=== PATIENT | female | born 1940 | race Caucasian/White ===

== ENCOUNTER → 2018-06-23 12:02 | Outpatient (REF) | payer MEDICARE, SELFPAY | LOC: NCHCN 12:02 | PROVIDERS: PCP Family Medicine; Visit Provider Family Medicine | DX: E83.42 Hypomagnesemia (principal) | CPT/HCPCS: 83735 ==

== ENCOUNTER 2019-06-02 09:06 | Outpatient (REF) | payer MEDICARE, SELFPAY ==
[2019-06-02 13:39] LABS: Anion Gap 10.2 mmol/L (3-11); BUN 9 mg/dL (7-18); CO2 27.8 mmol/L (21.0-32.0); CREATININE 0.65 mg/dL (0.55-1.02); Calcium 9.3 mg/dL (8.5-10.1); Chloride 99 mmol/L (98-107); Glucose 197 mg/dL (70-100); Potassium 4.3 mmol/L (3.5-5.1); Sodium 137 mmol/L (136-145)
== END 2019-06-02 09:26 ==
LOC: NCHCN 09:06
PROVIDERS: PCP Family Medicine; Visit Provider Family Medicine
DX: E11.9 Type 2 diabetes mellitus without complications (principal); Z79.4 Long term (current) use of insulin; I10 Essential (primary) hypertension; J30.9 Allergic rhinitis, unspecified
CPT/HCPCS: 80048

== ENCOUNTER 2019-10-20 08:32 | Outpatient (CLI) | payer MEDICARE, SELFPAY ==
--- NOTE | 2019-10-20 09:04 | DI.RAD_ITS ---
EXAM: XR CHEST 2V PA LATERAL INDICATION: CHRONIC COUGH, R05. COMPARISON: No exams were available for comparison TECHNIQUE: 2D digital imaging was performed. FINDINGS: The heart is enlarged. There is prominence of the pulmonary vasculature. There are increased inters titial markings throughout the lungs. No focal consolidating infiltrate is present. There is a smal l amount of fluid seen in the fissures. The lungs appear hyperinflated suggesting underlying COPD. Degenerative changes are seen in the spine. IMPRESSION: Findings suspicious for congestive heart failure.
== END 2019-10-20 08:52 ==
PROVIDERS: PCP Family Medicine; Visit Provider Family Medicine
DX: R05 Cough (principal); I51.7 Cardiomegaly; J44.9 Chronic obstructive pulmonary disease, unspecified
CPT/HCPCS: 71046

== ENCOUNTER 2019-11-10 02:55 | Outpatient (CLI) | payer MEDICARE, SELFPAY ==
--- NOTE | 2019-11-10 14:02 | DI.US_ITS ---
APPROVED REPORT EXAM: Comprehensive 2D, Doppler, and color-flow Echocardiogram Patient Location: Out-Patient Internal Review And Audit Compliance: Zenobia Gallo RDCS (AE) Rhythm: Tachycardia Indications: pulmonary edema j81.1, 79 yo w/ dm, HTN, no known H/O CAD, chronic cough, xray showing pulmonary edema Conclusion Mildly dilated LV Severely depressed LV systolic function, EF 15 to 20% Global hypo to akinesis Right ventricle is dilated and hypocontractile Both atria are borderline to mildly dilated Aortic valve is mildly sclerotic with trace regurgitation Thickened mitral leaflets Mild to moderate mitral and tricuspid regurgitaiton, Moderate pulmonary hypertension; estimated RVSP 54 mmg Mild pulmonic regurgitation Small circumferential pericardial effusion No tamponade . Left pleural effusion Wall motion Left Ventricle Left ventricle is mildly dilated. Left ventricular ejection fraction is severely decreased. Mild conc entric left ventricular hypertrophy. Severe global hypo to akinesis elevated filling pressures. LVEF is estimated to be 15-20%. Right Ventricle Right ventricle is mildly dilated. Right ventricle is moderately hypokinetic. Base appears to thicken . Atria Left atrium is mildly dilated. The right atrium size is top normal. Right atrium size is normal. Aortic Valve Aortic valve is trileaflet.It is mildly sclerotic There is no aortic valvular stenosis. Trace aortic regurgitation Mitral Valve Mitral valve leaflets are thickened. Mild to moderate mitral regurgitation. Tricuspid Valve The tricuspid valve is thickened mild to moderate tricuspid regurgitation. Pulmonic Valve mild pulmonic regurgitation. Great Vessels The aortic root is normal in size. The ascending aorta is normal in size. The IVC is dilated. The IVC collapses bluntly at best. Pericardium There is a circumfrencial pericardial effusion. anterior 1.3cm posterior 1.04cm A small left pleural effusion was identified. 2D Dimensions IVSd 1.25 cm F: 0.6-1.0 LV EDV A2C 122.50 mL PWd 1.20 cm F: 0.6 - 1.0 LV EDV A4C 80.90 mL LVDd 6.10 cm F: 3.8 - 5.2 LA Volume Index A2C 43.11 mL/m2 LVDs 5.65 cm F: 2.2 - 3.5 LA Volume Index A4C 39.54 mL/m2 Aortic Root 3.15 cm F: 2.7 - 3.3 LA Volume Index Biplane 41.71 mL/m2 RA Area A4C 19.20 cm2 LA Area A4C 20.41 cm2 LVOT 2.05 cm (M/F) 1.5-2.5 LA Area A2C 21.53 cm2 Ascending Aorta 2.94 cm F: 2.3 - 3.1 EF AP4 20.40 % LVEF (Teich) 16.31 % EF AP2 18.69 % LVEF (Bergman's) 17.03 % F: 54 - 74 EF BP 17.03 % LV Volume 79.11 mL F: 46 - 106 LV Volume Index 46.26 mL/m2 F: 29 - 61 FS 7.45 % LV Diastology E/A Ratio 1.3 MED E' 0.03 (>0.07 m/s) LV E/e MED 25.55 (<14) LAT E' 0.06 (>0.1 m/s) LV E/e LAT 15.90 (<14) Aortic Valve LVOT Area 3.36 cm2 LVOT Vmax 0.61 m/s LVOT Mean Antonio. 0.43 m/s LVOT Peak Gr. 1.5 mmHg LVOT Mean Gr. 0.8 mmHg AoV Area/ BSA (Vmax) 1.30 cm2/m2 LVOT VTI 0.067 m AoV Vmax 0.92 (0.5-1.3 m/s) TEJA Mean Antonio. Index 1.18 cm2/m2 AoV Mean Antonio. 0.71 m/s AoV Peak Grad 3.4 mmHg AI PHT 167.54 msec AoV Mean Grad 2.2 (<5 mmHg) AoV VTI 0.157 (0.18-0.25 m) AV Regurg Decel. 577.74 msec AoV Area VTI 1.96 (2.5-4.5 cm2) AoV Area/ BSA (VTI) 1.14 cm/m2 Mitral Valve MV E Max Antonio. 0.88 (0.4-1.3 m/s) MV A Velocity 0.70 (0.4-1.3 m/s) E/A Ratio 1.18 MV Decel. Time 135.50 (160-240 msec) MV PHT 39.30 msec MVA PHT 5.55 cm2 Pulmonary Valve PV Peak Velocity 0.79 (0.5-1.5 m/s) [place] End VMAX 185.78 cm/s Tricuspid Valve TR P. Velocity 3.30 m/s TV Regurg Vmax 3.30 m/s RAP Estimate 10.00 mmHg RVSP 54.00 mmHg TR P. Gradient 43.55 mmHg
== END 2019-11-10 03:15 ==
PROVIDERS: PCP Family Medicine; Visit Provider Family Medicine
DX: I31.3 Pericardial effusion (noninflammatory) (principal); I50.1 Left ventricular failure, unspecified; I27.20 Pulmonary hypertension, unspecified; I10 Essential (primary) hypertension
CPT/HCPCS: 93306

== ENCOUNTER 2019-11-10 15:24 | Emergency (ER) | payer MEDICARE, SELFPAY ==
[2019-11-10] VITALS (18 sets, daily range): BP systolic 119–130; BP diastolic 61–101; PULSE 76–121; RESP 16–32; TEMP 36.7–36.9; O2SAT 93–98
--- NOTE | 2019-11-10 15:31 | W.ED.GENAD ---
Discharge Plan Disposition Patient Disposition: HOME Condition: Improving Discharge Details Chief Complaint: SOB Clinical Impression: Acute exacerbation of CHF (congestive heart failure), Chronic cough Primary Care Provider: Christ Saldivar ED Provider: Kirti Faulkner Home Meds and New Rx's Prescriptions: Continued amlodipine 5 mg Tablet 5 mg PO DAILY RF: 0 aspirin [Aspir-81] 81 mg Tablet,Delayed Release (Dr/Ec) 81 mg PO DAILY RF: 0 metformin 1,000 mg Tablet 1,000 mg PO BID RF: 0 Levemir FlexTouch U-100 Insuln 100 unit/mL (3 mL) Insulin Pen 34 unit SUBCUT QHS RF: 0 hydrochlorothiazide 12.5 mg Tablet 12.5 mg PO QAM RF: 0 furosemide [Lasix] 20 mg Tablet 40 mg PO DAILY AM RF: 0 Discontinued furosemide 20 mg Tablet 20 mg PO DAILY RF: 0 Discharge Instructions Instructions: Heart Failure (ED), Chronic Cough (ED) Additional Instructions: Increase your Lasix from 20 mg (1 tab) to 40mg (2 tabs) starting tomorrow. Use the inhaler to help with cough and shortness of breath as needed and directed. Limit your sodium intake. Be sure to stand up slowly before starting to walk as this increase in lasix can lower your blood pressure and standing too quickly can cause dizziness and increase risk of falls. Call your primary care doctor's office as soon as possible to schedule a follow-up appointment for later this week for reevaluation. We will also have care management help to obtain this appointment for you and you should receive a call from them this week. Return immediately to the emergency department if you develop any worsening or new concerning symptoms. Discharge Data Discharge Date/Time-TO BE ENTERED AT DEPARTURE: 11/10/19 18:22 Discharge Physician: Kirti Faulkner Medical Decision Making 1540 -- 79yo F w/ a h/o diabetes, htn, chf on lasix who presents with dry cough and dyspnea on exertion for the past 2 months. Patient states she is seen her primary care doctor for this recently but was unsure of the diagnosis but was prescribed Lasix and sent for outpatient chest x-ray and echo. She states she had the echo at the hospital here today. She states she has had ongoing shortness of breath that mainly occurs with exertion but also because time at rest the past 2 months. She denies fever, sore throat, chest pain, vomiting or dizziness. EKG on arrival notes a rate of 104, sinus with no acute ST ischemic changes. Heart rate mildly elevated at 104. Blood pressure within normal limits. Patient appears nontoxic. She has diminished breath sounds throughout but worse in the bases bilaterally. She is 1+ pitting lower extremity edema. Main concern would be acute CHF exacerbation at this time. Differential diagnosis could also include bronchitis, ACS, pneumonia, arrhythmia. Will place an IV, bolus IV fluids, labs, chest x-ray. We will give a dose of Lasix and DuoNeb and reassess. 1640 --labs and imaging reviewed. Normal white blood cell count. Hemoglobin 11, down 2 points from almost 3 years ago. Magnesium 1.4. Troponin negative. BNP 5529. Chest x-ray notes cardiomegaly and mild interstitial pulmonary edema. Able to obtain report of echo today - small to moderate circumferential (around R ventricle) pericardial effusion but no evidence of pericardial tamponade. Left ventricle moderately dilated. Global left ventricular systolic function severely reduced with an EF of 17%. Right ventricular global systolic function severely reduced. Evidence of moderate pulmonary hypertension. Patient states she feels better. Breath sounds significantly improved. Oxygen saturation 95% on room air. Patient still complain of cough. She denied any relief with Tessalon Perltom from Dr. Saldivar. She has an allergy to codeine which causes dizziness. Will give another neb treatment and reassess. Discussed with patient her results and that we could consider admission for diuresis but patient states she would like to go home. Will attempt to walk pt to assess respiratory status with ambulation. 1720 -- Pt able to ambulate with some increase in heart rate from low 100s to 110s but with stable oxygen at 96%. Patient denied any shortness of breath. Patient again offered admission for observation overnight and diuresis but she declined stating she would rather go home to be with her animals. She has family that live right near her and states she feels comfortable reaching out to them if needed. Will increase lasix from 20mg daily to 40 mg daily with plan for follow-up with her PCP within the next week for reevaluation. We will also send home with an albuterol inhaler to help with her cough. Discussed at length with patient that there does not appear to be evidence of pneumonia as she has no fever and normal white blood cell count so do not see an indication for antibiotics. Also discussed that she has no wheezing, no history of smoking, do not see indication for steroids especially in the setting of her diabetes which may increase her blood sugar. Patient placed on care management list to arrange for a follow-up appointment with her primary care doctor later this week for reevaluation. Patient advised to return here immediately with any worsening or new concerning symptoms. Medical Records Medical records reviewed: Yes I reviewed the patient's medical records. Imaging Data Radiologic Study: Radiologist's impression: XR Chest, 2 Views Exam date and time: 11/10/2019 4:23 PM Age: 79 years old Clinical indication: Other: Cough, SOB, R/O chf/pneumonia TECHNIQUE: Imaging protocol: XR of the chest Views: 2 views. COMPARISON: CR XR CHEST 2V PA LATERAL 10/20/2019 9:04 AM FINDINGS: Lungs: There are slightly increased interstitial lung markings bilaterally, concerning for mild interstitial pulmonary edema. No focal consolidation. Pleural space: Unremarkable. No pleural effusion. No pneumothorax. Heart/Mediastinum: Cardiomegaly again noted. Bones/joints: Unremarkable. IMPRESSION: Cardiomegaly with findings concerning for mild interstitial pulmonary edema. Lab Data Lab results reviewed: Yes I reviewed the patient's lab results. Labs: Laboratory Tests Range/Units 11/10/19 11/10/19 11/10/19 15:50 15:50 15:50 WBC (4.4-10.8) k/cumm 9.73 RBC (4.00-5.20) m/cumm 4.71 Hgb (12.0-15.5) g/dL 11.1 L Hct (36.0-46.0) % 34.9 L MCV (80-95) fL 74.1 L MCH (27.0-33.0) pg 23.6 L MCHC (32.0-36.0) g/dL 31.8 L RDW (11.7-14.6) % 17.6 H Plt Count (130-400) x1000/uL 536 H MPV (8.0-11.0) fL 9.3 Immature Gran % 0.3 Neutrophils % 74.7 Lymphocytes % 16.3 Monocytes % 7.2 Eosinophils % 0.9 Basophils % 0.6 Absolute Neutrophils (1.2-6.7) k/cumm 7.26 H Absolute Lymphocytes (1.2-3.4) k/cumm 1.59 Absolute Monocytes (0.11-0.7) k/cumm 0.70 Absolute Eosinophils (0.0-0.7) k/cumm 0.09 Absolute Basophils (0.0-0.2) k/cumm 0.06 Differential Comment Rbc morph reviewed RBC Morphology See below Microcytosis 2+ Sodium (136-145) mmol/L 137 Potassium (3.5-5.1) mmol/L 4.0 Chloride (98-107) mmol/L 95 L Carbon Dioxide (21.0-32.0) mmol/L 29.4 Anion Gap (3-11) mmol/L 12.6 H BUN (7-18) mg/dL 7 Creatinine (0.55-1.02) mg/dL 0.65 Estimated GFR/1.73 m2 (mL/min/1.73m2) >= 60.00 Glucose (74-106) mg/dL 153 H Calcium (8.5-10.1) mg/dL 9.2 Magnesium (1.8-2.4) mg/dL 1.4 L Total Bilirubin (0.2-1.0) mg/dL 1.0 AST (15-37) U/L 39 H ALT (14-59) U/L 41 Alkaline Phosphatase (46-116) U/L 94 Troponin I (<0.06) ng/Ml < 0.05 NT-Pro-B Natriuret Pep (<300) pg/mL 5529 Total Protein (6.4-8.2) g/dL 7.6 Albumin (3.4-5.0) g/dL 3.5 ECG Data Attestation: I personally reviewed and interpreted this ECG (s) as follows: Interpretation: rate of 104, sinus, TWI in aVL and V6. No acute ST elevation or depression. IL 150. QTc 476. QRS 106. HPI General Mode of arrival: ambulatory. Date/Time Provider Initiated Documentation: 11/10/19 15:27. Limitations to Documentation: no limitations. Information obtained by: patient. History of Present Illness 79 year old F presents to the emergency department with the chief complaint of cough and shortness of breath, Patient started experiencing this month(s) (2) and it has been constant. Rest improves symptom(s), Movement worsens symptoms and Other factors that worsen symptoms (laying flat, walking ) . Patient notes cough and shortness of breath; denies diaphoresis, fever/chills, headaches, loss of appetite, malaise, nausea/vomiting, rash, seizure, syncope and weakness. Patient did receive the following treatments prior to arrival, none Related Data Home Medications Medication Instructions Recorded Confirmed Levemir FlexTouch U-100 Insuln 34 unit SUBCUT QHS 11/10/19 11/10/19 amlodipine 5 mg PO DAILY 11/10/19 11/10/19 aspirin [Aspir-81] 81 mg PO DAILY 11/10/19 11/10/19 furosemide [Lasix] 40 mg PO DAILY AM 11/10/19 11/10/19 hydrochlorothiazide 12.5 mg PO QAM 11/10/19 11/10/19 metformin 1,000 mg PO BID 11/10/19 11/10/19 Allergies Allergy/AdvReac Type Severity Reaction Status Date / Time codeine Allergy Unverified 11/10/19 15:34 Review of Systems All systems reviewed & are unremarkable except as noted in HPI and below Constitutional Constitutional: Reports as per HPI, Denies chills and Denies fever(s) Eyes Eyes: Denies blurry vision ENT Ears, Nose, Mouth, and Throat: Denies dizziness, Denies sore throat and Denies throat swelling Cardiovascular Cardiovascular: Denies chest pain and Reports dyspnea Respiratory Respiratory: Reports cough and Reports dyspnea Gastrointestinal Gastrointestinal: Denies abdominal pain, Denies diarrhea and Denies vomiting Genitourinary Genitourinary: Denies hematuria and Denies dysuria Musculoskeletal Musculoskeletal: Denies back pain and Denies numbness Integumentary/Breasts Skin/Breast: Denies lesions and Denies rash Neurologic Neurologic: Denies dizziness, Denies focal weakness and Denies numbness Allergic/Immunologic Allergic/Immunologic: Denies throat swelling [facility] Medical History CHF (congestive heart failure) (Chronic) Diabetes (Chronic) HTN (hypertension) (Chronic) Surgical History History of hysterectomy (Chronic) Social History Smoking/Tobacco Use Status: Never Alcohol Intake: never Substance use type: does not use Exam Const General: cooperative and no acute distress HENMT Head: normal to inspection Face and sinus: normal facial exam Eyes General: appearance normal, both eyes and all related structures EOM: EOM intact bilaterally Neck Neck: normal visual inspection and No submandibular swelling Lymphatic: no lymphadenopathy noted Chest Chest: normal inspection of the chest and no tenderness Resp Effort & Inspection: normal respiratory effort and able to speak in complete sentences Auscultation: diminished lung sounds bilaterally throughout (worse in bases b/l ) Cardio Rate: tachycardic Rhythm: regular rhythm GI Inspection: normal to inspection Palpation: soft, not firm, not rigid and nontender Auscultation: normal bowel sounds Skin General skin exam: no rashes or lesions noted Neuro General: alert, awake and oriented x3 Cognition: normal cognition Speech: speech normal Motor: muscle tone normal throughout Sensory Exam: no sensory deficits noted Extrem General: normal to inspection, full ROM, normal capillary refill, no calf tenderness bilaterally and edema Laterality: bilateral (2+ pitting) Psych Appearance: grossly normal Mental Status: mental status grossly normal Speech and Movement: speech and movement normal Affect: normal affect
[2019-11-10] MEDS: Albuterol/Ipratropium 3 ML UPD VIAL UPD ×2 (15:55→17:02)
[2019-11-10] MEDS: Furosemide 40 MG/4 ML VIAL IVP (15:55)
[2019-11-10 16:00] LABS: Abs Immature Grans 0.03 k/cumm (0.0-0.09); Absolute Basophil Count 0.06 k/cumm (0.0-0.2); Absolute Eosinophil Count 0.09 k/cumm (0.0-0.7); Absolute Lymphocyte Count 1.59 k/cumm (1.2-3.4); Absolute Neutrophil Count 7.26 k/cumm (1.2-6.7); Basophils % 0.6; Eosinophils % 0.9; HCT 34.9 % (36.0-46.0); HGB 11.1 g/dL (12.0-15.5); Immature Grans % 0.3; Lymphocytes % 16.3; Mean Corp. HGB Concentration 31.8 g/dL (32.0-36.0); Mean Corpuscular Hemoglobin 23.6 pg (27.0-33.0); Mean Corpuscular Volume 74.1 fL (80-95); Mean Platelet Volume 9.3 fL (8.0-11.0); Monocytes % 7.2; Neutrophils % 74.7; Platelet Count 536 x1000/uL (130-400); RBC 4.71 m/cumm (4.00-5.20); RBC Distribution Width 17.6 % (11.7-14.6); White Blood Cell Count 9.73 k/cumm (4.4-10.8)
--- NOTE | 2019-11-10 16:19 | DI.RAD_ITS ---
EXAM: XR CHEST 2V PA LATERAL INDICATION: cough, sob, r/o chf/pneumonia. COMPARISON: XR CHEST 2V PA LATERAL from 10/20/2019 TECHNIQUE: 2D digital imaging was performed. FINDINGS: There is again seen cardiomegaly. There is atherosclerosis of the thoracic aorta. No focal consolid ating infiltrates are seen. No pleural effusions or pneumothoraces are present. Increased interstit ial lung markings are again noted. Age-appropriate degenerative changes are seen in the spine. Lung s appear hyperinflated suggesting underlying COPD. IMPRESSION: Cardiomegaly. Increased interstitial lung markings concerning for mild pulmonary edema.
[2019-11-10 16:22] LABS: ALT 41 U/L (14-59); AST 39 U/L (15-37); Albumin 3.5 g/dL (3.4-5.0); Anion Gap 12.6 mmol/L (3-11); BUN 7 mg/dL (7-18); CO2 29.4 mmol/L (21.0-32.0); CREATININE 0.65 mg/dL (0.55-1.02); Calcium 9.2 mg/dL (8.5-10.1); Chloride 95 mmol/L (98-107); Glucose 153 mg/dL (74-106); Magnesium 1.4 mg/dL (1.8-2.4); Sodium 137 mmol/L (136-145); Total Protein 7.6 g/dL (6.4-8.2); Troponin I < 0.05 ng/Ml (<0.06)
[2019-11-10 16:28] LABS: Diff Comment RBC Morph Reviewed; Microcytosis 2+
[2019-11-10 16:29] LABS: NT-proBNP 5529 pg/mL (<300)
[2019-11-10 16:36] LABS: Alkaline Phosphatase 94 U/L (46-116)
[2019-11-10] MEDS: MAGNESIUM SULFATE 1 GM/100 ML BAG IVPB (16:49)
--- NOTE | 2019-11-10 17:01 | DI.VRAD_ITS ---
PROCEDURE INFORMATION: Exam: XR Chest, 2 Views Exam date and time: 11/10/2019 4:23 PM Age: 79 years old Clinical indication: Other: Cough, SOB, R/O chf/pneumonia TECHNIQUE: Imaging protocol: XR of the chest Views: 2 views. COMPARISON: CR XR CHEST 2V PA LATERAL 10/20/2019 9:04 AM FINDINGS: Lungs: There are slightly increased interstitial lung markings bilaterally, concerning for mild interstitial pulmonary edema. No focal consolidation. Pleural space: Unremarkable. No pleural effusion. No pneumothorax. Heart/Mediastinum: Cardiomegaly again noted. Bones/joints: Unremarkable. IMPRESSION: Cardiomegaly with findings concerning for mild interstitial pulmonary edema. Dictated and Authenticated by: Xuan Lara MD. Ordering:KAYCE Cotto MD
--- NOTE | 2019-11-10 17:43 | NUR.NOTE ---
Nursing Note: Faxed referral to PCP for follow up this week, or Sat. Jaylin Wilson.
== END 2019-11-10 18:22 | disposition home or self-care (01) ==
PROVIDERS: Emergency Provider Physician Assistant; PCP Family Medicine
DX: I50.9 Heart failure, unspecified (principal); I11.0 Hypertensive heart disease with heart failure; E11.9 Type 2 diabetes mellitus without complications; R05 Cough; R06.02 Shortness of breath; E83.42 Hypomagnesemia
CPT/HCPCS: 36415; 80053; 93005; 94640; 96365; 96375; 99285; 71046; 83735; 83880; 84484; 85025; 93010; 93306; J1940; J3475; J7620

== ENCOUNTER 2019-11-15 17:11 | Emergency (ER) | payer MEDICARE, SELFPAY ==
[2019-11-15 17:21] VITALS: BP 133/70; PULSE 107; RESP 18; TEMP 36.3; O2SAT 97
[2019-11-15 17:46] LABS: Abs Immature Grans 0.05 k/cumm (0.0-0.09); Absolute Basophil Count 0.07 k/cumm (0.0-0.2); Absolute Eosinophil Count 0.13 k/cumm (0.0-0.7); Absolute Monocyte Count 0.72 k/cumm (0.11-0.7); Absolute Neutrophil Count 7.49 k/cumm (1.2-6.7); Basophils % 0.7; Eosinophils % 1.3; HCT 34.3 % (36.0-46.0); HGB 11.1 g/dL (12.0-15.5); Immature Grans % 0.5; Lymphocytes % 16.7; Mean Corp. HGB Concentration 32.4 g/dL (32.0-36.0); Mean Corpuscular Hemoglobin 23.7 pg (27.0-33.0); Mean Corpuscular Volume 73.1 fL (80-95); Mean Platelet Volume 9.2 fL (8.0-11.0); Monocytes % 7.1; Neutrophils % 73.7; Platelet Count 585 x1000/uL (130-400); RBC 4.69 m/cumm (4.00-5.20); RBC Distribution Width 17.2 % (11.7-14.6); White Blood Cell Count 10.16 k/cumm (4.4-10.8)
[2019-11-15 18:30] LABS: ALT 124 U/L (14-59); AST 147 U/L (15-37); Albumin 3.4 g/dL (3.4-5.0); Alkaline Phosphatase 101 U/L (46-116); Anion Gap 12.2 mmol/L (3-11); BUN 12 mg/dL (7-18); Bilirubin, Total 1.1 mg/dL (0.2-1.0); CO2 26.8 mmol/L (21.0-32.0); CREATININE 0.76 mg/dL (0.55-1.02); Calcium 8.9 mg/dL (8.5-10.1); Chloride 89 mmol/L (98-107); Glucose 262 mg/dL (74-106); Magnesium 1.3 mg/dL (1.8-2.4); Potassium 4.1 mmol/L (3.5-5.1); Sodium 128 mmol/L (136-145); Total Protein 7.4 g/dL (6.4-8.2); Troponin I < 0.05 ng/Ml (<0.06)
--- NOTE | 2019-11-15 18:31 | DI.RAD_ITS ---
EXAM: XR CHEST 2V PA LATERAL INDICATION: sob, leg swelling, r/o chf. COMPARISON: XR CHEST 2V PA LATERAL from 11/10/2019 TECHNIQUE: 2D digital imaging was performed. FINDINGS: There is stable cardiomegaly. Persistent prominence of the interstitium and pulmonary vasculature is again noted. No focal consolidating infiltrates or pneumothoraces are identified. Degenerative omar nges are seen in the spine. IMPRESSION: No change in appearance of the chest x-ray since 11/10/2019.
[2019-11-15 18:33] LABS: NT-proBNP 6185 pg/mL (<300)
[2019-11-15 18:38] VITALS: PULSE 104; RESP 18; RESP 7; O2SAT 96
[2019-11-15] MEDS: Albuterol/Ipratropium 3 ML UPD VIAL UPD (18:38)
[2019-11-15] MEDS: predniSONE 20 MG TAB 60 MG PO (18:38)
--- NOTE | 2019-11-15 18:53 | DI.VRAD_ITS ---
PROCEDURE INFORMATION: Exam: XR Chest, 2 Views Exam date and time: 11/15/2019 6:35 PM Age: 79 years old Clinical indication: Cough; Patient HX: SOB, leg swelling, R/O chf TECHNIQUE: Imaging protocol: XR of the chest Views: 2 views. COMPARISON: SD XR CHEST 2V PA LATERAL 11/10/2019 4:19 PM FINDINGS: Lungs: Prominent, indistinct pulmonary vasculature. Hazy right basilar opacity. Pleural space: Small bilateral pleural effusions. Heart/Mediastinum: Unchanged enlarged cardiomediastinal silhouette. Bones/joints: Unremarkable. IMPRESSION: 1. Pulmonary edema. 2. Hazy right basilar opacity consistent with edema, atelectasis, aspiration or infection. 3. Small bilateral pleural effusions. Dictated and Authenticated by: Pola Roche MD. Ordering:KAYCE Cotto MD
[2019-11-15] MEDS: guaiFENesin/CODEINE PHOSPHATE 10 ML CUP PO (18:54)
--- NOTE | 2019-11-15 18:56 | ED.GENADUL_ITS ---
Discharge Plan Disposition Patient Disposition: HOME Condition: Improving Discharge Details Chief Complaint: SOB Clinical Impression: Acute on chronic clinical systolic heart failure, Chronic cough Primary Care Provider: Christ Saldivar ED Provider: Kirti Faulkner Home Meds and New Rx's Prescriptions: New codeine-guaifenesin 10-100 mg/5 mL liquid 10 ml PO Q4H PRN (Reason: cough) Qty: 120 RF: 0 Continued benzonatate 100 mg Capsule 100 mg PO Q8H PRN (Reason: Cough) RF: 0 amlodipine 5 mg Tablet 5 mg PO DAILY RF: 0 aspirin [Aspir-81] 81 mg Tablet,Delayed Release (Dr/Ec) 81 mg PO DAILY RF: 0 metformin 1,000 mg Tablet 1,000 mg PO BID RF: 0 Levemir FlexTouch U-100 Insuln 100 unit/mL (3 mL) Insulin Pen 34 unit SUBCUT QHS RF: 0 hydrochlorothiazide 12.5 mg Tablet 12.5 mg PO QAM RF: 0 furosemide [Lasix] 20 mg Tablet 40 mg PO DAILY AM RF: 0 Discharge Instructions Instructions: Heart Failure (ED), Acute Cough (ED) Additional Instructions: Increase your Lasix from 40 mg to 60 mg tomorrow. Take the Robitussin with codeine as needed and directed. Continue to use your albuterol inhaler. Follow-up with your scheduled appointment with Dr. Saldivar on Saturday. Return to the emergency department if you develop any worsening or new concerning symptoms. Discharge Data Discharge Physician: Kirti Faulkner Medical Decision Making 173 -- 79-year-old female with a history of CHF, diabetes, hypertension presents with chronic cough, dyspnea on exertion for the past 2 months. Also admits to bilateral feet swelling for the past few days. Patient was seen here 5 days ago for same complaint and diagnosed with mild CHF and increased her Lasix from 20 to 40 mg daily. She had been offered admission at that time but declined. She was advised to follow-up with her primary care doctor but has not yet. She mainly complains of cough that is worse when she lays flat. She is afebrile. She appears nontoxic. Clear breath sounds throughout. Bilateral pedal edema. Her allergy list notes reaction to codeine which causes dizziness. Patient states this is in the pill form and she is willing to try Robitussin with codeine to see if this helps her cough. We will also give a neb treatment and steroids. She had an echo last week which noted small to moderate circumferential (around R ventricle) pericardial effusion but no evidence of pericardial tamponade. Left ventricle moderately dilated. Global left ventricular systolic function severely reduced with an EF of 17%. Right ventricular global systolic function severely reduced. Evidence of moderate pulmonary hypertension. 1914 -- Labs and imaging reviewed. White blood cell count 10. Sodium 128. Magnesium 1.3. Elevation of AST and ALT which may be due to the increase in Lasix. Patient has no complaint of abdominal pain. BNP increased from 5500 to 6000. Chest x-ray notes pulmonary edema and small bilateral pleural effusions but does not appear much different from chest x-ray 5 days ago. Patient feels better on reassessment. Patient was offered admission for observation and further diuresis but she is declining would rather go home. Patient took 40 mg of Lasix today. An additional dose of 20 mg given here. Patient advised to continue her inhaler as needed. Will hold on continued steroids. Doubt pneumonia at this time as she has no fever, normal white blood cell count, and no significant productive sputum. We will send with Robitussin with codeine for home as she was able to tolerate this here without reaction. She was advised to take 60 mg of Lasix tomorrow and Robitussin with codeine as needed. She is advised to follow-up with her scheduled appointment with Dr. Saldivar on Saturday and to return here at any time if worse. Medical Records Medical records reviewed: Yes I reviewed the patient's medical records. Imaging Data Radiologic Study: Radiologist's impression: XR Chest, 2 Views Exam date and time: 11/15/2019 6:35 PM Age: 79 years old Clinical indication: Cough; Patient HX: SOB, leg swelling, R/O chf TECHNIQUE: Imaging protocol: XR of the chest Views: 2 views. COMPARISON: SD XR CHEST 2V PA LATERAL 11/10/2019 4:19 PM FINDINGS: Lungs: Prominent, indistinct pulmonary vasculature. Hazy right basilar opacity. Pleural space: Small bilateral pleural effusions. Heart/Mediastinum: Unchanged enlarged cardiomediastinal silhouette. Bones/joints: Unremarkable. IMPRESSION: 1. Pulmonary edema. 2. Hazy right basilar opacity consistent with edema, atelectasis, aspiration or infection. 3. Small bilateral pleural effusions. Lab Data Lab results reviewed: Yes I reviewed the patient's lab results. Labs: Laboratory Tests Range/Units 11/15/19 11/15/19 11/15/19 17:35 17:35 17:35 WBC (4.4-10.8) k/cumm 10.16 RBC (4.00-5.20) m/cumm 4.69 Hgb (12.0-15.5) g/dL 11.1 L Hct (36.0-46.0) % 34.3 L MCV (80-95) fL 73.1 L MCH (27.0-33.0) pg 23.7 L MCHC (32.0-36.0) g/dL 32.4 RDW (11.7-14.6) % 17.2 H Plt Count (130-400) x1000/uL 585 H MPV (8.0-11.0) fL 9.2 Immature Gran % 0.5 Neutrophils % 73.7 Lymphocytes % 16.7 Monocytes % 7.1 Eosinophils % 1.3 Basophils % 0.7 Absolute Neutrophils (1.2-6.7) k/cumm 7.49 H Absolute Lymphocytes (1.2-3.4) k/cumm 1.70 Absolute Monocytes (0.11-0.7) k/cumm 0.72 H Absolute Eosinophils (0.0-0.7) k/cumm 0.13 Absolute Basophils (0.0-0.2) k/cumm 0.07 Differential Comment Rbc morph reviewed RBC Morphology See below Microcytosis 2+ Sodium (136-145) mmol/L 128 L Potassium (3.5-5.1) mmol/L 4.1 Chloride (98-107) mmol/L 89 L Carbon Dioxide (21.0-32.0) mmol/L 26.8 Anion Gap (3-11) mmol/L 12.2 H BUN (7-18) mg/dL 12 Creatinine (0.55-1.02) mg/dL 0.76 Estimated GFR/1.73 m2 (mL/min/1.73m2) >= 60.00 Glucose (74-106) mg/dL 262 H Calcium (8.5-10.1) mg/dL 8.9 Magnesium (1.8-2.4) mg/dL 1.3 L Total Bilirubin (0.2-1.0) mg/dL 1.1 H AST (15-37) U/L 147 H ALT (14-59) U/L 124 H Alkaline Phosphatase (46-116) U/L 101 Troponin I (<0.06) ng/Ml < 0.05 NT-Pro-B Natriuret Pep (<300) pg/mL 6185 H Total Protein (6.4-8.2) g/dL 7.4 Albumin (3.4-5.0) g/dL 3.4 ECG Data Attestation: I personally reviewed and interpreted this ECG (s) as follows: Interpretation: Rate of 104, sinus, no acute ST elevation or depression. T wave inversion in V5 V6 which has been seen in previous EKG. LA 148. QTc 458. QRS 106. HPI General Mode of arrival: ambulatory . Date/Time Provider Initiated Documentation: 11/15/19 18:03 . Limitations to Documentation: no limitations . Information obtained by: patient . History of Present Illness 79 year old F presents to the emergency department with the chief complaint of chronic cough, shortness of breath, b/l feet swelling, Patient started experiencing this month(s) (2) and it has been constant. No relieving factors improve symptom(s), Other factors that worsen symptoms (Shortness of breath and cough worse when laying flat) . Patient notes cough (Occasional white or clear phlegm) and shortness of breath; denies chest pain, diaphoresis, fever/chills, headaches, malaise, nausea/vomiting, rash, seizure, syncope and weakness. Patient did receive the following treatments prior to arrival, none Related Data Home Medications Medication Instructions Recorded Confirmed Levemir FlexTouch U-100 Insuln 34 unit SUBCUT QHS 11/10/19 11/15/19 amlodipine 5 mg PO DAILY 11/10/19 11/15/19 aspirin [Aspir-81] 81 mg PO DAILY 11/10/19 11/15/19 furosemide [Lasix] 40 mg PO DAILY AM 11/10/19 11/15/19 hydrochlorothiazide 12.5 mg PO QAM 11/10/19 11/15/19 metformin 1,000 mg PO BID 11/10/19 11/15/19 benzonatate 100 mg PO Q8H PRN 11/15/19 11/15/19 codeine-guaifenesin 10 ml PO Q4H PRN #120 ml 11/15/19 Previous Rx's Medication Instructions Recorded codeine-guaifenesin 10 ml PO Q4H PRN #120 ml 11/15/19 Allergies Allergy/AdvReac Type Severity Reaction Status Date / Time codeine Allergy Unverified 11/15/19 17:25 General Stated Complaint: SOB ARNOLDO: 3 Review of Systems All systems reviewed & are unremarkable except as noted in HPI and below Constitutional Constitutional: Reports as per HPI, Denies chills and Denies fever(s) Eyes Eyes: Denies blurry vision ENT Ears, Nose, Mouth, and Throat: Denies dizziness, Denies sore throat and Denies throat swelling Cardiovascular Cardiovascular: Denies chest pain and Reports dyspnea Respiratory Respiratory: Reports cough and Reports dyspnea Gastrointestinal Gastrointestinal: Denies abdominal pain, Denies diarrhea and Denies vomiting Genitourinary Genitourinary: Denies hematuria and Denies dysuria Musculoskeletal Musculoskeletal: Denies back pain and Denies numbness Integumentary/Breasts Skin/Breast: Denies lesions and Denies rash Neurologic Neurologic: Denies dizziness, Denies focal weakness and Denies numbness Allergic/Immunologic Allergic/Immunologic: Denies throat swelling [facility] Medical History CHF (congestive heart failure) (Chronic) Diabetes (Chronic) HTN (hypertension) (Chronic) Surgical History History of hysterectomy (Chronic) Social History Smoking/Tobacco Use Status: Never Alcohol Intake: never Substance use type: does not use Do you feel safe at home: Yes Do you feel safe in your relationship?: No Exam Const General: cooperative, healthy appearing and no acute distress HENMT Head: normal to inspection Face and sinus: normal facial exam Eyes General: appearance normal, both eyes and all related structures Pupils: PERRL EOM: EOM intact bilaterally Neck Neck: normal visual inspection and No submandibular swelling Lymphatic: no lymphadenopathy noted Chest Chest: normal inspection of the chest and no tenderness Resp Effort & Inspection: normal respiratory effort, able to speak in complete se ntences and cough Quality of cough: dry Auscultation: clear to auscultation bilaterally Cardio Rate: regular rate Rhythm: regular rhythm GI Inspection: normal to inspection Palpation: soft, not firm, not rigid and nontender Auscultation: normal bowel sounds Skin General skin exam: no rashes or lesions noted Neuro General: alert, awake and oriented x3 Cognition: normal cognition Speech: speech normal Motor: muscle tone normal throughout Sensory Exam: no sensory deficits noted Extrem General: normal to inspection, full ROM, normal capillary refill, no calf tenderness bilaterally and no edema Psych Appearance: grossly normal Mental Status: mental status grossly normal Speech and Movement: speech and movement normal Affect: normal affect Course Vital Signs Vital signs: Vital Signs Temperature 97.3 F L 11/15/19 17:21 Pulse 107 H 11/15/19 17:21 Respiratory Rate 18 11/15/19 17:21 Blood Pressure 133/70 11/15/19 17:21 Pulse Oximetry 97 11/15/19 17:21 Temperature 97.3 F L 11/15/19 17:21 Pulse 104 H 11/15/19 18:38 Respiratory Rate 18 11/15/19 18:38 Respiratory Effort 11/15/19 17:37 Blood Pressure 133/70 11/15/19 17:21 Pulse Oximetry 96 11/15/19 18:38 Oxygen Delivery Method Room Air 11/15/19 18:38 Oxygen Flow Rate 0 11/15/19 18:38 Pain Level 10 11/15/19 17:21 Lab/Test Results Lab/Test Results: Laboratory Tests Range/Units 11/15/19 11/15/19 11/15/19 17:35 17:35 17:35 WBC (4.4-10.8) k/cumm 10.16 RBC (4.00-5.20) m/cumm 4.69 Hgb (12.0-15.5) g/dL 11.1 L Hct (36.0-46.0) % 34.3 L MCV (80-95) fL 73.1 L MCH (27.0-33.0) pg 23.7 L MCHC (32.0-36.0) g/dL 32.4 RDW (11.7-14.6) % 17.2 H Plt Count (130-400) x1000/uL 585 H MPV (8.0-11.0) fL 9.2 Sodium (136-145) mmol/L 128 L Potassium (3.5-5.1) mmol/L 4.1 Chloride (98-107) mmol/L 89 L Carbon Dioxide (21.0-32.0) mmol/L 26.8 Anion Gap (3-11) mmol/L 12.2 H BUN (7-18) mg/dL 12 Creatinine (0.55-1.02) mg/dL 0.76 Estimated GFR/1.73 m2 (mL/min/1.73m2) >= 60.00 Glucose (74-106) mg/dL 262 H Calcium (8.5-10.1) mg/dL 8.9 Magnesium (1.8-2.4) mg/dL 1.3 L Total Bilirubin (0.2-1.0) mg/dL 1.1 H AST (15-37) U/L 147 H ALT (14-59) U/L 124 H Alkaline Phosphatase (46-116) U/L 101 Troponin I (<0.06) ng/Ml < 0.05 NT-Pro-B Natriuret Pep (<300) pg/mL 6185 H Total Protein (6.4-8.2) g/dL 7.4 Albumin (3.4-5.0) g/dL 3.4
[2019-11-15 19:01] LABS: Diff Comment RBC Morph Reviewed; Microcytosis 2+
[2019-11-15 19:26] VITALS: RESP 18
[2019-11-15] MEDS: Furosemide 20 MG TAB PO (20:23)
[2019-11-15 20:24] VITALS: BP 140/78; PULSE 106; RESP 18; O2SAT 96
[2019-11-15] MEDS: guaiFENesin/CODEINE PHOSPHATE 10 ML CUP 20 ML PO (20:24)
== END 2019-11-15 20:40 | disposition home or self-care (01) ==
PROVIDERS: Emergency Provider Physician Assistant; PCP Family Medicine
DX: I50.23 Acute on chronic systolic (congestive) heart failure (principal); R05 Cough; I11.0 Hypertensive heart disease with heart failure; E11.9 Type 2 diabetes mellitus without complications; Z79.4 Long term (current) use of insulin; R60.0 Localized edema
CPT/HCPCS: 36415; 80053; 93005; 94640; 99285; 71046; 83735; 83880; 84484; 85025; 93010; J7512; J7620

== ENCOUNTER 2019-11-17 12:08 | Outpatient (REF) | payer MEDICARE, SELFPAY ==
[2019-11-17 19:19] LABS: ALT 197 U/L (14-59); AST 175 U/L (15-37); Albumin 3.6 g/dL (3.4-5.0); Alkaline Phosphatase 99 U/L (46-116); Anion Gap 10.9 mmol/L (3-11); BUN 19 mg/dL (7-18); Bilirubin, Total 1.2 mg/dL (0.2-1.0); CO2 29.1 mmol/L (21.0-32.0); CREATININE 0.81 mg/dL (0.55-1.02); Calcium 9.4 mg/dL (8.5-10.1); Chloride 89 mmol/L (98-107); Glucose 138 mg/dL (74-106); Magnesium 1.5 mg/dL (1.8-2.4); Potassium 4.6 mmol/L (3.5-5.1); Sodium 129 mmol/L (136-145); Total Protein 7.3 g/dL (6.4-8.2)
== END 2019-11-17 12:28 ==
LOC: NCHCN 12:08
PROVIDERS: PCP Family Medicine; Visit Provider Family Medicine
DX: I50.9 Heart failure, unspecified (principal); R74.8 Abnormal levels of other serum enzymes; E83.42 Hypomagnesemia
CPT/HCPCS: 80053; 83735

== ENCOUNTER 2019-11-27 11:28 | Emergency (ER) | payer MEDICARE, SELFPAY ==
[2019-11-27 11:29] VITALS: BP 127/74; PULSE 108; RESP 19; TEMP 36.6; O2SAT 98
--- NOTE | 2019-11-27 11:45 | W.ED.GENAD ---
Discharge Plan Disposition Patient Disposition: HOME Condition: Stable Discharge Details Chief Complaint: Diabetes Clinical Impression: Cough, Hypoglycemia Primary Care Provider: Christ Saldivar ED Provider: Sachin Muller Home Meds and New Rx's Prescriptions: Continued benzonatate 100 mg Capsule 100 mg PO Q8H PRN (Reason: Cough) RF: 0 codeine-guaifenesin 10-100 mg/5 mL liquid 10 ml PO Q4H PRN (Reason: cough) Qty: 120 RF: 0 amlodipine 5 mg Tablet 5 mg PO DAILY RF: 0 aspirin [Aspir-81] 81 mg Tablet,Delayed Release (Dr/Ec) 81 mg PO DAILY RF: 0 metformin 1,000 mg Tablet 1,000 mg PO BID RF: 0 Levemir FlexTouch U-100 Insuln 100 unit/mL (3 mL) Insulin Pen 34 unit SUBCUT QHS RF: 0 hydrochlorothiazide 12.5 mg Tablet 12.5 mg PO QAM RF: 0 furosemide [Lasix] 20 mg Tablet 40 mg PO DAILY AM RF: 0 Discharge Instructions Instructions: Diabetic Hypoglycemia (ED) Additional Instructions: follow up with your primary care within 1 week ] decrease your levemir to 20units daily if you feel more ill, have worsening shortness of breath or fevers return to the emergency department Medical Decision Making 79 yo female with hx of chf, insulin dependent diabetes comes in after she had cnofusion this morning. EMS arrived and noted a bgfs and was given d50 and her confusion resolved and she arrives with sugar over 100 and she has no complaints other than cough for 3 weeks. She is in no distress speaking in full sentences caox4 with clear speech and clear lungs. Suspect her cnofusion is from her hypoglyemia, will monitor this and for her cough obtain cxr to evaluate for pna. Has no chest pain or pressure so doubt entities such as acs or pe imaging negative and labs show no acute findings other than nonspecific wbc of 16 which could be stress response from the hypoglycemia, no evidence of pna and continues to appear well. CM met with patient to help get her set up with outpatatient services. Willd/c home and have her f/u with pcp and return precautions Differential Diagnosis Differential Diagnosis: pna, bronchitis, hypoglyemia Medical Records Medical records reviewed: Yes I reviewed the patient's medical records. Imaging Data Radiologic Study: Attestation: I personally reviewed and interpreted this imaging study as follows: Imaging: X-Ray Radiologist's impression: no acute findings Lab Data Lab results reviewed: Yes I reviewed the patient's lab results. HPI General Mode of arrival: EMS. Date/Time Provider Initiated Documentation: 11/27/19 11:38. Limitations to Documentation: no limitations. Information obtained by: patient and EMS. History of Present Illness 79 year old F presents to the emergency department with the chief complaint of cough, described as mild, Patient started experiencing this week(s) (3) and it has been intermittent. No relieving factors improve symptom(s), No exacerbating factors reported . Patient did receive the following treatments prior to arrival, none Related Data Home Medications Medication Instructions Recorded Confirmed Levemir FlexTouch U-100 Insuln 34 unit SUBCUT QHS 11/10/19 11/27/19 amlodipine 5 mg PO DAILY 11/10/19 11/27/19 aspirin [Aspir-81] 81 mg PO DAILY 11/10/19 11/27/19 furosemide [Lasix] 40 mg PO DAILY AM 11/10/19 11/27/19 hydrochlorothiazide 12.5 mg PO QAM 11/10/19 11/27/19 metformin 1,000 mg PO BID 11/10/19 11/27/19 benzonatate 100 mg PO Q8H PRN 11/15/19 11/27/19 codeine-guaifenesin 10 ml PO Q4H PRN #120 ml 11/15/19 11/27/19 Previous Rx's Medication Instructions Recorded codeine-guaifenesin 10 ml PO Q4H PRN #120 ml 11/15/19 Allergies Allergy/AdvReac Type Severity Reaction Status Date / Time codeine Allergy Unverified 11/27/19 11:40 General Stated Complaint: Diabetes ARNOLDO: 3 Review of Systems All systems reviewed & are unremarkable except as noted in HPI and below Constitutional Constitutional: Denies chills, Denies fever(s) and Denies weakness Cardiovascular Cardiovascular: Denies chest pain and Denies dyspnea Respiratory Respiratory: Denies dyspnea Gastrointestinal Gastrointestinal: Denies abdominal pain, Denies nausea and Denies vomiting Genitourinary Genitourinary: Denies dysuria Musculoskeletal Musculoskeletal: Denies joint swelling Integumentary/Breasts Skin/Breast: Denies rash Neurologic Neurologic: Denies weakness Endocrine Endocrine: Denies heat intolerance [facility] Social History Smoking/Tobacco Use Status: Never Alcohol Intake: never Substance use type: does not use Do you feel safe at home: Yes Do you feel safe in your relationship?: No Exam Const General: no acute distress Orientation: alert HENMT Head: normal to inspection Ears: external ears normal General nose exam: external nose normal Mouth: moist mucous membranes Eyes General: appearance normal, both eyes and all related structures Neck Neck: normal visual inspection Resp Effort & Inspection: normal respiratory effort and able to speak in complete sentences Cardio Rate: regular rate Skin General skin exam: no rashes or lesions noted Neuro General: alert and oriented x3 Extrem General: normal to inspection Psych Mental Status: mental status grossly normal Course Vital Signs Vital signs: Vital Signs Temperature 36.6 C 11/27/19 11:29 Pulse 108 H 11/27/19 11:29 Respiratory Rate 19 11/27/19 11:29 Blood Pressure 127/74 11/27/19 11:29 Pulse Oximetry 98 11/27/19 11:29 Temperature 36.6 C 11/27/19 11:29 Temperature Source Skin 11/27/19 11:29 Pulse 108 H 11/27/19 11:29 Respiratory Rate 19 11/27/19 11:29 Respiratory Effort Non-Labored 11/27/19 11:43 Blood Pressure 127/74 11/27/19 11:29 Blood Pressure Position Supine 11/27/19 11:29 Pulse Oximetry 98 11/27/19 11:29 Oxygen Delivery Method Room Air 11/27/19 11:29 Oxygen Flow Rate 0 11/27/19 11:29 Pain Level 0 11/27/19 11:29
[2019-11-27 12:35] VITALS: PULSE 108; RESP 24; O2SAT 96
[2019-11-27 12:40] VITALS: PULSE 105; RESP 16; O2SAT 97
[2019-11-27 12:48] LABS: BE (Venous) 5.7 mmol/L (-3-3); HCO3 (Venous) 31 mmol/L (22-28); O2 Sat (Venous) 81 % (70-80); TCO2 (Venous) 28 mmol/L (22-29); pCO2 (Venous) 51 mm/Hg (34-47); pH (Venous) 7.39 (7.35-7.45); pO2 (Venous) 49 mm/Hg (28-44)
[2019-11-27 12:49] LABS: Abs Immature Grans 0.05 k/cumm (0.0-0.09); Absolute Basophil Count 0.03 k/cumm (0.0-0.2); Absolute Eosinophil Count 0.03 k/cumm (0.0-0.7); Absolute Monocyte Count 0.82 k/cumm (0.11-0.7); Absolute Neutrophil Count 14.15 k/cumm (1.2-6.7); Basophils % 0.2; Eosinophils % 0.2; HCT 38.3 % (36.0-46.0); Immature Grans % 0.3 %; Lymphocytes % 8.5; Mean Corp. HGB Concentration 31.3 g/dL (32.0-36.0); Mean Corpuscular Hemoglobin 22.8 pg (27.0-33.0); Mean Corpuscular Volume 72.8 fL (80-95); Mean Platelet Volume 8.7 fL (8.0-11.0); Neutrophils % 85.8; Platelet Count 558 x1000/uL (130-400); RBC 5.26 m/cumm (4.00-5.20); RBC Distribution Width 17.6 % (11.7-14.6); White Blood Cell Count 16.49 k/cumm (4.4-10.8)
--- NOTE | 2019-11-27 12:49 | DI.RAD_ITS ---
EXAM: XR CHEST 2V PA LATERAL CLINICAL HISTORY: cough TECHNIQUE: COMPARISON: XR CHEST 2V PA LATERAL from 11/15/2019 FINDINGS: The heart is enlarged. Prominence of upper lobe pulmonary vasculature and pulmonary interstitial mar kings again noted, this may represent mild chronic CHF unchanged from 11/15/2019. No pleural effusio n seen. No focal consolidation seen. IMPRESSION: Stable appearance of presumed mild chronic CHF. No focal consolidation lungs.
[2019-11-27 13:08] LABS: ALT 63 U/L (14-59); AST 45 U/L (15-37); Albumin 3.4 g/dL (3.4-5.0); Alkaline Phosphatase 82 U/L (46-116); Anion Gap 9.6 mmol/L (3-11); BUN 11 mg/dL (7-18); Bilirubin, Total 1.1 mg/dL (0.2-1.0); CO2 29.4 mmol/L (21.0-32.0); CREATININE 0.65 mg/dL (0.55-1.02); Calcium 8.9 mg/dL (8.5-10.1); Chloride 95 mmol/L (98-107); Glucose 81 mg/dL (74-106); Magnesium 1.5 mg/dL (1.8-2.4); Potassium 3.5 mmol/L (3.5-5.1); Sodium 134 mmol/L (136-145); Total Protein 7.6 g/dL (6.4-8.2)
[2019-11-27 13:18] LABS: NT-proBNP 7124 pg/mL (<300)
[2019-11-27 14:31] VITALS: BP 123/76; PULSE 109; RESP 16; TEMP 36.5; O2SAT 96
--- NOTE | 2019-11-27 16:51 | PDOC.ERCMPRO ---
- If Service Date Differs Date of service: 11/27/19 Time of Service: 16:51 Care Management Progress Note S/O: CM met with patient in the ED r/t hypoglycemia. Latanya states that she has had multiple episodes of hypoglycemia at home over the past week due to poor intake. She states she was ill and using prescribed codeine which made her nauseous and have a poor appetite. She states that since September 2019 she has not been doing well, or getting around well. She has been using her sisters walker and has been unable to do activities that she enjoys. She is willing to meet with nutrition to discuss hypoglycemia and her insulin dose. She will also need to follow up with her primary care provider to continue adjustment of her insulin. She was also encouraged to check her blood sugars and keep fast acting carbohydrate at her bedside including juice or glucose tabs. Latanya states her diuretic's were recently increased and she has been having excessive fluids in her legs. CM recommended referral to palliative care as well as home health nursing. Referrals were faxed and CM contacted home health. Latanya will return home with her grandson today and there is a plan in place. P: Palliative referral, and [facility] nursing.
--- NOTE | 2019-11-27 18:29 | NUR.NOTE ---
Nursing Note: Referral faxed to PCP for follow up. Jaylin Wilson.
--- NOTE | 2019-11-30 10:54 | W.NUTCONSULT ---
Date of service: 11/27/19 Time of Service: 16:00 Nutritional Consult ASSESSMENT: met with Latanya and natalia in ED to discuss meal planning and diabetes regime as admit to ER was for hypoglycemia. Natalia reports finding her slumped in her chair unable to speak clearly and feared she had had a stroke and took her ED. Enroute to ER, received D5 and had blood sugar wnl once ER labs drawn. Latanya reports her levemir recently increased to 34 units, and on 1000 mg metformin BID. Latanya reports no change in appetite recently, weight has been stable but did report she has had a couple blood sugar readings below 80 mg since increase in levemir. 24 hour diet recall appears to meet carb/nutrient needs for stable blood sugar. recommended that Latanay follow up with CDE (cisco jefferson RDN) and Dr. Rose for adjustment in insulin dose. Time Spent in Nutritional Counseling and Treatment: 15 minutes
== END 2019-11-27 14:30 | disposition home or self-care (01) ==
PROVIDERS: Emergency Provider Emergency Medicine; PCP Family Medicine
DX: E11.649 Type 2 diabetes mellitus with hypoglycemia without coma (principal); Z79.4 Long term (current) use of insulin; R05 Cough
CPT/HCPCS: 36415; 36416; 80053; 82805; 82962; 99284; 71046; 83735; 83880; 85025; 85610; 99285

== ENCOUNTER 2019-12-07 08:43 | Outpatient (CLI) | payer MEDICARE, SELFPAY | END 2019-12-07 09:03 | PROVIDERS: PCP Family Medicine; Visit Provider Internal Medicine Cardiovascular Disease | DX: I50.9 Heart failure, unspecified (principal); I11.0 Hypertensive heart disease with heart failure; E11.9 Type 2 diabetes mellitus without complications; Z79.4 Long term (current) use of insulin | CPT/HCPCS: 99205; 99215; 93005; 93010 ==

== ENCOUNTER 2020-01-28 01:24 | Outpatient (CLI) | payer MEDICARE, SELFPAY ==
--- NOTE | 2020-01-28 07:15 | DI.NM_ITS ---
APPROVED REPORT Exam: Pharmacologic Patient Location: Out-Patient Room/Bed: Stress Nurse: Letitia Flynn RN BMI: 27.77 Baseline Rhythm: Sinus Rhythm Indications: Heart failure with reduced ejection fraction. Medical History Medical History: CHF, HTN, Diabetes Cardiac Medications: Metoprolol. Spironolactone. Furosemide. Losartan. Allergies: codeine Cardiac Risk Factors: HTN, DM, FHX of CAD Pretest Chest Pain Characteristics: No chest pain Exercise History: Physically active Lung Sounds: Clear to auscultation Heart Sounds: Regular Stress Test Details Test: Pharmacologic stress testing performed using 0.4 mg of regadenoson per 5 mL given IV over 10 s econds. Nuclear Acquisition: Rest Tc-99m/Stress Tc-99m 1 day Rest Isotope: Tc-99m Sestamibi. Dose: 10.8 Date: 01/28/2020 Injection Time: 1145 Stress Isotope: Tc-99m Sestamibi. Dose: 34.1 Date: 01/28/2020 Injection Time: 1350 HR Resting HR Supine: 87 bpm Max Heart Rate (APMHR): 143 bpm Target HR (85% APMHR): 121 bpm Max HR Achieved: 92 bpm % of APMHR: 64 Recovery HR: 91 bpm BP Resting BP Supine: 130/82 mmHg Max BP: 132/72 mmHg ECG Resting ECG: Sinus Rhythm Stress ECG: Sinus Rhythm Recovery ECG: Sinus Rhythm Clinical Stress Symptoms: No significant side effects experienced from Lexiscan injection Stress ECG Conclusion 1. This is a pharmacological stress test. Patient had no symptoms of ischemia during stress. 2. The EKG portion of this exam was nonconclusive. Protocol Used: Regadenoson Stress Test Summary STAGE HR BP Symptoms NOTES Supine 87 130/82 1 min post Lexiscan injection 92 130/68 3 min post Lexiscan injection 79 130/72 6 min post Lexiscan injection 91 122/82 MPI Conclusion Patient's ejection fraction was 22% with stress. There is global hypokinesis. Small to moderate sized reversible perfusion defect of the anterior wall. This represents an abnormal perfusion stress test.
== END 2020-01-28 01:44 ==
PROVIDERS: PCP Family Medicine; Visit Provider Internal Medicine Cardiovascular Disease
DX: I50.9 Heart failure, unspecified (principal); I10 Essential (primary) hypertension; E11.9 Type 2 diabetes mellitus without complications; Z82.49 Family history of ischemic heart disease and other diseases of the circulatory system
CPT/HCPCS: 78452; 93016; 93018; 93017

== ENCOUNTER → 2020-02-08 10:12 | Outpatient (BNVA) | payer MEDICARE, SELFPAY | PROVIDERS: PCP Family Medicine; Referring Provider Family Medicine; Visit Provider Internal Medicine Cardiovascular Disease | DX: I11.0 Hypertensive heart disease with heart failure (principal); I50.20 Unspecified systolic (congestive) heart failure | CPT/HCPCS: 99213 ==

== ENCOUNTER 2020-03-11 08:49 | Outpatient (REF) | payer MEDICARE, SELFPAY ==
[2020-03-11 18:08] LABS: ALT 27 U/L (14-59); AST 18 U/L (15-37); Alkaline Phosphatase 108 U/L (46-116); BUN 19 mg/dL (7-18); Bilirubin, Total 0.6 mg/dL (0.2-1.0); CREATININE 0.76 mg/dL (0.55-1.02); Calcium 9.8 mg/dL (8.5-10.1); Chloride 101 mmol/L (98-107); Glucose 105 mg/dL (74-106); Magnesium 1.8 mg/dL (1.8-2.4); Potassium 4.4 mmol/L (3.5-5.1); Sodium 137 mmol/L (136-145)
[2020-03-11 18:32] LABS: Hemoglobin A1C 7.8 % (3.8-5.6)
== END 2020-03-11 09:09 ==
LOC: NCHCN 08:49
PROVIDERS: PCP Family Medicine; Visit Provider Family Medicine
DX: E11.9 Type 2 diabetes mellitus without complications (principal); Z79.4 Long term (current) use of insulin; R74.8 Abnormal levels of other serum enzymes; I50.9 Heart failure, unspecified
CPT/HCPCS: 80053; 83036; 83735

== ENCOUNTER 2020-04-20 02:07 | Outpatient (CLI) | payer MEDICARE, SELFPAY ==
--- NOTE | 2020-04-20 10:16 | DI.US_ITS ---
APPROVED REPORT EXAM: Comprehensive 2D, Doppler, and color-flow Echocardiogram Patient Location: Out-Patient Bus Operator: Clementina Mckeon RDCS (AE) Indications: HTN,CAD Other Information Study Quality: Adequate Conclusion Normal with ventricular wall thickness and chamber size. Estimated ejection fraction is 15 to 20%. There is severe global hypo-to akinesis. Stage I diastolic dysfunction There is no chamber enlargement The aortic valve is mildly sclerotic with trace regurgitation Mitral leaflets are structurally normal. There is mild mitral regurgitation The tricuspid valve is structurally normal with trace regurgitation Structurally normal pulmonic valve with mild regurgitation Small circumferential pericardial effusion without evidence of tamponade Wall motion Left Ventricle The left ventricle is normal size. Left ventricular ejection fraction is severely decreased. There is normal left ventricular wall thickness. Regional wall motion abnormalities are noted. There is no ve ntricular septal defect visualized. LVEF is 15%. Right Ventricle The right ventricle is normal size. The right ventricular systolic function is normal. Atria The left atrium size is normal. The right atrium size is normal. The interatrial septum is intact wit h no evidence for an atrial septal defect. Aortic Valve The Aortic valve is mildly sclerotic. Aortic valve is trileaflet. There is no aortic valvular stenosi s. Trace aortic regurgitation. Mitral Valve There is mitral annular calcification. No evidence of mitral valve stenosis. Mild mitral regurgitatio n. Tricuspid Valve The tricuspid valve is normal in structure. There is no tricuspid valve stenosis. Trace tricuspid reg urgitation. Pulmonic Valve The pulmonary valve is normal in structure. There is no pulmonic valvular stenosis. Mild pulmonic reg urgitation. Great Vessels The aortic root is normal in size. Aortic arch is normal in caliber. The ascending aorta is mildly di lated. IVC is normal in size and collapses >50% with inspiration. Pericardium Mild circumferential pericardial effusion. 2D Dimensions IVSD d PLAX 0.79 cm F: 0.6-1.0 LV Vol A2C d MOD 127.9 mL LVPW d PLAX 0.79 cm F: 0.6 - 1.0 LV Vol A4C d MOD 144.4 mL LVID d PLAX 5.83 cm F: 3.8 - 5.2 LA vol/ BSA A2C s A-L 19.4 mL/m2 LVDs 5.35 cm F: 2.2 - 3.5 LA vol/ BSA A4C s A-L 24.4 mL/m2 Ao Root d 2.48 cm F: 2.7 - 3.3 LA Vol/ BSA Biplane s A-L 25.0 mL/m2 RA Area A4C 14.57 cm2 LA Area A4C s MOD 15.83 cm2 RA Vol/ BSA A4C s A-L 22.9 mL/m2 LA Area A2C s MOD 12.25 cm2 Ao Asc Diam d 3.27 cm F: 2.3 - 3.1 LV EF A4C MOD 17.1 % LV EF Teichholz 17.0 % LV EF A2C MOD 16.5 % LVEF (Bergman's) 13.02 % F: 54 - 74 LV EF Biplane MOD 13.0 % LV Volume 111.05 mL F: 46 - 106 SV 18.01 mL LV Volume Index 67.30 mL/m2 F: 29 - 61 SV Index 10.90 mL/m2 LV Vol Biplane MOD 138.3 mL FS 7.75 % M-Mode TAPSE 1.68 cm (M/F) >1.7 LV Diastology MV E' lateral 0.039 (>0.1 m/s) E/A Ratio 0.8 LV E/e LAT 20.00 (<14) MV E Vmax 0.78 (0.4-1.3 m/s) MV E/E' lateral 20.04 MV A Vmax 1.00 (0.4-1.3 m/s) MV E/A Ratio 0.75 Aortic Valve LVOT Area 3.64 cm2 AoV Area Vmax 2.51 cm2 LVOT Vmax 0.85 m/s AoV Area/ BSA (Vmax) 1.52 cm2/m2 LVOT Mean Antonio. 0.51 m/s TEJA Mean Antonio. 2.12 cm2 LVOT Peak Grad 2.9 mmHg TEJA Mean Antonio. Index 1.28 cm2/m2 LVOT Mean Grad 1.3 mmHg AR DT 1251 msec LVOT VTI 0.156 m AR PHT 363 msec LVOT Diam s 2.15 cm AoV Vmax 1.23 m/s Velocity Ratio 0.69 AoV Mean Antonio. 0.88 m/s AoV Peak Grad 6.0 mmHg LVOT SV 56.85 mL AoV Mean Grad 3.3 mmHg AoV VTI 0.229 m AoV Area VTI 2.49 cm2 AoV Area/ BSA (VTI) 1.51 cm/m2 Mitral Valve MV DT 170 (160-240 msec) MR Vmax 3.86 m/s MV PHT 49 msec MR VTI 1.018 m MV Area PHT 4.47 cm2 MR Peak Grad 59.7 mmHg MR Mean Grad 44.6 mmHg MR PISA Radius 0.47 cm MR EROA 0.13 cm2 MR Aliasing Velocity 0.35 m/s MR PISA 1.39 cm2 Pulmonary Valve PV Vmax 0.87 (0.5-1.5 m/s) RVOT Peak Gr. 1.35 mmHg PV Peak Grad 3.0 mmHg RVOT Mean Gr. 0.70 mmHg PV Mean Grad 1.5 mmHg RVOT VTI 0.104 m PV VTI 0.139 m RVOT Vmax 0.58 m/s Tricuspid Valve TR Peak Grad 8.2 mmHg TR Vmax 1.44 m/s RA Pressure 3.00 mmHg RVSP (TR) 11.3 mmHg
== END 2020-04-20 02:27 ==
PROVIDERS: PCP Family Medicine; Visit Provider Internal Medicine Cardiovascular Disease
DX: I25.10 Atherosclerotic heart disease of native coronary artery without angina pectoris (principal); I10 Essential (primary) hypertension; I35.8 Other nonrheumatic aortic valve disorders; I31.3 Pericardial effusion (noninflammatory); I50.30 Unspecified diastolic (congestive) heart failure
CPT/HCPCS: 93306

== ENCOUNTER → 2020-05-09 08:53 | Outpatient (BNVA) | payer MEDICARE, SELFPAY | PROVIDERS: PCP Family Medicine; Referring Provider Family Medicine; Visit Provider Internal Medicine Cardiovascular Disease | DX: I50.20 Unspecified systolic (congestive) heart failure (principal); I11.0 Hypertensive heart disease with heart failure; E11.9 Type 2 diabetes mellitus without complications; Z79.4 Long term (current) use of insulin | CPT/HCPCS: 99214 ==

== ENCOUNTER → 2020-06-10 12:49 | Outpatient (BNVA) | payer MEDICARE, SELFPAY | PROVIDERS: PCP Family Medicine; Referring Provider Family Medicine; Visit Provider Internal Medicine Cardiovascular Disease | DX: I50.9 Heart failure, unspecified (principal); I11.0 Hypertensive heart disease with heart failure; E11.9 Type 2 diabetes mellitus without complications; Z79.4 Long term (current) use of insulin | CPT/HCPCS: 99213 ==

== ENCOUNTER 2020-06-16 02:57 | Outpatient (CLI) | payer MEDICARE, SELFPAY ==
[2020-06-16 10:49] LABS: Anion Gap 13.8 mmol/L (3-11); BUN 17 mg/dL (7-18); CO2 24.2 mmol/L (21.0-32.0); CREATININE 0.84 mg/dL (0.55-1.02); Calcium 9.8 mg/dL (8.5-10.1); Chloride 102 mmol/L (98-107); Glucose 121 mg/dL (74-106); Potassium 4.4 mmol/L (3.5-5.1); Sodium 140 mmol/L (136-145)
== END 2020-06-16 03:17 ==
PROVIDERS: PCP Family Medicine; Visit Provider Internal Medicine Cardiovascular Disease
DX: I50.9 Heart failure, unspecified (principal)
CPT/HCPCS: 36415; 80048

== ENCOUNTER → 2020-07-11 09:51 | Outpatient (BNVA) | payer MEDICARE, SELFPAY | PROVIDERS: PCP Family Medicine; Referring Provider Family Medicine; Visit Provider Internal Medicine Cardiovascular Disease | DX: I50.9 Heart failure, unspecified (principal); I11.0 Hypertensive heart disease with heart failure; E11.9 Type 2 diabetes mellitus without complications | CPT/HCPCS: 99214 ==

== ENCOUNTER 2020-12-22 15:58 | Outpatient (REF) | payer MEDICARE, SELFPAY ==
[2020-12-22 14:06] LABS: Anion Gap 14.1 mmol/L (3-11); BUN 15 mg/dL (7-18); CO2 23.9 mmol/L (21.0-32.0); CREATININE 0.9 mg/dL (0.55-1.02); Calcium 9.3 mg/dL (8.5-10.1); Chloride 99 mmol/L (98-107); Glucose 175 mg/dL (74-106); Magnesium 1.5 mg/dL (1.8-2.4); Potassium 4.2 mmol/L (3.5-5.1); Sodium 137 mmol/L (136-145)
[2020-12-22 14:14] LABS: Hemoglobin A1C 8.9 % (<5.7)
== END 2020-12-22 15:59 | disposition home or self-care (01) ==
LOC: NCHCN 15:58
PROVIDERS: PCP Family Medicine; Visit Provider Family Medicine
DX: E11.9 Type 2 diabetes mellitus without complications (principal); Z79.4 Long term (current) use of insulin; I50.9 Heart failure, unspecified
CPT/HCPCS: 80048; 83036; 83735

== ENCOUNTER → 2021-01-02 12:45 | Outpatient (BNVA) | payer MEDICARE, SELFPAY | PROVIDERS: PCP Family Medicine; Referring Provider Family Medicine; Visit Provider Internal Medicine Cardiovascular Disease | DX: I10 Essential (primary) hypertension (principal); E11.9 Type 2 diabetes mellitus without complications; I50.20 Unspecified systolic (congestive) heart failure | CPT/HCPCS: 99214; 99213 ==

== ENCOUNTER → 2021-07-04 11:00 | Outpatient (BNVA) | payer MEDICARE, SELFPAY | PROVIDERS: PCP Family Medicine; Referring Provider Family Medicine; Visit Provider Internal Medicine Cardiovascular Disease | DX: I50.9 Heart failure, unspecified (principal); I13.0 Hypertensive heart and chronic kidney disease with heart failure and stage 1 through stage 4 chronic kidney disease, or unspecified chronic kidney disease; E11.9 Type 2 diabetes mellitus without complications | CPT/HCPCS: 99214 ==

== ENCOUNTER 2021-10-04 00:52 | Outpatient (CLI) | payer MEDICARE, SELFPAY ==
--- NOTE | 2021-10-04 10:19 | DI.US_ITS ---
APPROVED REPORT EXAM: Comprehensive 2D, Doppler, and color-flow Echocardiogram Patient Location: Out-Patient [employer] Specialist: Clementina Mckeon RDCS (AE) Indications: HTN, Heart Failure Other Information Study Quality: Adequate Conclusion Normal left ventricular wall thickness and chamber size. Left ventricular systolic function is mildl y reduced with an estimated ejection fraction of 50 to 55%. There is very mild global hypokinesis Normal right ventricular size and systolic function Both atria are normal in size Aortic valve is trileaflet and sclerotic with trace regurgitation Mild mitral annular calcification. Mild mitral regurgitation Normal tricuspid valve with trace regurgitation. Estimated right ventricular systolic pressure is no rmal at 20 mmHg Normal pulmonic valve with mild regurgitation Wall motion Left Ventricle The left ventricle is normal size. Left ventricular systolic function is mildly decreased. There is n ormal left ventricular wall thickness. There is very mild global hypokinesis of the left ventricle. T here is no ventricular septal defect visualized. LVEF is 50-55%. Right Ventricle The right ventricle is normal size. The right ventricular systolic function is normal. The RVSP is 19 .7 mmHg. Atria The left atrium size is normal. The right atrium size is normal. The interatrial septum is intact wit h no evidence for an atrial septal defect. Aortic Valve The Aortic valve is sclerotic. Aortic valve is trileaflet. There is no aortic valvular stenosis. Trac e aortic regurgitation. Mitral Valve Mild mitral annular calcification. No evidence of mitral valve stenosis. Mild mitral regurgitation. Tricuspid Valve The tricuspid valve is normal in structure. There is no tricuspid valve stenosis. Trace tricuspid reg urgitation. Pulmonic Valve The pulmonary valve is normal in structure. There is no pulmonic valvular stenosis. Mild pulmonic reg urgitation. Great Vessels The aortic root is normal in size. Ascending aorta is normal in caliber. Aortic arch is normal in polina iber. IVC is normal in size and collapses >50% with inspiration. Pericardium Trace pericardial effusion. 2D Dimensions IVSD d PLAX 0.82 cm F: 0.6-1.0 LV Vol A2C d MOD 111.9 mL LVPW d PLAX 0.84 cm F: 0.6 - 1.0 LV Vol A4C d MOD 99.3 mL LVID d PLAX 5.01 cm F: 3.8 - 5.2 LA vol/ BSA A2C s A-L 20.9 mL/m2 LVDs 3.80 cm F: 2.2 - 3.5 LA vol/ BSA A4C s A-L 21.8 mL/m2 Ao Root d 2.44 cm F: 2.7 - 3.3 LA Vol/ BSA Biplane s A-L 21.9 mL/m2 RA Area A4C 10.49 cm2 LA Area A4C s MOD 14.77 cm2 RA Vol/ BSA A4C s A-L 13.3 mL/m2 LA Area A2C s MOD 14.07 cm2 Ao Asc Diam d 3.31 cm F: 2.3 - 3.1 LV EF A4C MOD 49.2 % LV EF Teichholz 47.7 % LV EF A2C MOD 48.8 % LVEF (Bergman's) 50.19 % F: 54 - 74 LV EF Biplane MOD 50.2 % LV Volume 85.63 mL F: 46 - 106 SV 54.51 mL LV Volume Index 49.49 mL/m2 F: 29 - 61 SV Index 31.45 mL/m2 LV Vol Biplane MOD 108.6 mL FS 24.00 % M-Mode TAPSE 1.96 cm (M/F) >1.7 LV Diastology MV E' medial 0.050 (>0.07 m/s) E/A Ratio 0.5 LV E/e MED 10.80 (<14) MV E Vmax 0.54 (0.4-1.3 m/s) MV E' lateral 0.052 (>0.1 m/s) MV A Vmax 1.10 (0.4-1.3 m/s) LV E/e LAT 10.30 (<14) MV E/A Ratio 0.48 MV E/E' medial 10.82 MV E/E' lateral 10.31 Aortic Valve LVOT Area 3.15 cm2 AoV Area Vmax 2.41 cm2 LVOT Vmax 0.98 m/s AoV Area/ BSA (Vmax) 1.39 cm2/m2 LVOT Mean Antonio. 0.66 m/s TEJA Mean Antonio. 2.39 cm2 LVOT Peak Grad 3.9 mmHg TEJA Mean Antonio. Index 1.38 cm2/m2 LVOT Mean Grad 2.0 mmHg AR DT 1576 msec LVOT VTI 0.201 m AR PHT 457 msec LVOT Diam s 2.00 cm AoV Vmax 1.29 m/s Velocity Ratio 0.75 AoV Mean Antonio. 0.87 m/s AoV Peak Grad 6.6 mmHg LVOT SV 63.28 mL AoV Mean Grad 3.4 mmHg AoV VTI 0.247 m AoV Area VTI 2.56 cm2 AoV Area/ BSA (VTI) 1.48 cm/m2 Mitral Valve MV DT 251 (160-240 msec) MV PHT 73 msec MV Area PHT 3.02 cm2 MV VTI 0.324 m MV Area VTI 1.96 (4.0-6.0 cm2) Pulmonary Valve PV Vmax 0.92 (0.5-1.5 m/s) RVOT Peak Gr. 2.33 mmHg PV Peak Grad 3.4 mmHg RVOT Mean Gr. 1.05 mmHg PV Mean Grad 1.9 mmHg RVOT VTI 0.147 m PV VTI 0.177 m RVOT Vmax 0.76 m/s Tricuspid Valve TR Peak Grad 16.7 mmHg TR Vmax 2.04 m/s RA Pressure 3.00 mmHg RVSP (TR) 19.7 mmHg
== END 2021-10-04 01:12 ==
PROVIDERS: PCP Family Medicine; Visit Provider Internal Medicine Cardiovascular Disease
DX: I11.0 Hypertensive heart disease with heart failure (principal); I50.20 Unspecified systolic (congestive) heart failure; I08.8 Other rheumatic multiple valve diseases
CPT/HCPCS: 93306

== ENCOUNTER 2021-12-27 14:18 | Outpatient (REF) | payer MEDICARE, SELFPAY ==
[2021-12-27 19:38] LABS: Hemoglobin A1C 10.3 % (<5.7)
[2021-12-27 19:49] LABS: ALT 25 U/L (14-59); AST 8 U/L (15-37); Alkaline Phosphatase 109 U/L (46-116); BUN 20 mg/dL (7-18); Bilirubin, Total 0.3 mg/dL (0.2-1.0); Calcium 9.8 mg/dL (8.5-10.1); Chloride 96 mmol/L (98-107); Estimated GFR 53.48 (mL/min/1.73m2); Glucose 227 mg/dL (74-106); Magnesium 1.8 mg/dL (1.8-2.4); NT-proBNP 206 pg/mL (<300); Potassium 4.3 mmol/L (3.5-5.1); Sodium 135 mmol/L (136-145); Total Protein 8.3 g/dL (6.4-8.2)
[2021-12-27 20:15] LABS: Cholesterol 244 mg/dL (<200); HDL Cholesterol 37 mg/dL (40-60); Triglyceride 495 mg/dL (<150)
[2021-12-27 20:33] LABS: LDL CHOLESTEROL 132 mg/dL (<100)
== END 2021-12-27 14:19 | disposition home or self-care (01) ==
LOC: NCHCN 14:18
PROVIDERS: PCP Family Medicine; Visit Provider Family Medicine
DX: E78.5 Hyperlipidemia, unspecified (principal); E11.9 Type 2 diabetes mellitus without complications; Z79.4 Long term (current) use of insulin; I50.9 Heart failure, unspecified
CPT/HCPCS: 80053; 80061; 83721; 83036; 83735; 83880

== ENCOUNTER 2022-11-23 18:22 | Outpatient (REF) | payer MEDICARE, SELFPAY ==
[2022-11-23 18:45] LABS: Anion Gap 8.9 mmol/L (3-11); BUN 11 mg/dL (7-18); CO2 27.1 mmol/L (21.0-32.0); CREATININE 0.8 mg/dL (0.55-1.02); Calcium 9.4 mg/dL (8.5-10.1); Chloride 98 mmol/L (98-107); Estimated GFR 74.44 (mL/min/1.73m2); Glucose 281 mg/dL (74-106); Magnesium 1.7 mg/dL (1.8-2.4); Potassium 4.2 mmol/L (3.5-5.1); Sodium 134 mmol/L (136-145)
== END 2022-11-23 18:23 | disposition home or self-care (01) ==
LOC: NCHCN 18:22
PROVIDERS: PCP Family Medicine; Visit Provider Family Medicine
DX: E11.9 Type 2 diabetes mellitus without complications (principal); E83.42 Hypomagnesemia
CPT/HCPCS: 80048; 83735

== ENCOUNTER 2023-09-17 13:34 | Outpatient (REF) | payer MEDICARE, SELFPAY ==
[2023-09-17 17:48] LABS: BUN 18 mg/dL (7-18); CREATININE 0.8 mg/dL (0.55-1.02); Calcium 9.8 mg/dL (8.5-10.1); Chloride 97 mmol/L (98-107); Estimated GFR 73.98 (mL/min/1.73m2); Magnesium 1.8 mg/dL (1.8-2.4); NT-proBNP 556 pg/mL (<300); Potassium 4.2 mmol/L (3.5-5.1); Sodium 134 mmol/L (136-145)
[2023-09-17 17:49] LABS: Glucose 337 mg/dL (74-106)
== END 2023-09-17 13:35 | disposition home or self-care (01) ==
LOC: NCHCN 13:34
PROVIDERS: PCP Family Medicine; Visit Provider Family Medicine
DX: I50.9 Heart failure, unspecified (principal)
CPT/HCPCS: 80048; 83735; 83880

== ENCOUNTER 2024-05-16 17:45 | Inpatient (IN) | payer MEDICARE, SELFPAY ==
[2024-05-16 17:49] VITALS: BP 136/104; PULSE 123; RESP 16; TEMP 36.6; O2SAT 99
--- NOTE | 2024-05-16 18:00 | RT.EKG_ITS ---
APPROVED REPORT Exam: Resting ECG Reason for Exam: cough, fever Patient Location: E HR:118 bpm ECG Measurements Heart Rate 118 AXIS MN 144 P 52 QRSd 115 QRS -33 QT 347 T 130 QTc 487 Conclusion Sinus tachycardia 118 no stemi
--- NOTE | 2024-05-16 18:00 | DI.RAD_ITS ---
Exam(s) XR CHEST 2V PA LATERAL EXAM: XR CHEST 2V PA LATERAL CLINICAL HISTORY: cough, fever TECHNIQUE: 2D digital imaging was performed of the chest. Two images were obtained. PA and lateral views were obtained. COMPARISON: CR XR CHEST 2V PA LATERAL from 11/27/2019 FINDINGS: MEDIASTINUM: Normal. HEART: There is again seen marked cardiomegaly. PULMONARY VASCULATURE: Pulmonary vasculature appears unchanged. LUNGS: No focal consolidating infiltrates. The lungs are hyperinflated suggesting underlying COPD. PLEURAL SPACE: No pleural effusion or pneumothorax. BONE:Within normal limits for the patient's age. OTHER FINDINGS:Normal. IMPRESSION: 1. Stable cardiomegaly. 2. No focal consolidating infiltrates. DATA REPOSITORY: RADIATION DOSE DELIVERED:
[2024-05-16] MEDS: Levalbuterol 1.25 MG/3 ML UPD VIAL UPD (18:55)
[2024-05-16 19:02] LABS: Abs Immature Grans 0.07 10^3/uL (0.0-0.06); Absolute Basophil Count 0.07 10^3/uL (0.0-0.2); Absolute Eosinophil Count 0.03 10^3/uL (0.0-0.7); Absolute Lymphocyte Count 1.27 10^3/uL (1.2-3.4); BE (Venous) -4 mmol/L (-2-3); Basophils % 0.6 %; Eosinophils % 0.3 %; HCO3 (Venous) 21 mmol/L (23-28); HCT 39.6 % (36.0-46.0); HGB 12.3 g/dL (11.2-15.7); Immature Grans % 0.6 %; Lymphocytes % 11.4 %; MCH 23.3 pg (27.0-33.0); MCHC 31.1 % (32.0-36.0); MCV 75 fL (80-95); MPV 9.5 fL (8.0-11.0); Monocytes % 6.6 %; Neutrophils % 80.5 %; Nucleated RBC 0.2 % (0.0-0.3); O2 Sat (Venous) 89 %; Platelet Count 510 10^3/uL (130-400); RBC 5.29 10^6/uL (3.93-5.22); RDW 16.8 % (11.7-14.6); RDW-SD 44.8 fL; TCO2 (Venous) 19 mmol/L (24-29); WBC 11.13 10^3/uL (4.4-10.8); pCO2 (Venous) 33 mmHg (41-51); pH (Venous) 7.41 (7.31-7.41); pO2 (Venous) 58 mmHg
[2024-05-16 19:04] LABS: Lactate 5.2 mmol/L (0.6-1.4)
[2024-05-16 19:07] LABS: Absolute Monocyte Count 0.73 10^3/uL (0.1-0.8); Absolute Neutrophil Count 8.96 10^3/uL (1.2-6.7)
[2024-05-16 19:07] LABS: COVID-19 PCR Negative (Negative); Influenza A PCR Negative (Negative); Influenza B PCR Negative (Negative); RSV PCR Negative (Negative)
[2024-05-16 19:08] LABS: Source NASOPHARYNX
[2024-05-16 19:17] LABS: Diff Comment RBC Morph Reviewed
[2024-05-16 19:18] LABS: Microcytosis 1+
--- NOTE | 2024-05-16 19:18 | DI.VRAD_ITS ---
PROCEDURE INFORMATION: Exam: XR Chest Exam date and time: 05/16/2024 6:26 PM Age: 83 years old Clinical indication: Cough and fever; Patient HX: Cough, fever TECHNIQUE: Imaging protocol: Radiologic exam of the chest. Views: 2 views. COMPARISON: CR XR CHEST 2V PA LATERAL 11/27/2019 12:49 PM FINDINGS: Lungs: Emphysema without focal airspace disease, similar to prior. Pleural spaces: No pleural effusion. No pneumothorax. Heart/Mediastinum: Severe cardiomegaly with mild vascular congestion, similar to prior. Bones/joints: Chronic bony changes with no acute fracture. IMPRESSION: 1. Severe cardiomegaly with mild vascular congestion, similar to prior. 2. Emphysema without focal airspace disease, similar to prior. Dictated and Authenticated by: Melisa Siegel MD. Ordering:JANAE Segura MD
[2024-05-16 19:28] LABS: ALT 627 U/L (14-59); AST 421 U/L (15-37); Albumin 3.4 g/dL (3.4-5.0); Alkaline Phosphatase 216 U/L (46-116); Anion Gap 15.1 mmol/L (3-11); BUN 11 mg/dL (7-18); Bilirubin, Total 2.84 mg/dL (0.2-1.0); CO2 20.9 mmol/L (21.0-32.0); Calcium 8.7 mg/dL (8.5-10.1); Chloride 91 mmol/L (98-107); Glucose 386 mg/dL (74-106); Sodium 127 mmol/L (136-145); Total Protein 7.2 g/dL (6.4-8.2)
[2024-05-16 19:35] LABS: Procalcitonin < 0.1 ng/mL
[2024-05-16 19:38] LABS: NT-proBNP 4537 pg/mL (<300)
[2024-05-16] MEDS: Omnipaque 350 MG/ML 100 ML BTL IJ (19:43)
[2024-05-16] MEDS: Normal Saline - Diluent 50 ML VIAL IJ (19:43)
[2024-05-16] MEDS: Furosemide 20 MG/2 ML VIAL IVP (19:46)
--- NOTE | 2024-05-16 19:55 | DI.CT_ITS ---
Exam(s) CT ABDOMEN PELVIS W EXAM: CT ABDOMEN PELVIS W CLINICAL HISTORY: elevated bilirubin and lft's TECHNIQUE: Imaging Protocol: Axial computed tomography images with coronal and sagittal reformatted images were created and reviewed. CONTRAST MATERIAL: Intravenous: Omnipaque 350 Contrast volume:100 mL Oral: No COMPARISON: No exams were available for comparison FINDINGS: The examination is limited due to patient motion artifact. ABDOMEN: Lung Bases: There is a small pericardial effusion measuring 1.3 cm in maximal thickness. There is a tiny left pleural effusion. Cardiomegaly. Liver: There is decreased attenuation of the liver suggesting fatty infiltration. No measurable mass . Portal, Superior Mesenteric, and Splenic Veins: Evaluation is severely limited due to patient motion artifact. Gallbladder and Biliary Tract: Cholelithiasis. No significant biliary ductal dilatation. Pancreas: Normal density, no abnormal calcifications or inflammatory process. Spleen: Normal. Adrenals: No masses seen. Kidneys: Normal size, contour and axis. No radiodense stones or obstructive uropathy. No masses seen. Abdominal Aorta: Abdominal portion non-dilated. Atherosclerotic calcification is present. Bowel: There is mild thickening of the wall of the rectum. There is diverticulosis seen in the colon but no definite evidence of acute diverticulitis is seen at this time. There is no evidence of justyn l wall thickening. No evidence of appendicitis. No evidence of pneumatosis. Peritoneal Cavity: No ascites, collection or mesenteric inflammatory response. No free air. Lymph Nodes: Within normal limits. Bones: Within normal limits for the patient's age. There is a left convex lumbar spine curvature. Soft Tissues: There is diffuse edema in the soft tissues. No focal fluid collection is seen. PELVIS: Bladder: There is diffuse thickening of the wall of the urinary bladder. Reproductive Organs: Status post hysterectomy. Lymph Nodes: Within normal limits. Bones: Within normal limits for the patient's age. IMPRESSION: 1. Diffuse decreased attenuation of the liver consistent with fatty infiltration. 2. Cholelithiasis. No biliary ductal dilatation. 3. Mild thickening of the wall of the rectum which may represent a proctitis. 4. Colonic diverticulosis without evidence of acute diverticulitis. 5. Small pericardial effusion. 6. Mild diffuse thickening of the wall of the urinary bladder. This may be due to underdistention, c ystitis, chronic bladder outlet obstruction. 7. Cardiomegaly. RADIATION DOSE DELIVERED: 923.01mGy.cm Total DLP DATA REPOSITORY: All CT scans at this facility are submitted to the National Radiology Data Registry (NRDR) Dose Index Registry (DIR) with the [employer] (A[employer]). RADIATION OPTIMIZATION: All CT scans at this facility use at least one of these dose optimization te chniques: automated exposure control; mA and/or kV adjustment per patient size (includes targeted exa ms where dose is matched to clinical indication); or iterative reconstruction.
--- NOTE | 2024-05-16 20:07 | DI.VRAD_ITS ---
PROCEDURE INFORMATION: Exam: CT Abdomen And Pelvis With Contrast Exam date and time: 05/16/2024 7:49 PM Age: 83 years old Clinical indication: Other: Elevated bilirubin and lft's TECHNIQUE: Imaging protocol: Computed tomography of the abdomen and pelvis with contrast. Contrast material: OMNIPAQUE 350; Contrast volume: 100 ml; Contrast route: INTRAVENOUS (IV); COMPARISON: CR XR CHEST 2V PA LATERAL 05/16/2024 6:26 PM FINDINGS: Lungs: Subcentimeter right lower lobe pulmonary nodule. Follow-up as per institutional protocol. Heart: Cardiomegaly is partially seen. Pericardial fluid could be small to moderate partially imaged. Liver: Fatty liver with no mass lesions. Liver capsule not optimally assessed due to motion. Gallbladder and biliary ducts: Cholelithiasis. No gross biliary dilation on CT, motion artifact. Pancreas: No ductal dilation. No mass . Spleen: No splenomegaly or suspicious lesions. Adrenal glands: No suspicious mass. Kidneys and ureters: No hydronephrosis. No masses. Stomach and bowel: Colonic diverticulosis without diverticulitis. No focal pathology in the small bowel. Appendix: No evidence of appendicitis. Intraperitoneal space: No free air. No significant fluid collection. Vasculature: No abdominal aortic aneurysm. Lymph nodes: No significantly enlarged lymph nodes. Urinary bladder: Moderate urinary bladder wall thickening. Reproductive: Hysterectomy. Bones/joints: Chronic bony changes with no acute fracture. Soft tissues: Moderate body wall edema. Probable edema ventral abdominal pannus which appear symmetric. Cellulitis less likely. No focal soft tissue lesion or collection. Other findings: Motion artifact. IMPRESSION: 1. Probable CHF and volume overload. 2. Moderate urinary bladder wall thickening could reflect cystitis, neurogenic bladder chronic outlet obstructive changes. 3. Additional findings as described. Dictated and Authenticated by: Melisa Siegel MD. Ordering:JANAE Segura MD
[2024-05-16] MEDS: cefTRIAXone 2 GM/50 ML BAG IVPB (20:12)
[2024-05-16 20:25] LABS: Lipase 70 U/L (16-77)
[2024-05-16] MEDS: Normal Saline 500 ML IV (20:49)
[2024-05-16] MEDS: Insulin REGULAR-Human 100 UNITS/ML UNIT 8 UNITS SC (21:06)
[2024-05-16 21:37] VITALS: BP 111/61; PULSE 104; RESP 22; TEMP 36.6; O2SAT 98
[2024-05-16 21:53] LABS: Lactate 3.6 mmol/L (0.6-1.4)
--- NOTE | 2024-05-16 22:07 | W.ED.GENAD ---
Discharge Plan Disposition Patient Disposition: Admit to [facility] Discharge Details Clinical Impression: Elevated transaminase level, CHF (congestive heart failure), Hyperglycemia, Acute hyponatremia Primary Care Provider: Christ Saldivar ED Provider: Imelda Giron Home Meds and New Rx's Prescriptions: Continued metoprolol succinate 25 mg tablet extended release 24 hr 25 mg PO DAILY Qty: 90 3RF Jardiance 25 mg tablet 25 tab PO DAILY Patient Comments: Take 1 tablet by mouth once a day Discontinued furosemide 80 mg tablet 80 mg PO DAILY Qty: 90 6RF spironolactone 25 mg tablet 25 mg PO DAILY Qty: 90 6RF losartan 50 mg tablet 50 mg PO DAILY Qty: 90 3RF codeine-guaifenesin 10-100 mg/5 mL liquid 10 ml PO Q4H PRN (Reason: cough) Qty: 120 0RF aspirin [Aspir-81] 81 mg Tablet,Delayed Release (Dr/Ec) 81 mg PO DAILY metformin 1,000 mg Tablet 1,000 mg PO BID Levemir FlexTouch U100 Insulin 100 unit/mL (3 mL) insulin pen 15 unit SUBCUT QHS metronidazole 1 % Gel 1 applic TOPICAL BID HPI General Date/Time Provider Initiated Documentation: 05/16/24 17:46. HPI Narrative: This 83-year-old female with history of diabetes and hypertension presents with reports of cough and weakness for the past 2 weeks. Patient denies any chest pain. Patient states she has had some mild shortness of breath. Does not take any medications aside from Januvia and metoprolol per patient. Denies any fever or chills. Denies known sick contacts. Does not smoke tobacco. Denies any falls or injuries. States she has generalized myalgias. Related Data Home Medications Medication Instructions Recorded Confirmed metoprolol succinate 25 mg 25 mg PO DAILY #90 tabs 02/15/20 07/04/21 tablet,extended release 24 hr empagliflozin 25 mg tablet 25 tab PO DAILY 07/25/22 07/25/22 (Jardiance) Previous Rx's Medication Instructions Recorded metoprolol succinate 25 mg 25 mg PO DAILY #90 tabs 02/15/20 tablet,extended release 24 hr Allergies Allergy/AdvReac Type Severity Reaction Status Date / Time codeine AdvReac Intermediate Other (See Verified 05/16/24 17:53 Comment) General Stated Complaint: RespSymp ARNOLDO: 2 Exam Narrative Exam Narrative: Alert, oriented, pupils equal round reactive to light and accommodation, lungs clear to auscultation aside from mild crackles at bases, no respiratory distress, sinus tachycardia without notable murmur, no abdominal tenderness, alert and oriented x 4, 2+ edema to bilateral lower extremities 1+ edema to bilateral upper extremities Course Vital Signs Vital signs: Vital Signs Temperature 36.6 C 05/16/24 17:49 Pulse 123 H 05/16/24 17:49 Respiratory Rate 16 05/16/24 17:49 Blood Pressure 136/104 H 05/16/24 17:49 Pulse Oximetry 99 05/16/24 17:49 Temperature 36.6 C 05/16/24 21:37 Temperature Source Tympanic 05/16/24 21:37 Pulse 104 H 05/16/24 21:37 Respiratory Rate 22 05/16/24 21:37 Respiratory Effort Normal 05/16/24 21:21 Respiratory Depth Normal 05/16/24 21:20 Blood Pressure 111/61 05/16/24 21:37 Blood Pressure Position Sitting 05/16/24 21:37 Pulse Oximetry 98 05/16/24 21:37 Oxygen Delivery Method Room Air 05/16/24 21:37 Oxygen Flow Rate 0 05/16/24 17:49 Pain Level 0 05/16/24 21:37 Lab/Test Results Lab/Test Results: 05/16/24 21:40 Blood Blood Culture - Pending 05/16/24 18:45 Blood Blood Culture - Pending Laboratory Tests Range/Units 05/16/24 05/16/24 05/16/24 18:20 18:45 20:02 WBC (4.4-10.8) 10^3/uL 11.13 H RBC (3.93-5.22) 10^6/uL 5.29 H Hgb (11.2-15.7) g/dL 12.3 Hct (36.0-46.0) % 39.6 MCV (80-95) fL 75 L MCH (27.0-33.0) pg 23.3 L MCHC (32.0-36.0) % 31.1 L RDW (11.7-14.6) % 16.8 H Plt Count (130-400) 10^3/uL 510 H MPV (8.0-11.0) fL 9.5 Immature Gran % % 0.6 Neutrophils % % 80.5 Lymphocytes % % 11.4 Monocytes % % 6.6 Eosinophils % % 0.3 Basophils % % 0.6 Nucleated RBC % (0.0-0.3) % 0.2 Absolute Neutrophils (1.2-6.7) 10^3/uL 8.96 H Absolute Lymphocytes (1.2-3.4) 10^3/uL 1.27 Absolute Monocytes (0.1-0.8) 10^3/uL 0.73 Absolute Eosinophils (0.0-0.7) 10^3/uL 0.03 Absolute Basophils (0.0-0.2) 10^3/uL 0.07 RBC Morphology See Below Microcytosis 1+ VBG pH (7.31-7.41) 7.41 VBG pCO2 (41-51) mmHg 33 L VBG pO2 mmHg 58 VBG HCO3 (23-28) mmol/L 21 L VBG Total CO2 (24-29) mmol/L 19 L VBG O2 Saturation % 89 VBG Base Excess (-2-3) mmol/L -4 L VBG Lactate (0.6-1.4) mmol/L 5.2 H* Sodium (136-145) mmol/L 127 L Potassium (3.5-5.1) mmol/L 5.0 Chloride (98-107) mmol/L 91 L Carbon Dioxide (21.0-32.0) mmol/L 20.9 L Anion Gap (3-11) mmol/L 15.1 H BUN (7-18) mg/dL 11 Creatinine (0.55-1.02) mg/dL 1.0 Est GFR (CKD-EPI 2020) (mL/min/1.73m2) 56.60 Glucose (74-106) mg/dL 386 H Calcium (8.5-10.1) mg/dL 8.7 Total Bilirubin (0.2-1.0) mg/dL 2.84 H AST (15-37) U/L 421 H ALT (14-59) U/L 627 H Alkaline Phosphatase (46-116) U/L 216 H NT-Pro-B Natriuret Pep (<300) pg/mL 4537 H Total Protein (6.4-8.2) g/dL 7.2 Albumin (3.4-5.0) g/dL 3.4 Lipase (16-77) U/L 70 Procalcitonin ng/mL < 0.1 COVID-19 Source NASOPHARYNX SARS-CoV-2 (PCR) (Negative) Negative Influenza Type A (PCR) (Negative) Negative Influenza Type B (PCR) (Negative) Negative RSV (PCR) (Negative) Negative Range/Units 05/16/24 21:40 WBC (4.4-10.8) 10^3/uL RBC (3.93-5.22) 10^6/uL Hgb (11.2-15.7) g/dL Hct (36.0-46.0) % MCV (80-95) fL MCH (27.0-33.0) pg MCHC (32.0-36.0) % RDW (11.7-14.6) % Plt Count (130-400) 10^3/uL MPV (8.0-11.0) fL Immature Gran % % Neutrophils % % Lymphocytes % % Monocytes % % Eosinophils % % Basophils % % Nucleated RBC % (0.0-0.3) % Absolute Neutrophils (1.2-6.7) 10^3/uL Absolute Lymphocytes (1.2-3.4) 10^3/uL Absolute Monocytes (0.1-0.8) 10^3/uL Absolute Eosinophils (0.0-0.7) 10^3/uL Absolute Basophils (0.0-0.2) 10^3/uL RBC Morphology Microcytosis VBG pH (7.31-7.41) VBG pCO2 (41-51) mmHg VBG pO2 mmHg VBG HCO3 (23-28) mmol/L VBG Total CO2 (24-29) mmol/L VBG O2 Saturation % VBG Base Excess (-2-3) mmol/L VBG Lactate (0.6-1.4) mmol/L 3.6 H* Sodium (136-145) mmol/L Potassium (3.5-5.1) mmol/L Chloride (98-107) mmol/L Carbon Dioxide (21.0-32.0) mmol/L Anion Gap (3-11) mmol/L BUN (7-18) mg/dL Creatinine (0.55-1.02) mg/dL Est GFR (CKD-EPI 2021) (mL/min/1.73m2) Glucose (74-106) mg/dL Calcium (8.5-10.1) mg/dL Total Bilirubin (0.2-1.0) mg/dL AST (15-37) U/L ALT (14-59) U/L Alkaline Phosphatase (46-116) U/L NT-Pro-B Natriuret Pep (<300) pg/mL Total Protein (6.4-8.2) g/dL Albumin (3.4-5.0) g/dL Lipase (16-77) U/L Procalcitonin ng/mL COVID-19 Source SARS-CoV-2 (PCR) (Negative) Influenza Type A (PCR) (Negative) Influenza Type B (PCR) (Negative) RSV (PCR) (Negative) Medical Decision Making 83-year-old female presenting with cough and weakness. Patient is speaking complete sentences with stable vitals aside from sinus tachycardia.. Given age and comorbidities I will order chest x-ray, diagnostic labs, blood culture. Lactic is elevated at 5.2, I have low suspicion that this is infectious, I suspect she has acute CHF. I did order a CT abdomen and pelvis secondary to elevated LFTs and alk phos. Tick panel pending. Glucose is elevated at 386, given 8 units of subcutaneous insulin with fluids. No clinical evidence of DKA. Lasix 20 as patient has not received Lasix since 2020. Echocardiogram was reviewed from admission in 2020 with global hypokinesis and ejection fraction of 50 to 55%. Hyponatremia, 127. I did initially give patient a Xopenex as she had persistent coughing which actually seem to improve her cough. She is not in any respiratory distress. She has been on telemetry monitoring with improvement in rate. She will need admission at this time for acute CHF, hyponatremia, elevated transaminases, intravascular depletion, and continued monitoring. Pending blood cultures at this time. Return precautions reviewed and patient expressed understanding Quality:SDOH Health Related Social Needs: No Data to Display PFSH All Active Problems (Updated 05/16/24 @ 22:17 by CHADWICK Cabral) Acute hyponatremia (Acute) Hyperglycemia (Acute) Elevated transaminase level (Acute) CHF (congestive heart failure) (Chronic) HTN (hypertension) (Chronic) Medical History (Updated 05/16/24 @ 22:17 by CHADWICK Cabral) Allergic rhinitis Chronic cough Acne rosacea Osteoporosis Hyperlipidemia Insulin dependent diabetes mellitus Hypomagnesemia Diabetes Surgical History History of hysterectomy Social History Smoking/Tobacco Use Status: Never Smoking risk assessment performed?: Yes Alcohol Intake: never Drug use: Never Substance use type: does not use Housing: house Do you feel safe at home: Yes Do you feel safe in your relationship?: No
[2024-05-16 22:09] LABS: Bilirubin Negative (Negative); Blood Trace-lysed (Negative); Clarity Clear (Clear); Glucose 250 mg/dL (Negative); Ketones Negative (Negative); Leukocyte Esterase Moderate (Negative); Nitrite Negative (Negative); Urobilinogen 0.2 mg/dL (Up to 0.2)
[2024-05-16 22:16] LABS: Bacteria Negative HPF (Negative); C & S Indicated? Yes; Crystals Negative HPF (Negative); Epithelial Cells Few HPF (Negative); Mucus Negative (Negative); Other Cells Rare Transitional (Negative); RBC 0-2 HPF (0-2)
--- NOTE | 2024-05-16 22:33 | W.PM.HP.N ---
Date of service: 05/16/24 Time of Service: 22:34 Assessment and Plan Assessment and plan (1) CHF (congestive heart failure): Start date: 05/16/24 Status: Acute Assessment and plan: This is an 83-year-old lady presenting with weakness and cough for 2 weeks. She is to be probable exacerbation of CHF with previous echocardiogram showing global hypokinesis and mildly reduced left ejection fraction in the 50% range. Echocardiogram will be updated. She was given Lasix in the ED with some good response and will continue on IV Lasix twice daily 40 mg. Appears to be slightly intravascularly depleted with an elevated lactate and increased anion gap as well as lactic acidosis responsive to IV fluids. We will cautiously continue gentle IV fluid rehydration with IV Lasix for CHF and update echocardiogram when available. She may have a UTI and question elevated liver function test with cholelithiasis though she has had no fever but does have an elevated WBC. Cultures have been obtained and she is being covered with Rocephin being switched to Zosyn. Tickborne panel was ordered as well and at this is a pleasant tickborne infection, doxycycline might be added to her regimen if patient has fever or progressive symptoms. Patient appeared more comfortable after IV Lasix and gentle IV hydration. She is a full code. Qualifiers: Heart failure chronicity: acute on chronic Heart failure type: combined systolic and diastolic Qualified Code(s): I50.43 - Acute on chronic combined systolic (congestive) and diastolic (congestive) heart failure (2) Acute hyponatremia: Start date: 05/16/24 Status: Acute Assessment and plan: Patient has had hyponatremia in the past but this is slightly worse. May be secondary to the acute process and we can consider oral fluid restriction if this persists. Trend labs as we gently hydrate with IV fluids. We also are treating with Lasix for CHF which may also be helpful in treating this problem. (3) UTI (urinary tract infection): Start date: 05/16/24 Status: Acute Assessment and plan: Positive UA with patient having culture performed and on appropriate IV antibiotics. Qualifiers: Hematuria presence: without hematuria Urinary tract infection type: acute cystitis Qualified Code(s): N30.00 - Acute cystitis without hematuria (4) Obstructive jaundice: Start date: 05/16/24 Status: Acute Assessment and plan: Patient does have cholelithiasis but no signs of biliary tree obstruction at this time. Better imaging will be ultrasound of the abdomen will be performed when available. Continue Zosyn and watch for progressive symptoms with trending labs. (5) Elevated transaminase level: Start date: 05/16/24 Status: Acute Assessment and plan: Associated with elevated bilirubin and is noted with cholelithiasis or vascular congestion with CHF. Trend labs and treat any known problems. Follow-up imaging with ultrasound of the abdomen. (6) Type 2 diabetes mellitus: Status: Chronic Assessment and plan: On metformin patient will be held and patient will have glucometer measurement before meals and at bedtime with corrective insulin coverage. Check hemoglobin A1c. Last hemoglobin A1c recorded 2021 was elevated at 10. Qualifiers: Diabetes mellitus complication status: without complication Diabetes mellitus tank terminal gauger insulin use: without tank terminal gauger use Qualified Code(s): E11.9 - Type 2 diabetes mellitus without complications (7) HTN (hypertension): Status: Chronic Assessment and plan: Switch to metoprolol to tartrate 12.5 mg every 8 hours to be diuresed. Monitor blood pressure closely adjusting as needed. This also may help with her tachycardia. Qualifiers: Hypertension type: primary hypertension Qualified Code(s): I10 - Essential (primary) hypertension (8) Hyperlipidemia: Status: Chronic Assessment and plan: On no treatment with mixed hyperlipidemia with elevated triglycerides in the past. With question of advancing cardiovascular disease, she may want to treat this problem with fasting labs in the morning to update. Qualifiers: Hyperlipidemia type: mixed hyperlipidemia Qualified Code(s): E78.2 - Mixed hyperlipidemia History of Present Illness History of Present Illness Chief Complaint: Cough and weakness for 2 weeks Narrative: This is an 83-year-old female patient who presented to the ED attended by her daughter with complaint of having a cough with increasing weakness for 2 weeks. She has not had any chest pain and denies any weight gain but does have chronic leg edema. She has been on Lasix in the past for CHF but currently on minimal medications taking metformin for diabetes and metoprolol low-dose for hypertension. Has had no fever chills or production of sputum. She states that she does lay on her side to sleep but does not elevate her bed after repeated questions as to how many pillow she would use at night. She appeared more comfortable sitting at the edge of her bed during the night of admission. She appears to have some element of PND. She is a very poor historian. She denies abdominal pain or change in bowel habits her LFTs and bilirubin are elevated. She does still have a gallbladder she is obese. She appears sedentary. She is a non-smoker and has no treatment for respiratory symptoms. She did have improvement after dry cough with Xopenex treatment in the ED. She will continue on albuterol nebulizers as needed and will stay. CT imaging did not reveal any pneumonia but suggested congestion and fluid overload with cholelithiasis but no evidence of dilatation of the biliary tree as well as thickening of the bladder wall. As elevated-abdominal symptoms or urinary symptoms. The UA was positive and she is being covered for possible infection with blood cultures will also be performed. He was given Rocephin in the ED and will be on Zosyn for coverage of possible GI infection with her elevated liver function test as well as her urinary tract infection. They did do a tickborne panel because of her elevated liver functions and respiratory symptoms and this is pending. We should consider starting doxycycline to cover atypical tickborne disease. She has not had a fever. Patient did receive Lasix in the ED and a small fluid bolus with continued low rate of fluid question intravascular depletion low she does show vascular congestion or fluid overload on CT of the chest. She is not hypoxic or tachypneic. She was tachycardic and at this has improved with fluid repletion. She is also hyponatremic which is mild and will be monitored. She does appear to have some short-term memory loss vague historian. There is no overt history of dementia. She is a full code Review of Systems Narrative: 13 point review of systems positive for generalized myalgias otherwise as per HPI or unrevealing/stable. PFSH All Active Problems (Updated 05/16/24 @ 22:54 by Enrique Coronel) Hyperlipidemia (Chronic) Obstructive jaundice (Acute) Type 2 diabetes mellitus (Chronic) UTI (urinary tract infection) (Acute) Acute hyponatremia (Acute) Hyperglycemia (Acute) Elevated transaminase level (Acute) CHF (congestive heart failure) (Acute) HTN (hypertension) (Chronic) Medical History (Updated 05/16/24 @ 22:54 by Enrique Coronel) Allergic rhinitis Chronic cough Acne rosacea Osteoporosis Insulin dependent diabetes mellitus Hypomagnesemia Surgical History History of hysterectomy Social History Smoking/Tobacco Use Status: Never Smoking risk assessment performed?: Yes Alcohol Intake: never Drug use: Never Substance use type: does not use Housing: house Do you feel safe at home: Yes Do you feel safe in your relationship?: No Meds Allergies and Home Medications Allergies Allergy/AdvReac Type Severity Reaction Status Date / Time codeine AdvReac Intermediate Other (See Verified 05/16/24 17:53 Comment) Home Medications Medication Instructions Recorded Confirmed Type metoprolol succinate 25 mg 25 mg PO DAILY #90 tabs 02/15/20 05/16/24 Rx tablet,extended release 24 hr empagliflozin 25 mg tablet 25 tab PO DAILY 07/25/22 05/16/24 History (Jardiance) metformin 1,000 mg tablet 1,000 mg PO TID 05/16/24 05/16/24 History Exam Narrative Exam Narrative: General: Patient appears older than stated age, moderately obese because this will voice and at times. Short-term memory loss. She is a poor historian. She appears no acute distress. She is sitting at the edge of her bed with an occasional dry cough. She is alert and oriented at least to person and place. HEENT: Normocephalic, pupils equal and reactive to light symmetrically, extraocular movement intact and sclera anicteric. Oral mucosa moist. Injection. Neck: Supple without JVD. Back: Without CVA tenderness. Lungs: Very poor aeration with decreased aeration at left more than right base, no localized rales or rhonchi. Expiratory wheeze. Breast: Exam deferred. Heart: Regular rate and rhythm and no appreciable murmur or gallop. Abdomen: Obese contour. Palpation with no guarding or rebound. No palpable hepatosplenomegaly. Negative Gannon sign. Bowel sounds positive in all quadrants. Genitalia/rectal: Exam deferred. Extremities: Osteoarthritic changes of the joints with fair range of motion, nonpitting edema ankles and feet with skin changes without skin breakdown. No pitting edema, cyanosis or clubbing. Skin: Normal color, warm and dry. Chronic venous stasis changes over lower extremities as mentioned. Neuro: Cranial nerves II through XII grossly intact with patient appearing to have some decreased hearing acuity. No focal motor deficits. No tremor. Psych: Flattened affect with depressed mood. No abnormal processes. Remote memory intact with recent memory appear to be less intact. Results Imaging Imaging Studies: Exam: CT Abdomen And Pelvis With Contrast Exam date and time: 05/16/2024 7:49 PM Age: 83 years old Clinical indication: Other: Elevated bilirubin and lft's TECHNIQUE: Imaging protocol: Computed tomography of the abdomen and pelvis with contrast. Contrast material: OMNIPAQUE 350; Contrast volume: 100 ml; Contrast route: INTRAVENOUS (IV); COMPARISON: CR XR CHEST 2V PA LATERAL 05/16/2024 6:26 PM FINDINGS: Lungs: Subcentimeter right lower lobe pulmonary nodule. Follow-up as per institutional protocol. Heart: Cardiomegaly is partially seen. Pericardial fluid could be small to moderate partially imaged. Liver: Fatty liver with no mass lesions. Liver capsule not optimally assessed due to motion. Gallbladder and biliary ducts: Cholelithiasis. No gross biliary dilation on CT, motion artifact. Pancreas: No ductal dilation. No mass . Spleen: No splenomegaly or suspicious lesions. Adrenal glands: No suspicious mass. Kidneys and ureters: No hydronephrosis. No masses. Stomach and bowel: Colonic diverticulosis without diverticulitis. No focal pathology in the small bowel. Appendix: No evidence of appendicitis. Intraperitoneal space: No free air. No significant fluid collection. Vasculature: No abdominal aortic aneurysm. Lymph nodes: No significantly enlarged lymph nodes. Urinary bladder: Moderate urinary bladder wall thickening. Reproductive: Hysterectomy. Bones/joints: Chronic bony changes with no acute fracture. Soft tissues: Moderate body wall edema. Probable edema ventral abdominal pannus which appear symmetric. Cellulitis less likely. No focal soft tissue lesion or collection. Other findings: Motion artifact. IMPRESSION: 1. Probable CHF and volume overload. 2. Moderate urinary bladder wall thickening could reflect cystitis, neurogenic bladder chronic outlet obstructive changes. 3. Additional findings as described. Labs 05/16/24 18:45 05/16/24 18:45 Labs: Laboratory Results - last 24 hr 05/16/24 05/16/24 05/16/24 18:20 18:45 20:02 WBC 11.13 H RBC 5.29 H Hgb 12.3 Hct 39.6 MCV 75 L MCH 23.3 L MCHC 31.1 L RDW 16.8 H Plt Count 510 H MPV 9.5 Immature Gran % 0.6 Neutrophils % 80.5 Lymphocytes % 11.4 Monocytes % 6.6 Eosinophils % 0.3 Basophils % 0.6 Nucleated RBC % 0.2 Absolute Neutrophils 8.96 H Absolute Lymphocytes 1.27 Absolute Monocytes 0.73 Absolute Eosinophils 0.03 Absolute Basophils 0.07 RBC Morphology See Below Microcytosis 1+ VBG pH 7.41 VBG pCO2 33 L VBG pO2 58 VBG HCO3 21 L VBG Total CO2 19 L VBG O2 Saturation 89 VBG Base Excess -4 L VBG Lactate 5.2 H* Sodium 127 L Potassium 5.0 Chloride 91 L Carbon Dioxide 20.9 L Anion Gap 15.1 H BUN 11 Creatinine 1.0 Est GFR (CKD-EPI 2020) 56.60 Glucose 386 H Calcium 8.7 Total Bilirubin 2.84 H AST 421 H ALT 627 H Alkaline Phosphatase 216 H NT-Pro-B Natriuret Pep 4537 H Total Protein 7.2 Albumin 3.4 Lipase 70 Procalcitonin < 0.1 Urine Color Urine Clarity Urine pH Ur Specific Wind[place] Urine Protein Urine Ketones Urine Blood Urine Nitrite Urine Bilirubin Urine Urobilinogen Ur Leukocyte Esterase Urine RBC Urine WBC Ur Epithelial Cells Urine Crystals Urine Bacteria Urine Mucus Urine Other Ur Culture Indicated? Urine Glucose COVID-19 Source NASOPHARYNX SARS-CoV-2 (PCR) Negative Influenza Type A (PCR) Negative Influenza Type B (PCR) Negative RSV (PCR) Negative 05/16/24 05/16/24 21:40 21:48 WBC RBC Hgb Hct MCV MCH MCHC RDW Plt Count MPV Immature Gran % Neutrophils % Lymphocytes % Monocytes % Eosinophils % Basophils % Nucleated RBC % Absolute Neutrophils Absolute Lymphocytes Absolute Monocytes Absolute Eosinophils Absolute Basophils RBC Morphology Microcytosis VBG pH VBG pCO2 VBG pO2 VBG HCO3 VBG Total CO2 VBG O2 Saturation VBG Base Excess VBG Lactate 3.6 H* Sodium Potassium Chloride Carbon Dioxide Anion Gap BUN Creatinine Est GFR (CKD-EPI 2020) Glucose Calcium Total Bilirubin AST ALT Alkaline Phosphatase NT-Pro-B Natriuret Pep Total Protein Albumin Lipase Procalcitonin Urine Color Yellow Urine Clarity Clear Urine pH 6.0 Ur Specific Windber 1.010 Urine Protein Negative Urine Ketones Negative Urine Blood Trace-lysed H Urine Nitrite Negative Urine Bilirubin Negative Urine Urobilinogen 0.2 Ur Leukocyte Esterase Moderate H Urine RBC 0-2 Urine WBC 10-20 H Ur Epithelial Cells Few Urine Crystals Negative Urine Bacteria Negative Urine Mucus Negative Urine Other Rare Transitional Ur Culture Indicated? Yes Urine Glucose 250 H COVID-19 Source SARS-CoV-2 (PCR) Influenza Type A (PCR) Influenza Type B (PCR) RSV (PCR) Last Vital Signs Temp 36.6 C 05/16/24 21:37 Pulse 104 H 05/16/24 21:37 Resp 22 05/16/24 21:37 BP 111/61 05/16/24 21:37 Pulse Ox 98 05/16/24 21:37 Time Spent Time spent with Patient: >75 minutes Time was spent: preparing to see the patient(eg.review tests), obtaining and/or reviewing separately otained hiistory, ordering medications,tests, procedures, indepentently interpreting results and care coordination
[2024-05-16 23:55] VITALS: BP 117/72; PULSE 115; RESP 18; TEMP 35.9; O2SAT 96
[2024-05-16 23:59] VITALS: BP 117/72; PULSE 115; RESP 18; TEMP 35.9; O2SAT 96
[2024-05-17] MEDS: Metoprolol 12.5 MG TAB PO ×2 (01:02→08:32)
[2024-05-17] MEDS: Normal Saline 1,000 ML 100 ML IV (01:02)
[2024-05-17] MEDS: Furosemide 20 MG/2 ML VIAL IVP (01:39)
[2024-05-17] MEDS: PIPERACILLIN/TAZO 3.375 GM in Normal Saline 50 ML IVPB ×4 (01:40→21:20)
[2024-05-17 03:39] VITALS: BP 108/66; PULSE 97; RESP 18; TEMP 36; O2SAT 98
[2024-05-17 06:57] LABS: HGB 11.6 g/dL (11.2-15.7); MCH 22.8 pg (27.0-33.0); MCHC 30.5 % (32.0-36.0); MPV 9.7 fL (8.0-11.0); Platelet Count 442 10^3/uL (130-400); RBC 5.08 10^6/uL (3.93-5.22); RDW 16.7 % (11.7-14.6); RDW-SD 44.6 fL; WBC 11.62 10^3/uL (4.4-10.8)
[2024-05-17 07:06] LABS: INR 1.8 (0.9-1.1); Prothrombin Time 17.4 sec (9.1-11.1)
[2024-05-17 07:14] LABS: Hemoglobin A1C > 13.0 % (<5.7)
[2024-05-17 07:18] LABS: MCV 75 fL (80-95)
[2024-05-17 07:19] LABS: Anion Gap 17.1 mmol/L (3-11); BUN 14 mg/dL (7-18); CO2 18.9 mmol/L (21.0-32.0); CREATININE 1.1 mg/dL (0.55-1.02); Calcium 7.9 mg/dL (8.5-10.1); Chloride 94 mmol/L (98-107); Estimated GFR 50.48 (mL/min/1.73m2); Glucose 193 mg/dL (74-106); Magnesium 1.5 mg/dL (1.8-2.4); Sodium 130 mmol/L (136-145)
[2024-05-17 07:22] LABS: ALT 697 U/L (14-59); AST 595 U/L (15-37); Alkaline Phosphatase 199 U/L (46-116); Bilirubin, Direct 1.7 mg/dL (0.0-0.2); Total Protein 6.7 g/dL (6.4-8.2)
[2024-05-17 07:31] VITALS: BP 106/70; PULSE 102; RESP 18; TEMP 36.2; O2SAT 99
[2024-05-17 07:33] LABS: Calculated LDL 57 mg/dL (<100); Cholesterol 93 mg/dL (<200); HDL Cholesterol 22 mg/dL (40-60); Triglyceride 71 mg/dL (<150)
[2024-05-17 08:29] LABS: TSH (W/Ref FT4) 5.92 uIU/mL (0.36-3.74)
[2024-05-17] MEDS: Enoxaparin 40 MG/0.4 ML SYR SC (08:31)
[2024-05-17] MEDS: Furosemide 40 MG/4 ML VIAL IVP ×3 (08:32→19:29)
[2024-05-17] MEDS: Insulin Aspart 300 UNITS/3 ML PEN SC ×3 (08:32→16:47)
[2024-05-17] MEDS: Normal Saline Flush 10 ML SYR IVP ×4 (08:33→19:29)
--- NOTE | 2024-05-17 08:41 | PDOC.CMIN ---
Date of service: 05/17/24 Time of Service: 08:41 Care Management Initial Assmt Initial Assessment Reason for Hospitalization: CHF Functional Status/Living Situation Town of Residence: [place] Resides with: Child (Latanya lives in a single family home in [place]. 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) Instrumental Activities of Daily Living (ADLs): Independent Activities/Hobbies/SocialSupport: Enjoys knitting, sewing, watching soap operas on TV and listening to country music Medications Medication Management: No Issues/Barriers identified Physical Functioning/Mobility Assistive Device: none Advance Directives Advance Directives: Do you have an Advance Directive: Y 12/08/19 10:36 AD On File at [employer]: Y 12/08/19 10:36 Date Asked 05/16/24 05/16/24 18:05 AD Date Reviewed 05/16/24 05/16/24 18:05 COLST On File at [employer] COLST Date Scanned Code Status Resuscitation Status Full Code Portal Pt does not currently have a portal and education provided: No Insurance Coverage/Financial Issues Insurance: Medicare A&B ACO Member: Yes Care Team Visit Care Team Role Provider Type Christ Saldivar Primary Care Provider [employer] STAFF PHYSICIAN Radha Desir RDN, MACIEJES Other Providers ASSEMBLER CRIMPER Bernice Meza Other Providers ASSEMBLER CRIMPER Antwon Torres RDN Other Providers ASSEMBLER CRIMPER [facility] Provider PHYSICIANS ASSISTANT Enrique Coronel Admit Provider NON-[employer] STAFF PHYSICIAN Attending Provider Discharge Potential Discharge Needs: PCP F/U Appt Anticipated Barriers to Discharge: None Identified Patient/Family Education Needs: Review discharge instructions, discuss Ask Me Three Transportation: Private vehicle Plan: Anticipate Latanya will be discharged home when medically cleared. She will follow up with her PCP and plan of care and transport with family. CM will continue to assess for discharge needs. PFSH All Active Problems (Updated 05/17/24 @ 12:46 by Arnold Davenport MD) Ischemic cardiomyopathy (Acute) Acute on chronic HFrEF (heart failure with reduced ejection fraction) (Acute) Hyperlipidemia (Chronic) Obstructive jaundice (Acute) Type 2 diabetes mellitus (Chronic) UTI (urinary tract infection) (Acute) Acute hyponatremia (Acute) Hyperglycemia (Acute) Elevated transaminase level (Acute) CHF (congestive heart failure) (Acute) HTN (hypertension) (Chronic) Medical History (Updated 05/17/24 @ 12:46 by Arnold Davenport MD) Allergic rhinitis Chronic cough Acne rosacea Osteoporosis Insulin dependent diabetes mellitus Hypomagnesemia Surgical History History of hysterectomy Social History Smoking/Tobacco Use Status: Never Smoking risk assessment performed?: Yes Alcohol Intake: never Drug use: Never Substance use type: does not use Housing: house Do you feel safe at home: Yes Do you feel safe in your relationship?: No SDOH(Care Management) Screening Will the Patient Participate in the Screening?: Yes Do you worry about having a steady place to live?: no Problems where you live: no known problems In the past 12 months, have you had to go without electric, gas, oil or water in your home?: no Have you or anyone in your house had to go without enough food to eat?: no Has lack of transportation kept you from medical appointments or from doing things needed for daily living?: no Has anyone in your support network made you feel unsafe for any reason?: no Anticipated HH Services Anticipated HH Services at Discharge [facility] (for monitoring CHF - daily weights, sodium intake, medication compliance) RN. Anticipated Date of Discharge: 05/19/24. Following Provider: Christ Saldivar.
[2024-05-17 08:48] LABS: FREE T4 1.91 ng/dL (0.76-1.46)
[2024-05-17] MEDS: MAGNESIUM SULFATE 2 GM/50 ML BAG IVINF (09:50)
--- NOTE | 2024-05-17 10:26 | W.PM.PROGNOT ---
Date of Service Date of service: 05/17/24 Time of Service: 10:26 Assessment and Plan Assessment and plan (1) Acute on chronic HFrEF (heart failure with reduced ejection fraction): Status: Acute Assessment and plan: ACS has not been ruled out given that no troponins were done last night. We will check troponin levels today along with repeat EKG. Bedside POCUS shows severe LV and RV dysfunction along with mild to moderate mitral regurgitation and moderate tricuspid regurgitation. She has a plethoric IVC that did not show any significant collapsibility with inspiration furthermore her hepatic vein pattern also is congested. IV fluids were stopped this morning per my order and I will increase her Lasix to 40 mg IV every 8 hours and add Diuril 1000 mg IV every 12 hours and start her on spironolactone. I have withheld her metoprolol as her tachycardia is probably compensatory for her severe LV dysfunction. Patient remains a full code and I will work with her and her family to help her determine her goals of care and we will enlist the help of palliative care as well. She is still adamant that she does not want transfer to cardiac catheterization. I have ordered aspirin, will check troponin levels, diurese as noted above. formal echo will be done tomorrow, once she is euvolemic then work towards goal directe therapy w/ Jardiance (if she can afford this, will need Rx sent to pharmacy before she is dc home), and Entresto (again will need to check cost otherwise I would titrate her losartan), once she is out of acute congestive failure then try to add low dose BB back Professional time spent interviewing and examining patient, discussion of goals of care with hospital team (care management, nursing and consulting professionals) was 60 minutes. (2) Ischemic cardiomyopathy: Status: Acute Assessment and plan: once she is out of acute CHF, consider addition of anti-ischemic meds such as isosorbide but only if she is still symptomatic after she is on goal directed CHF therapy (BB, ARB, loop diuretic and spironolactone and SGLT-2 inhibitor). (3) Acute hyponatremia: Start date: 05/16/24 Status: Acute Assessment and plan: secondary to CHF, monitor daily BMP while diuresing (4) Elevated transaminase level: Start date: 05/16/24 Status: Acute Assessment and plan: patient found to have gallstones but not acute cholecystitis, no biliary ductal dilatation on CT (however a lot of motion artifact); patient was put on Ceftriaxone in the E.D. for alleged UTI (she had no bacteria in her urine but had WBC, +leukocyte esterase) and this was switched by admitting provider to Zosyn. Unclear whether this was done for her reported UTI or for coverage of her GB. She has hyperbilirubinemia w/ elevated direct bilirubin along w/ elevated transaminases but this still may be hepatic congestion from CHF. she has RV dysfunction on her echo w/ elevated hepatic venous congestion. Formal US of her GB will be done tomorrow. I will leave the Zosyn on board for now pending her urine and blood culture results. If no growth and US of GB does not show acute biliary obstruction then her Zosyn should be stopped. (5) Type 2 diabetes mellitus: Status: Chronic Assessment and plan: poorly controlled. HbA1C is >13%, for now continue w/ basal/boluse insulin coverage. if she can afford Jardiance then this should be added for her CHF more so than for her DM. It appears from prior Rx sent by her PCP he tried to get her on Levemir and Victoza Qualifiers: Diabetes mellitus group home insulin use: without group home use Diabetes mellitus complication status: without complication Qualified Code(s): E11.9 - Type 2 diabetes mellitus without complications (6) HTN (hypertension): Status: Chronic Assessment and plan: resume her losartan, once out of acute CHF then resume BB Qualifiers: Hypertension type: primary hypertension Qualified Code(s): I10 - Essential (primary) hypertension (7) Hyperlipidemia: Status: Chronic Assessment and plan: holding statin for now until her LFT improve Qualifiers: Hyperlipidemia type: mixed hyperlipidemia Qualified Code(s): E78.2 - Mixed hyperlipidemia Subjective Subjective Interval history since last seen: 83-year-old female with a history of hypertension, diabetes mellitus type 2, ischemic cardiomyopathy with HFrEF diagnosed with severe LV and RV dysfunction dating back to October 2019 subsequently had a stress MPI in 2019 that showed anterior wall ischemia. Patient had opted not to undergo cardiac catheterization was put on goal-directed therapy by Dr. Enrique Mckinney showed some improvement in her LV function. Most recent echocardiogram from 10/04/2021 showed her LVEF 50 to 55% but again with global hypokinesis and now with normal right ventricular size and function. Unfortunately patient came off GDT for CHF. She previously had been on Entresto but could not afford this. However she was uptitrted on losartan, lasix and spironolactone and low dose Toprol XL. She now comes in on only metformin and Toprol XL 25 mg daily. She states that she has been not feeling well for about a week. She is poor historian but is able to tell me that she has been dyspneic for about one week. She did not seem to recognize that she has bilateral pedal and lower leg edema. She denies any CP. She is experiencing orthopnea even since admission. Patient was admitted last night through the emergency department with acute exacerbation chronic heart failure. She was also noted to have elevated LFTs and bilirubin and hyponatremia. Serum sodium is down 127 with normal BUN of 11 creatinine 1.0 glucose was elevated at 386. Total bilirubin is elevated 2.84 with an elevated AST 421, ALT 627 and alkaline phosphatase 216 her proBNP was 4500 whereas her previous value last fall was 556. She was noted to be orthopneic and tachypneic and tachycardic and also noted to have elevated blood lactate. 5.2 with a normal pH of 7.41. Urinalysis did not show any ketones and her specific gravity was 1.010 with moderate leukocyte Estrace and negative for bacteria. For unexplained reasons patient was given IV fluids last night as well as IV Lasix and continued on normal saline at 100 mL an hour overnight while she was receiving Lasix 40 mg twice a day. No troponins were ordered last night. ECG was done last night shows sinus tachycardia rate of 118 beats a minute with no acute ST elevation but evidence of a prior anterior infarct with loss of R waves across the anterior precordial leads with no transition R wave all the way up to V6. Chest x-ray showed cardiomegaly no pulmonary infiltrates but she has increased pulmonary interstitial markings. Exam Narrative Exam Narrative: Elderly white female who is tachypneic but not in acute respiratory failure she is able to talk in short sentences she is orthopneic I attempted to lie her flat while I did a bedside POCUS exam which she could not tolerate lying flat or on her left side so I did the exam with her in the semiupright position at about 45 degrees. Neck with overt JVD Lungs with diffuse bilateral rales no rhonchi she has a nonproductive cough Heart is regular but tachycardic with systolic murmur over the apex Abdomen obese soft and nontender Lower extremities 2+ pitting edema to just below her knees. She has diminished pedal pulses intact capillary refill Objective Last Vital Signs Temp 36.2 C L 05/17/24 07:31 Pulse 102 H 05/17/24 07:31 Resp 18 05/17/24 07:31 BP 106/70 05/17/24 07:31 Pulse Ox 99 05/17/24 07:31 Laboratory Results - last 24 hr 05/16/24 05/16/24 05/16/24 18:20 18:45 20:02 WBC 11.13 H RBC 5.29 H Hgb 12.3 Hct 39.6 MCV 75 L MCH 23.3 L MCHC 31.1 L RDW 16.8 H Plt Count 510 H MPV 9.5 Immature Gran % 0.6 Neutrophils % 80.5 Lymphocytes % 11.4 Monocytes % 6.6 Eosinophils % 0.3 Basophils % 0.6 Nucleated RBC % 0.2 Absolute Neutrophils 8.96 H Absolute Lymphocytes 1.27 Absolute Monocytes 0.73 Absolute Eosinophils 0.03 Absolute Basophils 0.07 RBC Morphology See Below Microcytosis 1+ PT INR VBG pH 7.41 VBG pCO2 33 L VBG pO2 58 VBG HCO3 21 L VBG Total CO2 19 L VBG O2 Saturation 89 VBG Base Excess -4 L VBG Lactate 5.2 H* Sodium 127 L Potassium 5.0 Chloride 91 L Carbon Dioxide 20.9 L Anion Gap 15.1 H BUN 11 Creatinine 1.0 Est GFR (CKD-EPI 2020) 56.60 Glucose 386 H Hemoglobin A1c Calcium 8.7 Magnesium Total Bilirubin 2.84 H Conjugated Bilirubin AST 421 H ALT 627 H Alkaline Phosphatase 216 H NT-Pro-B Natriuret Pep 4537 H Total Protein 7.2 Albumin 3.4 Triglycerides Total Cholesterol LDL Cholesterol, Calc HDL Cholesterol Lipase 70 Procalcitonin < 0.1 TSH Free T4 Urine Color Urine Clarity Urine pH Ur Specific [place] Urine Protein Urine Ketones Urine Blood Urine Nitrite Urine Bilirubin Urine Urobilinogen Ur Leukocyte Esterase Urine RBC Urine WBC Ur Epithelial Cells Urine Crystals Urine Bacteria Urine Mucus Urine Other Ur Culture Indicated? Urine Glucose COVID-19 Source NASOPHARYNX SARS-CoV-2 (PCR) Negative Influenza Type A (PCR) Negative Influenza Type B (PCR) Negative RSV (PCR) Negative 05/16/24 05/16/24 05/17/24 21:40 21:48 05:55 WBC 11.62 H RBC 5.08 Hgb 11.6 Hct 38.0 MCV 75 L MCH 22.8 L MCHC 30.5 L RDW 16.7 H Plt Count 442 H MPV 9.7 Immature Gran % Neutrophils % Lymphocytes % Monocytes % Eosinophils % Basophils % Nucleated RBC % Absolute Neutrophils Absolute Lymphocytes Absolute Monocytes Absolute Eosinophils Absolute Basophils RBC Morphology Microcytosis PT 17.4 H INR 1.8 H VBG pH VBG pCO2 VBG pO2 VBG HCO3 VBG Total CO2 VBG O2 Saturation VBG Base Excess VBG Lactate 3.6 H* Sodium 130 L Potassium 4.0 D Chloride 94 L Carbon Dioxide 18.9 L Anion Gap 17.1 H BUN 14 Creatinine 1.1 H Est GFR (CKD-EPI 2020) 50.48 Glucose 193 H Hemoglobin A1c > 13.0 H Calcium 7.9 L Magnesium 1.5 L Total Bilirubin 2.40 H Conjugated Bilirubin 1.7 H AST 595 H ALT 697 H Alkaline Phosphatase 199 H NT-Pro-B Natriuret Pep Total Protein 6.7 Albumin 3.0 L Triglycerides 71 Total Cholesterol 93 LDL Cholesterol, Calc 57 HDL Cholesterol 22 L Lipase Procalcitonin TSH 5.92 H Free T4 1.91 H Urine Color Yellow Urine Clarity Clear Urine pH 6.0 Ur Specific [place] 1.010 Urine Protein Negative Urine Ketones Negative Urine Blood Trace-lysed H Urine Nitrite Negative Urine Bilirubin Negative Urine Urobilinogen 0.2 Ur Leukocyte Esterase Moderate H Urine RBC 0-2 Urine WBC 10-20 H Ur Epithelial Cells Few Urine Crystals Negative Urine Bacteria Negative Urine Mucus Negative Urine Other Rare Transitional Ur Culture Indicated? Yes Urine Glucose 250 H COVID-19 Source SARS-CoV-2 (PCR) Influenza Type A (PCR) Influenza Type B (PCR) RSV (PCR) Time Spent with Patient Time Spent with Patient: >50 minutes Time was spent: preparing to see the patient(eg.review tests), obtaining and/or reviewing separately otained hiistory, ordering medications,tests, procedures, referring, communicating with other health neurocritical care physician, indepentently interpreting results and care coordination
--- NOTE | 2024-05-17 12:00 | RT.EKG_ITS ---
APPROVED REPORT Exam: Resting ECG Reason for Exam: worsening CHF; r/o PA Patient Location: I HR:98 bpm ECG Measurements Heart Rate 98 AXIS NH 186 P 71 QRSd 116 QRS -38 QT 369 T 138 QTc 470 Conclusion Sinus rhythm...normal P axis, V-rate 60- 99 Probable left atrial enlargement...P >50mS, <-0.10mV V1 Incomplete left bundle branch block...QRSd>110mS, terminal axis(-90,-1) Consider anterior infarct...Q >30mS in V2-V5
[2024-05-17 12:01] VITALS: BP 110/71; PULSE 94; RESP 20; TEMP 36.5; O2SAT 99
[2024-05-17] MEDS: Spironolactone 25 MG TAB PO (12:17)
[2024-05-17] MEDS: Prochlorperazine 10 MG/2 ML VIAL 5 MG IVP (12:44)
[2024-05-17 12:46] LABS: Troponin I < 50 ng/L (< or =60)
[2024-05-17 13:01] LABS: Lab Add On Test DONE
[2024-05-17 13:06] LABS: Lactate 5.6 mmol/L (0.6-1.4)
--- NOTE | 2024-05-17 13:09 | W.POCUS ---
Pocus Exam Limited Cardiac Exam DATE OF EXAM: 05/17/24 TIME OF EXAM: 10:51 PROVIDER THAT PERFORMED THE STUDY: Arnold Davenport IS THIS A REPEAT EXAM DURING THIS ENCOUNTER: no REASON FOR EXAM: Congestive heart failure and Dyspnea VISUALIZED STRUCTURES: four chambers, LVOT, aortic valve, mitral valve, Interventricular septum and IVC VIEW OBTAINED: Apical 4-Chamber, Parasternal long-axis, Parasternal short-axis and Subxiphoid PERTINENT FINDINGS/IMPRESSION: LV dysfunction :severe (estimated LVEF <15%), Plethoric IVC and RV dysfunction; no IVC inspiratory collapsability, No pericardial effusion and No RV dilation DIFFERENTIAL DIAGNOSES: moderate tricuspid regurgitation, moderate mitral regurgitation, hepatic venous congestion w/ S<D Exam complete
[2024-05-17] MEDS: Aspirin E.C. 81 MG TABEC PO (13:55)
[2024-05-17 14:21] LABS: Procalcitonin 0.2 ng/mL
[2024-05-17 14:59] VITALS: BP 112/77; PULSE 102; RESP 17; TEMP 36.2; O2SAT 99
[2024-05-17 16:52] LABS: Anion Gap 14.5 mmol/L (3-11); BUN 16 mg/dL (7-18); CO2 21.5 mmol/L (21.0-32.0); CREATININE 1.1 mg/dL (0.55-1.02); Calcium 8.4 mg/dL (8.5-10.1); Chloride 90 mmol/L (98-107); Estimated GFR 50.48 (mL/min/1.73m2); Glucose 285 mg/dL (74-106); Potassium 3.7 mmol/L (3.5-5.1); Sodium 126 mmol/L (136-145)
[2024-05-17 17:01] LABS: Troponin I < 50 ng/L (< or =60)
[2024-05-17] MEDS: Potassium Chloride 10 MEQ CAPCR 20 MEQ PO ×2 (18:11→19:29)
[2024-05-17 19:24] VITALS: BP 116/78; PULSE 109; RESP 17; TEMP 36.1; O2SAT 97
[2024-05-17] MEDS: Magnesium Gluconate 500 MG TAB PO (19:29)
[2024-05-17 20:07] LABS: Lactate 4.7 mmol/L (0.6-1.4)
[2024-05-17 23:30] VITALS: BP 115/59; PULSE 110; RESP 16; TEMP 36.7; O2SAT 94
[2024-05-18] VITALS (7 sets, daily range): BP systolic 90–122; BP diastolic 57–80; PULSE 80–112; RESP 17–20; TEMP 36.4–36.6; O2SAT 94–98
[2024-05-18] MEDS: PIPERACILLIN/TAZO 3.375 GM in Normal Saline 50 ML IVPB ×2 (01:54→08:47)
[2024-05-18] MEDS: Normal Saline Flush 10 ML SYR IVP ×4 (01:54→20:34)
[2024-05-18 04:52] LABS: Lactate 2.5 mmol/L (0.9-1.7)
[2024-05-18 04:59] LABS: Anion Gap 12.2 mmol/L (3-11); BUN 17 mg/dL (7-18); CO2 26.8 mmol/L (21.0-32.0); CREATININE 1.1 mg/dL (0.55-1.02); Calcium 8.5 mg/dL (8.5-10.1); Chloride 91 mmol/L (98-107); Estimated GFR 50.48 (mL/min/1.73m2); Glucose 154 mg/dL (74-106); Magnesium 1.8 mg/dL (1.8-2.4); Potassium 3.4 mmol/L (3.5-5.1); Sodium 130 mmol/L (136-145)
[2024-05-18] MEDS: Furosemide 40 MG/4 ML VIAL IVP ×3 (05:17→20:33)
[2024-05-18 05:59] LABS: ALT 942 U/L (14-59); Albumin 3.1 g/dL (3.4-5.0); Alkaline Phosphatase 242 U/L (46-116); Bilirubin, Direct 1.9 mg/dL (0.0-0.2); Bilirubin, Total 2.75 mg/dL (0.2-1.0); Total Protein 6.7 g/dL (6.4-8.2)
[2024-05-18 06:01] LABS: AST 1760 U/L (15-37)
--- NOTE | 2024-05-18 07:55 | W.PALLCONSUL ---
Date of service: 05/18/24 Time of Service: 07:56 History of Present Illness History of Present Illness Chief Complaint: Cough and shortness of breath Narrative: 83-year-old woman who is independent. She drives, controls her finances, and lives alone. She does have a daughter who lives nearby. She states that she has been having cough and some shortness of breath over the last 2 weeks. Presented to the emergency room and was thought to have be in some congestive heart failure as well as possible UTI. She was admitted to an [facility] for gentle hydration, watching her CHF and antibiotic therapy Consults Consult date: 05/18/24 Requesting physician: Arnold Davenport Assessment and Plan Assessment and plan (1) Counseling regarding end of life decision making: Status: Acute Assessment and plan: we did talk about CODE STATUS and she was very vocal that she did not want resuscitation. She did not want a feeding tube. She was willing to have IV hydration and antibiotics. She lives alone. I would recommend that she have some sort of medical alert bracelet or necklace so that she can contact people should she need to after fall, if she has severe illness etc. (2) CHF (congestive heart failure): Status: Acute Assessment and plan: a repeat echocardiogram was ordered for today. Reading has not been done yet Qualifiers: Heart failure chronicity: acute on chronic Heart failure type: combined systolic and diastolic Qualified Code(s): I50.43 - Acute on chronic combined systolic (congestive) and diastolic (congestive) heart failure (3) Type 2 diabetes mellitus: Status: Chronic Assessment and plan: A1c was over 13. It was 10 last measurement. This could be because of an overwhelming infection or poor control of diabetes. Hospitalist is working on this Qualifiers: Diabetes mellitus complication status: without complication Diabetes mellitus penitentiary insulin use: without intermediate school teacher use Qualified Code(s): E11.9 - Type 2 diabetes mellitus without complications (4) Cellulitis: Status: Acute Assessment and plan: I am concerned that some of her elevation of white count may be because of lower extremity cellulitis. Please note she does have elevated liver function tests and an abdominal ultrasound pending. These were ordered after I had seen Latanya. Although her abdominal exam was benign when I examined her at 7:00, she does have elevated liver function tests bilirubin and cholelithiasis. Hospitalist will be following to determine if she has gallbladder disease. Review of Systems Narrative: she said that it was too early in the morning to really know what was going on with her. She did not have any specific complaints PFSH All Active Problems (Updated 05/18/24 @ 08:09 by Sumi Tay MD, [place]) Cellulitis (Acute) Counseling regarding end of life decision making (Acute) Ischemic cardiomyopathy (Acute) Acute on chronic HFrEF (heart failure with reduced ejection fraction) (Acute) Obstructive jaundice (Acute) Type 2 diabetes mellitus (Chronic) UTI (urinary tract infection) (Acute) Acute hyponatremia (Acute) Hyperglycemia (Acute) Elevated transaminase level (Acute) Hyperlipidemia (Chronic) CHF (congestive heart failure) (Acute) HTN (hypertension) (Chronic) Medical History (Updated 05/18/24 @ 08:09 by Sumi Tay MD, [place]) Allergic rhinitis Chronic cough Acne rosacea Osteoporosis Insulin dependent diabetes mellitus Hypomagnesemia Surgical History History of hysterectomy Social History Smoking/Tobacco Use Status: Never Smoking risk assessment performed?: Yes Alcohol Intake: never Drug use: Never Substance use type: does not use Housing: house Do you feel safe at home: Yes Do you feel safe in your relationship?: No Exam Narrative Exam Narrative: spry 83-year-old woman who is able to sit up in bed dangle her legs without any help. She was alert and oriented. HEENT PERRL. Chest she did have decreased breath sounds in the right lower base but otherwise normal. Heart systolic murmur and was regular (staff told me that she had a 3 beat run V. tach) she does have some open sores on her left shoulder which she scratched and may bleed during our visit today. She has redness along both ankles. It does srikanth. Mood was good Results Last Vital Signs Temp 97.5 F L 05/18/24 03:30 Pulse 92 H 05/18/24 03:30 Resp 18 05/18/24 03:30 BP 90/61 L 05/18/24 03:30 Pulse Ox 97 05/18/24 03:30 CT ABD/Pelvis MPRESSION: 1. Diffuse decreased attenuation of the liver consistent with fatty infiltration. 2. Cholelithiasis. No biliary ductal dilatation. 3. Mild thickening of the wall of the rectum which may represent a proctitis. 4. Colonic diverticulosis without evidence of acute diverticulitis. 5. Small pericardial effusion. 6. Mild diffuse thickening of the wall of the urinary bladder. This may be due to underdistention, cystitis, chronic bladder outlet obstruction. 7. Cardiomegaly. Labs 05/17/24 05:55 05/18/24 04:31 Labs: Laboratory Results - last 24 hr 05/17/24 05/17/24 05/17/24 05:55 12:14 12:55 VBG Lactate 5.6 H* Sodium Potassium Chloride Carbon Dioxide Anion Gap BUN Creatinine Est GFR (CKD-EPI 2020) Glucose Calcium Magnesium Total Bilirubin Conjugated Bilirubin AST ALT Alkaline Phosphatase Troponin I < 50 Total Protein Albumin Procalcitonin 0.2 TSH 5.92 H Free T4 1.91 H Add-On Test Request DONE 05/17/24 05/17/24 05/18/24 16:18 20:00 04:31 VBG Lactate 4.7 H* 2.5 H* Sodium 126 L 130 L Potassium 3.7 3.4 L Chloride 90 L 91 L Carbon Dioxide 21.5 26.8 Anion Gap 14.5 H 12.2 H BUN 16 17 Creatinine 1.1 H 1.1 H Est GFR (CKD-EPI 2020) 50.48 50.48 Glucose 285 H 154 H Calcium 8.4 L 8.5 Magnesium 2.0 1.8 Total Bilirubin 2.75 H Conjugated Bilirubin 1.9 H AST 1760 H ALT 942 H Alkaline Phosphatase 242 H Troponin I < 50 Total Protein 6.7 Albumin 3.1 L Procalcitonin TSH Free T4 Add-On Test Request
--- NOTE | 2024-05-18 08:00 | DI.US_ITS ---
APPROVED REPORT EXAM: Comprehensive 2D, Doppler, and color-flow Echocardiogram Patient Location: In-Patient Certified Medication Aide: Clementina Mckeon RDCS (AE) Indications: CHF Other Information Study Quality: Adequate. Technically limited study due to body habitus, inability to position patient , exam done bedside supine. Conclusion Mildly dilated left ventricle. Ejection fraction is 20 to 25% with global hypokinesis Normal right ventricular size and function Both atria are normal in size Trileaflet aortic valve with trace regurgitation Mild mitral annular calcification, mild mitral regurgitation Trace to mild tricuspid regurgitation. Estimated right ventricular systolic pressure is 31 mmHg Trivial pericardial effusion Wall motion Left Ventricle Left ventricle is mildly dilated. There is normal left ventricular wall thickness. Global hypokinesis There is no ventricular septal defect visualized. EF 20 to 25% Right Ventricle Right ventricle is grossly normal in size. Right ventricular systolic function is grossly normal. Atria The left atrium size is normal. The right atrium size is normal. The interatrial septum is intact wit h no evidence for an atrial septal defect. Aortic Valve The aortic valve is normal in structure. Aortic valve is trileaflet. There is no aortic valvular sten osis. Trace aortic regurgitation. Mitral Valve Mild mitral annular calcification. No evidence of mitral valve stenosis. Mild mitral regurgitation. Tricuspid Valve The tricuspid valve is normal in structure. There is no tricuspid valve stenosis. Trace to mild tricu spid regurgitation. The RVSP is _31.0 mmHg. Pulmonic Valve The pulmonary valve is normal in structure. There is no pulmonic valvular stenosis. Trace to mild pul rosette regurgitation. Great Vessels The aortic root is normal in size. The ascending aorta is normal Aortic arch is not well visualized. IVC is normal in size and collapses >50% with inspiration. Pericardium Trace pericardial effusion. 2D Dimensions IVSD d PLAX 0.71 cm F: 0.6-1.0 Ao Root d 2.88 cm F: 2.7 - 3.3 LVPW d PLAX 0.74 cm F: 0.6 - 1.0 Ao Asc Diam d 3.26 cm F: 2.3 - 3.1 LVID d PLAX 5.97 cm F: 3.8 - 5.2 LVDs 5.42 cm F: 2.2 - 3.5 LV EF Teichholz 20.0 % FS 9.28 % LV EDV (Teich) 178.2 mL LV ESV (Teich) 142.5 mL M-Mode TAPSE 1.72 cm (M/F) >1.7 Auto EF LV EDV A4C 160.4 mL LV EDV A2C 197.0 mL LV EDV BP LV ESV A4C 124.1 mL LV ESV A2C 158.6 mL LV ESV BP LVEF(%) A4C 22.6 % LVEF(%) A2C 19.5 % LVEF(%) BP LV SV A4C 36.3 ml LV SV A2C 38.5 ml LV SV BP LV CO A4C 3.3 L/min LV CO A2C 3.5 L/min LV CO BP HR A4C 91.83 BPM HR A2C 91.83 BPM LV EDV Index (BP) LA Volume LA Length A4C 6.0 cm LA Length A2C 5.0 cm LA Area A4C s 20.07 cm2 LA Area A2C s 15.51 cm2 LA Vol A4C A-L 56.72 mL LA Vol A2C A-L 41.25 mL LA Vol Biplane A-L 53.4 mL LA Vol/BSA A4C A-L LA Vol/BSA A2C A-L LA Vol/BSA BP A-L 30.8 mL/m2 LA Vol A4C MOD 54.7 mL LA Vol A2C MOD 39.3 mL LA Vol BP MOD 51.1 mL RA Volume RA Area A4C 15.6 cm2 RA ESV A4C (A-L) 42.7mL RA Vol/BSA A4C A-L RA Length A4C 4.8 cm RA ESV A4C (MOD) 39.1mL LV Diastology MV E' lateral 0.067 (>0.1 m/s) MV E Vmax 1.05 (0.4-1.3 m/s) MV E/E' LAT 15.85 (<14) MV A Vmax 1.05 (0.4-1.3 m/s) E/A Ratio 1.0 Aortic Valve AoV Vmax 1.35 m/s LVOT Vmax 0.94 m/s AoV Peak Grad 20.3 mmHg LVOT Peak Grad 3.5 mmHg AoV Area (Vmax) 1.98 cm2 LVOT VTI 0.165 m AoV VTI 0.264 m LVOT Mean Antonio. 0.66 m/s AoV Mean Antonio. 0.93 m/s LVOT Mean Grad 2.0 mmHg AoV Mean Grad 4.0 mmHg LVOT SV 47.11 mL AoV Area (VTI) 1.78 cm2 LVOT Diam s 1.90 cm Velocity Ratio 0.70 AV Regurg Peak Gr. 33.30 mmHg AR Decel Cloud 2.2m/sec2 AR DT 1307 msec AR PHT 379 msec AR Vmax 2.89 m/s Mitral Valve MV DT 145 (160-240 msec) MV Vmax TIPS 0.88 m/s MV Mean Grad 1.5 (<2mmHg) MV VTI 0.233 m Pulmonary Valve PV Vmax 1.02 (0.5-1.5 m/s) RVOT Vmax 0.68 m/s PV Peak Grad 4.3 mmHg RVOT Peak Gr. 1.9 mmHg PV Mean Antonio 0.72 m/s RVOT VTI 0.101 m PV Mean Grad 2.4 mmHg RVOT Mean Gr. 1.0 mmHg Tricuspid Valve RA Pressure 3.00 mmHg TR Vmax 2.64 m/s TV S' 0.12 m/s TR Peak Grad 28.0 mmHg RVSP (TR) 31.0 mmHg
--- NOTE | 2024-05-18 08:00 | DI.US_ITS ---
Exam(s) US ABDOMEN LIMITED EXAM: US ABDOMEN LIMITED CLINICAL HISTORY: obstructive jaundice TECHNIQUE: Ultrasound abdomen performed using standard protocol. COMPARISON: CT CT ABDOMEN PELVIS W from 05/16/2024 FINDINGS: PANCREAS: Normal where visualized. LIVER: Normal. Hepatopetal flow in the Portal Vein. The liver measures in 17.3 cm length. No evidence of a hepatic mass. GALLBLADDER:Gallstones are present. No evidence of wall thickening. No pericholecystic fluid identif ied. BILIARY SYSTEM: Common bile duct measures < 7 mm. No intrahepatic biliary ductal dilation. VALVERDE'S SIGN: Negative. RIGHT KIDNEY: Kidney is normal in size. No evidence of renal calculi. No evidence of hydronephrosis. No renal mass or cyst identified. ASCITES: None seen. IMPRESSION: Cholelithiasis. No evidence of acute cholecystitis or biliary ductal dilatation. DATA REPOSITORY:
[2024-05-18] MEDS: Insulin Aspart 300 UNITS/3 ML PEN SC ×3 (08:48→17:54)
[2024-05-18] MEDS: Enoxaparin 40 MG/0.4 ML SYR SC (08:51)
--- NOTE | 2024-05-18 09:04 | PDOC.CMPRO ---
Date of service: 05/18/24 Time of Service: 09:04 Care Management Progress Note Progress Note Text Progress Note Text: Latanya was sitting in a chair eating lunch when CM met with her. Echo was done today and shows elevated hepatic venous congestion. Palliative met with Latanya. goals of care reviewed, patient is a DNR/DNI. [facility] is recommended. No change to overall discharge plan. Discharge Potential Discharge Needs: PCP F/U Appt Anticipated Barriers to Discharge: None Identified Patient/Family Education Needs: Review discharge instructions, discuss Ask Me Three Transportation: Private vehicle (Daughter) Plan: Anticipate, Latanya will be discharged home when medically cleared. New H RN/TRANSPORTER DRIVER would be beneficial. She will follow up with her PCP and plan of care and transport with family. CM will continue to assess for discharge needs. SDOH(Care Management) Screening Will the Patient Participate in the Screening?: Yes Do you worry about having a steady place to live?: no Problems where you live: no known problems In the past 12 months, have you had to go without electric, gas, oil or water in your home?: no Have you or anyone in your house had to go without enough food to eat?: no Has lack of transportation kept you from medical appointments or from doing things needed for daily living?: no Has anyone in your support network made you feel unsafe for any reason?: no Anticipated HH Services Anticipated HH Services at Discharge [facility] TRANSPORTER DRIVER (Lives alone, may benefit from outpatient social work, Palliative Care recommends [facility]) and RN (for monitoring CHF - daily weights, sodium intake, medication compliance) RN. ). Anticipated Date of Discharge: 05/19/24. Following Provider: Dr. Whipple.
[2024-05-18] MEDS: Aspirin E.C. 81 MG TABEC PO (10:19)
[2024-05-18] MEDS: Potassium Chloride 10 MEQ CAPCR 20 MEQ PO ×3 (10:19→20:51)
[2024-05-18] MEDS: Spironolactone 25 MG TAB PO (10:19)
[2024-05-18] MEDS: Magnesium Gluconate 500 MG TAB PO ×2 (10:19→20:51)
[2024-05-18 13:32] LABS: Lyme Ab w Rflx to Lyme Confirm Negative (Negative)
[2024-05-18] MEDS: PIPERACILLIN/TAZO 2.25 GM in Normal Saline 50 ML IVPB ×2 (14:56→20:48)
--- NOTE | 2024-05-18 15:06 | PGE_ITS ---
Date of Service Date of service: 05/18/24 Time of Service: 15:06 Assessment and Plan Assessment and plan (1) Acute on chronic HFrEF (heart failure with reduced ejection fraction): Status: Acute Assessment and plan: -ACS was not initialy ruled out given that no troponins were done evening 05/16 -trop on 05/18 was negative -Bedside POCUS as per previous hospitalist; shows severe LV and RV dysfunction along with mild to moderate mitral regurgitation and moderate tricuspid regurgitation. She has a plethoric IVC that did not show any significant collapsibility with inspiration furthermore her hepatic vein pattern also is congested. -IV fluids were stopped AM 05/17 Lasix increased to 40 mg IV every 8 hours and add Diuril 1000 mg IV every 12 hours and start her on spironolactone. -has since been changed to lasix PO 20mg BID, diuril has been discontinued, and continuing spironolactone 25mg daily -continue ASA -TTE has been done, f/u formal read (2) Ischemic cardiomyopathy: Status: Acute Assessment and plan: once she is out of acute CHF, consider addition of anti-ischemic meds such as isosorbide but only if she is still symptomatic after she is on goal directed CHF therapy (BB, ARB, loop diuretic and spironolactone and SGLT-2 inhibitor). (3) Acute hyponatremia: Start date: 05/16/24 Status: Acute Assessment and plan: secondary to CHF, monitor daily BMP while diuresing (4) Elevated transaminase level: Start date: 05/16/24 Status: Acute Assessment and plan: -patient found to have gallstones but not acute cholecystitis, no biliary ductal dilatation on CT (however a lot of motion artifact) -was put on Ceftriaxone in the E.D. for alleged UTI (she had no bacteria in her urine but had WBC, +leukocyte esterase) and this was switched by admitting pr declan to Zosyn. Unclear whether this was done for her reported UTI or for coverage of her GB. -She has hyperbilirubinemia w/ elevated direct bilirubin along w/ elevated transaminases but this still may be hepatic congestion from CHF. she has RV dysfunction on her echo w/ elevated hepatic venous congestion. -Formal US of her GB has been done but not yet read -continue Zosyn for now pending her urine and blood culture results. -If no growth and US of GB does not show acute biliary obstruction then her Zosyn should be stopped. (5) Type 2 diabetes mellitus: Status: Chronic Assessment and plan: poorly controlled. HbA1C is >13%, for now continue w/ basal/boluse insulin coverage. if she can afford Jardiance then this should be added for her CHF more so than for her DM. It appears from prior Rx sent by her PCP he tried to get her on Levemir and Victoza Qualifiers: Diabetes mellitus parts counterman insulin use: without [place] use Diabetes mellitus complication status: without complication Qualified Code(s): E11.9 - Type 2 diabetes mellitus without complications (6) HTN (hypertension): Status: Chronic Assessment and plan: resume her losartan, once out of acute CHF then resume BB Qualifiers: Hypertension type: primary hypertension Qualified Code(s): I10 - Essential (primary) hypertension (7) Hyperlipidemia: Status: Chronic Assessment and plan: holding statin for now until her LFT improve Qualifiers: Hyperlipidemia type: mixed hyperlipidemia Qualified Code(s): E78.2 - Mixed hyperlipidemia Subjective Subjective Interval history since last seen: Patient states that she is doing well today and has no complaints or concerns at this time. Exam Narrative Exam Narrative: elderly female sitting up in the chair in no acute distress, AOx4, heart RRR, lungs CTAB, abdomen soft, non-tender, non-distended Objective Last Vital Signs Temp 97.7 F 05/18/24 11:38 Pulse 94 H 05/18/24 11:38 Resp 20 05/18/24 11:38 BP 113/63 05/18/24 11:38 Pulse Ox 97 05/18/24 11:38 Laboratory Results - last 24 hr 05/16/24 05/17/24 05/17/24 20:02 16:18 20:00 VBG Lactate 4.7 H* Sodium 126 L Potassium 3.7 Chloride 90 L Carbon Dioxide 21.5 Anion Gap 14.5 H BUN 16 Creatinine 1.1 H Est GFR (CKD-EPI 2020) 50.48 Glucose 285 H Calcium 8.4 L Magnesium 2.0 Total Bilirubin Conjugated Bilirubin AST ALT Alkaline Phosphatase Troponin I < 50 Total Protein Albumin Lyme Disease Antibody Negative 05/18/24 04:31 VBG Lactate 2.5 H* Sodium 130 L Potassium 3.4 L Chloride 91 L Carbon Dioxide 26.8 Anion Gap 12.2 H BUN 17 Creatinine 1.1 H Est GFR (CKD-EPI 2020) 50.48 Glucose 154 H Calcium 8.5 Magnesium 1.8 Total Bilirubin 2.75 H Conjugated Bilirubin 1.9 H AST 1760 H ALT 942 H Alkaline Phosphatase 242 H Troponin I Total Protein 6.7 Albumin 3.1 L Lyme Disease Antibody Time Spent with Patient Time Spent with Patient: >50 minutes Time was spent: preparing to see the patient(eg.review tests), obtaining and/or reviewing separately otained hiistory, ordering medications,tests, procedures, referring, communicating with other health animal caretaker, indepentently interpreting results, counseling the patient and care coordination
--- NOTE | 2024-05-18 16:27 | PHA.REVIEW2 ---
Pharmacy Admission Review Admission Clinical Review Admission Pharmacy Review: Cellulitis (Acute) Counseling regarding end of life decision making (Acute) Ischemic cardiomyopathy (Acute) Acute on chronic HFrEF (heart failure with reduced ejection fraction) (Acute) Obstructive jaundice (Acute) UTI (urinary tract infection) (Acute) Acute hyponatremia (Acute) Elevated transaminase level (Acute) CHF (congestive heart failure) (Acute) codeine Adverse Reaction (Intermediate, Verified 05/16/24 17:53) Other (See Comment) Resuscitation Status DNR/DNI Height 5 ft 1 in Weight 68.1 kg Pharmacy Admission Review Renal Dosing Renal Dosing: BUN 17 mg/dL (7-18) 05/18/24 04:31 Creatinine 1.1 mg/dL (0.55-1.02) H 05/18/24 04:31 Medications needing adjustments: Intervened (CrCl 35.36 mL/min) List of meds needing interventions: Decreased dose of Zosyn 3.375g to 2.25g Anticoagulation Anticoagulation: Hgb 11.6 g/dL (11.2-15.7) 05/17/24 05:55 Hct 38.0 % (36.0-46.0) 05/17/24 05:55 Plt Count 442 10^3/uL (130-400) H 05/17/24 05:55 INR 1.8 (0.9-1.1) H 05/17/24 05:55 Creatinine 1.1 mg/dL (0.55-1.02) H 05/18/24 04:31 DVT Prophylaxis: Reviewed Medications: Enoxaparin (40mg daily) Relevant Labs Relevant Labs: Sodium 130 mmol/L (136-145) L 05/18/24 04:31 Potassium 3.4 mmol/L (3.5-5.1) L 05/18/24 04:31 Chloride 91 mmol/L (98-107) L 05/18/24 04:31 Magnesium 1.8 mg/dL (1.8-2.4) 05/18/24 04:31 Electrolytes, C-Reactive P, ESR: Reviewed (Na increased from 126, K decreased from 3.7, AST/ALT increased from 595/697 to 1760/942) DM Control DM Control: Glucose 154 mg/dL (74-106) H 05/18/24 04:31 Hemoglobin A1c > 13.0 % (<5.7) H 05/17/24 05:55 Finger Stick Blood Glucose 196 1142 Finger Stick Blood Glucose 196 1142 DM Control: Reviewed Insulin Dosing, Diabetic Medication: Has order for SS insulin Cardiac Review Cardiac Review: Troponin I < 50 ng/L (< or =60) 05/17/24 16:18 NT-Pro-B Natriuret Pep 4537 pg/mL (<300) H 05/16/24 18:45 Blood Pressure 110/80 1536 Blood Pressure 113/63 1138 Blood Pressure 122/73 1020 Blood Pressure 108/57 0802 BP, HR, EF%: Reviewed (BP WNL, HR 99) QTc Review QTc: Reviewed (470 from 05/17/24) IV to PO Switch IV Medications: Reviewed (furosemide, prochlorperazine and Zosyn) Home Meds Home Med List reviewed: Reviewed Relevent Home Meds Not ordered & why?: Jardiance (not filling due to cost per progress note), metformin (hold - has order for SS insulin) and metoprolol (on hold per H+P) Current Meds Current Medication Order Review: Reviewed Comments: Chlorothiazide drip discontinued today Pharmacy Antibiotic Review Relevant Labs: WBC 11.62 10^3/uL (4.4-10.8) H 05/17/24 05:55 Procalcitonin 0.2 ng/mL 05/17/24 12:55 Temperature 36.5 C Temperature 36.5 C Temperature 36.5 C Microbiology 05/16/24 21:48 Urine Culture - Preliminary Urine - Reflex from Ua Gram Positive Evangelina,Mixed 05/16/24 21:40 Blood Culture - Preliminary Blood NO GROWTH 24 HOURS 05/16/24 18:45 Blood Culture - Preliminary Blood NO GROWTH 24 HOURS Pharmacy Antibiotic Activity: C/S review and Reviewed, no change Comments: Patient is on Zosyn 2.25g q6h (decreased today due to worsening kidney function), day 2 for UTI.
[2024-05-18 17:37] LABS: Glucose 437 mg/dL (74-106)
[2024-05-18] MEDS: Acetaminophen 325 MG TAB PO (23:28)
[2024-05-18] MEDS: Docusate Sodium 100 MG CAP PO (23:28)
[2024-05-18] MEDS: Polyethylene Glycol 3350 17 GM PACKET PO (23:28)
[2024-05-19] MEDS: PIPERACILLIN/TAZO 2.25 GM in Normal Saline 50 ML IVPB ×2 (01:11→08:31)
[2024-05-19] MEDS: Melatonin 3 MG TAB 6 MG PO (01:15)
[2024-05-19 03:02] VITALS: BP 111/67; PULSE 92; RESP 18; TEMP 36.3; O2SAT 95
[2024-05-19] MEDS: Furosemide 40 MG/4 ML VIAL IVP ×2 (04:21→12:25)
[2024-05-19 07:42] VITALS: BP 102/61; PULSE 96; RESP 18; TEMP 36.2; O2SAT 96
[2024-05-19] MEDS: Enoxaparin 40 MG/0.4 ML SYR SC (08:31)
[2024-05-19] MEDS: Normal Saline Flush 10 ML SYR IVP (08:32)
[2024-05-19] MEDS: Aspirin E.C. 81 MG TABEC PO (08:32)
[2024-05-19] MEDS: Insulin Aspart 300 UNITS/3 ML PEN SC ×2 (08:32→12:26)
[2024-05-19] MEDS: Magnesium Gluconate 500 MG TAB PO (08:32)
[2024-05-19] MEDS: Spironolactone 25 MG TAB PO (08:32)
--- NOTE | 2024-05-19 08:47 | W.INDIABCONS ---
Date of service: 05/19/24 Time of Service: 08:47 Diabetes Inpatient Consult Reason for Visit: Diabetes education/mgt consult DESCRIPTION/ASSESSMENT: Pt is 83yo female with initial complaints of feeling ill with non-productive cough x 2weeks. Admitted for acute on chronic HF, Ischemic cardiomyopathy, hyponatremia and elevated transaminase. PMH includes HTN, HLD DMII without insulin (A1C >13 6). Her current BMI is desirable for her age. She reports taking Metformin at home and it looks like she was prescribed empagliflozin as well which has been cancelled this admission and continues on moderate ss insulin aspart TID at meals. Ordered for glucose fingersticks AC and HS, daily weights, and is on 1500mL fluid rstriction on a consistent CHO and heart healthy diet with normal consistencies of solids and liquids. Her FPG was 154 yesterday morning and was up to 437 shortly before dinner. Pt denies N/V/C/D and denies unintentional weight changes. Her weight can fluctuate to to fluid accumulation and losses through diuretics. Uurine output of 5300mL 05/18 explains the ~7kg weight difference this morning. Latanya lives at home and does her own shopping and meal prep. Per interview pt may skip meals or just graze due to not wanting to put a big effort into cooking meals. Confirms she takes 1,000mg metformin BID - states she hasn't taken her jardiance in quite some time - ? ability to be consistent with diabetes meds. 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 pt tolerating consistent cho/hear healthy diet with fair appetite reported. I don't see a clinical need for heart healthy as opposed to just low sodium and could restrict her eating so will liberalize to cho consistent low na diet. 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 pt tolerating consistent cho/hear healthy diet with fair appetite reported. I don't see a clinical need for heart healthy as opposed to just low sodium and could restrict her eating so will liberalize to cho consistent low na diet. pt offered diabetes education and she politely declined PLAN: will monitor labs/glucose, weight, intake Time Spent in Nutritional Counseling and Treatment: 10 min
--- NOTE | 2024-05-19 10:06 | PDOC.HHF2F_ITS ---
Home Health Referral Home Health Orders Clinical synopsis of why skilled professionals are needed: HFrEF, HTN, CAD Registered Nurse: Check all that apply Instruct on new or changed medication(s)/assess compliance: Ordered Assess for exacerbation of medical condition, instruct patient/caregivers on signs and symptoms to report for early detection: Ordered Physical Therapist: Check all that apply Increase strength & endurance for safe mobility at home: Ordered To design/establish home maintenance program: Ordered Fall reduction therapy program for patient with history of frequent falls: Ordered Home safety evaluation and teaching/gait training including stair management (if applicable): Ordered Occupational Therapist: Evaluate and treat for patient unable to perform ADL/IADL/self-care: Ordered Encounter Date and Reason: I certify that a FTF encounter for this patient was performed on May 19, 2024 and that such encounter was related to the primary reason the patient requires home health services. The encounter was conducted in the following manner: * By me as the certifying physician, [employer], PA or * By an inpatient physician, [employer] TE[employer] or PA during an inpatient stay who communicated findings to me, Certification And Authentication I certify that I composed the above information based on my clinical judgment relating to this patient's medical condition and, if applicable, clinical findings communicated to me by the NPP or inpatient physician who performed the FTF encounter. Name of Provider that will be monitoring home health services: Christ Saldivar
--- NOTE | 2024-05-19 10:06 | W.PM.DS.N ---
Date of service: 05/19/24 Time of Service: 10:07 DS: Diagnosis Discharge Diagnosis (1) Acute on chronic HFrEF (heart failure with reduced ejection fraction): Status: Acute Asessment and Plan: Patient initially presented with weakness for about 2 weeks and was ultimately determined to be secondary to acute exacerbation of congestive heart failure. She had an updated echocardiogram showed significantly reduced EF of 20 to 25%. While hospitalized she diuresed well with Lasix and Diuril, ultimately being transitioned to p.o. Lasix. Upon discharge she will have order for high-dose statin, low-dose Lopressor, losartan (which she had previously been taking, is being ordered and lieu of Entresto as patient has had historically difficult time affording this medication). Given the patient's significant improvement of her symptoms and has been able to ambulate without significant difficulty and appears to be euvolemic at this time, is determined she was stable for discharge home and will have referrals and close follow-up with her PCP and cardiology. (2) Ischemic cardiomyopathy: Status: Acute Asessment and Plan: -as noted above (3) Acute hyponatremia: Status: Acute Asessment and Plan: -resolved (4) Elevated transaminase level: Status: Acute Asessment and Plan: -RUQ US without biliary obstruction or stones -likely secondary to HFrEF -> hepatic congestion (5) Type 2 diabetes mellitus: Status: Chronic Asessment and Plan: -restart home metformin at discharge (6) HTN (hypertension): Status: Chronic (7) Hyperlipidemia: Status: Chronic Discharge Plan Disposition Patient Disposition: Home W/Home Health Services Condition: Good Discharge Details Reason For Visit: Acute CHF exacerbation, Obstructive jaundice, NIDD Admit Date/Time: 05/16/24 22:41 Admit Provider: Enrique Coronel Attending Provider: Enrique Coronel Primary Care Provider: Christ Saldivar [facility] Hospital Course: Patient initially presented with weakness for about 2 weeks and was ultimately determined to be secondary to acute exacerbation of congestive heart failure. She had an updated echocardiogram showed significantly reduced EF of 20 to 25%. While hospitalized she diuresed well with Lasix and Diuril, ultimately being transitioned to p.o. Lasix. Upon discharge she will have order for high-dose statin, low-dose Lopressor, losartan (which she had previously been taking, is being ordered and lieu of Entresto as patient has had historically difficult time affording this medication). Given the patient's significant improvement of her symptoms and has been able to ambulate without significant difficulty and appears to be euvolemic at this time, is determined she was stable for discharge home and will have referrals and close follow-up with her PCP and cardiology. Home Meds and New Rx's Prescriptions: New aspirin 81 mg Tablet,Delayed Release (Dr/Ec) 81 mg PO DAILY Qty: 90 0RF spironolactone 25 mg Tablet 25 mg PO DAILY Qty: 90 0RF furosemide [Lasix] 20 mg tablet 20 mg PO DAILY Qty: 90 0RF atorvastatin [Lipitor] 80 mg tablet 80 mg PO QHS Qty: 90 0RF losartan 25 mg tablet 25 mg PO DAILY Qty: 90 0RF Continued metoprolol succinate 25 mg tablet extended release 24 hr 25 mg PO DAILY Qty: 90 3RF metformin 1,000 mg tablet 1,000 mg PO TID Patient Comments: Take 1 tablet by mouth twice daily Jardiance 25 mg tablet 25 tab PO DAILY Patient Comments: Take 1 tablet by mouth once a day Discontinued furosemide 80 mg tablet 80 mg PO DAILY Qty: 90 6RF spironolactone 25 mg tablet 25 mg PO DAILY Qty: 90 6RF losartan 50 mg tablet 50 mg PO DAILY Qty: 90 3RF codeine-guaifenesin 10-100 mg/5 mL liquid 10 ml PO Q4H PRN (Reason: cough) Qty: 120 0RF aspirin [Aspir-81] 81 mg Tablet,Delayed Release (Dr/Ec) 81 mg PO DAILY metformin 1,000 mg Tablet 1,000 mg PO BID Levemir FlexTouch U100 Insulin 100 unit/mL (3 mL) insulin pen 15 unit SUBCUT QHS metronidazole 1 % Gel 1 applic TOPICAL BID Discharge Instructions Instructions: Heart Failure, Adult (DC) Referrals: CARDIOLOGY,[facility] [OTHER] - Activity:: Activity as Tolerated Equipment/Supplies:: No Equipment Needed Diet:: As Tolerated Discharge Orders Discharge Orders: Discharge Order (Routine); Ordered 05/19/24 Ordered By: Rohan Whipple DS: Summary Time Spent with Patient providing and/or coordinating discharge services: Greater than 30 minutes Status at Discharge Functional status at discharge: independent ambulation Overall status at discharge: patient is back to baseline Mental Status: mental status grossly normal Speech and Movement: speech and movement normal Mood: congruent mood Affect: normal affect Quality:SDOH Health Related Social Needs: No Data to Display Exam Narrative Exam Narrative: elderly female sitting up in the chair in no acute distress, AOx4, heart RRR, lungs CTAB, abdomen soft, non-tender, non-distended Psych Mental Status: mental status grossly normal Speech and Movement: speech and movement normal Mood: congruent mood Affect: normal affect DS: Data Vitals/I&O Vitals and I&O: Vital Signs Temperature 97.2 F L 05/19/24 07:42 Temperature Source Temporal Artery Scan 05/19/24 07:42 Pulse 96 H 05/19/24 07:42 Pulse Rhythm Regular 05/19/24 00:41 Respiratory Rate 18 05/19/24 07:42 Respiratory Effort Normal, Non-Labored 05/19/24 00:41 Respiratory Depth Normal 05/19/24 00:41 Respiratory Pattern Normal 05/19/24 00:41 Blood Pressure 102/61 05/19/24 07:42 Blood Pressure Position Sitting 05/16/24 21:37 Pulse Oximetry 96 05/19/24 07:42 Oxygen Delivery Method Room Air 05/19/24 07:42 Oxygen Flow Rate 0 05/19/24 07:42 Pain Level 0 05/19/24 03:02 Comment BP prior to chlorothiazide 05/18/24 10:20 Intake & Output 05/18/24 05/19/24 05/19/24 17:59 05:59 17:59 Intake Total 620 / 620 350 / 970 Output Total 2375 / 2375 200 / 2575 Balance -1755 / -1755 150 / -1605 Weight 133 lb 9.602 oz Intake: IV 150 / 150 100 / 250 Oral 470 / 470 250 / 720 Output: Urine 2375 / 2375 200 / 2575 Other: Urine Color Yellow Yellow Urine Appearance Clear Clear Urine Odor None None Comment missed hat, voided to toilet not measured, mixed with stool. Stool Size Moderate Moderate Stool Characteristics Soft Soft Formed Green Voiding Methods Toilet Toilet Data Completed and Pending Labs on day of discharge: Labs from last 24 hours 05/18/24 05/16/24 17:18 20:02 Glucose 437 H Lyme Disease Antibody Negative Preliminary micro results at discharge 05/16/24 21:40 Blood Culture - Preliminary Blood NO GROWTH 48 HOURS 05/16/24 18:45 Blood Culture - Preliminary Blood NO GROWTH 48 HOURS PFSH All Active Problems (Updated 05/19/24 @ 10:05 by Rohan Whipple MD) Cellulitis (Acute) Counseling regarding end of life decision making (Acute) Ischemic cardiomyopathy (Acute) Acute on chronic HFrEF (heart failure with reduced ejection fraction) (Acute) Hyperlipidemia (Chronic) Obstructive jaundice (Acute) Type 2 diabetes mellitus (Chronic) UTI (urinary tract infection) (Acute) Acute hyponatremia (Acute) Hyperglycemia (Acute) Elevated transaminase level (Acute) CHF (congestive heart failure) (Acute) HTN (hypertension) (Chronic) Medical History (Updated 05/19/24 @ 10:05 by Rohan Whipple MD) Allergic rhinitis Chronic cough Acne rosacea Osteoporosis Insulin dependent diabetes mellitus Hypomagnesemia Surgical History History of hysterectomy Social History Smoking/Tobacco Use Status: Never Smoking risk assessment performed?: Yes Alcohol Intake: never Drug use: Never Substance use type: does not use Housing: house Do you feel safe at home: Yes Do you feel safe in your relationship?: No Time Spent with Patient Time Spent with Patient: <45 minutes Time was spent: preparing to see the patient(eg.review tests), obtaining and/or reviewing separately otained hiistory, ordering medications,tests, procedures, referring, communicating with other health director of critical care, indepentently interpreting results, counseling the patient and care coordination
--- NOTE | 2024-05-19 12:58 | PDOC.CMDIS ---
Date of service: 05/19/24 Time of Service: 12:58 LACE Index Scoring Tool Questions: Length of Stay (in days): 3 Was the patient admitted via the E.D.?: Yes Comorbidities: Diabetes w/o Complication and Congestive Heart Failure E.D. Visits: 1 Answers: Total Score: 10 Risk of Readmission: High Risk Care Management Discharge Plan Reason for Hospitalization: Acute CHF Discharge Plan: Latanya is medically ready for discharge and is discharged back to her home where she lives with her Daughter Cecelia. New [facility] RN/PT/OT services are ordered on discharge. Latanya will follow up with facility/community providers and her discharge plan of care as instructed. Bhavana is providing her transportation home. Patient/Family Education Needs: Review discharge instructions, limitations, medications and plan to follow up with community providers. Discuss ask me three and goals of self care. Services Needed at Discharge: Home Health Care Services (New [facility] RN, PT, OT) SDOH Health Related Social Needs: No Data to Display
[2024-05-19 19:32] LABS: Anaplasma phagocytophilum Negative (Negative); B. miyamotoi PCR Negative (Negative); Babesia divergens/MO-1 Negative (Negative); Babesia duncani Negative (Negative); Babesia microti Negative (Negative); Ehrlichia chaffeensis Negative (Negative); Ehrlichia ewingii/canis Negative (Negative); Ehrlichia muris eauclairensis Negative (Negative)
== END 2024-05-19 15:00 | disposition home health service (06) | DRG 291 ==
LOC: ER 22:48 → MS 23:55
PROVIDERS: Family Medicine; Internal Medicine; Admitting Provider Family Medicine; Emergency Provider Physician Assistant; PCP Family Medicine; Visit Provider Family Medicine
DX: I50.23 Acute on chronic systolic (congestive) heart failure; N30.00 Acute cystitis without hematuria; E87.1 Hypo-osmolality and hyponatremia; E87.20 Acidosis, unspecified; K80.20 Calculus of gallbladder without cholecystitis without obstruction; R74.01 Elevation of levels of liver transaminase levels; I11.0 Hypertensive heart disease with heart failure; E78.2 Mixed hyperlipidemia; I25.5 Ischemic cardiomyopathy; I08.1 Rheumatic disorders of both mitral and tricuspid valves; E11.65 Type 2 diabetes mellitus with hyperglycemia; R41.3 Other amnesia; Z79.84 Long term (current) use of oral hypoglycemic drugs
CPT/HCPCS: 00123; 36415; 36416; 80048; 80053; 80061; 80076; 82805; 82947; 82962; 83690; 84145; 85027; 87040; 87637; 87798; 93005; 93306; 93308; 94640; 96361; 96365; 96367; 96375; 99285; J1650; 71046; 74177; 76705; 81003; 81015; 83036; 83605; 83735; 83880; 84439; 84443; 84484; 85025; 85610; 86618; 87086; 93010; 99223; 99233; 99238; J0131; J0696; J0780; J1205; J1815; J1940; J1941; J2543; J3475; J3490; J7614

== ENCOUNTER 2024-06-15 08:00 | Outpatient (CLI) | payer MEDICARE, SELFPAY | END 2024-06-15 08:01 | disposition home or self-care (01) | LOC: DI.CARD 08:00 | PROVIDERS: PCP Family Medicine; Visit Provider Internal Medicine Cardiovascular Disease | CPT/HCPCS: 93010 ==

== ENCOUNTER 2024-06-15 16:14 | Outpatient (REF) | payer MEDICARE, SELFPAY ==
[2024-06-15 15:05] LABS: Abs Immature Grans 0.05 10^3/uL (0.0-0.06); Absolute Basophil Count 0.05 10^3/uL (0.0-0.2); Absolute Eosinophil Count 0.03 10^3/uL (0.0-0.7); Absolute Lymphocyte Count 1.77 10^3/uL (1.2-3.4); Absolute Neutrophil Count 7.09 10^3/uL (1.2-6.7); Basophils % 0.5 %; Eosinophils % 0.3 %; HCT 38.5 % (36.0-46.0); HGB 12.1 g/dL (11.2-15.7); Immature Grans % 0.5 %; Lymphocytes % 18.5 %; MCH 21.6 pg (27.0-33.0); MCHC 31.4 % (32.0-36.0); MCV 69 fL (80-95); MPV 9.6 fL (8.0-11.0); Monocytes % 6.3 %; Neutrophils % 73.9 %; Platelet Count 403 10^3/uL (130-400); RBC 5.59 10^6/uL (3.93-5.22); RDW-SD 40.9 fL; WBC 9.59 10^3/uL (4.4-10.8)
[2024-06-15 15:16] LABS: Diff Comment RBC Morph Reviewed; Microcytosis 1+; Polychromasia Present
[2024-06-15 16:38] LABS: ALT 36 U/L (14-59); AST 25 U/L (15-37); Albumin 3.3 g/dL (3.4-5.0); Alkaline Phosphatase 116 U/L (46-116); Anion Gap 14.6 mmol/L (3-11); BUN 14 mg/dL (7-18); Bilirubin, Total 1.83 mg/dL (0.2-1.0); CO2 24.4 mmol/L (21.0-32.0); CREATININE 1.2 mg/dL (0.55-1.02); Calcium 8.9 mg/dL (8.5-10.1); Chloride 90 mmol/L (98-107); Estimated GFR 45.19 (mL/min/1.73m2); Glucose 447 mg/dL (74-106); Potassium 3.6 mmol/L (3.5-5.1); Sodium 129 mmol/L (136-145); TSH (W/Ref FT4) 3.14 uIU/mL (0.36-3.74); Total Protein 6.9 g/dL (6.4-8.2)
== END 2024-06-15 16:15 | disposition home or self-care (01) ==
LOC: NCHCN 16:14
PROVIDERS: PCP Family Medicine; Visit Provider Family Medicine
DX: I50.9 Heart failure, unspecified (principal); R94.6 Abnormal results of thyroid function studies; R74.01 Elevation of levels of liver transaminase levels
CPT/HCPCS: 80053; 84443; 85025

== ENCOUNTER 2024-07-10 10:10 | Outpatient (REF) | payer MEDICARE, SELFPAY ==
[2024-07-10 16:19] LABS: Anion Gap 11.4 mmol/L (3-11); BUN 8 mg/dL (7-18); CO2 25.6 mmol/L (21.0-32.0); CREATININE 0.9 mg/dL (0.55-1.02); Chloride 100 mmol/L (98-107); Estimated GFR 63.83 (mL/min/1.73m2); Glucose 298 mg/dL (74-106); NT-proBNP 8147 pg/mL (<300); Potassium 3.1 mmol/L (3.5-5.1); Sodium 137 mmol/L (136-145)
[2024-07-10 16:27] LABS: Calcium 9.4 mg/dL (8.5-10.1)
== END 2024-07-10 10:11 | disposition home or self-care (01) ==
LOC: NCHCN 10:10
PROVIDERS: PCP Family Medicine; Visit Provider Family Medicine
DX: I50.9 Heart failure, unspecified (principal)
CPT/HCPCS: 80048; 83880

== ENCOUNTER 2024-08-25 10:55 | Emergency (ER) | payer MEDICARE, SELFPAY ==
[2024-08-25] VITALS (32 sets, daily range): BP systolic 100–122; BP diastolic 62–73; PULSE 98–108; RESP 14–34; TEMP 36.6–36.7; O2SAT 95–99
--- NOTE | 2024-08-25 11:29 | ED.GENADUL_ITS ---
Discharge Plan Disposition Patient Disposition: Home Condition: Stable Discharge Details Clinical Impression: Chronic ulcer of leg, CHF exacerbation, Cellulitis Primary Care Provider: Sue Gomez ED Provider: Roger Brown Home Meds and New Rx's Prescriptions: New cephalexin 500 mg capsule 500 mg PO QID 7 Days Qty: 28 0RF Continued metoprolol succinate 25 mg tablet extended release 24 hr 25 mg PO DAILY Qty: 90 3RF metformin 1,000 mg tablet 1,000 mg PO TID Patient Comments: Take 1 tablet by mouth twice daily aspirin 81 mg Tablet,Delayed Release (Dr/Ec) 81 mg PO DAILY Qty: 90 0RF spironolactone 25 mg Tablet 25 mg PO DAILY Qty: 90 0RF atorvastatin [Lipitor] 80 mg tablet 80 mg PO QHS Qty: 90 0RF losartan 25 mg tablet 25 mg PO DAILY Qty: 90 0RF Held furosemide [Lasix] 20 mg tablet 20 mg PO DAILY Qty: 90 0RF Hold Instructions: Resume on 08/28/24. Take #2 tabs once daily for the next 3 days Discharge Instructions Instructions: Varicose veins and other vein disease in the legs, Cephalexin, Unna Boot, Cellulitis (Skin Infection), Adult ED, Heart Failure ED Additional Instructions: You were seen in the emergency department for your acute on chronic leg wounds. You likely need to seek a referral from your regular doctor to a wound care clinic where they can place something like a Unna boot. I have prescribed you an antibiotic for cellulitis of your lower extremities, some laboratory studies like your BNP shows that you are likely in the setting of a CHF exacerbation but there is no evidence for pulmonary edema. I would like you to take 1 extra tablets of 2 tablets/day of furosemide for the next 3 days to help reduce some of the fluid in your legs. Take the antibiotics as directed and seek referral to wound care clinic. Your cardiac workup is negative and there is no pulmonary embolism in your lungs, please return to the emergency department for any severe increase in swelling of your legs despite treatment, increasing redness of fever with red streaking up the legs, respiratory distress. Referrals: Sue Gomez MD [Primary Care Provider] - Discharge Data Discharge Date/Time-TO BE ENTERED AT DEPARTURE: 08/25/24 16:22 HPI General Date/Time Provider Initiated Documentation: 08/25/24 11:29 . HPI Narrative: 84 year-old female presents to ED today by POV/ambulating with her friend with a chief complaint of bilateral weeping leg ulcerations, leg swelling, cough, and one episode of vomiting without nausea with onset over a long time- patient used to have HomeHealth for her leg ulcers. Has known CHF and t2DM. Quality described as not overly painful, no radiation to fever, shortness of breath, chest pain, abdominal pain, abdominal severe swelling, dizziness. Severity is described as moderate. Palliating factors include nothing specific. Provoking factors include nothing specific. Patient not anticoagulated. Related Data Home Medications ?Medication ?Instructions ?Recorded ?Confirmed metoprolol succinate 25 mg 25 mg PO DAILY #90 tabs 02/15/20 08/25/24 tablet,extended release 24 hr metformin 1,000 mg tablet 1,000 mg PO TID 05/16/24 08/25/24 aspirin 81 mg tablet,delayed 81 mg PO DAILY #90 tabs 05/19/24 08/25/24 release atorvastatin 80 mg tablet (Lipitor) 80 mg PO QHS #90 tabs 05/19/24 08/25/24 furosemide 20 mg tablet (Lasix) 20 mg PO DAILY #90 tabs 05/19/24 08/25/24 losartan 25 mg tablet 25 mg PO DAILY #90 tabs 05/19/24 08/25/24 spironolactone 25 mg tablet 25 mg PO DAILY #90 tabs 05/19/24 08/25/24 cephalexin 500 mg capsule 500 mg PO QID 7 days #28 caps 08/25/24 Previous Rx's ?Medication ?Instructions ?Recorded metoprolol succinate 25 mg 25 mg PO DAILY #90 tabs 02/15/20 tablet,extended release 24 hr aspirin 81 mg tablet,delayed 81 mg PO DAILY #90 tabs 05/19/24 release atorvastatin 80 mg tablet (Lipitor) 80 mg PO QHS #90 tabs 05/19/24 furosemide 20 mg tablet (Lasix) 20 mg PO DAILY #90 tabs 05/19/24 losartan 25 mg tablet 25 mg PO DAILY #90 tabs 05/19/24 spironolactone 25 mg tablet 25 mg PO DAILY #90 tabs 05/19/24 cephalexin 500 mg capsule 500 mg PO QID 7 days #28 caps 08/25/24 Allergies Allergy/AdvReac Type Severity Reaction Status Date / Time codeine AdvReac Intermediate Other (See Verified 08/25/24 11:26 Comment) General Stated Complaint: Cellulitis ARNOLDO: 3 Review of Systems All systems reviewed & are unremarkable except as noted in HPI and below Exam Narrative Exam Narrative: GENERAL APPEARANCE: Well-nourished, non-toxic, awake and alert, atraumatic, no acute distress. SKIN: Warm, pink, dry, numerous lesions on legs of varying ages weeping serous fluid, one 1cm bullae on L cortes, no purulent drainage, no fluctuant abscesses HEAD: Normocephalic, atraumatic, normal hair distribution for gender/age. EYES: Normal conjunctiva, no exudates on lids/lashes. ENT: Nares patent, no circumoral cyanosis, no facial swelling NECK: Supple, trachea midline, painless cervical ROM. LUNGS/CHEST: Lungs CTA bilaterally- no rales at bases, non-labored respirations, normal A/P diameter, symmetrical expansion, no chest wall deformity HEART (CV/PV): Regular rate and rhythm without murmur, 2+ peripheral edema in lower extremities, no JVD. ABDOMEN: Soft, non-distended, no guarding, no tenderness. MSK: Normal ROM, no swelling/deformity to bilateral UEs or LEs, moving all extremities without weakness, no cyanosis, spine midline without tenderness, normal curvature, Chandan's negative bilaterally NEURO: Mental Status AAOx4 - alert to person, place, time, events No facial droop, no forehead involvement. Motor: No focal weakness - strength 5/5 in bilateral UEs and LEs, proximal and distal, symmetric. Sensory: sensation intact to light touch globally. Gait normal: patient ambulated without ataxia into ED room. PSYCH: euthymic, cooperative, pleasant, appropriate speech Course Vital Signs Vital signs: Vital Signs Temperature 36.7 C 08/25/24 11:24 Pulse 108 H 08/25/24 11:24 Respiratory Rate 14 08/25/24 11:24 Blood Pressure 111/66 08/25/24 11:24 Pulse Oximetry 98 08/25/24 11:24 Temperature 36.7 C 08/25/24 11:24 Temperature Source Oral 08/25/24 11:24 Pulse 108 H 08/25/24 11:24 Respiratory Rate 14 10/08/24 11:24 Blood Pressure 111/66 08/25/24 11:24 Blood Pressure Position Sitting 08/25/24 11:24 Pulse Oximetry 98 08/25/24 11:24 Oxygen Delivery Method Room Air 08/25/24 11:24 Oxygen Flow Rate 0 08/25/24 11:24 Pain Level 0 08/25/24 11:24 Medical Decision Making This dictation utilizes [id number] dictation software and may contain unedited grammatical errors. 84 year-old female presents to ED today by POV/ambulating with her friend with a chief complaint of bilateral weeping leg ulcerations, leg swelling, cough, and one episode of vomiting without nausea with onset over a long time- patient used to have HomeHealth for her leg ulcers. Has known CHF and t2DM. Quality described as not overly painful, no radiation to fever, shortness of breath, chest pain, abdominal pain, abdominal severe swelling, dizziness. Severity is described as moderate. Palliating factors include nothing specific. Provoking factors include nothing specific. Patients' medical history: Chronic cough, insulin-dependent diabetes mellitus, ischemic cardiomyopathy, CHF, hypertension. Family and social history: Lives at home, home health has stopped coming to her house to help her with her legs. Pertinent exam findings / vital signs include no Rales to lungs, bilateral lower extremity nonpitting edema with multiple chronic ulcers of varying ages weeping serous fluid with 1 bullae on the left distal lateral cortes, no evidence for anasarca, hemodynamically stable. Homans negative Differential / pathologies of concern include CHF, Diabetic leg ulcers, PE, ACS, Cellulitis. Diagnostic studies of: -CBC, CMP, D-dimer, troponin I, BNP, lipase, COVID/flu/RSV PCR, EKG, CTA chest. -CBC shows no leukocytosis, no anemia -D-dimer 907, will perform PE study -CMP shows chronic hyponatremia, normal potassium, normal calcium, no GENIE -Chronically elevated bilirubin -BNP is significantly elevated over baseline will have the patient take extra Lasix the next few days as there is no evidence of pulmonary edema -CTA study negative for PE, no pulmonary edema -Lipase within normal limits -COVID/flu/RSV negative -EKG without ischemic changes Interventions of: -7 days of Keflex as well as having the patient take double dose of furosemide for 3 days as outpatient. ED Course/Assessment/Plan: 84-year-old female presents with chronic cough and chronic leg ulcers that are weeping serous fluid. Numerous varying lesions on her legs. No circumferential erythema or large fluctuant abscesses present, no pulmonary edema or hypoxia present, CTA rules out PE, no unilateral leg swelling or skin changes of DVT, Homans negative. She has chronic metabolic derangements not severely worse than baseline, I do suspect that she is having a mild CHF exacerbation with increased BNP and I will have her take 3 extra days of a double dose of furosemide and start her on 7 days of Keflex for empiric mild cellulitis of her lower extremities, do's recommend she follow-up with her primary care provider closely and try to get in with wound care clinic as her leg ulcers are likely to continue. Stressed to the patient strict return criteria for any worsening shortness of breath, dizziness, chest pain, other emergent concerns. Findings not consistent with hypoxic respiratory failure, NV compromise of lower extremities, severe cellulitis with abscess. Disposition of Chronic Leg Ulcers, CHF Exacerbation, Cellulitis. Patient verbalized understanding of the plan and return to ED criteria and engaged in shared decision making. Medical Records Medical records reviewed: Yes I reviewed the patient's medical records. Imaging Data Radiologic Study: Attestation: I personally reviewed and interpreted this imaging study as follows: Imaging: CT Scan Radiologist's impression: EXAM: CT CHEST PE CTA CLINICAL HISTORY: elev d-dimer, cough, tachy. TECHNIQUE: Imaging Protocol: Axial CT angiography was performed with multi- slice acquisition and multi-planar reconstructions as well as axial, coronal and sagittal MIP reconstructions. CONTRAST MATERIAL: Intravenous: Omnipaque 350 Contrast volume:75 ml COMPARISON: CR,XR XR CHEST 2V PA LATERAL from 05/16/[address] ABDOMEN PELVIS W from 05/16/2024 US POCUS EXAM from 05/17/2024 US US ABDOMEN LIMITED from 05/18/2024 FINDINGS: Pulmonary Arteries: No evidence of filling defect to suggest pulmonary emboli. Mediastinum and Kaycee: No dominant adenopathy or fluid collection. Pulmonary parenchyma: Not well evaluated due to motion and expiratory changes. No consolidation or dominant measurable mass. Pleura: No effusion or pneumothorax. Heart: The heart is markedly dilated. Mild coronary artery calcifications are seen. Small pericardial effusion, stable from prior. Aorta: Thoracic aorta non-dilated. No dissection. Upper abdomen: No acute findings. Bones: Unremarkable for age. Tubes, Catheters, and Lines: None Soft tissues: Mild body wall edema. IMPRESSION: No evidence of pulmonary embolism. Markedly dilated heart. No acute pulmonary abnormality visible. Lab Data Lab results reviewed: Yes I reviewed the patient's lab results. Labs: Laboratory Tests Range/Units 08/25/24 08/25/24 11:30 12:18 WBC (4.4-10.8) 10^3/uL 10.04 RBC (3.93-5.22) 10^6/uL 5.14 Hgb (11.2-15.7) g/dL 12.3 Hct (36.0-46.0) % 37.6 MCV (80-95) fL 73 L MCH (27.0-33.0) pg 23.9 L MCHC (32.0-36.0) % 32.7 RDW (11.7-14.6) % Plt Count (130-400) 10^3/uL 368 MPV (8.0-11.0) fL 9.0 Immature Gran % % 0.6 Neutrophils % % 65.6 Lymphocytes % % 26.6 Monocytes % % 6.0 Eosinophils % % 0.4 Basophils % % 0.8 Nucleated RBC % (0.0-0.3) % 0.0 Absolute Neutrophils (1.2-6.7) 10^3/uL 6.59 Absolute Lymphocytes (1.2-3.4) 10^3/uL 2.67 Absolute Monocytes (0.1-0.8) 10^3/uL 0.60 Absolute Eosinophils (0.0-0.7) 10^3/uL 0.04 Absolute Basophils (0.0-0.2) 10^3/uL 0.08 RBC Morphology See Below Poikilocytosis 3+ Microcytosis 2+ D-Dimer (<500) ng/mlFEU 907 H Sodium (136-145) mmol/L 125 L Potassium (3.5-5.1) mmol/L 4.6 Chloride (98-107) mmol/L 91 L Carbon Dioxide (21.0-32.0) mmol/L 23.6 Anion Gap (3-11) mmol/L 10.4 BUN (7-18) mg/dL 12 Creatinine (0.55-1.02) mg/dL 1.0 Est GFR (CKD-EPI 2020) (mL/min/1.73m2) 56.25 Glucose (74-106) mg/dL 257 H Calcium (8.5-10.1) mg/dL 9.4 Total Bilirubin (0.2-1.0) mg/dL 2.51 H AST (15-37) U/L 29 ALT (14-59) U/L 46 Alkaline Phosphatase (46-116) U/L 97 Troponin I (<or=51) ng/L 27 NT-Pro-B Natriuret Pep (<300) pg/mL 55031 H Total Protein (6.4-8.2) g/dL 7.9 Albumin (3.4-5.0) g/dL 3.7 Lipase (16-77) U/L 64 COVID-19 Source Nasopharynx SARS-CoV-2 (PCR) (Negative) Negative Influenza Type A (PCR) (Negative) Negative Influenza Type B (PCR) (Negative) Negative RSV (PCR) (Negative) Negative Quality:SDOH Health Related Social Needs: No Data to Display PFSH All Active Problems (Updated 08/25/24 @ 16:07 by CHADWICK Jones) Cellulitis (Acute) CHF exacerbation (Acute) Chronic ulcer of leg (Acute) Advance care planning (Acute) Ischemic cardiomyopathy (Acute) Hyperlipidemia (Chronic) Type 2 diabetes mellitus (Chronic) Hyperglycemia (Acute) CHF (congestive heart failure) (Acute) HTN (hypertension) (Chronic) Medical History (Updated 08/25/24 @ 16:07 by CHADWICK Jones) Allergic rhinitis Chronic cough Acne rosacea Osteoporosis Insulin dependent diabetes mellitus Hypomagnesemia Surgical History History of hysterectomy Social History Smoking/Tobacco Use Status: Never Smoking risk assessment performed?: Yes Alcohol Intake: never Drug use: Never Substance use type: does not use Housing: house Do you feel safe at home: Yes Do you feel safe in your relationship?: No
--- NOTE | 2024-08-25 11:45 | RT.EKG_ITS ---
APPROVED REPORT Exam: Resting ECG Reason for Exam: screening Patient Location: E HR:108 bpm ECG Measurements Heart Rate 108 AXIS AZ 164 P 63 QRSd 121 QRS -46 QT 366 T 123 QTc 491 Conclusion Sinus tachycardia, rate 108 IVCD, LVH No STEMI, T wave inversion lateral leads unchanged from priors
[2024-08-25 12:31] LABS: Abs Immature Grans 0.06 10^3/uL (0.0-0.06); Absolute Basophil Count 0.08 10^3/uL (0.0-0.2); Absolute Eosinophil Count 0.04 10^3/uL (0.0-0.7); Absolute Lymphocyte Count 2.67 10^3/uL (1.2-3.4); Absolute Neutrophil Count 6.59 10^3/uL (1.2-6.7); Basophils % 0.8 %; Eosinophils % 0.4 %; HCT 37.6 % (36.0-46.0); HGB 12.3 g/dL (11.2-15.7); Immature Grans % 0.6 %; Lymphocytes % 26.6 %; MCH 23.9 pg (27.0-33.0); MCHC 32.7 % (32.0-36.0); MCV 73 fL (80-95); Neutrophils % 65.6 %; Platelet Count 368 10^3/uL (130-400); RBC 5.14 10^6/uL (3.93-5.22); WBC 10.04 10^3/uL (4.4-10.8)
[2024-08-25 12:47] LABS: COVID-19 PCR Negative (Negative); Influenza A PCR Negative (Negative); Influenza B PCR Negative (Negative); RSV PCR Negative (Negative)
[2024-08-25 12:50] LABS: Source Nasopharynx
[2024-08-25 12:52] LABS: ALT 46 U/L (14-59); AST 29 U/L (15-37); Albumin 3.7 g/dL (3.4-5.0); Alkaline Phosphatase 97 U/L (46-116); Anion Gap 10.4 mmol/L (3-11); BUN 12 mg/dL (7-18); Bilirubin, Total 2.51 mg/dL (0.2-1.0); CO2 23.6 mmol/L (21.0-32.0); Chloride 91 mmol/L (98-107); Estimated GFR 56.25 (mL/min/1.73m2); Glucose 257 mg/dL (74-106); Lipase 64 U/L (16-77); NT-proBNP 15585 pg/mL (<300); Potassium 4.6 mmol/L (3.5-5.1); Sodium 125 mmol/L (136-145); Total Protein 7.9 g/dL (6.4-8.2); Troponin I 27 ng/L (<or=51)
[2024-08-25 12:53] LABS: Diff Comment RBC Morph Reviewed
[2024-08-25 12:54] LABS: Microcytosis 2+; Poikilocytes 3+
[2024-08-25 13:05] LABS: Calcium 9.4 mg/dL (8.5-10.1)
[2024-08-25 13:11] LABS: D-Dimer 907 ng/mlFEU (<500)
--- NOTE | 2024-08-25 13:15 | DI.CT_ITS ---
Exam(s) CT CHEST PE CTA EXAM: CT CHEST PE CTA CLINICAL HISTORY: elev d-dimer, cough, tachy. TECHNIQUE: Imaging Protocol: Axial CT angiography was performed with multi-slice acquisition and mu lti-planar reconstructions as well as axial, coronal and sagittal MIP reconstructions. CONTRAST MATERIAL: Intravenous: Omnipaque 350 Contrast volume:75 ml COMPARISON: CR,XR XR CHEST 2V PA LATERAL from 05/16/[address] ABDOMEN PELVIS W from 05/16/2024 US POCUS EXAM from 05/17/2024 US US ABDOMEN LIMITED from 05/18/2024 FINDINGS: Pulmonary Arteries: No evidence of filling defect to suggest pulmonary emboli. Mediastinum and Kaycee: No dominant adenopathy or fluid collection. Pulmonary parenchyma: Not well evaluated due to motion and expiratory changes. No consolidation or d ominant measurable mass. Pleura: No effusion or pneumothorax. Heart: The heart is markedly dilated. Mild coronary artery calcifications are seen. Small pericardia l effusion, stable from prior. Aorta: Thoracic aorta non-dilated. No dissection. Upper abdomen: No acute findings. Bones: Unremarkable for age. Tubes, Catheters, and Lines: None Soft tissues: Mild body wall edema. IMPRESSION: No evidence of pulmonary embolism. Markedly dilated heart. No acute pulmonary abnormality visible. RADIATION DOSE DELIVERED: Total DLP DATA REPOSITORY: All CT scans at this facility are submitted to the National Radiology Data Registry (NRDR) Dose Index Registry (DIR) with the [employer] ([employer]). RADIATION OPTIMIZATION: All CT scans at this facility use at least one of these dose optimization te chniques: automated exposure control; mA and/or kV adjustment per patient size (includes targeted exa ms where dose is matched to clinical indication); or iterative reconstruction.
[2024-08-25] MEDS: Omnipaque 350 MG/ML 100 ML BTL IJ (15:27)
[2024-08-25] MEDS: Normal Saline - Diluent 50 ML VIAL IJ (15:29)
== END 2024-08-25 16:22 | disposition home or self-care (01) ==
PROVIDERS: Emergency Provider Physician Assistant; PCP Family Medicine
DX: E11.622 Type 2 diabetes mellitus with other skin ulcer (principal); L97.828 Non-pressure chronic ulcer of other part of left lower leg with other specified severity; L97.818 Non-pressure chronic ulcer of other part of right lower leg with other specified severity; R00.0 Tachycardia, unspecified; I11.0 Hypertensive heart disease with heart failure; I50.9 Heart failure, unspecified; Z79.84 Long term (current) use of oral hypoglycemic drugs; Z79.82 Long term (current) use of aspirin
CPT/HCPCS: 36415; 71275; 80053; 83690; 87637; 93005; 99285; 83880; 84484; 85025; 85379; 93010; 99284; J3490

== ENCOUNTER 2024-12-10 10:16 | Outpatient (CLI) | payer MEDICARE, SELFPAY ==
[2024-12-10 12:50] LABS: Absolute Basophil Count 0.07 10^3/uL (0.0-0.2); Absolute Eosinophil Count 0.04 10^3/uL (0.0-0.7); Absolute Lymphocyte Count 1.72 10^3/uL (1.2-3.4); Absolute Monocyte Count 0.72 10^3/uL (0.1-0.8); Absolute Neutrophil Count 7.34 10^3/uL (1.2-6.7); Basophils % 0.7 %; Eosinophils % 0.4 %; HCT 43.1 % (36.0-46.0); HGB 13.3 g/dL (11.2-15.7); Lymphocytes % 17.2 %; MCH 23.6 pg (27.0-33.0); MCHC 30.9 % (32.0-36.0); MCV 76 fL (80-95); MPV 9.6 fL (8.0-11.0); Monocytes % 7.2 %; Neutrophils % 73.5 %; Platelet Count 315 10^3/uL (130-400); RBC 5.64 10^6/uL (3.93-5.22); RDW 20.1 % (11.7-14.6); RDW-SD 51.4 fL; WBC 9.99 10^3/uL (4.4-10.8)
[2024-12-10 13:04] LABS: Anisocytosis 1+
[2024-12-10 13:30] LABS: ALT 72 U/L (14-59); AST 121 U/L (15-37); Albumin 3.2 g/dL (3.4-5.0); Alkaline Phosphatase 105 U/L (46-116); Anion Gap 14.4 mmol/L (3-11); BUN 20 mg/dL (7-18); Bilirubin, Total 6.15 mg/dL (0.2-1.0); CO2 19.6 mmol/L (21.0-32.0); CREATININE 1.3 mg/dL (0.55-1.02); Calcium 9.6 mg/dL (8.5-10.1); Chloride 95 mmol/L (98-107); Estimated GFR 41.06 (mL/min/1.73m2); Glucose 294 mg/dL (74-106); NT-proBNP 9499 pg/mL (<300); Potassium 4.4 mmol/L (3.5-5.1); Sodium 129 mmol/L (136-145); TSH (W/Ref FT4) 7.13 uIU/mL (0.36-3.74); Total Protein 7.3 g/dL (6.4-8.2)
[2024-12-10 13:48] LABS: FREE T4 1.52 ng/dL (0.76-1.46)
== END 2024-12-10 10:17 | disposition home or self-care (01) ==
LOC: LOS 10:16
PROVIDERS: PCP Nurse Practitioner Family; Referring Provider Nurse Practitioner Family; Visit Provider Nurse Practitioner Family
DX: E11.9 Type 2 diabetes mellitus without complications (principal); I73.9 Peripheral vascular disease, unspecified; I50.43 Acute on chronic combined systolic (congestive) and diastolic (congestive) heart failure; I25.5 Ischemic cardiomyopathy; I83.009 Varicose veins of unspecified lower extremity with ulcer of unspecified site; I83.899 Varicose veins of unspecified lower extremity with other complications; L97.909 Non-pressure chronic ulcer of unspecified part of unspecified lower leg with unspecified severity; R60.9 Edema, unspecified; R41.89 Other symptoms and signs involving cognitive functions and awareness; Z76.89 Persons encountering health services in other specified circumstances
CPT/HCPCS: 36415; 80053; 83036; 83880; 84439; 84443; 85025

== ENCOUNTER 2024-12-11 09:58 | Inpatient (IN) | payer MEDICARE, SELFPAY ==
[2024-12-11] VITALS (29 sets, daily range): BP systolic 91–144; BP diastolic 57–82; PULSE 64–123; RESP 16–32; TEMP 35.9–36.6; O2SAT 95–100
--- NOTE | 2024-12-11 10:15 | DI.CT_ITS ---
Exam(s) CT ABDOMEN PELVIS W EXAM: CT ABDOMEN PELVIS W CLINICAL HISTORY: Elevated Bilirubin,m decreased appetite, diarrhea. TECHNIQUE: Imaging Protocol: Axial computed tomography images with coronal and sagittal reformatted images were created and reviewed CONTRAST MATERIAL: Intravenous: Omnipaque-350 75cc Oral: None COMPARISON: CT CT ABDOMEN PELVIS W from 05/16/2024 FINDINGS: VISUALIZED LUNG BASES: There are small-moderate size bilateral pleural effusions which were not evide nt on the prior CT scan of April 2024. Also were not evident on CT scan performed August 2024. Smal l right-sided pericardial effusion again noted as well as cardiomegaly, unchanged. ABDOMEN: There is prominent symmetrical subcutaneous anasarca and there is a mild amount of ascites in the abd omen and pelvis which was not previously present. LIVER: There are no focal hepatic lesions evident. The liver is somewhat heterogeneous in density, p ossibly related to cardiac findings. GALLBLADDER/BILIARY: Multiple gallstones are again noted in the gallbladder lumen. There is some enh ancement of the gallbladder wall. Gallbladder wall does not appear grossly thickened. There is some pericholecystic fluid. Is difficult to determine if this pericholecystic fluid is related to gallbl adder pathology or due to the generalized ascites with some fluid in the gallbladder fossa. CBD is n ot dilated. PANCREAS: No evidence of pancreatic mass nor dilatation of the pancreatic duct. Pancreatic head is p artially obscured by adjacent duodenal diverticulum. SPLEEN: Spleen is not enlarged. No obvious intrasplenic lesions. Splenic and portal veins are paten t. ADRENALS: There are no significant adrenal masses. KIDNEYS:No cysts evident. No solid renal masses. No calculi nor hydronephrosis.. There is diffuse thickening of the urinary bladder wall, similar to previous. ABDOMINAL AORTA: Calcified but not enlarged. Iliac arteries are also calcified but not enlarged. LYMPH NODES:There is no retroperitoneal nor paraaortic adenopathy. ABDOMINAL WALL: No evidence of significant anterior abdominal wall nor inguinal hernia. GI: There is no evidence of bowel obstruction, free air, nor abscess. PELVIS: GI: No evidence of appendicitis.There is extensive sigmoid diverticulosis. No obvious acute divertic ulitis. LYMPH NODES: There is no intrapelvic nor inguinal adenopathy. REPRODUCTIVE: Uterus is surgically absent. There are no abnormal adnexal masses. URINARY BLADDER: There is diffuse thickening of the urinary bladder wall, similar to previous. OSSEOUS: No fractures and no significant osseous lesions. IMPRESSION: 1. There is cardiomegaly and small pericardial effusion, unchanged. 2. Compared to the prior studies listed above there is now prominent symmetrical anasarca as well as mild-moderate amount of ascites in the abdomen and pelvis. 3. Cholelithiasis. There is also some pericholecystic fluid. Although this may indicate acute gallb ladder pathology this is also possibly just related to the ascites present which has accumulated in t he gallbladder fossa. Gallbladder is not distended. The CBD is not dilated. If clinically indicate d right upper quadrant ultrasound can be performed. 4. Extensive sigmoid diverticulosis without obvious acute diverticulitis. 5. There is diffuse thickening of the urinary bladder wall indicating probable chronic cystitis. Th is is similar to CT scan of 05/16/2024. 6. The uterus is again noted be surgically absent. There are no abnormal adnexal masses. Report called by myself to ER physician 12/11/2024 at 12:30 p.m. RADIATION DOSE DELIVERED: 532.38mGy.cm Total DLP DATA REPOSITORY: All CT scans at this facility are submitted to the National Radiology Data Registry (NRDR) Dose Index Registry (DIR) with the [employer] (ACR). RADIATION OPTIMIZATION: All CT scans at this facility use at least one of these dose optimization te chniques: automated exposure control; mA and/or kV adjustment per patient size (includes targeted exa ms where dose is matched to clinical indication); or iterative reconstruction.
--- NOTE | 2024-12-11 10:17 | W.ED.GENAD ---
Discharge Plan Disposition Patient Disposition: Admit to [facility] Condition: Stable Discharge Details Clinical Impression: Venous stasis ulcer with edema of lower leg, Anasarca, Abdominal ascites, Hyponatremia, Cirrhosis of liver with ascites Primary Care Provider: Iraida Goode ED Provider: Hyacinth Prado Home Meds and New Rx's Prescriptions: No Action metoprolol succinate 25 mg tablet extended release 24 hr 25 mg PO DAILY Qty: 90 3RF metformin 1,000 mg tablet 1,000 mg PO BID Patient Comments: Take 1 tablet by mouth twice daily dapagliflozin propanediol [Farxiga] 10 mg tablet 10 mg PO DAILY Rx Instructions: one tab daily for heart failure and diabetes furosemide 40 mg tablet 40 mg PO DAILY spironolactone 50 mg tablet 50 mg PO DAILY aspirin 81 mg Tablet,Delayed Release (Dr/Ec) 81 mg PO DAILY Qty: 90 0RF atorvastatin [Lipitor] 80 mg tablet 80 mg PO QHS Qty: 90 0RF losartan 25 mg tablet 25 mg PO DAILY Qty: 90 0RF HPI General Mode of arrival: ambulatory. Date/Time Provider Initiated Documentation: 12/11/24 10:01. Limitations to Documentation: altered mental status (Patient confused). Information obtained by: patient, family, RN notes reviewed and old records reviewed. HPI Narrative: 84-year-old female presents to the ER accompanied by her daughter with a chief complaint of abnormal labs which was done by her PCP yesterday. Patient was encouraged by her PCP to present to the ER for further evaluation. Daughter reports that she has had decrease in appetite, diarrhea and appears yellow over the last few days. Patient has no complaints denies any abdominal pain with palpation. She has been having increased fatigue and complaining of always being cold. Upon initial presentation patient is tachycardic at 114 she does have multiple excoriations and sores on her arms and lower extremities, she does have what appears to be chronic venous stasis with some purulent drainage noted to her right lower extremity. She was seen here in August 2024 diagnosed with cellulitis and was given antibiotics at that time. Upon review of the lab work drawn yesterday her bilirubin is 6. Related Data Home Medications ?Medication ?Instructions ?Recorded ?Confirmed metoprolol succinate 25 mg 25 mg PO DAILY #90 tabs 02/15/20 12/11/24 tablet,extended release 24 hr aspirin 81 mg tablet,delayed 81 mg PO DAILY #90 tabs 05/19/24 12/11/24 release atorvastatin 80 mg tablet (Lipitor) 80 mg PO QHS #90 tabs 05/19/24 12/11/24 losartan 25 mg tablet 25 mg PO DAILY #90 tabs 05/19/24 12/11/24 dapagliflozin propanediol 10 mg 10 mg PO DAILY 09/17/24 12/11/24 tablet (Farxiga) metformin 1,000 mg tablet 1,000 mg PO BID 09/17/24 12/11/24 furosemide 40 mg tablet 40 mg PO DAILY 12/10/24 12/11/24 spironolactone 50 mg tablet 50 mg PO DAILY 12/10/24 12/11/24 Previous Rx's ?Medication ?Instructions ?Recorded metoprolol succinate 25 mg 25 mg PO DAILY #90 tabs 02/15/20 tablet,extended release 24 hr aspirin 81 mg tablet,delayed 81 mg PO DAILY #90 tabs 05/19/24 release atorvastatin 80 mg tablet (Lipitor) 80 mg PO QHS #90 tabs 05/19/24 losartan 25 mg tablet 25 mg PO DAILY #90 tabs 05/19/24 Allergies Allergy/AdvReac Type Severity Reaction Status Date / Time INDU Inhibitors AdvReac Intermediate cough Verified 12/11/24 10:07 codeine AdvReac Intermediate Other (See Verified 12/11/24 10:07 Comment) General Stated Complaint: Abd Prob ARNOLDO: 3 Review of Systems All systems reviewed & are unremarkable except as noted in HPI and below Constitutional Constitutional: Reports as per HPI and Reports poor appetite Cardiovascular Cardiovascular: Reports dyspnea Respiratory Respiratory: Reports dyspnea Gastrointestinal Gastrointestinal: Reports abdominal pain and Reports diarrhea Integumentary/Breasts Skin/Breast: Reports sores, Reports wounds and Reports jaundice Neurologic Neurologic: Reports confusion Psychiatric Psychiatric: Reports confusion Exam Narrative Exam Narrative: Constitutional: Patient is confused, has no complaints responds to verbal questions. Appears stated age. Normal body habitus. Head: Normocephalic, no trauma. Eyes: Pupils PERRL, Red reflex noted, EOM's intact. Eyelids symmetrical without lesions, discharge, or swelling. ENT: Bilateral TM's WNL, External ear normal to inspection, no mastoid TTP, swelling, or erythema, Nasal turbinates WNL, no nasal discharge. Normal dentition, Posterior pharynx WNL, no exudate. Chest: RRR, Normal S1, S2, distal pulses intact. Resp: Lungs diminished to auscultation bilaterally, no wheezes, rales, or rhonchi. Abdomen: Soft, non-distended, Normoactive bowel sounds all 4 quads. Musculoskeletal: Normal gait, Moves all 4 extremities without difficulty. Skin: Mild jaundice noted to face, bilateral lower extremities erythemic with multiple excoriations with purulent drainage, does appear to be chronic venous stasis. Does have multiple sores on bilateral arms upper back of neck. Neurologic: No focal gross motor deficits noted. Patient is confused. Cranial nerves II-XII intact. . Motor: No deficits noted. Sensory: Intact bilaterally all 4 extremities. Hematologic/Lymphatic: Bilateral lower extremity erythema and swelling. Course Vital Signs Vital signs: Vital Signs Temperature 36.3 C L 12/11/24 10:02 Pulse 114 H 12/11/24 10:02 Respiratory Rate 18 12/11/24 10:02 Blood Pressure 111/74 12/11/24 10:02 Pulse Oximetry 98 12/11/24 10:02 Temperature 36.3 C L 12/11/24 10:08 Temperature Source Temporal Artery Scan 12/11/24 10:08 Pulse 114 H 12/11/24 10:08 Respiratory Rate 18 12/11/24 10:08 Blood Pressure 111/74 12/11/24 10:08 Blood Pressure Position Sitting 12/11/24 10:08 Pulse Oximetry 98 12/11/24 10:08 Oxygen Delivery Method Room Air 12/11/24 10:08 Oxygen Flow Rate 0 12/11/24 10:08 Pain Level 0 12/11/24 10:08 Medical Decision Making 84-year-old female presents to the ER accompanied by her daughter with a chief complaint of abnormal labs which was done by her PCP yesterday. Patient was encouraged by her PCP to present to the ER for further evaluation. Daughter reports that she has had decrease in appetite, diarrhea and appears yellow over the last few days. Patient has no complaints denies any abdominal pain with palpation. She has been having increased fatigue and complaining of always being cold. Upon initial presentation patient is tachycardic at 114 she does have multiple excoriations and sores on her arms and lower extremities, she does have what appears to be chronic venous stasis with some purulent drainage noted to her right lower extremity. She was seen here in August 2024 diagnosed with cellulitis and was given antibiotics at that time. Upon review of the lab work drawn yesterday her bilirubin is 6. Abdomen is soft nontender with palpation. She does appear slightly jaundiced to her face and neck. Informed by radiologist that patient has some new ascites and anasarca with a small pericardial effusion which was in the previous CT. Please see official report. Patient has been off her furosemide for the last couple of weeks due to cost, she was established with her PCP 2 days ago and home health was ordered. Daughter reports decreased appetite decreased eating, she has been complaining of shortness of breath and stomach pain. Sodium 126 chloride 93 creatinine 1.2 which is at patient's baseline, glucose 309 magnesium 1.6 AST and ALT AST is 190, ALT 126, lipase 54 Ultrasound for gallbladder focused exam ordered. Hospitalist paged. [phone]: Spoke with Dr. Saldivar with hospitalist team who agrees to accept patient for admission he does recommend diuresis will give 20 mg of Lasix at this time. Normal saline 500 cc bolus canceled. Discussed plan of care with patient and family who verbalized understanding and are in agreement with plan. At this time pending transportation up to floor and bed assignment. Medical Records Medical records reviewed: Yes I reviewed the patient's medical records. Imaging Data Radiologic Study: Imaging: CT Scan Radiologist's impression: IMPRESSION: 1. There is cardiomegaly and small pericardial effusion, unchanged. 2. Compared to the prior studies listed above there is now prominent symmetrical anasarca as well as mild-moderate amount of ascites in the abdomen and pelvis. 3. Cholelithiasis. There is also some pericholecystic fluid. Although this may indicate acute gallbladder pathology this is also possibly just related to the ascites present which has accumulated in the gallbladder fossa. Gallbladder is not distended. The CBD is not dilated. If clinically indicated right upper quadrant ultrasound can be performed. 4. Extensive sigmoid diverticulosis without obvious acute diverticulitis. 5. There is diffuse thickening of the urinary bladder wall indicating probable chronic cystitis. This is similar to CT scan of 05/16/2024. 6. The uterus is again noted be surgically absent. There are no abnormal adnexal masses. Radiologic Study #2: Imaging: Ultrasound Radiologist's impression: FINDINGS: LIVER: 18 cm in length. Mildly heterogeneous echogenicity. No focal liver lesions are seen. GALLBLADDER: Multiple stones. The gallbladder is not abnormally distended. Mild wall thickening. No pericholecystic fluid identified although some pericholecystic fluid was present on CT.. GANNON'S SIGN: Negative. BILIARY SYSTEM: No intrahepatic or extrahepatic biliary ductal dilation. RIGHT KIDNEY: Normal size. No evidence of renal calculi. No evidence of hydronephrosis. No suspicious renal mass. No cyst identified. PANCREAS: Somewhat atrophic. ABDOMINAL AORTA AND IVC: Visualized portions of the aorta show normal caliber. The IVC is mildly distended. ASCITES: Small amount of ascites seen posterior to the right lobe of the liver. IMPRESSION: Cholelithiasis. Mild gallbladder wall thickening but no abnormal distension or sonographic Gannon sign. No biliary dilatation. Lab Data Lab results reviewed: Yes I reviewed the patient's lab results. Labs: Laboratory Tests Range/Units 12/11/24 12/11/24 12/11/24 10:40 11:08 11:40 WBC (4.4-10.8) 10^3/uL 9.31 RBC (3.93-5.22) 10^6/uL 5.45 H Hgb (11.2-15.7) g/dL 12.8 Hct (36.0-46.0) % 40.7 MCV (80-95) fL 75 L MCH (27.0-33.0) pg 23.5 L MCHC (32.0-36.0) % 31.4 L RDW (11.7-14.6) % 20.0 H Plt Count (130-400) 10^3/uL 276 MPV (8.0-11.0) fL 9.1 Immature Gran % % 0.8 Neutrophils % % 71.9 Lymphocytes % % 19.3 Monocytes % % 7.0 Eosinophils % % 0.4 Basophils % % 0.6 Nucleated RBC % (0.0-0.3) % 0.0 Absolute Neutrophils (1.2-6.7) 10^3/uL 6.69 Absolute Lymphocytes (1.2-3.4) 10^3/uL 1.80 Absolute Monocytes (0.1-0.8) 10^3/uL 0.65 Absolute Eosinophils (0.0-0.7) 10^3/uL 0.04 Absolute Basophils (0.0-0.2) 10^3/uL 0.06 RBC Morphology See Below Microcytosis 1+ PT (9.1-11.1) sec 18.7 H INR (0.9-1.1) 1.9 H Sodium Cancelled Cancelled 126 L Potassium Cancelled Cancelled 4.7 Chloride Cancelled Cancelled 93 L Carbon Dioxide Cancelled Cancelled 24.9 Anion Gap Cancelled Cancelled 8.1 BUN Cancelled Cancelled 18 Creatinine Cancelled Cancelled 1.2 H Est GFR (CKD-EPI 2020) Cancelled Cancelled 45.19 Glucose Cancelled Cancelled 309 H Calcium Cancelled Cancelled 8.9 Magnesium Cancelled Cancelled 1.6 L Total Bilirubin Cancelled Cancelled 5.69 H AST Cancelled Cancelled 190 H ALT Cancelled Cancelled 126 H Alkaline Phosphatase Cancelled Cancelled 106 Total Protein Cancelled Cancelled 6.9 Albumin Cancelled Cancelled 2.9 L Lipase Cancelled Cancelled 54 Quality:SDOH Health Related Social Needs: Health related social needs problems with daily activities (Z73.9), feeling lonely/isolated (Z60.8) PFSH All Active Problems (Updated 12/11/24 @ 13:41 by Hyacinth Prado NP) Cirrhosis of liver with ascites (Acute) Hyponatremia (Acute) Abdominal ascites (Acute) Anasarca (Acute) Heart failure with reduced ejection fraction (Chronic) Ischemic cardiomyopathy (Chronic) Type 2 diabetes mellitus (Chronic) Cognitive impairment (Chronic) Hypertension (Chronic) Hyperlipidemia (Chronic) Venous stasis ulcer with edema of lower leg (Chronic) Medical History (Updated 12/11/24 @ 13:41 by Hyacinth Prado NP) Prurigo nodularis Allergic rhinitis Acne rosacea Osteoporosis Surgical History (Updated 12/10/24 @ 13:15 by Ramandeep Ball) History of hysterectomy (~2004) Family History (Updated 12/10/24 @ 08:29 by Gretchen Zambrano RN) Mother Cancer Social History (Updated 12/10/24 @ 08:28 by Gretchen Zambrano RN) Smoking/Tobacco Use Status: Never Smoking risk assessment performed?: Yes Alcohol Intake: never Drug use: Never Substance use type: does not use Adopted: No Caregiver/Support person: No Household members: children, caregiver and other Details: adult daughter Housing: house Number of Children: 1 number of grandchildren: 8 Communication Needs: None Do you need help understanding health information?: Often 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 Sexually active: No Current gender identity: female What is your relationship status?: How often do you talk on the phone with friends or family?: once per week How often do you get together with friends or relatives?: once per week How often do you attend christian or congregation services?: 1-3 times per year Do you belong to any clubs or organized social groups?: no Panel score (0-1 are the most socially isolated patients): 0 NHANES result reviewed/action taken: Yes What type of physical activity do you participate in: none Makenzie/Pentecostal: Worship Special makenzie needs: No Seatbelt use: always Helmet use: No Drive intox or ride w/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
[2024-12-11 10:45] LABS: Abs Immature Grans 0.07 10^3/uL (0.0-0.06); Absolute Basophil Count 0.06 10^3/uL (0.0-0.2); Absolute Eosinophil Count 0.04 10^3/uL (0.0-0.7); Absolute Monocyte Count 0.65 10^3/uL (0.1-0.8); Absolute Neutrophil Count 6.69 10^3/uL (1.2-6.7); Basophils % 0.6 %; Eosinophils % 0.4 %; HCT 40.7 % (36.0-46.0); HGB 12.8 g/dL (11.2-15.7); Immature Grans % 0.8 %; Lymphocytes % 19.3 %; MCH 23.5 pg (27.0-33.0); MCHC 31.4 % (32.0-36.0); MCV 75 fL (80-95); MPV 9.1 fL (8.0-11.0); Neutrophils % 71.9 %; Platelet Count 276 10^3/uL (130-400); RBC 5.45 10^6/uL (3.93-5.22); RDW-SD 49.3 fL; WBC 9.31 10^3/uL (4.4-10.8)
[2024-12-11 11:00] LABS: Diff Comment RBC Morph Reviewed; INR 1.9 (0.9-1.1); Microcytosis 1+; Prothrombin Time 18.7 sec (9.1-11.1)
[2024-12-11] MEDS: Normal Saline - Diluent 50 ML VIAL IJ (11:21)
[2024-12-11] MEDS: Omnipaque 350 MG/ML 100 ML BTL 75 ML IJ (11:22)
[2024-12-11 11:59] LABS: ALT 126 U/L (14-59); AST 190 U/L (15-37); Albumin 2.9 g/dL (3.4-5.0); Alkaline Phosphatase 106 U/L (46-116); Anion Gap 8.1 mmol/L (3-11); BUN 18 mg/dL (7-18); Bilirubin, Total 5.69 mg/dL (0.2-1.0); CO2 24.9 mmol/L (21.0-32.0); CREATININE 1.2 mg/dL (0.55-1.02); Calcium 8.9 mg/dL (8.5-10.1); Chloride 93 mmol/L (98-107); Estimated GFR 45.19 (mL/min/1.73m2); Glucose 309 mg/dL (74-106); Lipase 54 U/L (<78); Magnesium 1.6 mg/dL (1.8-2.4); Potassium 4.7 mmol/L (3.5-5.1); Sodium 126 mmol/L (136-145); Total Protein 6.9 g/dL (6.4-8.2)
--- NOTE | 2024-12-11 12:30 | DI.US_ITS ---
Exam(s) US ABDOMEN LIMITED EXAM: US ABDOMEN LIMITED CLINICAL HISTORY: Eval Gallbladder/pancreas/liver TECHNIQUE: Ultrasound abdomen performed using standard protocol. COMPARISON: CT CT ABDOMEN PELVIS W from 05/16/2024 US POCUS EXAM from 05/17/2024 US US ABDOMEN LIMITED from 05/18/[address] ABDOMEN PELVIS W from 12/11/2024 FINDINGS: LIVER: 18 cm in length. Mildly heterogeneous echogenicity. No focal liver lesions are seen. GALLBLADDER: Multiple stones. The gallbladder is not abnormally distended. Mild wall thickening. No pericholecystic fluid identified although some pericholecystic fluid was present on CT.. GANNON'S SIGN: Negative. BILIARY SYSTEM: No intrahepatic or extrahepatic biliary ductal dilation. RIGHT KIDNEY: Normal size. No evidence of renal calculi. No evidence of hydronephrosis. No suspicious renal mass. No cyst identified. PANCREAS: Somewhat atrophic. ABDOMINAL AORTA AND IVC: Visualized portions of the aorta show normal caliber. The IVC is mildly dis tended. ASCITES: Small amount of ascites seen posterior to the right lobe of the liver. IMPRESSION: Cholelithiasis. Mild gallbladder wall thickening but no abnormal distension or sonographic Gannon si gn. No biliary dilatation. DATA REPOSITORY:
[2024-12-11 13:33] LABS: ALT 124 U/L (14-59); AST 196 U/L (15-37); Albumin 3.1 g/dL (3.4-5.0); Alkaline Phosphatase 105 U/L (46-116); Bilirubin, Direct 4.3 mg/dL (0.0-0.2); Bilirubin, Total 5.81 mg/dL (0.2-1.0); Total Protein 7.1 g/dL (6.4-8.2)
[2024-12-11 13:40] LABS: NT-proBNP 8030 pg/mL (<300)
[2024-12-11] MEDS: MAGNESIUM SULFATE 1 GM/100 ML BAG IV_INF (13:41)
[2024-12-11] MEDS: Furosemide 20 MG/2 ML VIAL IVP (14:24)
--- NOTE | 2024-12-11 15:32 | W.PC.ACHO ---
Registration Status: Primary Language: Preferred Language: ED Information & Data Chief Complaint Abd Prob 12/11/24 10:19 Triage Note had blood work done 12/11/24 10:02 yesterday at pcp office. they called today saying she needed to get to the ER but did not say why. recent decrease in appetite with stomach pain. skin appears yellow per daughter. diarrhea but has not noticed any blood. denies N/V. always feels cold. Medical / Surgical History (Last Updated 12/10/24 @ 21:28 by Iraida Goode NP) Prurigo nodularis Allergic rhinitis Acne rosacea Osteoporosis (Last Updated 12/10/24 @ 13:15 by Ramandeep Ball) History of hysterectomy (~2004) Most Recent Vital Signs Temperature 36.3 C L 12/11/24 10:08 Temperature Source Temporal Artery Scan 12/11/24 10:08 Pulse 115 H 12/11/24 14:46 Pulse 123 H 12/11/24 14:46 Respiratory Rate 20 12/11/24 14:46 Blood Pressure 91/61 L 12/11/24 14:46 Blood Pressure Mean 66 12/11/24 14:46 Blood Pressure Position Sitting 12/11/24 10:08 Pulse Oximetry 95 12/11/24 14:31 Oxygen Delivery Method Room Air 12/11/24 10:08 Oxygen Flow Rate 0 12/11/24 10:08 Pain Level 0 12/11/24 10:51 Allergies INDU Inhibitors Adverse Reaction (Intermediate, Verified 12/11/24 10:07) cough codeine Adverse Reaction (Intermediate, Verified 12/11/24 10:07) Other (See Comment) Dizziness Active Medications Generic Name Dose Route Start Last Admin Trade Name Priscilla PRN Reason Stop Dose Admin Iohexol 75 ml 12/11/24 11:30 12/11/24 11:22 Omnipaque 350 Mg/Ml 100 Ml Btl IJ 01/10/25 23:59 75 ml DIRECTED CONSTANTINE Administration Sodium Chloride 50 ml 12/11/24 11:30 12/11/24 11:21 Normal Saline - Diluent 50 Ml Vial IJ 50 ml .FOR DI USE CONSTANTINE Administration IV IV Catheter Type [Right Wrist] Saline Lock IV Catheter Gauge [Right Wrist 20 ] Diet Orders Category Date Time Status Diabetes Consistent CHO/Low Na [DIET] Nutrition 12/11/24 Dinner Active Diagnostics 01/12/11/24 12/11/24 Range/Units 13:20 11:40 11:30 WBC (4.4-10.8) 10^3/uL RBC (3.93-5.22) 10^6/uL Hgb (11.2-15.7) g/dL Hct (36.0-46.0) % MCV (80-95) fL MCH (27.0-33.0) pg MCHC (32.0-36.0) % RDW (11.7-14.6) % Plt Count (130-400) 10^3/uL MPV (8.0-11.0) fL Immature Gran % % Neutrophils % % Lymphocytes % % Monocytes % % Eosinophils % % Basophils % % Nucleated RBC % (0.0-0.3) % Absolute Neutrophils (1.2-6.7) 10^3/uL Absolute Lymphocytes (1.2-3.4) 10^3/uL Absolute Monocytes (0.1-0.8) 10^3/uL Absolute Eosinophils (0.0-0.7) 10^3/uL Absolute Basophils (0.0-0.2) 10^3/uL RBC Morphology Microcytosis PT (9.1-11.1) sec INR (0.9-1.1) Sodium 126 L Potassium 4.7 Chloride 93 L Carbon Dioxide 24.9 Anion Gap 8.1 BUN 18 Creatinine 1.2 H Est GFR (CKD-EPI 2020) 45.19 Glucose 309 H Calcium 8.9 Magnesium 1.6 L Total Bilirubin 5.69 H 5.81 H Conjugated Bilirubin 4.3 H (0.0-0.2) mg/dL AST 190 H 196 H ALT 126 H 124 H Alkaline Phosphatase 106 105 NT-Pro-B Natriuret Pep 8030 H (<300) pg/mL Total Protein 6.9 7.1 Albumin 2.9 L 3.1 L Lipase 54 COVID-19 Source Pending SARS-CoV-2 (PCR) Pending Influenza Type A (PCR) Pending Influenza Type B (PCR) Pending RSV (PCR) Pending 12/11/24 12/11/24 Range/Units 11:08 10:40 WBC 9.31 (4.4-10.8) 10^3/uL RBC 5.45 H (3.93-5.22) 10^6/uL Hgb 12.8 (11.2-15.7) g/dL Hct 40.7 (36.0-46.0) % MCV 75 L (80-95) fL MCH 23.5 L (27.0-33.0) pg MCHC 31.4 L (32.0-36.0) % RDW 20.0 H (11.7-14.6) % Plt Count 276 (130-400) 10^3/uL MPV 9.1 (8.0-11.0) fL Immature Gran % 0.8 % Neutrophils % 71.9 % Lymphocytes % 19.3 % Monocytes % 7.0 % Eosinophils % 0.4 % Basophils % 0.6 % Nucleated RBC % 0.0 (0.0-0.3) % Absolute Neutrophils 6.69 (1.2-6.7) 10^3/uL Absolute Lymphocytes 1.80 (1.2-3.4) 10^3/uL Absolute Monocytes 0.65 (0.1-0.8) 10^3/uL Absolute Eosinophils 0.04 (0.0-0.7) 10^3/uL Absolute Basophils 0.06 (0.0-0.2) 10^3/uL RBC Morphology See Below Microcytosis 1+ PT 18.7 H (9.1-11.1) sec INR 1.9 H (0.9-1.1) Sodium Cancelled Cancelled Potassium Cancelled Cancelled Chloride Cancelled Cancelled Carbon Dioxide Cancelled Cancelled Anion Gap Cancelled Cancelled BUN Cancelled Cancelled Creatinine Cancelled Cancelled Est GFR (CKD-EPI 2020) Cancelled Cancelled Glucose Cancelled Cancelled Calcium Cancelled Cancelled Magnesium Cancelled Cancelled Total Bilirubin Cancelled Cancelled Conjugated Bilirubin (0.0-0.2) mg/dL AST Cancelled Cancelled ALT Cancelled Cancelled Alkaline Phosphatase Cancelled Cancelled NT-Pro-B Natriuret Pep (<300) pg/mL Total Protein Cancelled Cancelled Albumin Cancelled Cancelled Lipase Cancelled Cancelled COVID-19 Source SARS-CoV-2 (PCR) Influenza Type A (PCR) Influenza Type B (PCR) RSV (PCR) Intake and Output - 24 Hour Total 12/11/24 09:58 thru 12/11/24 10:02 Weight 72 kg Falls Risk Assessment History of Falls No History 12/11/24 10:51 Contributing Factors No Factors 12/11/24 10:51 Ambulatory Aids Uses ambulatory device + 12/11/24 10:51 Tubes/Lines With any additional score 12/11/24 10:51 Gait Evaluation No gait disturbance 12/11/24 10:51 Cognition No cognitive impairment 12/11/24 10:51 Fall Total Score 50 12/11/24 10:51 Level of Risk Moderate Risk 12/11/24 10:51 Problems (Last Updated 12/10/24 @ 21:28 by Iraida Goode NP) Cirrhosis of liver with ascites (Acute) v v v v v v v v v Sending and/or Receiving Nurses: Please use comment section below to note any information pertinent to the patient hand-off not included above. Information / Comments: Report received from: rene @[id number] given to Valery HERZOG
--- NOTE | 2024-12-11 16:23 | W.PM.HP.N ---
Date of service: 12/11/24 Time of Service: 16:23 Assessment and Plan Assessment and plan (1) Heart failure with reduced ejection fraction: Status: Chronic Assessment and plan: Exacerbation of chronic heart failure that has not been appropriately medically treated due to patient non-engagement in care. She didn't respond much to 20mg IV furosemide in ED, will give additional 60mg and give 80mg BID. Follow I/0s. Resume MRA spironolactone, metoprolol, and SLGT2i therapy start back ARB if tolerating these. She hasn't been able to afford ARNI (2) Liver failure: Status: Acute Assessment and plan: She has ascities but imaging, normal platelets don't suggest cirrhosis. I think this is all CHF. Denies EtOH, getting level along with APAP levels. Follow. (3) Hyponatremia: Status: Acute Assessment and plan: secondary to CHF. Should improve with diuresis. (4) Type 2 diabetes mellitus: Status: Chronic Assessment and plan: Poor control for year with non-adherence. Resume basal/bolus insulin, SGLT2i. Would also benefit form metformin but holding for now with liver failure. GLP-1 also indicated but needs f/u. (5) Venous stasis ulcer with edema of lower leg: Status: Chronic Assessment and plan: compression, wound care. (6) CKD stage 3a, GFR 45-59 ml/min: Assessment and plan: at baseline, follow. (7) Hypomagnesemia: Status: Acute Assessment and plan: replaced, follow (8) Cognitive impairment: Status: Chronic Assessment and plan: She seems to have progressed, likely dementia. This is the joseph barrier to care. She will need more direct assistence to adhere to her medication to control her chronic issues. History of Present Illness History of Present Illness Chief Complaint: fatigue, abnormal labs Narrative: 84 yo F with history of ischemic cardiomyopathy and HFrEF 20-25% LVEF, poorly controlled type 2 diabetes, and cognitive impairment who lives alone and does not take her medications. She was seen 12/10 by her new PCP and had labs done. She has felt tired, doesn't move much, but otherwise no complaints. She states she doesn't have any medicine, though she is prescribed several. The PCP officed called her and told her to go to the emergency room. She denies shortness of breath. She has had sores on her legs and swelling for a long time. No recent falls or injuries. She hasn't noted skin changes but daughter has noted yellowing of her skin per report from ED. She denies chest or abdominal pain. She has been eating regularly. She is not dizzy. no bleeding. Review of Systems All systems reviewed & are unremarkable except as noted in HPI and below Cardiovascular Cardiovascular: Reports dyspnea on exertion Respiratory Respiratory: Reports dyspnea on exertion PFSH All Active Problems Hypomagnesemia (Acute) Liver failure (Acute) Hyponatremia (Acute) Abdominal ascites (Acute) Anasarca (Acute) Venous stasis ulcer with edema of lower leg (Chronic) Cognitive impairment (Chronic) Hypertension (Chronic) Heart failure with reduced ejection fraction (Chronic) Ischemic cardiomyopathy (Chronic) Type 2 diabetes mellitus (Chronic) Hyperlipidemia (Chronic) Medical History CKD stage 3a, GFR 45-59 ml/min Prurigo nodularis Allergic rhinitis Acne rosacea Osteoporosis Surgical History History of hysterectomy (~2004) Family History Mother Cancer Social History (Updated 12/11/24 @ 19:28 by Christ Saldivar) Smoking/Tobacco Use Status: Never Smoking risk assessment performed?: Yes Alcohol Intake: never Drug use: Never Substance use type: does not use Adopted: No Caregiver/Support person: No Household members: children, caregiver and other Details: adult daughter Housing: house Number of Children: 1 number of grandchildren: 8 Communication Needs: None Do you need help understanding health information?: Often 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 Sexually active: No Current gender identity: female What is your relationship status?: How often do you talk on the phone with friends or family?: once per week How often do you get together with friends or relatives?: once per week How often do you attend hindu or yarsanism services?: 1-3 times per year Do you belong to any clubs or organized social groups?: no Panel score (0-1 are the most socially isolated patients): 0 NHANES result reviewed/action taken: Yes What type of physical activity do you participate in: none Makenzie/Judaism: Moravian Special makenzie needs: No Seatbelt use: always Helmet use: No Drive intox or ride w/intox driver guide: No Firearms in home: No Do you feel safe at home: Yes Do you feel safe in your relationship?: No Victim of physical abuse: No Victim of emotional abuse: No Victim of sexual abuse: No Would you like helpful sources: No Additional Social history: lives alone in [place], daughter with her now a lot. 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 [employer] Allergies and Home Medications Allergies Allergy/AdvReac Type Severity Reaction Status Date / Time INDU Inhibitors AdvReac Intermediate cough Verified 12/11/24 10:07 codeine AdvReac Intermediate Other (See Verified 12/11/24 10:07 Comment) Home Medications ?Medication ?Instructions ?Recorded ?Confirmed ?Type metoprolol succinate 25 mg 25 mg PO DAILY #90 tabs 02/15/20 12/11/24 Rx tablet,extended release 24 hr aspirin 81 mg tablet,delayed 81 mg PO DAILY #90 tabs 05/19/24 12/11/24 Rx release atorvastatin 80 mg tablet (Lipitor) 80 mg PO QHS #90 tabs 05/19/24 12/11/24 Rx losartan 25 mg tablet 25 mg PO DAILY #90 tabs 05/19/24 12/11/24 Rx dapagliflozin propanediol 10 mg 10 mg PO DAILY 09/17/24 12/11/24 History tablet (Farxiga) metformin 1,000 mg tablet 1,000 mg PO BID 09/17/24 12/11/24 History furosemide 40 mg tablet 40 mg PO DAILY 12/10/24 12/11/24 History spironolactone 50 mg tablet 50 mg PO DAILY 12/10/24 12/11/24 History Exam Narrative Exam Narrative: GEN: Alert and oriented to self only. Pleasant and cooperative, gives minimal history. No acute distress at rest. HEENT: Head atraumatic. Conjunctiva clear, no icterus. PEERL, EOMI. no rhinorrhea. MMM, OP benign. Neck is supple with no masses or lymphadenopathy, trachea midline. I could not appreciate clear JVP elevation. LUNGS: CTAB with normal effort. I did not hear rales. CV: RRR with no murmurs, gallops, or rubs. ABD: active bowel sounds, soft, nontender. Mildly dstended with + fluid wave. No masses. EXT: no cyanosis though leg color dusky. No clubbing. Diffuse 1-2+ edema to abdomen. MSK: No joint redness or swelling NEURO: CN 2-12 grossly intact. Normal movement of 4 extremities. Normal speech and coordination. No tremor/asterixis SKIN: No rashes. Excoriated scabbed dry ulcerations on back/shoulders. Wounds on jerrod ankles dressed. Skin on feet cool. PSYCH: normal mood and affect Results Imaging Imaging Studies: CT A/P: . There is cardiomegaly and small pericardial effusion, unchanged. 2. Compared to the prior studies listed above there is now prominent symmetrical anasarca as well as mild-moderate amount of ascites in the abdomen and pelvis. 3. Cholelithiasis. There is also some pericholecystic fluid. Although this may indicate acute gallbladder pathology this is also possibly just related to the ascites present which has accumulated in the gallbladder fossa. Gallbladder is not distended. The CBD is not dilated. If clinically indicated right upper quadrant ultrasound can be performed. 4. Extensive sigmoid diverticulosis without obvious acute diverticulitis. 5. There is diffuse thickening of the urinary bladder wall indicating probable chronic cystitis. This is similar to CT scan of 05/16/2024. 6. The uterus is again noted be surgically absent. There are no abnormal adnexal masses. ABD U/S: Cholelithiasis. Mild gallbladder wall thickening but no abnormal distension or sonographic Gannon sign. No biliary dilatation. Labs 12/11/24 10:40 12/11/24 11:40 Labs: Laboratory Results - last 24 hr 12/11/24 12/11/24 12/11/24 10:40 11:08 11:30 WBC 9.31 RBC 5.45 H Hgb 12.8 Hct 40.7 MCV 75 L MCH 23.5 L MCHC 31.4 L RDW 20.0 H Plt Count 276 MPV 9.1 Immature Gran % 0.8 Neutrophils % 71.9 Lymphocytes % 19.3 Monocytes % 7.0 Eosinophils % 0.4 Basophils % 0.6 Nucleated RBC % 0.0 Absolute Neutrophils 6.69 Absolute Lymphocytes 1.80 Absolute Monocytes 0.65 Absolute Eosinophils 0.04 Absolute Basophils 0.06 RBC Morphology See Below Microcytosis 1+ PT 18.7 H INR 1.9 H Sodium Cancelled Cancelled Potassium Cancelled Cancelled Chloride Cancelled Cancelled Carbon Dioxide Cancelled Cancelled Anion Gap Cancelled Cancelled BUN Cancelled Cancelled Creatinine Cancelled Cancelled Est GFR (CKD-EPI 2020) Cancelled Cancelled Glucose Cancelled Cancelled Calcium Cancelled Cancelled Magnesium Cancelled Cancelled Total Bilirubin Cancelled Cancelled 5.81 H Conjugated Bilirubin 4.3 H AST Cancelled Cancelled 196 H ALT Cancelled Cancelled 124 H Alkaline Phosphatase Cancelled Cancelled 105 NT-Pro-B Natriuret Pep 8030 H Total Protein Cancelled Cancelled 7.1 Albumin Cancelled Cancelled 3.1 L Lipase Cancelled Cancelled 12/11/24 11:40 WBC RBC Hgb Hct MCV MCH MCHC RDW Plt Count MPV Immature Gran % Neutrophils % Lymphocytes % Monocytes % Eosinophils % Basophils % Nucleated RBC % Absolute Neutrophils Absolute Lymphocytes Absolute Monocytes Absolute Eosinophils Absolute Basophils RBC Morphology Microcytosis PT INR Sodium 126 L Potassium 4.7 Chloride 93 L Carbon Dioxide 24.9 Anion Gap 8.1 BUN 18 Creatinine 1.2 H Est GFR (CKD-EPI 2020) 45.19 Glucose 309 H Calcium 8.9 Magnesium 1.6 L Total Bilirubin 5.69 H Conjugated Bilirubin AST 190 H ALT 126 H Alkaline Phosphatase 106 NT-Pro-B Natriuret Pep Total Protein 6.9 Albumin 2.9 L Lipase 54 Last Vital Signs Temp 36.3 C L 12/11/24 10:08 Pulse 112 H 12/11/24 15:30 Resp 29 H 12/11/24 15:01 BP 97/75 L 12/11/24 15:17 Pulse Ox 98 12/11/24 15:30 Time Spent Time spent with Patient: 55-74 minutes Time was spent: preparing to see the patient(eg.review tests), obtaining and/or reviewing separately otained hiistory, ordering medications,tests, procedures, referring, communicating with other health medical care evaluation specialist, indepentently interpreting results, counseling the patient and care coordination
[2024-12-11 16:40] LABS: ETHANOL BLOOD < 3.0 mg/dL (<10)
[2024-12-11 16:41] LABS: Acetaminophen < 2 ug/mL (10-30)
[2024-12-11] MEDS: Normal Saline Flush 10 ML SYR IVP ×2 (16:41→20:59)
[2024-12-11] MEDS: Furosemide 40 MG/4 ML VIAL 60 MG IVP (16:41)
[2024-12-11 17:08] LABS: COVID-19 PCR Negative (Negative); Influenza A PCR Negative (Negative); Influenza B PCR Negative (Negative); RSV PCR Negative (Negative)
[2024-12-11 17:09] LABS: Source Nasopharynx
[2024-12-11] MEDS: Insulin Aspart 300 UNITS/3 ML PEN SC ×2 (18:10→18:12)
[2024-12-11] MEDS: Atorvastatin 40 MG TAB 80 MG PO (20:58)
[2024-12-11] MEDS: Insulin Glargine 300 UNITS/3 ML PEN 20 UNITS SC (21:10)
[2024-12-11 23:50] LABS: Magnesium 1.8 mg/dL (1.8-2.4); Potassium 4.5 mmol/L (3.5-5.1)
[2024-12-12] VITALS (10 sets, daily range): BP systolic 83–118; BP diastolic 38–92; PULSE 87–105; RESP 15–17; TEMP 35.8–37; O2SAT 93–98
[2024-12-12] MEDS: oxyCODONE 5 MG TAB PO (00:39)
[2024-12-12 07:25] LABS: INR 1.9 (0.9-1.1); Prothrombin Time 18.3 sec (9.1-11.1)
[2024-12-12 07:37] LABS: ALT 136 U/L (14-59); AST 170 U/L (15-37); Albumin 2.7 g/dL (3.4-5.0); Alkaline Phosphatase 103 U/L (46-116); BUN 23 mg/dL (7-18); Bilirubin, Direct 3.7 mg/dL (0.0-0.2); Bilirubin, Total 4.65 mg/dL (0.2-1.0); CREATININE 1.1 mg/dL (0.55-1.02); Calcium 8.6 mg/dL (8.5-10.1); Chloride 97 mmol/L (98-107); Estimated GFR 50.17 (mL/min/1.73m2); Glucose 54 mg/dL (74-106); Magnesium 1.7 mg/dL (1.8-2.4); Potassium 3.7 mmol/L (3.5-5.1); Sodium 130 mmol/L (136-145); Total Protein 6.5 g/dL (6.4-8.2)
[2024-12-12] MEDS: Dextrose 50%-Water 25 GM/50 ML SYR IVP ×2 (08:24→14:57)
[2024-12-12] MEDS: Furosemide 100 MG/10 ML VIAL 80 MG IVP ×2 (08:25→16:47)
[2024-12-12] MEDS: Normal Saline Flush 10 ML SYR IVP ×4 (08:26→20:45)
--- NOTE | 2024-12-12 09:15 | RT.EKG_ITS ---
APPROVED REPORT Exam: Resting ECG Reason for Exam: chf, ectopy on tele Patient Location: I HR:82 bpm ECG Measurements Heart Rate 82 AXIS ME 138 P 65 QRSd 116 QRS -50 QT 404 T 137 QTc 472 Conclusion Unknown rhythm, irregular rate...V-rate 65-108, variation>10% Incomplete left bundle branch block...QRSd>110mS, terminal axis(-90,-1) Left ventricular hypertrophy...multiple LVH criteria Artifact, unable to assess rhythm
--- NOTE | 2024-12-12 09:28 | PDOC.CMIN ---
Date of service: 12/12/24 Time of Service: 09:28 Care Management Initial Assmt Initial Assessment Reason for Hospitalization: HF with reduced EF (20-25%) Functional Status/Living Situation Patient Presentation: Latanya was sleeping in bed when CM attempted to meet with her. Her grandson Urban was present with his Caty and were able to provide information. Latanya lives in [place] and her daughter and son-in-law live with her but are not always available. She has some dementia and has not been taking her medications regularly. Urban is her healthcare agent and his sister helps manage Latanya's finances. CM did discuss half-way planning with them and encouraged them to reach out to the [facility] for information and support in future half-way planning for Latanya. Per Urban, Latanya has declined considerably in the past couple of years, both physically and cognitively. He stated that she does not seem to have as good hygiene as in the past and has more memory issues. He believes that his mother does help Latanya with some of her ADLs, although she works outside of the home. Town of Residence: [place] Resides with: Child (daughter and son in law live with her) Significant Other/Family: [facility] Employment Status: Retired Instrumental Activities of Daily Living (ADLs): Requires support with Oncology Account Specialist, Groceries, Transportation and Other (some support with bathing etc) Medications Medication Management: No Issues/Barriers identified Advance Directives Advance Directives: Do you have an Advance Directive: Y 12/08/19 10:36 AD On File at [facility]: Y 12/08/19 10:36 Date Asked 05/16/24 05/16/24 18:05 AD Date Reviewed 12/11/24 12/11/24 15:29 COLST On File at [facility] Yes 05/18/24 07:32 COLST Date Scanned 05/18/24 05/18/24 07:32 Code Status Resuscitation Status DNR/DNI Portal Pt does not currently have a portal and education provided: Yes Insurance Coverage/Financial Issues Insurance: [employer] Medicare Repalcement Care Team Visit Care Team Role Provider Type Iraida Goode NP Primary Care Provider NURSE PRACTITIONER Radha Desir RDN, [facility] Other Providers DESIGN ENGINEERING MANAGER Bernice Meza Other Providers DESIGN ENGINEERING MANAGER Antwon Torres RDN Other Providers DESIGN ENGINEERING MANAGER Hyacinth Prado NP Emergency Provider NURSE PRACTITIONER Christ Saldivar Admit Provider MD [facility] STAFF PHYSICIAN Attending Provider Discharge Potential Discharge Needs: PCP F/U Appt and Other (Cardiology) Anticipated Barriers to Discharge: None Identified Patient/Family Education Needs: Review discharge instructions, discuss Ask Me Three Transportation: Private vehicle Plan: Anticipate Latanya will be discharged home with new home health services when medically cleared. She will follow up with her community providers and plan of care as prescribed and transport with family. CM will follow and continue to support discharge planning efforts. Social Determinants of Health Screening Social Determinants of Health last assessed: 12/12/24 Will the Patient Participate in the Screening?: Yes Do you worry about having a steady place to live?: no Problems where you live: no known problems In the past 12 months, have you had to go without electric, gas, oil or water in your home?: no Have you or anyone in your house had to go without enough food to eat?: no Has lack of transportation kept you from medical appointments or from doing things needed for daily living?: no Has anyone in your life made you feel unsafe or unsupported?: no How hard is it for you to pay for the very basics like food, housing, medical care, and heating? Would you say it is:: Not hard at all Do you want help finding or keeping work or a job?: I do not need or want help If for any reason you need help with day-to-day activities such as bathing, preparing meals, shopping, managing finances, etc., do you get the help you need?: I get all the help I need How often do you feel lonely or isolated from those around you?: Never Do you speak a language other than Wol[place] at home?: No Does the patient want assistance with any of the above?: No PFSH All Active Problems Hypomagnesemia (Acute) Liver failure (Acute) Hyponatremia (Acute) Abdominal ascites (Acute) Anasarca (Acute) Heart failure with reduced ejection fraction (Chronic) Ischemic cardiomyopathy (Chronic) Type 2 diabetes mellitus (Chronic) Cognitive impairment (Chronic) Hypertension (Chronic) Hyperlipidemia (Chronic) Venous stasis ulcer with edema of lower leg (Chronic) Medical History CKD stage 3a, GFR 45-59 ml/min Prurigo nodularis Allergic rhinitis Acne rosacea Osteoporosis Surgical History History of hysterectomy (~2004) Family History Mother Cancer Social History (Updated 12/11/24 @ 19:28 by Christ Saldivar) Smoking/Tobacco Use Status: Never Smoking risk assessment performed?: Yes Alcohol Intake: never Drug use: Never Substance use type: does not use Adopted: No Caregiver/Support person: No Household members: children, caregiver and other Details: adult daughter Housing: house Number of Children: 1 number of grandchildren: 8 Communication Needs: None Do you need help understanding health information?: Often 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 Sexually active: No Current gender identity: female What is your relationship status?: How often do you talk on the phone with friends or family?: once per week How often do you get together with friends or relatives?: once per week How often do you attend hindu or jew services?: 1-3 times per year Do you belong to any clubs or organized social groups?: no Panel score (0-1 are the most socially isolated patients): 0 NHANES result reviewed/action taken: Yes What type of physical activity do you participate in: none Makenzie/Restoration: Adventism Special makenzie needs: No Seatbelt use: always Helmet use: No Drive intox or ride w/intox taxi cab driver: No Firearms in home: No Do you feel safe at home: Yes Do you feel safe in your relationship?: No Victim of physical abuse: No Victim of emotional abuse: No Victim of sexual abuse: No Would you like helpful sources: No Additional Social history: lives alone in [place], daughter with her now a lot. 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
[2024-12-12] MEDS: MAGNESIUM SULFATE 2 GM/50 ML BAG IV_INF (10:02)
[2024-12-12] MEDS: Aspirin E.C. 81 MG TABEC PO (10:15)
[2024-12-12] MEDS: Empaglifozin 10 MG TAB PO (10:15)
[2024-12-12] MEDS: Spironolactone 50 MG TAB PO (10:16)
[2024-12-12] MEDS: Metoprolol CR 25 MG TABCR PO (10:16)
[2024-12-12 11:10] LABS: Ammonia 14 umol/L (11-32)
[2024-12-12 13:32] LABS: Bilirubin Negative (Negative); Blood Negative (Negative); Clarity Clear (Clear); Glucose 100 mg/dL (Negative); Ketones Negative (Negative); Leukocyte Esterase Negative (Negative); Nitrite Negative (Negative)
[2024-12-12] MEDS: POTASSIUM CHLORIDE/D5-0.9%NACL 1,000 ML 50 MEQ IV (15:02)
--- NOTE | 2024-12-12 16:11 | PGE_ITS ---
Date of Service Date of service: 12/12/24 Time of Service: 16:11 Assessment and Plan Assessment and plan (1) Heart failure with reduced ejection fraction: Status: Chronic Assessment and plan: Exacerbation of chronic heart failure that has not been appropriately medically treated due to patient non-engagement in care. She didn't respond much to 20mg IV furosemide in ED, Responding to 80mg BID down 2 kg with improvements in lytes/cr. Follow I/0s. Give MRA spironolactone, metoprolol, and SLGT2i therapy start back ARB if tolerating these. She hasn't been able to afford ARNI, hold off for today as BP low normal. Discussed with natalia cardiac catheterization and AICD at some point. She has declined these in the past as she had minimal symptoms. Discussed rationale for GDMT. Echo pending Saturday. (2) Liver failure: Status: Acute Assessment and plan: She has ascities but imaging, normal platelets don't suggest cirrhosis. I think this is all CHF. Negative EtOH and APAP levels. Trend improving with diuresis. (3) Hyponatremia: Status: Acute Assessment and plan: secondary to CHF. Also improving with diuresis. (4) Type 2 diabetes mellitus: Status: Chronic Assessment and plan: Poor control for year with poor adherence. A1c 13% She had persistent hypoglycemia however on non-agressive basal insulin, will stop this for now. Sent c-peptide as she seems sensitive to insulin, she may have limited pancreatic function. Continue SGLT2i as CHF benefit. Would also benefit form metformin but holding for now with liver failure. GLP-1 also indicated but needs f/u. (5) Venous stasis ulcer with edema of lower leg: Status: Chronic Assessment and plan: compression, appreciate wound care consult. (6) CKD stage 3a, GFR 45-59 ml/min: Assessment and plan: at baseline, follow. (7) Hypomagnesemia: Status: Acute Assessment and plan: replaced, give additional today. (8) Cognitive impairment: Status: Chronic Assessment and plan: She seems to have progressed, likely dementia. Worse this morning with low blood sugar but better now. NH3 not c/w hepatic encephalopathy. I confirmed with son that daughter and CYNDI live with her and are attentive to medications. Also confirmed slow progression of cognitive decline over the past 2 years. They asked about dementia medications but benefit would be marginal if any, defer to PCP. TSH high but Ft4 also high, not c/w hypothyroid. Get b12. Subjective Subjective Patient reports: denies diarrhea, nausea, vomiting, shortness of breath or fever Interval history since last seen: Events: Recurrent hypoglycemia treated with dextrose, juice, mental status depressed and didn't eat this morning. Retaining 900ml this morning, anaya placed. Feel better this afternoon. No complaints. She hasn't eaten much, just pudding, but feels like she could eat dinner. Denies any pain now. Exam Narrative Exam Narrative: GEN: Alert and oriented to self only, recognized grandson. Pleasant and cooperative. No acute distress at rest. LUNGS: CTAB with normal effort. Slight basilar rales. CV: RRR with no murmurs, gallops, or rubs. ABD: active bowel sounds, soft, nontender. Mildly dstended with + fluid wave, decreased from yesterday. No masses. EXT: no cyanosis, more pink. No clubbing. Diffuse 1-2+ edema to abdomen. PSYCH: normal mood and affect, poor memory Objective Last Vital Signs Temp 36.5 C 12/12/24 15:25 Pulse 92 H 12/12/24 15:25 Resp 16 12/12/24 15:25 BP 108/70 12/12/24 16:09 Pulse Ox 94 12/12/24 15:25 Laboratory Results - last 24 hr 12/11/24 12/11/24 12/11/24 11:30 16:25 23:33 PT INR Sodium Potassium 4.5 Chloride Carbon Dioxide Anion Gap BUN Creatinine Est GFR (CKD-EPI 2020) Glucose Calcium Magnesium 1.8 Total Bilirubin Conjugated Bilirubin AST ALT Alkaline Phosphatase Ammonia Total Protein Albumin Urine Color Urine Clarity Urine pH Ur Specific [place] Urine Protein Urine Ketones Urine Blood Urine Nitrite Urine Bilirubin Urine Urobilinogen Ur Leukocyte Esterase Urine Glucose Acetaminophen < 2 Ethyl Alcohol < 3.0 COVID-19 Source Nasopharynx SARS-CoV-2 (PCR) Negative Influenza Type A (PCR) Negative Influenza Type B (PCR) Negative RSV (PCR) Negative 12/12/24 12/12/24 12/12/24 07:03 07:03 09:50 PT 18.3 H INR 1.9 H Sodium 130 L Potassium 3.7 Chloride 97 L Carbon Dioxide 28.0 Anion Gap 5.0 BUN 23 H Creatinine 1.1 H Est GFR (CKD-EPI 2020) 50.17 Glucose 54 L Calcium 8.6 Magnesium 1.7 L Cancelled Total Bilirubin 4.65 H Conjugated Bilirubin 3.7 H AST 170 H ALT 136 H Alkaline Phosphatase 103 Ammonia 14 Total Protein 6.5 Albumin 2.7 L Urine Color Urine Clarity Urine pH Ur Specific [place] Urine Protein Urine Ketones Urine Blood Urine Nitrite Urine Bilirubin Urine Urobilinogen Ur Leukocyte Esterase Urine Glucose Acetaminophen Ethyl Alcohol COVID-19 Source SARS-CoV-2 (PCR) Influenza Type A (PCR) Influenza Type B (PCR) RSV (PCR) 12/12/24 13:23 PT INR Sodium Potassium Chloride Carbon Dioxide Anion Gap BUN Creatinine Est GFR (CKD-EPI 2020) Glucose Calcium Magnesium Total Bilirubin Conjugated Bilirubin AST ALT Alkaline Phosphatase Ammonia Total Protein Albumin Urine Color Yellow Urine Clarity Clear Urine pH 5.0 Ur Specific [place] 1.010 Urine Protein Negative Urine Ketones Negative Urine Blood Negative Urine Nitrite Negative Urine Bilirubin Negative Urine Urobilinogen 1.0 H Ur Leukocyte Esterase Negative Urine Glucose 100 H Acetaminophen Ethyl Alcohol COVID-19 Source SARS-CoV-2 (PCR) Influenza Type A (PCR) Influenza Type B (PCR) RSV (PCR) Time Spent with Patient Time Spent with Patient: 35-49 minutes Time was spent: preparing to see the patient(eg.review tests), obtaining and/or reviewing separately otained hiistory, ordering medications,tests, procedures, referring, communicating with other health patient care nursing assistant, indepentently interpreting results, counseling the patient and care coordination
[2024-12-12] MEDS: Insulin Aspart 300 UNITS/3 ML PEN SC (17:45)
[2024-12-12] MEDS: Atorvastatin 40 MG TAB 80 MG PO (20:44)
[2024-12-12] MEDS: Senna TAB 1 TAB PO (20:45)
[2024-12-13] VITALS (10 sets, daily range): BP systolic 90–110; BP diastolic 58–70; PULSE 92–105; RESP 14–20; TEMP 35.8–37.2; O2SAT 92–100
[2024-12-13] MEDS: oxyCODONE 5 MG TAB 2.5 MG PO ×2 (01:27→22:51)
[2024-12-13] MEDS: Ondansetron 4 MG/2 ML VIAL IVP ×2 (05:20→19:58)
[2024-12-13] MEDS: Normal Saline Flush 10 ML SYR IVP ×3 (05:20→20:04)
[2024-12-13 06:21] LABS: Anion Gap 8.5 mmol/L (3-11); BUN 18 mg/dL (7-18); CO2 26.5 mmol/L (21.0-32.0); CREATININE 1.1 mg/dL (0.55-1.02); Calcium 8.3 mg/dL (8.5-10.1); Chloride 94 mmol/L (98-107); Estimated GFR 50.17 (mL/min/1.73m2); Glucose 234 mg/dL (74-106); Magnesium 1.9 mg/dL (1.8-2.4); Potassium 3.8 mmol/L (3.5-5.1); Sodium 129 mmol/L (136-145)
[2024-12-13 06:51] LABS: Vitamin B12 1388 pg/mL (193-986)
[2024-12-13] MEDS: Insulin Aspart 300 UNITS/3 ML PEN SC ×3 (08:39→17:46)
[2024-12-13] MEDS: Aspirin E.C. 81 MG TABEC PO (08:39)
[2024-12-13] MEDS: Spironolactone 50 MG TAB PO (08:39)
[2024-12-13] MEDS: Empaglifozin 10 MG TAB PO (08:39)
--- NOTE | 2024-12-13 11:18 | PT.INTREAT ---
PT Notes Visit Reasons: CHF, hyponatremia, liver dysfunction
[2024-12-13] MEDS: Metoprolol CR 25 MG TABCR PO (11:46)
--- NOTE | 2024-12-13 17:41 | PGE_ITS ---
Date of Service Date of service: 12/13/24 Time of Service: 14:30 Assessment and Plan Assessment and plan (1) Heart failure with reduced ejection fraction: Status: Chronic Assessment and plan: Exacerbation of chronic heart failure that has not been appropriately medically treated due to patient non-engagement in care. She didn't respond much to 20mg IV furosemide in ED, Responding to 80mg BID down 2 kg with improvements in lytes/cr. Good initial response but now not tolerating aggressive diuresis with low BP, will hold furosemide for now. Give MRA spironolactone, metoprolol, and SLGT2i therapy, but cut spironolactone dose wiht low BPs. She hasn't been able to afford ARNI, still holding losartan with low BP. 12/12 dscussed with [facility] cardiac catheterization and AICD at some point. She has declined these in the past as she had minimal symptoms. Reviewed rationale for GDMT. Echo pending Saturday. Continue to follow I/Os, reassess after we have echo. palliative care consult. (2) Liver failure: Status: Acute Assessment and plan: She has ascities but imaging, normal platelets don't suggest cirrhosis. I think this is all CHF. Negative EtOH and APAP levels. Trend improving with diuresis. Follow See if vitamin K helps INR (3) Hyponatremia: Status: Acute Assessment and plan: secondary to CHF. Also improving with diuresis. (4) Type 2 diabetes mellitus: Status: Chronic Assessment and plan: Poor control for year with poor adherence. A1c 13% She had persistent hypoglycemia however on non-agressive basal insulin, stopped this, but will resume at lower dose. Sent c-peptide as she seems sensitive to insulin, she may have limited pancreatic function. Continue SGLT2i as CHF benefit. Would also benefit form metformin but holding for now with liver failure. GLP-1 also indicated but needs f/u. (5) Venous stasis ulcer with edema of lower leg: Status: Chronic Assessment and plan: compression, appreciate wound care consult. (6) CKD stage 3a, GFR 45-59 ml/min: Assessment and plan: at baseline, follow. (7) Hypomagnesemia: Status: Acute Assessment and plan: replaced, better today (8) Cognitive impairment: Status: Chronic Assessment and plan: She seems to have progressed, likely dementia. Worse this morning with low blood sugar but better now. NH3 not c/w hepatic encephalopathy. I confirmed with son that daughter and CYNDI live with her and are attentive to medications. Also confirmed slow progression of cognitive decline over the past 2 years. They asked about dementia medications but benefit would be marginal if any, defer to PCP. TSH high but Ft4 also high, not c/w hypothyroid. B12 normal. I think this is simply progressive dementia. (9) DVT prophylaxis: Status: Acute Assessment and plan: high INR, uncertain coagulation status. Will start lovenox. (10) Arrhythmia: Status: Acute Assessment and plan: complex pattern. EKG 12/12 most c/w atrial fibrillation. Some runs of non- sustained VTAC as well, some seems sinus with PACs. Will ask cardiology for opinion, if agrees with atrial fibrillation she should be anticoagulated if c/w her goals of care.. Subjective Subjective Patient reports: tolerating a regular diet; denies nausea, vomiting, shortness of breath or fever Interval history since last seen: Events: held furosemide this morning with low normal blood pressure. Metoprolol given after initially holding. Feeling okay. Nurse positioned legs up and they feel numb, better after repositioning. Denies chest pain or SOB. She is a little queasy but no abdominal pain, still eating. Exam Narrative Exam Narrative: GEN: Alert and oriented to self only. Pleasant and cooperative. No acute distress at rest. LUNGS: CTAB with normal effort. Slight basilar rales. CV: RRR with no murmurs, gallops, or rubs. ABD: active bowel sounds, soft, nontender. Mildly dstended with + slight fluid wave. No masses. EXT: no cyanosis, more pink. No clubbing. Diffuse 1-2+ edema from feet to ab domen. shins dressed with bandages. PSYCH: normal mood and affect, poor memory Objective Last Vital Signs Temp 36.7 C 12/13/24 15:49 Pulse 101 H 12/13/24 15:49 Resp 19 12/13/24 15:49 BP 101/64 12/13/24 15:49 Pulse Ox 95 12/13/24 15:49 Laboratory Results - last 24 hr 12/13/24 05:35 Sodium 129 L Potassium 3.8 Chloride 94 L Carbon Dioxide 26.5 Anion Gap 8.5 BUN 18 Creatinine 1.1 H Est GFR (CKD-EPI 2020) 50.17 Glucose 234 H Calcium 8.3 L Magnesium 1.9 Vitamin B12 1388 H Time Spent with Patient Time Spent with Patient: 35-49 minutes Time was spent: preparing to see the patient(eg.review tests), obtaining and/or reviewing separately otained hiistory, ordering medications,tests, procedures, referring, communicating with other health patient care specialist, indepentently interpreting results, counseling the patient and care coordination
[2024-12-13] MEDS: Phytonadione 5 MG TABLET 10 MG PO (18:22)
[2024-12-13] MEDS: Enoxaparin 30 MG/0.3 ML SYR SC (19:59)
[2024-12-13] MEDS: Melatonin 3 MG TAB 6 MG PO (23:22)
[2024-12-14] VITALS (7 sets, daily range): BP systolic 93–110; BP diastolic 60–75; PULSE 67–100; RESP 18–19; TEMP 35.5–37.6; O2SAT 94–98
--- NOTE | 2024-12-14 05:39 | PCNE_ITS ---
Date of service: 12/14/24 Time of Service: 05:39 History of Present Illness History of Present Illness Chief Complaint: I don't know why I came here. I didn't feel good. Narrative: History of Present Illness History of Present Illness Chief Complaint: fatigue, abnormal labs Narrative: 84 yo F with history of ischemic cardiomyopathy and HFrEF 20-25% LVEF, poorly controlled type 2 diabetes, and cognitive impairment who lives alone and does not take her medications. She was seen 12/10 by her new PCP and had labs done. She has felt tired, doesn't move much, but otherwise no complaints. She states she doesn't have any medicine, though she is prescribed several. The PCP officed called her and told her to go to the emergency room. She denies shortness of breath. She has had sores on her legs and swelling for a long time. No recent falls or injuries. She hasn't noted skin changes but daughter has noted yellowing of her skin per report from ED. She denies chest or abdominal pain. She has been eating regularly. She is not dizzy. no bleeding. Interim Hx: I have known Latanya for about 6 months. I have done home visits on her. She does live with her daughter and son-in-law. There was no one available when I did a home visit. She was by herself. She sits in her chair at home and has 2 dogs which are excited to see company but also guarded her regularly. The house was disheveled. Latanya states that she is feeling good and wants to go home. I explained to her that her legs had sores that needed to be attended to. She did not feel that they were a problem. She did admit that they hurt quite a bit. She was unaware that she had a catheter in place. She feels that she is breathing just fine, has no chest pain. I did not have her get up but she was able to sit up in the bed so that I could listen to her lungs Consults Consult date: 12/11/24 Requesting physician: Christ Saldivar Assessment and Plan Assessment and plan (1) Hyponatremia: Status: Acute (2) Type 2 diabetes mellitus: Status: Chronic (3) Liver failure: Status: Acute (4) Abdominal ascites: Status: Acute (5) Heart failure with reduced ejection fraction: Status: Chronic (6) Advance care planning: Status: Acute (7) Venous stasis ulcer with edema of lower leg: Status: Chronic (8) Cognitive impairment: Status: Chronic Assessment and plan: Latanya has dementia. Although she presents quite well, when you get down to the details things get pretty murky fast. I am uncertain that she can make her own decisions. When she is at home she does what she wants, not what is best for her. Uncertain if she is safe to be left alone or to make the decisions whether or not she takes medication. This is a tough one. I will try to reach her daughter or grandson. I have not had good luck with this in the past I am concerned about her liver failure. She has had longstanding cardiac problems. I am uncertain if she would entertain going to [facility] for further workup. I wonder about going home with more support from home health. Hospice is probably not an option because there is not someone there most of the time. I understand that the family is busy, but I really need significantly more help and guidance. Await input from wound care. Her last echo was about 6 months ago. At this point I do not see a reason to repeat this. She would probably be eligible for an ICD, but when I spoke to her about this in the past she refused it. She again stated that for CODE STATUS, she did not want anything done. I briefly went into what DNR/DNI is. She agreed that that is what she wanted. I am concerned about her elevated bilirubin, color of her urine etc. I do think that this is 1 more example that she is failing and going downhill. I do not know if correcting her congestive heart failure will improve this dramatically. Latanya remains noncompliant, says she is going to do what makes her feel good, and wants to get back to her dogs CHRISSY Review of Systems Narrative: Her legs do hurt and per nursing she does complain about them. She is short of breath. She feels ready to go home PFSH All Active Problems (Updated 12/14/24 @ 07:38 by Sumi Tay MD, DC) Advance care planning (Acute) Arrhythmia (Acute) DVT prophylaxis (Acute) Hypomagnesemia (Acute) Liver failure (Acute) Hyponatremia (Acute) Abdominal ascites (Acute) Anasarca (Acute) Venous stasis ulcer with edema of lower leg (Chronic) Cognitive impairment (Chronic) Hypertension (Chronic) Heart failure with reduced ejection fraction (Chronic) Ischemic cardiomyopathy (Chronic) Type 2 diabetes mellitus (Chronic) Hyperlipidemia (Chronic) Medical History CKD stage 3a, GFR 45-59 ml/min Prurigo nodularis Allergic rhinitis Acne rosacea Osteoporosis Surgical History History of hysterectomy (~2004) Family History Mother Cancer Social History (Updated 12/11/24 @ 19:28 by Chirst Saldivar) Smoking/Tobacco Use Status: Never Smoking risk assessment performed?: Yes Alcohol Intake: never Drug use: Never Substance use type: does not use Adopted: No Caregiver/Support person: No Household members: children, caregiver and other Details: adult daughter Housing: house Number of Children: 1 number of grandchildren: 8 Communication Needs: None Do you need help understanding health information?: Often 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 Sexually active: No Current gender identity: female What is your relationship status?: How often do you talk on the phone with friends or family?: once per week How often do you get together with friends or relatives?: once per week How often do you attend christianity or sabianist services?: 1-3 times per year Do you belong to any clubs or organized social groups?: no Panel score (0-1 are the most socially isolated patients): 0 NHANES result reviewed/action taken: Yes What type of physical activity do you participate in: none Makenzie/Pentecostalism: Hindu Special makenzie needs: No Seatbelt use: always Helmet use: No Drive intox or ride w/intox commercial collections driver: No Firearms in home: No Do you feel safe at home: Yes Do you feel safe in your relationship?: No Victim of physical abuse: No Victim of emotional abuse: No Victim of sexual abuse: No Would you like helpful sources: No Additional Social history: lives alone in [place], daughter with her now a lot. 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 Exam Narrative Exam Narrative: 84-year-old woman with severe CHF. She is noncompliant with her medication. She does not like taking her medication because then she has to urinate. Her dementia is quite severe. When I visited her home there was no water in her pool in the backyard but when I asked about it she said that she was swimming often. She wants to get back to her dogs. She is tachycardic, speaks in very short sentences. I do not hear any rales in her lungs but there is not good air movement. Bowels per patient are regular, she did not indicate any discomfort when I palpated her belly specifically right upper quadrant did not have tenderness. She had numerous excoriations on her face and arms. I did not unwrap her legs, there is a wound consult in. She does have a catheter in place. It is brownish urine Results Last Vital Signs Temp 97.4 F L 12/14/24 04:06 Pulse 100 H 12/14/24 04:06 Resp 18 12/14/24 04:06 BP 100/75 12/14/24 04:06 Pulse Ox 94 12/14/24 04:06 06/10 echo Conclusion Mildly dilated left ventricle. Ejection fraction is 20 to 25% with global hypokinesis Normal right ventricular size and function Both atria are normal in size Trileaflet aortic valve with trace regurgitation Mild mitral annular calcification, mild mitral regurgitation Trace to mild tricuspid regurgitation. Estimated right ventricular systolic pressure is 31 mmHg Trivial pericardial effusion Labs 12/11/24 10:40 12/13/24 05:35 Labs: Laboratory Results - last 24 hr 12/13/24 05:35 Sodium 129 L Potassium 3.8 Chloride 94 L Carbon Dioxide 26.5 Anion Gap 8.5 BUN 18 Creatinine 1.1 H Est GFR (CKD-EPI 2020) 50.17 Glucose 234 H Calcium 8.3 L Magnesium 1.9 Vitamin B12 1388 H Laboratory Tests 05/18/24 12/12/24 12/13/24 04:31 07:03 05:35 INR 1.9 H VBG Lactate 2.5 H* Sodium 129 L Creatinine 1.1 H Glucose 54 L 234 H Total Bilirubin 4.65 H Conjugated Bilirubin 3.7 H AST 170 H ALT 136 H Vitamin B12 [address] scan report/results: report reviewed (IMPRESSION: 1. There is cardiomegaly and small pericardial effusion, unchanged. 2. Compared to the prior studies listed above there is now prominent symmetrical anasarca as well as mild-moderate amount of ascites in the abdomen and pelvis. 3. Cholelithiasis. There is also some pericholecystic f) Time Spent Time Spent with Patient Time Spent(min): 42
[2024-12-14 07:08] LABS: HCT 39.3 % (36.0-46.0); HGB 12.7 g/dL (11.2-15.7); MCH 23.7 pg (27.0-33.0); MCHC 32.3 % (32.0-36.0); MPV 9.4 fL (8.0-11.0); Platelet Count 310 10^3/uL (130-400); RBC 5.35 10^6/uL (3.93-5.22); RDW-SD 50.2 fL; WBC 9.38 10^3/uL (4.4-10.8)
[2024-12-14 07:35] LABS: ALT 125 U/L (14-59); AST 132 U/L (15-37); Albumin 2.7 g/dL (3.4-5.0); Alkaline Phosphatase 120 U/L (46-116); BUN 19 mg/dL (7-18); Bilirubin, Total 5.58 mg/dL (0.2-1.0); CREATININE 1.2 mg/dL (0.55-1.02); Calcium 8.4 mg/dL (8.5-10.1); Chloride 92 mmol/L (98-107); Estimated GFR 45.19 (mL/min/1.73m2); Glucose 149 mg/dL (74-106); Potassium 4.5 mmol/L (3.5-5.1); Sodium 127 mmol/L (136-145); Total Protein 6.9 g/dL (6.4-8.2)
[2024-12-14 07:37] LABS: MCV 74 fL (80-95)
--- NOTE | 2024-12-14 08:58 | PDOC.CMPRO ---
Date of service: 12/14/24 Time of Service: 08:58 Care Management Progress Note Progress Note Text Progress Note Text: Ariana was sitting up in a chair visiting with her daughter when CM met with her. She stated that she really wants to go home. She does not understand why she needs to stay in the hospital. Ariana had a PT evaluation today. She did well and they have recommended HH PT vs SNF for short term rehab. Ariana's daughter informed CM that Ariana has not been eating much for a few weeks now. Her lunch tray was on her table and she had not touched anything. her daughter did try to get her to eat some fruit. She stated that when Ariana is not hungry, she will often eat a bit of salad or fruit. [facility] were [facility] to [facility]. Unfortunately [facility] not accept patients with a Medicare replacement plan which Airana has. ( [employer] Medicare Repalcement). [facility] did reach out for clarification but no determinations have been made yet. It is also not clear if ariana will be willing to go if a bed offer is received. Discharge Potential Discharge Needs: Other (possible SNF for short term rehab) Anticipated Barriers to Discharge: Bed availability Patient/Family Education Needs: Review discharge instructions, discuss Ask Me Three Transportation: RCT Plan: Anticipate Ariana will be transferred to a SNF for short term rehab prior to returning home. She will follow up with facility providers and plan of care and transport via RCT. If Ariana does not receive a bed offer or chooses not to go to a SNF, then she will return home with new home health services for RN, PT, OT and PLASTIC SHEETING CUTTER. CM will follow and continue to support discharge planning needs. Social Determinants of Health Screening Social Determinants of Health last assessed: 12/14/24 Will the Patient Participate in the Screening?: Yes Do you worry about having a steady place to live?: no Problems where you live: no known problems In the past 12 months, have you had to go without electric, gas, oil or water in your home?: no Have you or anyone in your house had to go without enough food to eat?: no Has lack of transportation kept you from medical appointments or from doing things needed for daily living?: no Has anyone in your life made you feel unsafe or unsupported?: no How hard is it for you to pay for the very basics like food, housing, medical care, and heating? Would you say it is:: Not hard at all Do you want help finding or keeping work or a job?: I do not need or want help If for any reason you need help with day-to-day activities such as bathing, preparing meals, shopping, managing finances, etc., do you get the help you need?: I get all the help I need How often do you feel lonely or isolated from those around you?: Never Do you speak a language other than Yakut at home?: No Does the patient want assistance with any of the above?: No
[2024-12-14 09:10] LABS: INR 1.7 (0.9-1.1); Prothrombin Time 16.1 sec (9.1-11.1)
[2024-12-14] MEDS: Normal Saline Flush 10 ML SYR IVP ×2 (09:43→12:33)
[2024-12-14] MEDS: Spironolactone 50 MG TAB 25 MG PO (09:43)
[2024-12-14] MEDS: Empaglifozin 10 MG TAB PO (09:44)
[2024-12-14] MEDS: Metoprolol CR 25 MG TABCR PO (09:44)
[2024-12-14] MEDS: Aspirin E.C. 81 MG TABEC PO (09:44)
--- NOTE | 2024-12-14 09:47 | IN_ITS ---
PT Notes Visit Reasons: CHF, hyponatremia, liver dysfunction Physical Therapy Inpatient Initial Evaluation Date: 12/14/2024 Referring Doctor: Cheyanne Man PT Orders: PT CONSULT:PT evaluation and treatment Precautions: IV access RUE, Standard precautions, telemetry , Khoury catheter Patient Profile/Admitting Diagnosis:Pt is an 84 yo female presented to ED on 12/11/2024 after having blood work done at her PCP office. Pt presented with fatigue, and sores on her legs. Patient diagnosed with CHF exacerbation, liver failure, hyponatremia, venous stasis ulcers with edema ,hypomagnesia and CKD stage III. Patient was admitted for medical management and treatment of ulcers. PMHX: Hypomagnesemia (Acute) Liver failure (Acute) Hyponatremia (Acute) Abdominal ascites (Acute) Anasarca (Acute) Venous stasis ulcer with edema of lower leg (Chronic) Cognitive impairment (Chronic) Hypertension (Chronic) Heart failure with reduced ejection fraction (Chronic) Ischemic cardiomyopathy (Chronic) Type 2 diabetes mellitus (Chronic) Hyperlipidemia (Chronic) Medical History CKD stage 3a, GFR 45-59 ml/min Prurigo nodularis Allergic rhinitis Acne rosacea Osteoporosis Surgical History History of hysterectomy (~2004) Social History/Home Situation: Patient is a poor historian with cognitive impairment. Review of chart notes revealed patient lives with her daughter and son-in-law who manage her meds and she has several steps to enter her home without railing. Patient has 2 dogs which she finds comforting. Patient does not always take her meds. 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 Equipment Owned/DME: [facility] Subjective: Patient reports she lives alone and her grandson comes over and takes care of her dogs. She reports she does not take any medication and eats what she wants to Objective: [] General Observation: Elderly female seated in bedside chair jaundice appearance to face IV infusing. Patient with multiple areas of wounds to lower extremities with dressings in place. Mental Status: Alert and oriented to person only Pain: Patient reported pain in her stomach/abdomen ROM: [] Right Upper Extremity: WFL Left Upper Extremity: WFL Right Lower Extremity: WFL except dorsiflexion limited to neutral Left Lower Extremity: WFL except dorsiflexion limited to neutral Strength: [] Right Upper Extremity: Able to move all joints against gravity without resistance Left Upper Extremity: Able to move all joints against gravity without resistance Right Lower Extremity: Hips 3 -/5, knee extension 3/5, ankle 3/5 Left Lower Extremity: Hip 3 -/5, knee extension 3 -/5 ankle 3/5 Sensation: Diminished bilateral lower extremities to light touch intact to deep pressure Bed Mobility/Transfers: [] Supine to sit Moderate assist Sit to stand Min A and cues to push up to stand Stand to sit CGA with cues for hand placement to reach back Bed to chair CGA Gait: amb with FWW CGA 30 feet level surfaces with slow polo, diminished step length, increase lateral weight shift Balance: [] Static Sitting: [] Dynamic Sitting: [] Static Standing: [] Dynamic Standing: [] Special Tests: [] Mobility Limitations Standardized Measure [] [facility] 6 clicks Basic Mobility Inpatient Short Form: [] Raw Score: [] CMS Score: [] Informed Consent/Education: Patient instructed in purpose of PT consult. Assessment: Patient presents with clinical signs and symptoms consistent with current/admitting diagnoses that have resulted to mobility limitations, gait instability, generalized weakness, and impairment of motor control as demonstrated by the following impairment level findings: 1. Decreased strength to BLE major muscle groups 2. Impaired standing balance 3. Cognitive impairment with STM impairment 4. Impaired functional activity tolerance Impairments are contributing to the following functional limitations: 1. Inability to safely ambulate without assistive device 2. Increase completion time for mobility ADL performance 3. Increased fall risk 4. Impaired bed mobility skills 5. Impaired transfer skills 6. Inability to perform stairs safely without assistance Patient is assessed as a moderate complexity based on the following: History: 84-year-old female with impairment level findings, functional limitations, and past medical history as indicated above Examination: Demonstrable impairment in strength, balance, and mobility level with underlying impairments and functional limitations as documented above Presentation: evolving Decision Making: moderate Goals: 1. supervision bed mobility 2. supervision transfers with device/FWW 3. supervision ambulation 150 feet level surfaces with FWW 4. Supervision 3 steps with rail to safely enter and exit home Plan of Care/Treatment Plan: 1-2x/day, 7 days/week x 1 week. Plan of care has been reviewed with the [facility] TECHNICIAN providing the service under Physical Therapy direction. Initiate Physical Therapy intervention for strengthening, bed mobility, transfers, gait, stairs, balance training, use of assistive device. DISCHARGE RECOMMENDATIONS: SNF vs Home with HH PT and increased support Pt will need assistance for medication mgmt , meal prep, and ADL care due to cognitive impairments TREATMENT CODE/TIME: 33909/ [id number] Shari Richardson PT Thank you for the opportunity to participate in the care of this patient. Please sign an return this page within 30 days if you agree with the above POC. Thank you! Physician Signature Date [facility]
--- NOTE | 2024-12-14 09:53 | DM INPTCON_ITS ---
Date of service: 12/14/24 Time of Service: 10:15 Diabetes Inpatient Consult Reason for Visit: received consult request re: diabetes mgt/education DESCRIPTION/ASSESSMENT: Vaughn sitting up in chair when I entered the room Her answers to my questions were sometimes appropriate but probably inaccurate, and there were a lot of times it was obvious she did not understand what I was talking about. States she does not take diabetes medications at home and she said no- told me she checks her capillary glucose and I asked her how often - she said occasionally - I asked about what numbers she might get and she did not answer. GFR is at 45 today. BUN/Cr high. fasting flucose of 149 today and capillary of 136 at breakfast meal. Low sodium lab - edema noted lower extrem by nursing. A1c was 13.0 12/10 and has been significantly eleated for some time. Total pr otein lab wnl today, albumin low. Suspect some weight loss as she does have some extra fluid at 70kg and wt history seems to point to just over 70 as more average weight. Managed well with sliding scale novolog here and empagliflozin. metformin would be okay to start at current GFR however liver failure hx might increase risk for lactic acidosis. C-peptide lab pending to further asses pancreatic insulin. Pt reports fair appetite. INTERVENTION: Would recommend urine albumin to creatinine ratio vitamin D lab glucose target of 80-180 can be considered and patient currently in that range PLAN: will monitor po intake, labs/glucose Pt assessed as not appropriate to provide education to at this time - will try and discuss education needs with dtr/son in law whom she lives with currently but we will see what her discharge disposition is going to be. Time Spent in Nutritional Counseling and Treatment: 10 minutes
[2024-12-14] MEDS: Insulin Aspart 300 UNITS/3 ML PEN SC ×2 (12:32→17:36)
--- NOTE | 2024-12-14 15:58 | PT.INTREAT ---
PT Notes Visit Reasons: CHF, Hyponatremia, Liver Dysfunction Inpatient Physical Therapy Treatment Note [facility] Date: 12/14/2024 PRECAUTIONS:Khoury catheter, Standard, IV access SUBJECTIVE: Pt reports she is happy her family is here. She states they take care of me OBJECTIVE: pt seated in chair with her family visiting?. Pt remains with jaundice appearance to face , B UE and LE edema present ? PAIN: denies VITALS: ?Monitored via telemetry throughout Therapeutic Activities ([id number][]): Direct one-on-one instruction in dynamic activities to improve functional performance. ?? transfers : sit to stand x 3 trials with CGA and cues for hand placement to push up stand to sit with CGA and cues for safe approach to surface and hand placement. Pt attempts to side sit onto surface leaving walker off to the side instead of bringing walker alligning it with surface. surface to surface with FWW CGA with cues for safe approach. ambulation : Facilitated safe and correct performance of level surface ambulation covering a distance of 48 feet x2 using use front wheeled walker with contact-guard assist and wheelchair follow for safety. Did not report of any increased pain. Denied headache, chest pain, and lightheadedness throughout activity. Minimal verbal cueing provided for AD management, directional changes, and posture. ASSESSMENT:? Pt demonstrates improved stability this session as compared to the morning evaluation. Pt did not demonstrate anterior leakage this session. Pt with repetitive speech about her family. Pt noted with increased swelling B hands and feet. Session shortened by need for IV access to be placed PLAN: 1-2x/day, 7 days/week x 1 week. Plan of care has been reviewed with the DIRECTOR OF RESTAURANTS providing the service under Physical Therapy direction. Initiate Physical Therapy intervention for strengthening, bed mobility, transfers, gait, stairs, balance training, use of assistive device. TREATMENT CODE/TIME: 83760 [id number] DISCHARGE RECOMMENDATION: HH PT and increased supportive services vs Short term SNF
[2024-12-14 16:33] LABS: C-Peptide 0.8 ng/mL (1.1 - 4.4)
--- NOTE | 2024-12-14 18:29 | PGE_ITS ---
Date of Service Date of service: 12/14/24 Time of Service: 18:29 Assessment and Plan Assessment and plan (1) Heart failure with reduced ejection fraction: Status: Chronic Assessment and plan: Exacerbation of chronic heart failure that has not been appropriately medically treated due to patient non-engagement in care. She didn't respond much to 20mg IV furosemide in ED, Responding to 80mg BID down 2 kg with improvements in lytes/cr. Good initial response but now not tolerating aggressive diuresis with low BP, will hold furosemide for now. Give MRA spironolactone, metoprolol, and SLGT2i therapy, but cut spironolactone dose wiht low BPs. She hasn't been able to afford ARNI, still holding losartan with low BP. 12/12 dscussed with [facility] cardiac catheterization and AICD at some point. She has declined these in the past as she had minimal symptoms. Reviewed rationale for GDMT. Echo pending Saturday. Continue to follow I/Os, reassess after we have echo. palliative care consult. 12/14/24 I dont see an echo report as of 183112/14/24. Will attempt to find in am (2) Liver failure: Status: Acute Assessment and plan: She has ascities but imaging, normal platelets don't suggest cirrhosis. I think this is all CHF. Negative EtOH and APAP levels. Trend improving with diuresis. Follow See if vitamin K helps INR 1.27.25 recheck in am and score meld/c-p (3) Hyponatremia: Status: Acute Assessment and plan: secondary to CHF. Also improving with diuresis. 1.27.25 sodium currently at 127, will do mild fluid restriction and check in the am (4) Type 2 diabetes mellitus: Status: Chronic Assessment and plan: Poor control for year with poor adherence. A1c 13% She had persistent hypoglycemia however on non-agressive basal insulin, stopped this, but will resume at lower dose. Sent c-peptide as she seems sensitive to insulin, she may have limited pancreatic function. Continue SGLT2i as CHF benefit. Would also benefit form metformin but holding for now with liver failure. GLP-1 also indicated but needs f/u. (5) Venous stasis ulcer with edema of lower leg: Status: Chronic Assessment and plan: compression, appreciate wound care consult. (6) CKD stage 3a, GFR 45-59 ml/min: Assessment and plan: at baseline, follow. (7) Hypomagnesemia: Status: Acute Assessment and plan: replaced, better today (8) Cognitive impairment: Status: Chronic Assessment and plan: She seems to have progressed, likely dementia. Worse this morning with low blood sugar but better now. NH3 not c/w hepatic encephalopathy. I confirmed with son that daughter and CYNDI live with her and are attentive to medications. Also confirmed slow progression of cognitive decline over the past 2 years. They asked about dementia medications but benefit would be marginal if any, defer to PCP. TSH high but Ft4 also high, not c/w hypothyroid. B12 normal. I think this is simply progressive dementia. (9) DVT prophylaxis: Status: Acute Assessment and plan: high INR, uncertain coagulation status. Will start lovenox. (10) Arrhythmia: Status: Acute Assessment and plan: complex pattern. EKG 12/12 most c/w atrial fibrillation. Some runs of non- sustained VTAC as well, some seems sinus with PACs. Will ask cardiology for opinion, if agrees with atrial fibrillation she should be anticoagulated if c/w her goals of care.. 12.14.24 Dr Tellez is not here today. Will try to discuss in am tomorrow Subjective Subjective Interval history since last seen: Pt seen and examined in her room this am. No new complaints. POC d/w pt as well as bed side nurse and Dr Villanueva of the Palliative care team Exam Narrative Exam Narrative: GEN: Alert and oriented to self only. Pleasant and cooperative. No acute distress at rest. LUNGS: CTAB with normal effort. Slight basilar rales. CV: RRR with no murmurs, gallops, or rubs. ABD: active bowel sounds, soft, nontender. Mildly dstended with + slight fluid wave. No masses. EXT: no cyanosis, more pink. No clubbing. Diffuse 1-2+ edema from feet to abdomen. shins dressed with bandages. PSYCH: normal mood and affect, poor memory Objective Last Vital Signs Temp 36.3 C L 12/14/24 15:32 Pulse 95 H 12/14/24 15:32 Resp 19 12/14/24 15:32 BP 110/64 12/14/24 15:32 Pulse Ox 96 12/14/24 15:32 Laboratory Results - last 24 hr 12/14/24 12/14/24 06:36 08:50 WBC 9.38 RBC 5.35 H Hgb 12.7 Hct 39.3 MCV 74 L MCH 23.7 L MCHC 32.3 RDW 20.0 H Plt Count 310 MPV 9.4 PT 16.1 H INR 1.7 H Sodium 127 L Potassium 4.5 Chloride 92 L Carbon Dioxide 23.0 Anion Gap 12.0 H BUN 19 H Creatinine 1.2 H Est GFR (CKD-EPI 2020) 45.19 Glucose 149 H Calcium 8.4 L Total Bilirubin 5.58 H AST 132 H ALT 125 H Alkaline Phosphatase 120 H Total Protein 6.9 Albumin 2.7 L Time Spent with Patient Time Spent with Patient: 35-49 minutes Time was spent: preparing to see the patient(eg.review tests), obtaining and/or reviewing separately otained hiistory, ordering medications,tests, procedures, referring, communicating with other health special needs child caregiver, indepentently interpreting results, counseling the patient and care coordination
[2024-12-14] MEDS: Enoxaparin 30 MG/0.3 ML SYR SC (20:17)
[2024-12-14] MEDS: Atorvastatin 40 MG TAB 80 MG PO (20:18)
[2024-12-14] MEDS: Melatonin 3 MG TAB 6 MG PO (20:18)
[2024-12-15 02:52] VITALS: BP 96/58; PULSE 86; RESP 17; TEMP 36.6; O2SAT 99
[2024-12-15 07:23] LABS: Abs Immature Grans 0.06 10^3/uL (0.0-0.06); Absolute Basophil Count 0.05 10^3/uL (0.0-0.2); Absolute Eosinophil Count 0.06 10^3/uL (0.0-0.7); Absolute Lymphocyte Count 1.51 10^3/uL (1.2-3.4); Absolute Monocyte Count 0.79 10^3/uL (0.1-0.8); Absolute Neutrophil Count 6.21 10^3/uL (1.2-6.7); Basophils % 0.6 %; Eosinophils % 0.7 %; HCT 38.6 % (36.0-46.0); HGB 12.6 g/dL (11.2-15.7); Immature Grans % 0.7 %; Lymphocytes % 17.4 %; MCH 23.7 pg (27.0-33.0); MCHC 32.6 % (32.0-36.0); MCV 73 fL (80-95); MPV 9.3 fL (8.0-11.0); Monocytes % 9.1 %; Neutrophils % 71.5 %; Nucleated RBC 0.5 % (0.0-0.3); Platelet Count 293 10^3/uL (130-400); RBC 5.32 10^6/uL (3.93-5.22); RDW 19.9 % (11.7-14.6); RDW-SD 48.8 fL; WBC 8.68 10^3/uL (4.4-10.8)
[2024-12-15 07:43] VITALS: BP 102/58; PULSE 88; RESP 17; TEMP 36.7; O2SAT 96
[2024-12-15 07:47] LABS: ALT 80 U/L (14-59); AST 76 U/L (15-37); Albumin 2.2 g/dL (3.4-5.0); Alkaline Phosphatase 93 U/L (46-116); BUN 18 mg/dL (7-18); Bilirubin, Total 4.87 mg/dL (0.2-1.0); CREATININE 1.1 mg/dL (0.55-1.02); Calcium 8.1 mg/dL (8.5-10.1); Chloride 92 mmol/L (98-107); Estimated GFR 50.17 (mL/min/1.73m2); Glucose 109 mg/dL (74-106); Sodium 126 mmol/L (136-145); Total Protein 5.8 g/dL (6.4-8.2)
[2024-12-15 07:52] LABS: Diff Comment RBC Morph Reviewed; Microcytosis 1+
[2024-12-15] MEDS: Spironolactone 50 MG TAB 25 MG PO (08:08)
[2024-12-15] MEDS: Metoprolol CR 25 MG TABCR PO (08:08)
[2024-12-15] MEDS: Empaglifozin 10 MG TAB PO (08:08)
[2024-12-15] MEDS: Aspirin E.C. 81 MG TABEC PO (08:08)
[2024-12-15 11:23] VITALS: BP 104/64; PULSE 90; RESP 18; TEMP 36.7; O2SAT 97
--- NOTE | 2024-12-15 11:26 | CCONE_ITS ---
Date of service: 12/15/24 Time of Service: 11:26 Assessment and Plan Assessment and plan (1) Heart failure with reduced ejection fraction: Status: Chronic Assessment and plan: Patient has longstanding left ventricular dysfunction and now I suspect right ventricular dysfunction as well, with hepatic congestion. Continued efforts at diuresis may improve both her edema and her liver function tests, But that remains to be determined. I would not recommend consideration of tertiary care transfer, as the patient on multiple occasions has expressed that she was not interested. Repeating her echocardiogram might be of interest, as it will evaluate her right ventricular function though overall it would not global climate change analyst History of Present Illness Narrative: This is an 84-year-old woman who has a longstanding history of cardiomyopathy, presumed ischemic. She was seen in the cardiology clinic back more than 5 years ago at which point Entresto was initiated, but became unaffordable. There were multiple discussions as to further evaluation at [facility] including cardiac catheterization, possibly ICD and the patient always refused. Subsequently she has not been seen in cardiology clinic but has had multiple admissions for decompensated heart failure. Her last echocardiogram was in the summer 2023. It confirmed severe LV dysfunction, EF approximately 25%. It did not describe right ventricular dysfunction. Patient has been seen by Dr. Tay with palliative care. Her current admission was prompted by a new primary care provider who ordered multiple labs. There were also concerns from family as to the patient's ability to care for herself. Liver function tests are elevated, NT proBNP is 8000. Albumin is 2.2 Patient is sitting in a chair currently. She answers questions,reliability may be questionable. Patient states she lives alone, has 2 poodles. She states she is able to drive, get her groceries and take care of herself. She denies being short of breath, denies pain An EKG was performed on December 12. It has baseline artifact. It was impossible to acute determine if this was sinus with atrial premature beats or if it was atrial fibrillation. An echocardiogram has not been repeated Patient is expressed that she wishes to be DNR/DNI PFSH All Active Problems Advance care planning (Acute) Arrhythmia (Acute) DVT prophylaxis (Acute) Hypomagnesemia (Acute) Liver failure (Acute) Hyponatremia (Acute) Abdominal ascites (Acute) Anasarca (Acute) Heart failure with reduced ejection fraction (Chronic) Ischemic cardiomyopathy (Chronic) Type 2 diabetes mellitus (Chronic) Cognitive impairment (Chronic) Hypertension (Chronic) Hyperlipidemia (Chronic) Venous stasis ulcer with edema of lower leg (Chronic) Medical History CKD stage 3a, GFR 45-59 ml/min Prurigo nodularis Allergic rhinitis Acne rosacea Osteoporosis Surgical History History of hysterectomy (~2004) Family History Mother Cancer Social History Smoking/Tobacco Use Status: Never Smoking risk assessment performed?: Yes Alcohol Intake: never Drug use: Never Substance use type: does not use Adopted: No Caregiver/Support person: No Household members: children, caregiver and other Details: adult daughter Housing: house Number of Children: 1 number of grandchildren: 8 Communication Needs: None Do you need help understanding health information?: Often 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 Sexually active: No Current gender identity: female What is your relationship status?: How often do you talk on the phone with friends or family?: once per week How often do you get together with friends or relatives?: once per week How often do you attend jewish or gnosticist services?: 1-3 times per year Do you belong to any clubs or organized social groups?: no Panel score (0-1 are the most socially isolated patients): 0 NHANES result reviewed/action taken: Yes What type of physical activity do you participate in: none Makenzie/Pentecostal: Sikh Special makenzie needs: No Seatbelt use: always Helmet use: No Drive intox or ride w/intox backhaul driver: No Firearms in home: No Do you feel safe at home: Yes Do you feel safe in your relationship?: No Victim of physical abuse: No Victim of emotional abuse: No Victim of sexual abuse: No Would you like helpful sources: No Additional Social history: lives alone in [place], daughter with her now a lot. 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 Lethargic. Looks stated age Neck Other: Moderate neck vein distention. Carotid pulsations are grossly normal Resp Other: Poor inspiratory effort. Decreased breath sounds at bases Cardio Other: Heart is distant probably regular summation gallop. Telemetry monitoring today shows sinus rhythm Extrem Other: Extremities are wrapped. There is probably 2+ edema Results Last Vital Signs Temp 36.7 C 12/15/24 11:23 Pulse 90 12/15/24 11:23 Resp 18 12/15/24 11:23 BP 104/64 12/15/24 11:23 Pulse Ox 97 12/15/24 11:23 Labs 12/15/24 07:05 12/15/24 07:05 Labs: Laboratory Results - last 24 hr 12/12/24 12/15/24 14:25 07:05 WBC 8.68 RBC 5.32 H Hgb 12.6 Hct 38.6 MCV 73 L MCH 23.7 L MCHC 32.6 RDW 19.9 H Plt Count 293 MPV 9.3 Immature Gran % 0.7 Neutrophils % 71.5 Lymphocytes % 17.4 Monocytes % 9.1 Eosinophils % 0.7 Basophils % 0.6 Nucleated RBC % 0.5 H Absolute Neutrophils 6.21 Absolute Lymphocytes 1.51 Absolute Monocytes 0.79 Absolute Eosinophils 0.06 Absolute Basophils 0.05 RBC Morphology See Below Microcytosis 1+ Sodium 126 L Potassium 4.0 Chloride 92 L Carbon Dioxide 25.0 Anion Gap 9.0 BUN 18 Creatinine 1.1 H Est GFR (CKD-EPI 2020) 50.17 Glucose 109 H C-Peptide ng/ml 0.8 L Calcium 8.1 L Total Bilirubin 4.87 H AST 76 H ALT 80 H Alkaline Phosphatase 93 Total Protein 5.8 L Albumin 2.2 L
--- NOTE | 2024-12-15 12:51 | PT.INTREAT ---
PT Notes Visit Reasons: CHF, Hyponatremia, Liver Dysfunction Inpatient Physical Therapy Treatment Note [facility] Date: 12/15/2024 PRECAUTIONS:Khoury catheter, Standard, SUBJECTIVE: Pt reports she has a bit of a stomach ache and wanting to go home soon. She states she misses her dogs. OBJECTIVE: pt presented seated in chair reporting she has to use the bathroom but wants to walk PAIN: denies VITALS: ?Monitored via telemetry throughout Therapeutic Activities ([id number][]): Direct one-on-one instruction in dynamic activities to improve functional performance. ?? transfers : sit to stand x 3 trials with CGA and cues for hand placement to push up (am/pm) stand to sit with CGA and cues for hand placement. (am/pm) surface to surface with FWW CGA with cues for hand placement to simulate functional mobility within her home distances of 10-25 feet (pm) ambulation :(am session) Facilitated safe and correct performance of level surface ambulation covering a distance of 60 feet x2 20 feet x 1 using use front wheeled walker with contact-guard assist and wheelchair follow for safety.Pt required sit rest between distances. Did not report of any increased pain. Denied headache, chest pain, and lightheadedness throughout activity. Minimal verbal cueing provided for AD management, directional changes, and posture. Exercise: seated Ankle pumps x 10, LAQ and marching 2 sets of 5 reps. Pt requires cues to attend to task. ASSESSMENT:?Pt noted with one episode of anterior leakage from mouth of saliva during sit to stand. Pt demonstrates improved activity tolerance with increased distance of ambulation noted this session. Pt with improvement with sit to stand transfers in pm session PLAN: 1-2x/day, 7 days/week x 1 week. Plan of care has been reviewed with the CONTROL SYSTEMS SPECIALIST providing the service under Physical Therapy direction. Initiate Physical Therapy intervention for strengthening, bed mobility, transfers, gait, stairs, balance training, use of assistive device. TREATMENT CODE/TIME: 05696 x2/ [id number] 2nd session: 21109 x [id number] DISCHARGE RECOMMENDATION: HH PT and increased supportive services vs Short term SNF
[2024-12-15 15:42] VITALS: BP 109/62; PULSE 90; RESP 20; TEMP 36.6; O2SAT 97
--- NOTE | 2024-12-15 16:51 | CMPROGNOTE_ITS ---
Date of service: 12/15/24 Time of Service: 14:00 Care Management Progress Note Progress Note Text Progress Note Text: Latanya was sitting up in the bedside chair when CM met with her today. She was quiet, but pleasant. CM asked is she would like to go home, or does she think she could use some short term rehab? Latanya replied that she thinks she could use some rehab for a short time. The question was again asked in a different manner, and she again replied that she thinks rehab, for a short time, would be beneficial. [facility]errals to [facility] and [facility] were [facility]. DaniaUlises is waiting for wound care consult notes. [facility] and [facility] will be sent tomorrow. Discharge Potential Discharge Needs: Consult (wound care consult) and Other (Latanya has agreed to short-term rehab at SNF) Anticipated Barriers to Discharge: Bed availability Patient/Family Education Needs: Review discharge instructions, discuss Ask Me T hree Transportation: RCT Plan: Anticipate Latanya will be transferred to a SNF for short term rehab prior to returning home. She will follow up with facility providers and plan of care and transport via RCT. If Latanya does not receive a bed offer or chooses not to go to a SNF, then she will return home with new home health services for RN, PT, OT and HABILITATION WORKER. CM will follow and continue to support discharge planning needs. Social Determinants of Health Screening Social Determinants of Health last assessed: 12/15/24 Will the Patient Participate in the Screening?: Yes Do you worry about having a steady place to live?: no Problems where you live: no known problems In the past 12 months, have you had to go without electric, gas, oil or water in your home?: no Have you or anyone in your house had to go without enough food to eat?: no Has lack of transportation kept you from medical appointments or from doing things needed for daily living?: no Has anyone in your life made you feel unsafe or unsupported?: no How hard is it for you to pay for the very basics like food, housing, medical care, and heating? Would you say it is:: Not hard at all Do you want help finding or keeping work or a job?: I do not need or want help If for any reason you need help with day-to-day activities such as bathing, preparing meals, shopping, managing finances, etc., do you get the help you need?: I get all the help I need How often do you feel lonely or isolated from those around you?: Never Do you speak a language other than Swedish at home?: No Does the patient want assistance with any of the above?: No Health Related Social Needs Health related social needs: housing instability, housed, with risk of homelessness (Z59.811)
--- NOTE | 2024-12-15 17:51 | CHAPLAIN ---
I had a brief visit with Latanya just before the nurse arrived for wound care. 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
--- NOTE | 2024-12-15 18:29 | W.PM.PROGNOT ---
Date of Service Date of service: 12/15/24 Time of Service: 18:29 Assessment and Plan Assessment and plan (1) Heart failure with reduced ejection fraction: Status: Chronic Assessment and plan: Exacerbation of chronic heart failure that has not been appropriately medically treated due to patient non-engagement in care. She didn't respond much to 20mg IV furosemide in ED, Responding to 80mg BID down 2 kg with improvements in lytes/cr. Good initial response but now not tolerating aggressive diuresis with low BP, will hold furosemide for now. Give MRA spironolactone, metoprolol, and SLGT2i therapy, but cut spironolactone dose wiht low BPs. She hasn't been able to afford ARNI, still holding losartan with low BP. 12/12 dscussed with [facility] cardiac catheterization and AICD at some point. She has declined these in the past as she had minimal symptoms. Reviewed rationale for GDMT. Echo pending Saturday. Continue to follow I/Os, reassess after we have echo. palliative care consult. 12/14/24 I dont see an echo report as of 183112/14/24. Will attempt to find in am 12/15/24 Evidently no echo was done. I have reviewed consult info from Dr Tellez and appreciate the input Assessment and plan: Patient has longstanding left ventricular dysfunction and now I suspect right ventricular dysfunction as well, with hepatic congestion. Continued efforts at diuresis may improve both her edema and her liver function tests, But that remains to be determined. I would not recommend consideration of tertiary care transfer, as the patient on multiple occasions has expressed that she was not interested. Repeating her echocardiogram might be of interest, as it will evaluate her right ventricular function though overall it would not policy change clerk (2) Liver failure: Status: Acute Assessment and plan: She has ascities but imaging, normal platelets don't suggest cirrhosis. I think this is all CHF. Negative EtOH and APAP levels. Trend improving with diuresis. Follow See if vitamin K helps INR 1.27.25 recheck in am and score meld/c-p (3) Hyponatremia: Status: Acute Assessment and plan: secondary to CHF. Also improving with diuresis. 12.14. sodium currently at 127, will do mild fluid restriction and check in the am 12.15.24 Sodium still low, will add salt tablets (4) Type 2 diabetes mellitus: Status: Chronic Assessment and plan: Poor control for year with poor adherence. A1c 13% She had persistent hypoglycemia however on non-agressive basal insulin, stopped this, but will resume at lower dose. Sent c-peptide as she seems sensitive to insulin, she may have limited pancreatic function. Continue SGLT2i as CHF benefit. Would also benefit form metformin but holding for now with liver failure. GLP-1 also indicated but needs f/u. (5) Venous stasis ulcer with edema of lower leg: Status: Chronic Assessment and plan: compression, appreciate wound care consult. (6) CKD stage 3a, GFR 45-59 ml/min: Assessment and plan: at baseline, follow. (7) Hypomagnesemia: Status: Acute Assessment and plan: replaced, better today (8) Cognitive impairment: Status: Chronic Assessment and plan: She seems to have progressed, likely dementia. Worse this morning with low blood sugar but better now. NH3 not c/w hepatic encephalopathy. I confirmed with son that daughter and CYNDI live with her and are attentive to medications. Also confirmed slow progression of cognitive decline over the past 2 years. They asked about dementia medications but benefit would be marginal if any, defer to PCP. TSH high but Ft4 also high, not c/w hypothyroid. B12 normal. I think this is simply progressive dementia. (9) DVT prophylaxis: Status: Acute Assessment and plan: high INR, uncertain coagulation status. Will start lovenox. (10) Arrhythmia: Status: Acute Assessment and plan: complex pattern. EKG 12/12 most c/w atrial fibrillation. Some runs of non-sustained VTAC as well, some seems sinus with PACs. Will ask cardiology for opinion, if agrees with atrial fibrillation she should be anticoagulated if c/w her goals of care.. 12.14.24 Dr Tellez is not here today. Will try to discuss in am tomorrow 12.15.24 Cardiology notes reviewed. No new recommendations Subjective Subjective Interval history since last seen: PT seen and examined in her room this am. No new complaints but does not want to go to a SNF and is fairly adament about going home Exam Narrative Exam Narrative: GEN: Alert and oriented to self only. Pleasant and cooperative. No acute distress at rest. LUNGS: CTAB with normal effort. Slight basilar rales. CV: RRR with no murmurs, gallops, or rubs. ABD: active bowel sounds, soft, nontender. Mildly dstended with + slight fluid wave. No masses. EXT: no cyanosis, more pink. No clubbing. Diffuse 1-2+ edema from feet to abdomen. shins dressed with bandages. PSYCH: normal mood and affect, poor memory Objective Last Vital Signs Temp 36.6 C 12/15/24 15:42 Pulse 90 12/15/24 15:42 Resp 20 12/15/24 15:42 BP 109/62 12/15/24 15:42 Pulse Ox 97 12/15/24 15:42 Laboratory Results - last 24 hr 12/12/24 12/15/24 14:25 07:05 WBC 8.68 RBC 5.32 H Hgb 12.6 Hct 38.6 MCV 73 L MCH 23.7 L MCHC 32.6 RDW 19.9 H Plt Count 293 MPV 9.3 Immature Gran % 0.7 Neutrophils % 71.5 Lymphocytes % 17.4 Monocytes % 9.1 Eosinophils % 0.7 Basophils % 0.6 Nucleated RBC % 0.5 H Absolute Neutrophils 6.21 Absolute Lymphocytes 1.51 Absolute Monocytes 0.79 Absolute Eosinophils 0.06 Absolute Basophils 0.05 RBC Morphology See Below Microcytosis 1+ Sodium 126 L Potassium 4.0 Chloride 92 L Carbon Dioxide 25.0 Anion Gap 9.0 BUN 18 Creatinine 1.1 H Est GFR (CKD-EPI 2020) 50.17 Glucose 109 H C-Peptide ng/ml 0.8 L Calcium 8.1 L Total Bilirubin 4.87 H AST 76 H ALT 80 H Alkaline Phosphatase 93 Total Protein 5.8 L Albumin 2.2 L Time Spent with Patient Time Spent with Patient: 25-34 minutes Time was spent: preparing to see the patient(eg.review tests), obtaining and/or reviewing separately otained hiistory, ordering medications,tests, procedures, referring, communicating with other health health care marketing manager, indepentently interpreting results, counseling the patient and care coordination
--- NOTE | 2024-12-15 18:40 | WOUNDCONS ---
Date of service: 12/15/24 Time of Service: 18:40 Wound Initial Evaluation Narrative Narrative: The patient is an 84 year old female admitted on 12/11/24 for CHF and hyponatremia. The patient has past medical history of ischemic cardiomyopathy with HFrEF 20-25%, poorly controlled type 2 diabetes with most recent A1c of 13% and was treated with antibiotics for cellulitis in August 2024. Patient has cognitive impairment with questionable reliability as was evidenced by repetitive discussions with this conventional underwriter. Wound consult was requested for what appears to be chronic venous stasis ulcers on bilateral lower extremities. Patient also has excoriations on her arms. Patient agrees to the wound consult and a consent to photograph was signed. This conventional underwriter reviewed the H&P, allergies are noted to DECLAN inhibitors and codeine, recent labs and VS were also reviewed. Patient BMI is 29.4. Wound Summary Wound Summary: Excoriations and sores are noted on the arms and lower extremities. The picture below of bilateral lower extremities shows shallow irregular shaped open sores with minimal yellowish drainage. Photo Photo: Treatment/Dressing Change Cleanse With: Anasept Dressing Types: Kerlix (Gauze Roll) and Other (Versatel One) Dressing Comment: Bilateral lower legs cleansed with gauze and Anasept, an antimicrobial wound filter cleaner, and allowed to air dry. Additional Other Comments: Versatel One used as a silicone non-adherent wound contact layer has channels that allow the exudate to transfer to a secondary dressing. It is also translucent so it is easy to see the wound. Nutrition Education Reviewed Nutrition Education: Yes Note: Patient described to this conventional underwriter a recent decrease in appetite. Food groups were discussed and water restrictions were also discussed with the patient. Recomendation Recomendation:: Daily: Remove Declan wraps and Kerlix gauze roll from lower extremities Use Anasept wound cleanser spray and gauze pads to clean lower extremities If no exudate is noted, the Versatel (the non-adherent mesh contact layer), may stay in place up to 7 days Otherwise, remove the Versatel and spray the wound areas, let dwell for 2 minutes and air dry Replace the Versatel to open wounds to prevent Kerlix from becoming adhered to excoriations Wrap bilateral lower extremities with Declan Encourage and assist Latanya with leg elevation while at rest Physcian/Nurse Practioner Notified: Yes
[2024-12-15 21:10] VITALS: BP 104/59; PULSE 95; RESP 16; TEMP 35.4; O2SAT 97
[2024-12-15] MEDS: Enoxaparin 30 MG/0.3 ML SYR SC (21:10)
[2024-12-15] MEDS: Sodium Bicarbonate 650 MG TAB PO (21:11)
[2024-12-15] MEDS: Atorvastatin 40 MG TAB 80 MG PO (21:11)
[2024-12-15] MEDS: Melatonin 3 MG TAB 6 MG PO (21:11)
[2024-12-16 00:44] VITALS: BP 99/60; PULSE 94; RESP 18; TEMP 36.2; O2SAT 97
[2024-12-16 03:01] VITALS: BP 85/72; PULSE 93; RESP 18; TEMP 35.5; O2SAT 100
[2024-12-16] MEDS: Metoprolol CR 25 MG TABCR PO (07:45)
[2024-12-16] MEDS: Sodium Bicarbonate 650 MG TAB PO ×3 (07:45→19:54)
[2024-12-16] MEDS: Empaglifozin 10 MG TAB PO (07:45)
[2024-12-16] MEDS: Aspirin E.C. 81 MG TABEC PO (07:45)
[2024-12-16] MEDS: Spironolactone 50 MG TAB 25 MG PO (07:46)
[2024-12-16 08:07] VITALS: BP 98/58; PULSE 95; RESP 17; TEMP 36.5; O2SAT 96
[2024-12-16 08:47] LABS: ALT 75 U/L (14-59); AST 60 U/L (15-37); Albumin 2.5 g/dL (3.4-5.0); Alkaline Phosphatase 106 U/L (46-116); Anion Gap 8.8 mmol/L (3-11); BUN 15 mg/dL (7-18); Bilirubin, Total 6.13 mg/dL (0.2-1.0); CO2 25.2 mmol/L (21.0-32.0); CREATININE 1.1 mg/dL (0.55-1.02); Calcium 8.3 mg/dL (8.5-10.1); Chloride 91 mmol/L (98-107); Estimated GFR 50.17 (mL/min/1.73m2); Glucose 108 mg/dL (74-106); Potassium 4.1 mmol/L (3.5-5.1); Sodium 125 mmol/L (136-145); Total Protein 6.2 g/dL (6.4-8.2)
--- NOTE | 2024-12-16 09:03 | PDOC.CMPRO ---
Date of service: 12/16/24 Time of Service: 09:03 Care Management Progress Note Progress Note Text Progress Note Text: Latanya was sitting up in a chair today when CM met with her. She was pleasant and engaged easily with CM. Latanya has been inconsistent with her willingness to go to a SNF for short term rehab. Her grandson feels it is important for her to get stronger. Yesterday she informed the covering CM on 2 occasions that she would be willing to go and today she informed this CM that she is willing. Three referrals were initially sent and 2/3 declined. the 3rd facility is [facility] and their final response determination has not been made. CM will reach out again tomorrow. In the meantime Latanya's sodium dropped to 125 so that is being addressed. Discharge Potential Discharge Needs: PCP F/U Appt Anticipated Barriers to Discharge: None Identified Patient/Family Education Needs: Review discharge instructions, discuss Ask Me Three Transportation: Private vehicle Plan: Anticipate Latanya will be transferred to a SNF for short term rehab prior to returning home. She will follow up with facility providers and plan of care and transport via [facility]. If Latanya does not receive a bed offer or chooses not to go to a SNF, then she will return home with new home health services for RN, PT, OT and MANAGER OF DIGITAL. CM will follow and continue to support discharge planning needs. Social Determinants of Health Screening Social Determinants of Health last assessed: 12/16/24 Will the Patient Participate in the Screening?: Yes Do you worry about having a steady place to live?: no Problems where you live: no known problems In the past 12 months, have you had to go without electric, gas, oil or water in your home?: no Have you or anyone in your house had to go without enough food to eat?: no Has lack of transportation kept you from medical appointments or from doing things needed for daily living?: no Has anyone in your life made you feel unsafe or unsupported?: no How hard is it for you to pay for the very basics like food, housing, medical care, and heating? Would you say it is:: Not hard at all Do you want help finding or keeping work or a job?: I do not need or want help If for any reason you need help with day-to-day activities such as bathing, preparing meals, shopping, managing finances, etc., do you get the help you need?: I get all the help I need How often do you feel lonely or isolated from those around you?: Never Do you speak a language other than Vincentian at home?: No Does the patient want assistance with any of the above?: No
[2024-12-16 11:53] VITALS: BP 99/58; PULSE 89; RESP 18; TEMP 36.5; O2SAT 95
--- NOTE | 2024-12-16 13:08 | PTTR_ITS ---
PT Notes Visit Reasons: CHF, Hyponatremia, Liver Dysfunction Inpatient Physical Therapy Treatment Note [facility] Date: 12/16/2024 PRECAUTIONS:Khoury catheter, Standard, SUBJECTIVE: Pt reports she is cold and is having some discomfort in the bottom of her left foot OBJECTIVE: pt presented seated in chair with BLE viral wrapped mid foot to knee with dressing in place under wraps VITALS: ?Monitored via telemetry throughout Therapeutic Activities ([id number][]): Direct one-on-one instruction in dynamic activities to improve functional performance. ?? transfers : sit to stand x 3 trials with CGA and cues for hand placement to push up (am/pm) stand to sit with CGA and cues for hand placement. (am/pm) surface to surface with FWW CGA with cues for hand placement to simulate functional mobility within her home distances of 10-25 feet (am) ambulation :(pm) Facilitated safe and correct performance of level surface ambulation covering a distance of 80feet x 1 using use front wheeled walker with contact-guard assist and wheelchair follow for safety.she reported the bottom of her foot hurt but was able to walk. Denied headache, chest pain, and lightheadedness throughout activity. Minimal verbal cueing provided for AD management, directional changes, and posture. Exercise: seated Ankle pumps x 10, LAQ and marching 2 sets of 5 reps. Pt requires cues to attend to task. ASSESSMENT:?Pt limited by discomfort in plantar aspect of foot. She remains at CGA/SBA level for mobility with FWW . Pt able to increase distance of one walk in pm session although noted increased pain in plantar aspect of foot with all weight bearing. Nurse Valery notified. 1-2x/day, 7 days/week x 1 week. Plan of care has been reviewed with the CARPENTER ASSISTANT INSTALLER providing the service under Physical Therapy direction. Initiate Physical Therapy intervention for strengthening, bed mobility, transfers, gait, stairs, balance training, use of assistive device. TREATMENT CODE/TIME:1st session [id number], [id number]/ [id number] 2nd session:[id number] / [id number] DISCHARGE RECOMMENDATION: HH PT and increased supportive services vs Short term SNF
[2024-12-16 15:36] VITALS: BP 94/46; PULSE 95; RESP 18; TEMP 36.7; O2SAT 97
--- NOTE | 2024-12-16 18:04 | W.PM.PROGNOT ---
Date of Service Date of service: 12/16/24 Time of Service: 18:04 Assessment and Plan Assessment and plan (1) Heart failure with reduced ejection fraction: Status: Chronic Assessment and plan: Exacerbation of chronic heart failure that has not been appropriately medically treated due to patient non-engagement in care. She didn't respond much to 20mg IV furosemide in ED, Responding to 80mg BID down 2 kg with improvements in lytes/cr. Good initial response but now not tolerating aggressive diuresis with low BP, will hold furosemide for now. Give MRA spironolactone, metoprolol, and SLGT2i therapy, but cut spironolactone dose wiht low BPs. She hasn't been able to afford ARNI, still holding losartan with low BP. 12/12 dscussed with [facility] cardiac catheterization and AICD at some point. She has declined these in the past as she had minimal symptoms. Reviewed rationale for GDMT. Echo pending Saturday. Continue to follow I/Os, reassess after we have echo. palliative care consult. 12/14/24 I dont see an echo report as of 183112/14/24. Will attempt to find in am 12/15/24 Evidently no echo was done. I have reviewed consult info from Dr Tellez and appreciate the input Assessment and plan: Patient has longstanding left ventricular dysfunction and now I suspect right ventricular dysfunction as well, with hepatic congestion. Continued efforts at diuresis may improve both her edema and her liver function tests, But that remains to be determined. I would not recommend consideration of tertiary care transfer, as the patient on multiple occasions has expressed that she was not interested. Repeating her echocardiogram might be of interest, as it will evaluate her right ventricular function though overall it would not chart changer (2) Liver failure: Status: Acute Assessment and plan: She has ascities but imaging, normal platelets don't suggest cirrhosis. I think this is all CHF. Negative EtOH and APAP levels. Trend improving with diuresis. Follow See if vitamin K helps INR 1.27.25 recheck in am and score meld/c-p (3) Hyponatremia: Status: Acute Assessment and plan: secondary to CHF. Also improving with diuresis. ..25 sodium currently at 127, will do mild fluid restriction and check in the am 12.15. Sodium still low, will add salt tablets . Pt still continues to have asymptomatic hyponatremia. If sodium continues to drop, consider vasopressin antagonist Will also order Uosm/Posm/Clare/Pna if not better in the am (4) Type 2 diabetes mellitus: Status: Chronic Assessment and plan: Poor control for year with poor adherence. A1c 13% She had persistent hypoglycemia however on non-agressive basal insulin, stopped this, but will resume at lower dose. Sent c-peptide as she seems sensitive to insulin, she may have limited pancreatic function. Continue SGLT2i as CHF benefit. Would also benefit form metformin but holding for now with liver failure. GLP-1 also indicated but needs f/u. (5) Venous stasis ulcer with edema of lower leg: Status: Chronic Assessment and plan: compression, appreciate wound care consult. (6) CKD stage 3a, GFR 45-59 ml/min: Assessment and plan: at baseline, follow. (7) Hypomagnesemia: Status: Acute Assessment and plan: replaced, better today (8) Cognitive impairment: Status: Chronic Assessment and plan: She seems to have progressed, likely dementia. Worse this morning with low blood sugar but better now. NH3 not c/w hepatic encephalopathy. I confirmed with son that daughter and CYNDI live with her and are attentive to medications. Also confirmed slow progression of cognitive decline over the past 2 years. They asked about dementia medications but benefit would be marginal if any, defer to PCP. TSH high but Ft4 also high, not c/w hypothyroid. B12 normal. I think this is simply progressive dementia. (9) DVT prophylaxis: Status: Acute Assessment and plan: high INR, uncertain coagulation status. Will start lovenox. (10) Arrhythmia: Status: Acute Assessment and plan: complex pattern. EKG 12/12 most c/w atrial fibrillation. Some runs of non-sustained VTAC as well, some seems sinus with PACs. Will ask cardiology for opinion, if agrees with atrial fibrillation she should be anticoagulated if c/w her goals of care.. 12.14.24 Dr Tellez is not here today. Will try to discuss in am tomorrow 12.15.24 Cardiology notes reviewed. No new recommendations Subjective Subjective Interval history since last seen: Pt seen and examined in the am. No new complaints. Wants to go home tomorrow Exam Narrative Exam Narrative: GEN: Alert and oriented to self only. Pleasant and cooperative. No acute distress at rest. LUNGS: CTAB with normal effort. Slight basilar rales. CV: RRR with no murmurs, gallops, or rubs. ABD: active bowel sounds, soft, nontender. Mildly dstended with + slight fluid wave. No masses. EXT: no cyanosis, more pink. No clubbing. Diffuse 1-2+ edema from feet to abdomen. shins dressed with bandages. PSYCH: normal mood and affect, poor memory Objective Last Vital Signs Temp 36.7 C 12/16/24 15:36 Pulse 95 H 12/16/24 15:36 Resp 18 12/16/24 15:36 BP 94/46 L 12/16/24 15:36 Pulse Ox 97 12/16/24 15:36 Laboratory Results - last 24 hr 12/16/24 07:35 Sodium 125 L Potassium 4.1 Chloride 91 L Carbon Dioxide 25.2 Anion Gap 8.8 BUN 15 Creatinine 1.1 H Est GFR (CKD-EPI 2020) 50.17 Glucose 108 H Calcium 8.3 L Total Bilirubin 6.13 H AST 60 H ALT 75 H Alkaline Phosphatase 106 Total Protein 6.2 L Albumin 2.5 L Time Spent with Patient Time Spent with Patient: 25-34 minutes Time was spent: preparing to see the patient(eg.review tests), obtaining and/or reviewing separately otained hiistory, ordering medications,tests, procedures, referring, communicating with other health medicare coordinator, indepentently interpreting results, counseling the patient, care coordination and other
[2024-12-16 19:52] VITALS: BP 100/52; PULSE 93; RESP 22; TEMP 36.5; O2SAT 94
[2024-12-16] MEDS: Melatonin 3 MG TAB 6 MG PO (19:54)
[2024-12-16] MEDS: Atorvastatin 40 MG TAB 80 MG PO (19:54)
[2024-12-16] MEDS: Enoxaparin 30 MG/0.3 ML SYR SC (19:54)
[2024-12-17] VITALS (7 sets, daily range): BP systolic 97–124; BP diastolic 48–79; PULSE 73–102; RESP 15–24; TEMP 35.3–36.7; O2SAT 92–100
[2024-12-17 06:59] LABS: Abs Immature Grans 0.05 10^3/uL (0.0-0.06); Absolute Basophil Count 0.02 10^3/uL (0.0-0.2); Absolute Eosinophil Count 0.04 10^3/uL (0.0-0.7); Absolute Lymphocyte Count 1.02 10^3/uL (1.2-3.4); Absolute Monocyte Count 0.94 10^3/uL (0.1-0.8); Absolute Neutrophil Count 8.61 10^3/uL (1.2-6.7); Basophils % 0.2 %; Eosinophils % 0.4 %; HCT 35.9 % (36.0-46.0); HGB 11.8 g/dL (11.2-15.7); Immature Grans % 0.5 %; Lymphocytes % 9.6 %; MCH 23.6 pg (27.0-33.0); MCHC 32.9 % (32.0-36.0); MCV 72 fL (80-95); MPV 8.9 fL (8.0-11.0); Monocytes % 8.8 %; Neutrophils % 80.5 %; Platelet Count 313 10^3/uL (130-400); RBC 5.01 10^6/uL (3.93-5.22); RDW-SD 48.8 fL; WBC 10.68 10^3/uL (4.4-10.8)
[2024-12-17 07:24] LABS: ALT 67 U/L (14-59); AST 56 U/L (15-37); Albumin 2.3 g/dL (3.4-5.0); Alkaline Phosphatase 103 U/L (46-116); Anion Gap 10.9 mmol/L (3-11); BUN 10 mg/dL (7-18); Bilirubin, Total 6.28 mg/dL (0.2-1.0); CO2 25.1 mmol/L (21.0-32.0); CREATININE 1.1 mg/dL (0.55-1.02); Calcium 8.3 mg/dL (8.5-10.1); Chloride 91 mmol/L (98-107); Estimated GFR 50.17 (mL/min/1.73m2); Glucose 83 mg/dL (74-106); Potassium 3.7 mmol/L (3.5-5.1); Sodium 127 mmol/L (136-145); Total Protein 6.3 g/dL (6.4-8.2)
[2024-12-17] MEDS: Sodium Bicarbonate 650 MG TAB PO ×3 (08:10→21:26)
[2024-12-17] MEDS: Empaglifozin 10 MG TAB PO (08:10)
[2024-12-17] MEDS: Spironolactone 50 MG TAB 25 MG PO (08:10)
[2024-12-17] MEDS: Metoprolol CR 25 MG TABCR PO (08:10)
[2024-12-17] MEDS: Aspirin E.C. 81 MG TABEC PO (08:10)
--- NOTE | 2024-12-17 08:46 | PDOC.CMPRO ---
Date of service: 12/17/24 Time of Service: 08:46 Care Management Progress Note Progress Note Text Progress Note Text: Ariana was sitting up in a chair eating lunch when CM met with her. She had eaten about 1/3 of her custard and 1/4 of her fruit cup. She only had a few bites of her main course. Ariana vomited earlier in the day and informed CM that her stomach still didn't feel quite right and that she wasn't very hungry. No response was received from [facility] today regarding a bed offer for Ariana. CM did talk with ariana about the fact that she has not received a bed offer and the possibility of going home. Ariana immediately stated that she really wants to just go home. CM will discuss with her grandson Urban. Discharge Potential Discharge Needs: Other (SNF) Anticipated Barriers to Discharge: Bed availability Patient/Family Education Needs: Review discharge instructions, discuss Ask Me Three Transportation: [facility] Plan: Anticipate Ariana will be transferred to a SNF for short term rehab prior to returning home. She will follow up with facility providers and plan of care and transport via [facility]. If Ariana does not receive a bed offer or chooses not to go to a SNF, then she will return home with new home health services for RN, PT, OT and ADMINISTRATIVE ASSOCIATE. CM will follow and continue to support discharge planning needs. Social Determinants of Health Screening Social Determinants of Health last assessed: 12/17/24 Will the Patient Participate in the Screening?: Yes Do you worry about having a steady place to live?: no Problems where you live: no known problems In the past 12 months, have you had to go without electric, gas, oil or water in your home?: no Have you or anyone in your house had to go without enough food to eat?: no Has lack of transportation kept you from medical appointments or from doing things needed for daily living?: no Has anyone in your life made you feel unsafe or unsupported?: no How hard is it for you to pay for the very basics like food, housing, medical care, and heating? Would you say it is:: Not hard at all Do you want help finding or keeping work or a job?: I do not need or want help If for any reason you need help with day-to-day activities such as bathing, preparing meals, shopping, managing finances, etc., do you get the help you need?: I get all the help I need How often do you feel lonely or isolated from those around you?: Never Do you speak a language other than Portuguese at home?: No Does the patient want assistance with any of the above?: No
[2024-12-17] MEDS: Insulin Aspart 300 UNITS/3 ML PEN SC ×2 (12:21→17:27)
--- NOTE | 2024-12-17 15:34 | PT.INTREAT ---
PT Notes Visit Reasons: CHF, Hyponatremia, Liver Dysfunction Inpatient Physical Therapy Treatment Note [facility] Date12/17/2024 PRECAUTIONS:Khoury catheter, Standard, SUBJECTIVE: Pt reports she is cold and is having some discomfort at the posterior right heel today ( nurse notified and visualized) Pt reported in pm session fatigue and requested to lay down at end of session. OBJECTIVE: pt presented seated in chair with BLE viral wrapped mid foot to knee with dressing in place under wraps Therapeutic Activities ([id number][]): Direct one-on-one instruction in dynamic activities to improve functional performance. ?? transfers : sit to stand x 4 trials with CGA and cues for hand placement to push up (am/pm) stand to sit with CGA and cues for hand placement. (am/pm) Sit to supine with min A for LEs (pm) surface to surface with FWW CGA with cues for hand placement to simulate functional mobility within her home distances of 10-25 feet (pm) ambulation :(am) Facilitated safe and correct performance of level surface ambulation covering a distance of 80feet x 2 using use front wheeled walker with contact-guard assist and wheelchair follow for safety.She required 1 seated rest. she reported the heel of her right foot hurt but was able to walk. Denied headache, chest pain, and lightheadedness throughout activity. Minimal verbal cueing provided for AD management, directional changes, and posture. ASSESSMENT:?Pt limited by discomfort in right heel. She remains at CGA/SBA level for mobility with FWW . Pt able to increase distance of one walk in am session although noted increased pain in right heel with all weight bearing. Nurse Rasmussen notified. She placed protective dressing and heel float boots for bed. 1-2x/day, 7 days/week x 1 week. Plan of care has been reviewed with the PUBLIC SAFETY DISPATCHER providing the service under Physical Therapy direction. Initiate Physical Therapy intervention for strengthening, bed mobility, transfers, gait, stairs, balance training, use of assistive device. TREATMENT CODE/TIME:1st session [id number], [id number] 2nd session:[id number] DISCHARGE RECOMMENDATION: Short term SNF vs HHPT
--- NOTE | 2024-12-17 18:41 | PGE_ITS ---
Date of Service Date of service: 12/17/24 Time of Service: 18:41 Assessment and Plan Assessment and plan (1) Heart failure with reduced ejection fraction: Status: Chronic Assessment and plan: Exacerbation of chronic heart failure that has not been appropriately medically treated due to patient non-engagement in care. She didn't respond much to 20mg IV furosemide in ED, Responding to 80mg BID down 2 kg with improvements in lytes/cr. Good initial response but now not tolerating aggressive diuresis with low BP, will hold furosemide for now. Give MRA spironolactone, metoprolol, and SLGT2i therapy, but cut spironolactone dose wiht low BPs. She hasn't been able to afford ARNI, still holding losartan with low BP. 12/12 dscussed with [facility] cardiac catheterization and AICD at some point. She has declined these in the past as she had minimal symptoms. Reviewed rationale for GDMT. Echo pending Saturday. Continue to follow I/Os, reassess after we have echo. palliative care consult. 12/14/24 I dont see an echo report as of 183112/14/24. Will attempt to find in am 12/15/24 Evidently no echo was done. I have reviewed consult info from Dr Tellez and appreciate the input Assessment and plan: Patient has longstanding left ventricular dysfunction and now I suspect right ventricular dysfunction as well, with hepatic congestion. Continued efforts at diuresis may improve both her edema and her liver function tests, But that remains to be determined. I would not recommend consideration of tertiary care transfer, as the patient on multiple occasions has expressed that she was not interested. Repeating her echocardiogram might be of interest, as it will evaluate her right ventricular function though overall it would not foreign exchange student coordinator (2) Liver failure: Status: Acute Assessment and plan: She has ascities but imaging, normal platelets don't suggest cirrhosis. I think this is all CHF. Negative EtOH and APAP levels. Trend improving with diuresis. Follow See if vitamin K helps INR 1.27.25 recheck in am and score meld/c-p (3) Hyponatremia: Status: Resolved Assessment and plan: secondary to CHF. Also improving with diuresis. .. sodium currently at 127, will do mild fluid restriction and check in the am 12.15. Sodium still low, will add salt tablets . Pt still continues to have asymptomatic hyponatremia. If sodium continues to drop, consider vasopressin antagonist Will also order Uosm/Posm/Clare/Pna if not better in the am (4) Type 2 diabetes mellitus: Status: Chronic Assessment and plan: Poor control for year with poor adherence. A1c 13% She had persistent hypoglycemia however on non-agressive basal insulin, stopped this, but will resume at lower dose. Sent c-peptide as she seems sensitive to insulin, she may have limited pancreatic function. Continue SGLT2i as CHF benefit. Would also benefit form metformin but holding for now with liver failure. GLP-1 also indicated but needs f/u. (5) Venous stasis ulcer with edema of lower leg: Status: Chronic Assessment and plan: compression, appreciate wound care consult. (6) CKD stage 3a, GFR 45-59 ml/min: Assessment and plan: at baseline, follow. hyponatremia has improved slightly. Possible dc in am (7) Hypomagnesemia: Status: Resolved Assessment and plan: replaced, better today (8) Cognitive impairment: Status: Chronic Assessment and plan: She seems to have progressed, likely dementia. Worse this morning with low blood sugar but better now. NH3 not c/w hepatic encephalopathy. I confirmed with son that daughter and CYNDI live with her and are attentive to medications. Also confirmed slow progression of cognitive decline over the past 2 years. They asked about dementia medications but benefit would be marginal if any, defer to PCP. TSH high but Ft4 also high, not c/w hypothyroid. B12 normal. I think this is simply progressive dementia. (9) DVT prophylaxis: Assessment and plan: high INR, uncertain coagulation status. Will start lovenox. (10) Arrhythmia: Status: Acute Assessment and plan: complex pattern. EKG 12/12 most c/w atrial fibrillation. Some runs of non- sustained VTAC as well, some seems sinus with PACs. Will ask cardiology for opinion, if agrees with atrial fibrillation she should be anticoagulated if c/w her goals of care.. 12.14.24 Dr Tellez is not here today. Will try to discuss in am tomorrow 12.15.24 Cardiology notes reviewed. No new recommendations Subjective Subjective Interval history since last seen: PT seen and examined in her room this am. POC d/w pt as well as bedside nurse during MDR Exam Narrative Exam Narrative: GEN: Alert and oriented to self only. Pleasant and cooperative. No acute distress at rest. LUNGS: CTAB with normal effort. Slight basilar rales. CV: RRR with no murmurs, gallops, or rubs. ABD: active bowel sounds, soft, nontender. Mildly dstended with + slight fluid wave. No masses. EXT: no cyanosis, more pink. No clubbing. Diffuse 1-2+ edema from feet to abdomen. shins dressed with bandages. PSYCH: normal mood and affect, poor memory Objective Last Vital Signs Temp 36.3 C L 12/17/24 16:15 Pulse 90 12/17/24 16:15 Resp 18 12/17/24 16:15 BP 104/59 L 12/17/24 16:15 Pulse Ox 100 12/17/24 16:15 Laboratory Results - last 24 hr 12/17/24 06:16 WBC 10.68 RBC 5.01 Hgb 11.8 Hct 35.9 L MCV 72 L MCH 23.6 L MCHC 32.9 RDW 20.0 H Plt Count 313 MPV 8.9 Immature Gran % 0.5 Neutrophils % 80.5 Lymphocytes % 9.6 Monocytes % 8.8 Eosinophils % 0.4 Basophils % 0.2 Nucleated RBC % 0.0 Absolute Neutrophils 8.61 H Absolute Lymphocytes 1.02 L Absolute Monocytes 0.94 H Absolute Eosinophils 0.04 Absolute Basophils 0.02 Sodium 127 L Potassium 3.7 Chloride 91 L Carbon Dioxide 25.1 Anion Gap 10.9 BUN 10 Creatinine 1.1 H Est GFR (CKD-EPI 2020) 50.17 Glucose 83 Calcium 8.3 L Total Bilirubin 6.28 H AST 56 H ALT 67 H Alkaline Phosphatase 103 Total Protein 6.3 L Albumin 2.3 L Time Spent with Patient Time Spent with Patient: <25 minutes Time was spent: preparing to see the patient(eg.review tests), obtaining and/or reviewing separately otained hiistory, ordering medications,tests, procedures, referring, communicating with other health neonatal critical care nurse, indepentently interpreting results, counseling the patient and care coordination
[2024-12-17] MEDS: Enoxaparin 30 MG/0.3 ML SYR SC (21:25)
[2024-12-17] MEDS: Melatonin 3 MG TAB 6 MG PO (21:26)
[2024-12-17] MEDS: Atorvastatin 40 MG TAB 80 MG PO (21:26)
[2024-12-18 04:17] VITALS: BP 96/53; PULSE 92; RESP 20; TEMP 36.1; O2SAT 97
[2024-12-18 07:25] VITALS: BP 104/58; PULSE 95; RESP 18; TEMP 36.2; O2SAT 98
[2024-12-18 07:43] LABS: Abs Immature Grans 0.07 10^3/uL (0.0-0.06); Absolute Basophil Count 0.02 10^3/uL (0.0-0.2); Absolute Eosinophil Count 0.05 10^3/uL (0.0-0.7); Absolute Lymphocyte Count 0.95 10^3/uL (1.2-3.4); Absolute Neutrophil Count 7.59 10^3/uL (1.2-6.7); Basophils % 0.2 %; Eosinophils % 0.5 %; HCT 35.6 % (36.0-46.0); HGB 11.4 g/dL (11.2-15.7); Immature Grans % 0.7 %; Lymphocytes % 10.1 %; MCV 72 fL (80-95); MPV 9.3 fL (8.0-11.0); Monocytes % 7.5 %; Platelet Count 287 10^3/uL (130-400); RBC 4.95 10^6/uL (3.93-5.22); RDW-SD 49.8 fL; WBC 9.38 10^3/uL (4.4-10.8)
[2024-12-18 07:52] LABS: INR 1.3 (0.9-1.1); Prothrombin Time 12.7 sec (9.1-11.1)
[2024-12-18 08:03] LABS: ALT 58 U/L (14-59); AST 61 U/L (15-37); Albumin 2.4 g/dL (3.4-5.0); Alkaline Phosphatase 122 U/L (46-116); Anion Gap 10.1 mmol/L (3-11); BUN 9 mg/dL (7-18); Bilirubin, Total 5.06 mg/dL (0.2-1.0); CO2 24.9 mmol/L (21.0-32.0); CREATININE 1.1 mg/dL (0.55-1.02); Calcium 8.6 mg/dL (8.5-10.1); Chloride 96 mmol/L (98-107); Estimated GFR 50.17 (mL/min/1.73m2); Glucose 139 mg/dL (74-106); Potassium 3.4 mmol/L (3.5-5.1); Sodium 131 mmol/L (136-145); Total Protein 6.3 g/dL (6.4-8.2)
--- NOTE | 2024-12-18 09:25 | DSE_ITS ---
Date of service: 12/18/24 Time of Service: 09:25 DS: Diagnosis Discharge Diagnosis (1) Heart failure with reduced ejection fraction: Status: Chronic (2) Liver failure: Status: Acute (3) Hyponatremia: Status: Acute (4) Type 2 diabetes mellitus: Status: Chronic (5) Venous stasis ulcer with edema of lower leg: Status: Chronic (6) CKD stage 3a, GFR 45-59 ml/min: (7) Hypomagnesemia: Status: Acute (8) Cognitive impairment: Status: Chronic (9) DVT prophylaxis: Status: Acute (10) Arrhythmia: Status: Acute Discharge Plan Disposition Patient Disposition: Home W/Home Health Services Condition: Improving Discharge Details Reason For Visit: CHF, Hyponatremia, Liver Dysfunction Admit Date/Time: 12/11/24 15:01 Admit Provider: Christ Saldivar Attending Provider: Christ Saldivar Primary Care Provider: [facility] Course Hospital Course: This is discharge summary on Latanya Madison an 84-year-old female who was admitted to the hospital on 12/07/2024. At the time of admission she was diagnosed with congestive heart failure exacerbation liver failure hyponatremia type 2 diabetes. While she was in the hospital she did get seen by palliative care as well as cardiology and wound care and physical therapy. In reviewing Dr. Tellez's note with her street light mechanic she did not recommend any further interventions considering the patient's other morbidities. The patient did have multiple lab abnormalities consistent with her history. In reviewing physical therapy notes from the recommendation was retirement versus home health. Per the patient's wishes she will go home with home health care. Home Meds and New Rx's Prescriptions: Continued metoprolol succinate 25 mg tablet extended release 24 hr 25 mg PO DAILY Qty: 90 3RF metformin 1,000 mg tablet 1,000 mg PO BID Patient Comments: Take 1 tablet by mouth twice daily dapagliflozin propanediol [Farxiga] 10 mg tablet 10 mg PO DAILY Rx Instructions: one tab daily for heart failure and diabetes furosemide 40 mg tablet 40 mg PO DAILY spironolactone 50 mg tablet 50 mg PO DAILY aspirin 81 mg Tablet,Delayed Release (Dr/Ec) 81 mg PO DAILY Qty: 90 0RF atorvastatin [Lipitor] 80 mg tablet 80 mg PO QHS Qty: 90 0RF losartan 25 mg tablet 25 mg PO DAILY Qty: 90 0RF Discharge Instructions Activity:: Activity as Tolerated Equipment/Supplies:: No Equipment Needed Diet:: As Tolerated Discharge Orders Discharge Orders: Discharge Order (Routine); Ordered 12/18/24 Ordered By: Urban Rodriges DS: Summary Time Spent with Patient providing and/or coordinating discharge services: Greater than 30 minutes Status at Discharge Functional status at discharge: uses cane/walker Overall status at discharge: patient is back to baseline Mental Status: mental status grossly normal Speech and Movement: speech and movement normal Mood: congruent mood Affect: normal affect Quality:SDOH Health Related Social Needs: Health related social needs housing instability, house d, with risk of homelessness (Z59.811) Referrals and interventions: palliative care Exam Narrative Exam Narrative: GEN: Alert and oriented to self only. Pleasant and cooperative. No acute distress at rest. LUNGS: CTAB with normal effort. Slight basilar rales. CV: RRR with no murmurs, gallops, or rubs. ABD: active bowel sounds, soft, nontender. Mildly dstended with + slight fluid wave. No masses. EXT: no cyanosis, more pink. No clubbing. Diffuse 1-2+ edema from feet to abdomen. shins dressed with bandages. PSYCH: normal mood and affect, poor memory Psych Mental Status: mental status grossly normal Speech and Movement: speech and movement normal Mood: congruent mood Affect: normal affect DS: Data Vitals/I&O Vitals and I&O: Vital Signs Temperature 36.2 C L 12/18/24 07:25 Temperature Source Temporal Artery Scan 12/18/24 07:25 Pulse 95 H 12/18/24 07:25 Pulse 110 H 12/11/24 16:40 Respiratory Rate 18 12/18/24 07:25 Respiratory Effort Normal, Non-Labored 12/11/24 17:10 Respiratory Depth Shallow 12/11/24 17:10 Respiratory Pattern Normal 12/11/24 17:10 Blood Pressure 104/58 L 12/18/24 07:25 Blood Pressure Mean 70 12/11/24 15:32 Blood Pressure Position Sitting 12/11/24 10:08 Pulse Oximetry 98 12/18/24 07:25 Oxygen Delivery Method Room Air 12/18/24 07:25 Oxygen Flow Rate 0 12/18/24 07:25 Pain Level 0 12/18/24 07:25 Comment Notifying RN 12/16/24 15:36 Intake & Output 12/17/24 12/17/24 12/18/24 11:59 23:59 11:59 Intake Total 387 / 387 350 / 350 Output Total 2330 / 3580 1250 / 3580 1350 / 1350 Balance -1943 / -3193 -1250 / -3193 -1000 / -1000 Weight 70.2 kg 65.9 kg Intake: Oral 387 / 387 350 / 350 Output: Urine 2100 / 3350 1250 / 3350 1350 / 1350 Emesis 230 / 230 Other: Urine Color Yellow Yellow Yellow Urine Appearance Clear Clear Clear Emesis Description Clear/Water Data Completed and Pending Labs on day of discharge: Labs from last 24 hours 12/18/24 07:20 WBC 9.38 RBC 4.95 Hgb 11.4 Hct 35.6 L MCV 72 L MCH 23.0 L MCHC 32.0 RDW 20.0 H Plt Count 287 MPV 9.3 Immature Gran % 0.7 Neutrophils % 81.0 Lymphocytes % 10.1 Monocytes % 7.5 Eosinophils % 0.5 Basophils % 0.2 Nucleated RBC % 0.0 Absolute Neutrophils 7.59 H Absolute Lymphocytes 0.95 L Absolute Monocytes 0.70 Absolute Eosinophils 0.05 Absolute Basophils 0.02 PT 12.7 H INR 1.3 H Sodium 131 L Potassium 3.4 L Chloride 96 L Carbon Dioxide 24.9 Anion Gap 10.1 BUN 9 Creatinine 1.1 H Est GFR (CKD-EPI 2020) 50.17 Glucose 139 H Calcium 8.6 Total Bilirubin 5.06 H AST 61 H ALT 58 Alkaline Phosphatase 122 H Total Protein 6.3 L Albumin 2.4 L PFSH All Active Problems (Updated 12/18/24 @ 09:26 by Urban Rodriges MD) Advance care planning (Acute) Arrhythmia (Acute) DVT prophylaxis (Acute) Hypomagnesemia (Acute) Liver failure (Acute) Hyponatremia (Acute) Abdominal ascites (Acute) Anasarca (Acute) Heart failure with reduced ejection fraction (Chronic) Ischemic cardiomyopathy (Chronic) Type 2 diabetes mellitus (Chronic) Cognitive impairment (Chronic) Hypertension (Chronic) Hyperlipidemia (Chronic) Venous stasis ulcer with edema of lower leg (Chronic) Medical History CKD stage 3a, GFR 45-59 ml/min Prurigo nodularis Allergic rhinitis Acne rosacea Osteoporosis Surgical History History of hysterectomy (~2005) Family History Mother Cancer Social History Smoking/Tobacco Use Status: Never Smoking risk assessment performed?: Yes Alcohol Intake: never Drug use: Never Substance use type: does not use Adopted: No Caregiver/Support person: No Household members: children, caregiver and other Details: adult daughter Housing: house Number of Children: 1 number of grandchildren: 8 Communication Needs: None Do you need help understanding health information?: Often 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 Sexually active: No Current gender identity: female What is your relationship status?: How often do you talk on the phone with friends or family?: once per week How often do you get together with friends or relatives?: once per week How often do you attend zoroastrian or gnosticism services?: 1-3 times per year Do you belong to any clubs or organized social groups?: no Panel score (0-1 are the most socially isolated patients): 0 NHANES result reviewed/action taken: Yes What type of physical activity do you participate in: none Makenzie/Church: Shinto Special makenzie needs: No Seatbelt use: always Helmet use: No Drive intox or ride w/intox furniture delivery driver: No Firearms in home: No Do you feel safe at home: Yes Do you feel safe in your relationship?: No Victim of physical abuse: No Victim of emotional abuse: No Victim of sexual abuse: No Would you like helpful sources: No Additional Social history: lives alone in [place], daughter with her now a lot. 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
[2024-12-18] MEDS: Spironolactone 50 MG TAB 25 MG PO (10:47)
[2024-12-18] MEDS: Sodium Bicarbonate 650 MG TAB PO (10:47)
[2024-12-18] MEDS: Empaglifozin 10 MG TAB PO (10:47)
[2024-12-18] MEDS: Aspirin E.C. 81 MG TABEC PO (10:49)
[2024-12-18] MEDS: Metoprolol CR 25 MG TABCR PO (10:49)
--- NOTE | 2024-12-18 11:04 | PDOC.CMDIS ---
Date of service: 12/18/24 Time of Service: 11:05 LACE Index Scoring Tool Questions: Length of Stay (in days): 7 - 13 Was the patient admitted via the E.D.?: Yes Comorbidities: Diabetes w/o Complication, Congestive Heart Failure, Dementia and Liver or Renal Disease E.D. Visits: 2 Answers: Total Score: 15 Risk of Readmission: High Risk Care Management Discharge Plan Reason for Hospitalization: CHF Discharge Plan: Latanya will be discharged home with new home health services for RN, PT, OT and PROVIDER ENROLLMENT SPECIALIST. She will follow up with her community providers and plan of care as prescribed and transport with family. Patient/Family Education Needs: Review discharge instructions, discuss Ask Me Three Services Needed at Discharge: Home Health Care Services SDOH Health Related Social Needs: Health related social needs housing instability, housed, with risk of homelessness (Z59.811) Referrals and interventions: palliative care
--- NOTE | 2024-12-18 11:18 | PDOC.HHF2F_ITS ---
Home Health Referral Home Health Orders Clinical synopsis of why skilled professionals are needed: chf exacerbation Medical diagnosis necessitation home health referral: chf exacerbation Registered Nurse: Check all that apply Instruct on new or changed medication(s)/assess compliance: Ordered Assess for exacerbation of medical condition, instruct patient/caregivers on signs and symptoms to report for early detection: Ordered Physical Therapist: Check all that apply Increase strength & endurance for safe mobility at home: Ordered To design/establish home maintenance program: Ordered Fall reduction therapy program for patient with history of frequent falls: Ordered Home safety evaluation and teaching/gait training including stair management (if applicable): Ordered Occupational Therapist: Evaluate and treat for patient unable to perform ADL/IADL/self-care: Ordered Encounter Date and Reason: I certify that a FTF encounter for this patient was performed on December 18, 2024 and that such encounter was related to the primary reason the patient requires home health services. The encounter was conducted in the following manner: * By me as the certifying physician, GROUP FITNESS DEPARTMENT HEAD, PA or * By an inpatient physician, GROUP FITNESS DEPARTMENT HEAD or PA during an inpatient stay who communicated findings to me, Certification And Authentication I certify that I composed the above information based on my clinical judgment relating to this patient's medical condition and, if applicable, clinical findings communicated to me by the NPP or inpatient physician who performed the FTF encounter. Name of Provider that will be monitoring home health services: Urban Rodriges
--- NOTE | 2024-12-18 11:39 | PT.INTREAT ---
PT Notes Visit Reasons: CHF, Hyponatremia, Liver Dysfunction Inpatient Physical Therapy Treatment Note [facility] Date12/18/2024 PRECAUTIONS:Khoury catheter, Standard, SUBJECTIVE: Pt reports she is cold . She states the pain in her heel is less OBJECTIVE: pt presented seated in chair with BLE viral wrapped mid foot to knee with dressing in place under wraps Therapeutic Activities ([id number][]): Direct one-on-one instruction in dynamic activities to improve functional performance. ?? transfers : sit to stand x2 trials with CGA and cues for hand placement to push up stand to sit with CGA and cues for hand placement. ambulation : Facilitated safe and correct performance of level surface ambulation covering a distance of 80feet x 1 using use front wheeled walker with contact-guard assist and wheelchair follow for safety.. she reported the heel of her right foot hurt but was able to walk. Denied headache, chest pain, and lightheadedness throughout activity. Minimal verbal cueing provided for AD management, directional changes, and posture. ASSESSMENT:?Pt demonstrates consistent ability to walk 80 feet without rest. She will benefit from cueing for all transfers for hand placement as she is able to rise without physical assistance when she pushes up from surface. If she attempts to rise with hands on FWW then she requires min A. . Plan 1-2x/day, 7 days/week x 1 week. Plan of care has been reviewed with the REAL ESTATE AGENCY LICENSEE providing the service under Physical Therapy direction. Initiate Physical Therapy intervention for strengthening, bed mobility, transfers, gait, stairs, balance training, use of assistive device. TREATMENT CODE/TIME: 26165,[id number] DISCHARGE RECOMMENDATION: Short term SNF vs HHPT
== END 2024-12-18 11:57 | disposition home health service (06) | DRG 291 ==
LOC: ER 15:29 → MS 16:00
PROVIDERS: General Practice; Hospitalist; Admitting Provider Family Medicine; Emergency Provider Registered Nurse Emergency; PCP Nurse Practitioner Family; Visit Provider Family Medicine
DX: I13.0 Hypertensive heart and chronic kidney disease with heart failure and stage 1 through stage 4 chronic kidney disease, or unspecified chronic kidney disease (principal); I50.23 Acute on chronic systolic (congestive) heart failure; E87.1 Hypo-osmolality and hyponatremia; R18.8 Other ascites; L97.821 Non-pressure chronic ulcer of other part of left lower leg limited to breakdown of skin; L97.811 Non-pressure chronic ulcer of other part of right lower leg limited to breakdown of skin; I47.29 Other ventricular tachycardia; N18.31 Chronic kidney disease, stage 3a; E11.22 Type 2 diabetes mellitus with diabetic chronic kidney disease; E83.42 Hypomagnesemia; I25.5 Ischemic cardiomyopathy; E78.5 Hyperlipidemia, unspecified; M81.0 Age-related osteoporosis without current pathological fracture; K72.90 Hepatic failure, unspecified without coma; F03.90 Unspecified dementia, unspecified severity, without behavioral disturbance, psychotic disturbance, mood disturbance, and anxiety; E11.65 Type 2 diabetes mellitus with hyperglycemia; Z91.138 Patient's unintentional underdosing of medication regimen for other reason; K57.30 Diverticulosis of large intestine without perforation or abscess without bleeding; K80.20 Calculus of gallbladder without cholecystitis without obstruction; I48.91 Unspecified atrial fibrillation; I83.018 Varicose veins of right lower extremity with ulcer other part of lower leg; I83.028 Varicose veins of left lower extremity with ulcer other part of lower leg
CPT/HCPCS: 00123; 36415; 80048; 80053; 80076; 83690; 85027; 87637; 96365; 96375; 97110; 97162; 97530; 99221; 99285; 74177; 76705; 80320; 80329; 81003; 82140; 82607; 83735; 83880; 84132; 84681; 85025; 85610; 93005; 93010; 99223; 99231; 99232; 99233; 99239; J1650; J1815; J1940; J1941; J2405; J3475; J3490

== ENCOUNTER → 2024-12-15 08:39 | Outpatient (BNVA) | payer MEDICARE, SELFPAY | PROVIDERS: PCP Nurse Practitioner Family; Referring Provider Nurse Practitioner Family; Visit Provider Internal Medicine Cardiovascular Disease ==

== ENCOUNTER 2024-12-19 14:44 | Observation (INO) | payer MEDICARE, SELFPAY ==
--- NOTE | 2024-12-19 14:45 | RT.EKG_ITS ---
APPROVED REPORT Exam: Resting ECG Reason for Exam: weakness Patient Location: E HR:83 bpm ECG Measurements Heart Rate 83 AXIS NM 191 P 52 QRSd 110 QRS -38 QT 408 T 86 QTc 481 Conclusion Sinus rhythm...normal P axis, V-rate 60- 99 Probable left atrial enlargement...P >50mS, <-0.10mV V1 Incomplete left bundle branch block...QRSd>110mS, terminal axis(-90,-1) Left ventricular hypertrophy...multiple LVH criteria Sinus rhythm, incomplete left bundle branch block, left ventricular hypertrophy. When compared to artifact no longer present. WD
[2024-12-19 14:49] VITALS: BP 89/57; PULSE 86; RESP 18; TEMP 36.3; O2SAT 98
--- NOTE | 2024-12-19 15:04 | ED.GENADUL_ITS ---
Discharge Plan Disposition Patient Disposition: Admit to [facility] Condition: Stable Discharge Details Clinical Impression: Type 2 diabetes mellitus, Ischemic cardiomyopathy, Cognitive impairment, Fall, Weakness Admit Date/Time: 12/19/24 17:24 Admit Provider: Urban Rodriges Attending Provider: Urban Rodriges Primary Care Provider: Iradia Goode ED Provider: Merle Serrano General Date/Time Provider Initiated Documentation: 12/19/24 14:46 . HPI Narrative: 84-year-old female with history of ischemic cardiomyopathy and HFrEF 20-25% LVEF, poorly controlled type 2 diabetes, and cognitive impairment presents for evaluation of possibly worsening jaundice. Patient was discharged from hospital yesterday after a 11-day stay. At that time she was noted to have exacerbation of congestive heart failure with ascites. According to EMS family felt that patient was more jaundiced and weak today. At time of ED arrival patient does not know why she is in the emergency department. She denies any complaints. There are abrasions to her forehead. Related Data Home Medications ?Medication ?Instructions ?Recorded ?Confirmed metoprolol succinate 25 mg 25 mg PO DAILY #90 tabs 02/15/20 12/19/24 tablet,extended release 24 hr aspirin 81 mg tablet,delayed 81 mg PO DAILY #90 tabs 05/19/24 12/19/24 release atorvastatin 80 mg tablet (Lipitor) 80 mg PO QHS #90 tabs 05/19/24 12/19/24 losartan 25 mg tablet 25 mg PO DAILY #90 tabs 05/19/24 12/19/24 metformin 1,000 mg tablet 1,000 mg PO BID 09/17/24 12/19/24 furosemide 40 mg tablet 40 mg PO DAILY 12/10/24 12/19/24 spironolactone 50 mg tablet 50 mg PO DAILY 12/10/24 12/19/24 Previous Rx's ?Medication ?Instructions ?Recorded metoprolol succinate 25 mg 25 mg PO DAILY #90 tabs 02/15/20 tablet,extended release 24 hr aspirin 81 mg tablet,delayed 81 mg PO DAILY #90 tabs 05/19/24 release atorvastatin 80 mg tablet (Lipitor) 80 mg PO QHS #90 tabs 05/19/24 losartan 25 mg tablet 25 mg PO DAILY #90 tabs 05/19/24 Allergies Allergy/AdvReac Type Severity Reaction Status Date / Time INDU Inhibitors AdvReac Intermediate cough Verified 12/19/24 14:57 codeine AdvReac Intermediate Other (See Verified 12/19/24 14:57 Comment) General Stated Complaint: GenMedical ARNOLDO: 3 Review of Systems Narrative: Remainder of review of systems otherwise unobtainable due to patient's dementia. Exam Narrative Exam Narrative: General: non-toxic, no respiratory distress, comfortable HEENT: normocephalic, atraumatic, lids and lashes normal, PERRL, EOMI, anicteric sclera, no conjunctival injection, moist oral mucosa Card: regular rate and rhythm, S1S2, no murmurs, rubs, or gallops Lungs: good air entry, clear to auscultation bilaterally. no wheezes, rales, rhonchi, or retractions Abd: soft, non-tender, non-distended, normal bowel sounds, no rebound or guarding, no peritoneal signs Musculoskeletal: full range of motion of arms and legs, no tenderness to palpation. no clubbing or cyanosis, bilateral lower extremity edema with chronic venous stasis changes, no warmth to extremities Neurologic: appropriate for age, strength normal Psych: alert and oriented Skin: Healing wounds to bilateral lower extremity with wound care in place, no p etechiae, no lesions, warm and dry Course 84-year-old female with history of ischemic cardiomyopathy, CHF, cognitive impairment presents for evaluation of possible worsening jaundice and weakness. At time my evaluation patient does not have any significant jaundice. She denies any medical complaints. I did review records from recent admission. Patient historically is noncompliant with medications. She is a DNR/DNI. She has declined cardiac interventions. Patient's laboratory studies today do show that her elevated bilirubin and BNP are continuing to trend down. She does have mildly low blood pressure today. She had a large bowel movement while in the emergency department. Bladder scan shows greater than 300 mL of urine in her bladder. She apparently was getting catheterized while in the hospital recently. CK was normal. Case discussed with hospitalist who met with patient and family. She does have some increased weakness compared to time of discharge yesterday. Patient will be admitted to the hospital for further evaluation and treatment. Vital Signs Vital signs: Vital Signs Temperature 36.3 C L 12/19/24 14:49 Pulse 86 12/19/24 14:49 Respiratory Rate 18 12/19/24 14:49 Blood Pressure 89/57 L 12/19/24 14:49 Pulse Oximetry 98 12/19/24 14:49 Temperature 36.3 C L 12/19/24 14:49 Pulse 86 12/19/24 14:49 Respiratory Rate 18 12/19/24 14:49 Blood Pressure 89/57 L 12/19/24 14:49 Pulse Oximetry 98 12/19/24 14:49 Pain Level 0 12/19/24 14:49 Medical Decision Making ECG Data Interpretation: 12 lead EKG performed at 1504 Indication: Weakness Rhythm: Normal sinus rhythm Rate: 83 [place]:Normal Intervals: Normal QRS: Incomplete left bundle branch block, left ventricular hypertrophy ST segments: Normal T Waves: Normal INTERPRETATION: Sinus rhythm with incomplete left bundle branch block and left ventricular hypertrophy Comparison to old EK12/12/2024 artifact is no longer present The 12 lead EKG was interpreted by myself Quality:SDOH Health Related Social Needs: Health related social needs housing instability, house d, with risk of homelessness (Z59.811) PFSH All Active Problems (Updated 12/19/24 @ 17:21 by Merle Serrano MD) Weakness (Acute) Fall (Acute) Advance care planning (Acute) Arrhythmia (Acute) Liver failure (Acute) Abdominal ascites (Acute) Anasarca (Acute) Heart failure with reduced ejection fraction (Chronic) Ischemic cardiomyopathy (Chronic) Type 2 diabetes mellitus (Chronic) Cognitive impairment (Chronic) Hypertension (Chronic) Hyperlipidemia (Chronic) Venous stasis ulcer with edema of lower leg (Chronic) Medical History DVT prophylaxis CKD stage 3a, GFR 45-59 ml/min Prurigo nodularis Allergic rhinitis Acne rosacea Osteoporosis Surgical History History of hysterectomy (~2004) Family History Mother Cancer Social History Smoking/Tobacco Use Status: Never Smoking risk assessment performed?: Yes Alcohol Intake: never Drug use: Never Substance use type: does not use Adopted: No Caregiver/Support person: No Household members: children, caregiver and other Details: adult daughter Housing: house Number of Children: 1 number of grandchildren: 8 Communication Needs: None Do you need help understanding health information?: Often 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 Sexually active: No Current gender identity: female What is your relationship status?: How often do you talk on the phone with friends or family?: once per week How often do you get together with friends or relatives?: once per week How often do you attend pentecostalism or tenriism services?: 1-3 times per year Do you belong to any clubs or organized social groups?: no Panel score (0-1 are the most socially isolated patients): 0 NHANES result reviewed/action taken: Yes What type of physical activity do you participate in: none Makenzie/Restorationist: Caodaism Special makenzie needs: No Seatbelt use: always Helmet use: No Drive intox or ride w/intox residential driver: No Firearms in home: No Do you feel safe at home: Yes Do you feel safe in your relationship?: No Victim of physical abuse: No Victim of emotional abuse: No Victim of sexual abuse: No Would you like helpful sources: No Additional Social history: lives alone in [place], daughter with her now a lot. 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
[2024-12-19 15:15] VITALS: BP 89/57; PULSE 86; RESP 18; TEMP 36.3; O2SAT 98
[2024-12-19 15:47] LABS: Abs Immature Grans 0.03 10^3/uL (0.0-0.06); Absolute Basophil Count 0.03 10^3/uL (0.0-0.2); Absolute Eosinophil Count 0.06 10^3/uL (0.0-0.7); Absolute Lymphocyte Count 0.89 10^3/uL (1.2-3.4); Absolute Monocyte Count 0.38 10^3/uL (0.1-0.8); Absolute Neutrophil Count 5.45 10^3/uL (1.2-6.7); Basophils % 0.4 %; Eosinophils % 0.9 %; HCT 43.4 % (36.0-46.0); HGB 13.7 g/dL (11.2-15.7); Immature Grans % 0.4 %; MCH 23.5 pg (27.0-33.0); MCHC 31.6 % (32.0-36.0); MCV 74 fL (80-95); MPV 9.1 fL (8.0-11.0); Monocytes % 5.6 %; Neutrophils % 79.7 %; Platelet Count 304 10^3/uL (130-400); RBC 5.83 10^6/uL (3.93-5.22); RDW 21.2 % (11.7-14.6); RDW-SD 53.2 fL; WBC 6.84 10^3/uL (4.4-10.8)
[2024-12-19 15:56] LABS: INR 1.2 (0.9-1.1); Prothrombin Time 11.6 sec (9.1-11.1)
[2024-12-19 16:03] LABS: Ammonia < 10 umol/L (11-32)
[2024-12-19 16:04] LABS: ALT 72 U/L (14-59); AST 64 U/L (15-37); Albumin 2.9 g/dL (3.4-5.0); Alkaline Phosphatase 155 U/L (46-116); BUN 7 mg/dL (7-18); Bilirubin, Total 4.68 mg/dL (0.2-1.0); CREATININE 1.4 mg/dL (0.55-1.02); Calcium 9.4 mg/dL (8.5-10.1); Chloride 98 mmol/L (98-107); Estimated GFR 37.56 (mL/min/1.73m2); Glucose 258 mg/dL (74-106); Lipase 148 U/L (<78); Magnesium 2.2 mg/dL (1.8-2.4); Potassium 3.3 mmol/L (3.5-5.1); Sodium 133 mmol/L (136-145); Total Protein 7.9 g/dL (6.4-8.2); Troponin I 48 ng/L (<or=51)
[2024-12-19 16:11] LABS: NT-proBNP 7909 pg/mL (<300)
[2024-12-19 16:19] LABS: Anisocytosis 1+; Diff Comment RBC Morph Reviewed; Microcytosis 1+
--- NOTE | 2024-12-19 16:45 | DI.CT_ITS ---
Exam(s) CT HEAD WO EXAM: CT HEAD WO CLINICAL HISTORY: unwitnessed fall. TECHNIQUE: Imaging Protocol: Axial computed tomography images with coronal and sagittal reformatted images were created and reviewed COMPARISON: No exams were available for comparison FINDINGS: Ventricles and Extra axial spaces: Normal in size and morphology for the patient's age. Hemorrhage: None. Cerebral parenchyma: There are areas of decreased attenuation in the white matter consistent with chr onic microvascular ischemic disease. There is an old lacunar infarct in the right basal ganglia. No acute territorial infarct is identified. No acute mass effect. Midline shift: None. Brainstem/Cerebellum: Normal. Calvarium: Normal. Visualized Paranasal sinuses/Mastoids: Clear. Soft Tissues: Unremarkable. IMPRESSION: No acute intracranial process. RADIATION DOSE DELIVERED: 814.29mGy.cm Total DLP DATA REPOSITORY: All CT scans at this facility are submitted to the National Radiology Data Registry (NRDR) Dose Index Registry (DIR) with the [employer] (ACR). RADIATION OPTIMIZATION: All CT scans at this facility use at least one of these dose optimization te chniques: automated exposure control; mA and/or kV adjustment per patient size (includes targeted exa ms where dose is matched to clinical indication); or iterative reconstruction.
--- NOTE | 2024-12-19 17:29 | HPE_ITS ---
Date of service: 12/19/24 Time of Service: 17:29 Assessment and Plan Assessment and plan (1) Heart failure with reduced ejection fraction: Status: Chronic Assessment and plan: Will continue with medical management only. Pt was seen in consultation by Dr Tellez on her last admission. At that time, there were no recommendations besides posibly a echocardiogram. (2) Type 2 diabetes mellitus: Status: Chronic Assessment and plan: Per history, pt does have issues with non-compliance. Restart home meds (3) Liver failure: Status: Acute Assessment and plan: Labs do appear stable. NH3 is less than 10 which makes encephalopathy less likely (4) Fall: Status: Acute Assessment and plan: Will reengage PT in am (5) Cognitive impairment: Status: Chronic Assessment and plan: noted (6) Advance care planning: Status: Acute Assessment and plan: lovenox for dvt prophylaxis POC d/w grandson. It does appear that the pt is at a place where living at home even with assistance from family is too challenging. Unfortunately, I believe her safest course of action is admission to SNF. History of Present Illness History of Present Illness Chief Complaint: weakness Narrative: This is a 84-year-old female who was just discharged from the hospital yesterday for CHF versus COPD exacerbation. While she was at home last night she has sustained a fall and apparently was on the ground for a fair bit of time. The patient lives with her daughter who does not appear to be giving her her medications and care that her level of morbidity requires. Grandson brought her in today for further evaluation and treatment. Of note the grandson is the power of assistant district attorney. Her workup in the ED was fairly benign with a white count of 6.8 H&H of 13 and 43 she did have a low MCV at 74 her INR was 1.2 sodium was 133 showing much improvement potassium 3.3 chloride 98 bicarb 27 BUN and creatinine 7 and 1.4 which are stable glucose was 258. Mild elevations in her AST ALT as well as alk phos ammonia level less than 10 lipase 148. In terms of imaging no new images were performed. The ED physician asked me to give an opinion on whether the patient was safe to go home. At this point she did appear to be a little bit if not significantly weaker than when I saw her yesterday and on exam she did have some fluid retention. Considering the fact that the patient does not appear to be in a place for safe transition to home I agreed to the admission. Review of Systems All systems reviewed & are unremarkable except as noted in HPI and below PFSH All Active Problems (Updated 12/19/24 @ 17:21 by Merle Serrano MD) Weakness (Acute) Fall (Acute) Advance care planning (Acute) Arrhythmia (Acute) Liver failure (Acute) Abdominal ascites (Acute) Anasarca (Acute) Heart failure with reduced ejection fraction (Chronic) Ischemic cardiomyopathy (Chronic) Type 2 diabetes mellitus (Chronic) Cognitive impairment (Chronic) Hypertension (Chronic) Hyperlipidemia (Chronic) Venous stasis ulcer with edema of lower leg (Chronic) Medical History DVT prophylaxis CKD stage 3a, GFR 45-59 ml/min Prurigo nodularis Allergic rhinitis Acne rosacea Osteoporosis Surgical History History of hysterectomy (~2004) Family History Mother Cancer Social History Smoking/Tobacco Use Status: Never Smoking risk assessment performed?: Yes Alcohol Intake: never Drug use: Never Substance use type: does not use Adopted: No Caregiver/Support person: No Household members: children, caregiver and other Details: adult daughter Housing: house Number of Children: 1 number of grandchildren: 8 Communication Needs: None Do you need help understanding health information?: Often 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 Sexually active: No Current gender identity: female What is your relationship status?: How often do you talk on the phone with friends or family?: once per week How often do you get together with friends or relatives?: once per week How often do you attend shinto or anglican services?: 1-3 times per year Do you belong to any clubs or organized social groups?: no Panel score (0-1 are the most socially isolated patients): 0 NHANES result reviewed/action taken: Yes What type of physical activity do you participate in: none Makenzie/Judaism: Sikhism Special makenzie needs: No Seatbelt use: always Helmet use: No Drive intox or ride w/intox wrecker driver: No Firearms in home: No Do you feel safe at home: Yes Do you feel safe in your relationship?: No Victim of physical abuse: No Victim of emotional abuse: No Victim of sexual abuse: No Would you like helpful sources: No Additional Social history: lives alone in [place], daughter with her now a lot. 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 [employer] Allergies and Home Medications Allergies Allergy/AdvReac Type Severity Reaction Status Date / Time INDU Inhibitors AdvReac Intermediate cough Verified 12/19/24 14:57 codeine AdvReac Intermediate Other (See Verified 12/19/24 14:57 Comment) Home Medications ?Medication ?Instructions ?Recorded ?Confirmed ?Type metoprolol succinate 25 mg 25 mg PO DAILY #90 tabs 02/15/20 12/19/24 Rx tablet,extended release 24 hr aspirin 81 mg tablet,delayed 81 mg PO DAILY #90 tabs 05/19/24 12/19/24 Rx release atorvastatin 80 mg tablet (Lipitor) 80 mg PO QHS #90 tabs 05/19/24 12/19/24 Rx losartan 25 mg tablet 25 mg PO DAILY #90 tabs 05/19/24 12/19/24 Rx metformin 1,000 mg tablet 1,000 mg PO BID 09/17/24 12/19/24 History furosemide 40 mg tablet 40 mg PO DAILY 12/10/24 12/19/24 History spironolactone 50 mg tablet 50 mg PO DAILY 12/10/24 12/19/24 History Exam Narrative Exam Narrative: Head eyes ears nose and throat: Normocephalic atraumatic mucous membranes moist oropharynx is clear she does have a ecchymotic region on her mosque Neck: No lymphadenopathy no JVD no thyromegaly Cardiovascular: Regular rate and rhythm no murmur rubs or gallops Lungs: Clear to auscultation bilaterally with good air exchange Abdomen: Soft nontender nondistended bowel sounds are active Extremities: 2+ lower extremity edema bilaterally Neurologic: Cranial nerves II through XII intact as tested Psych: She is alert and oriented to person and time but not place General: 84-year-old female who appears her stated age but frail Results Labs 12/19/24 15:40 12/19/24 15:40 Labs: Laboratory Results - last 24 hr 12/19/24 15:40 WBC 6.84 RBC 5.83 H Hgb 13.7 D Hct 43.4 MCV 74 L MCH 23.5 L MCHC 31.6 L RDW 21.2 H Plt Count 304 MPV 9.1 Immature Gran % 0.4 Neutrophils % 79.7 Lymphocytes % 13.0 Monocytes % 5.6 Eosinophils % 0.9 Basophils % 0.4 Nucleated RBC % 0.0 Absolute Neutrophils 5.45 Absolute Lymphocytes 0.89 L Absolute Monocytes 0.38 Absolute Eosinophils 0.06 Absolute Basophils 0.03 RBC Morphology See Below Anisocytosis 1+ Microcytosis 1+ PT 11.6 H INR 1.2 H Sodium 133 L Potassium 3.3 L Chloride 98 Carbon Dioxide 27.0 Anion Gap 8.0 BUN 7 Creatinine 1.4 H Est GFR (CKD-EPI 2020) 37.56 Glucose 258 H Calcium 9.4 Magnesium 2.2 Total Bilirubin 4.68 H AST 64 H ALT 72 H Alkaline Phosphatase 155 H Ammonia < 10 L Troponin I 48 NT-Pro-B Natriuret Pep 7909 H Total Protein 7.9 Albumin 2.9 L Lipase 148 H Last Vital Signs Temp 36.3 C L 12/19/24 15:15 Pulse 86 12/19/24 15:15 Resp 18 12/19/24 15:15 BP 89/57 L 12/19/24 15:15 Pulse Ox 98 12/19/24 15:15 Time Spent Time spent with Patient: 40-54 minutes Time was spent: preparing to see the patient(eg.review tests), ordering medications,tests, procedures, referring, communicating with other health pet care attendant, indepentently interpreting results, counseling the patient and care coordination
[2024-12-19 17:55] LABS: Creatine Kinase 80 U/L (26-192)
[2024-12-19 17:59] LABS: Troponin I 41 ng/L (<or=51)
[2024-12-19 18:30] VITALS: BP 84/49; PULSE 74; RESP 18; O2SAT 97
[2024-12-19 18:43] VITALS: BP 84/54; PULSE 76; RESP 14; TEMP 36.6; O2SAT 98
[2024-12-19 19:25] LABS: Troponin I 38 ng/L (<or=51)
--- NOTE | 2024-12-19 19:27 | W.PC.ACHO ---
Registration Status: Primary Language: Preferred Language: ED Information & Data Chief Complaint GenMedical 12/19/24 15:07 Triage Note family feels that pt is is 12/19/24 14:49 more jaundice today. forgetful, frequent falls since d/c from hospital yesterday. Not oriented to situation/place. Struggled getting up to move without assistance. witnessed abled to stand with walker. hxo liver failure Medical / Surgical History (Last Reviewed 12/19/24 @ 15:06 by Merle Serrano MD) DVT prophylaxis CKD stage 3a, GFR 45-59 ml/min Prurigo nodularis Allergic rhinitis Acne rosacea Osteoporosis (Last Reviewed 12/19/24 @ 15:06 by Merle Serrano MD) History of hysterectomy (~2004) Most Recent Vital Signs Temperature 97.9 F 12/19/24 18:43 Temperature Source Temporal Artery Scan 12/19/24 15:15 Pulse 76 12/19/24 18:43 Pulse Rhythm Regular 12/19/24 18:43 Respiratory Rate 14 12/19/24 18:43 Respiratory Effort Normal, Non-Labored 12/19/24 18:43 Respiratory Depth Normal 12/19/24 18:43 Respiratory Pattern Normal 12/19/24 18:43 Blood Pressure 84/54 L 12/19/24 18:43 Blood Pressure Position Sitting 12/19/24 15:15 Pulse Oximetry 98 12/19/24 18:43 Oxygen Delivery Method Room Air 12/19/24 18:43 Oxygen Flow Rate 0 12/19/24 18:43 Pain Level 0 12/19/24 18:43 Allergies INDU Inhibitors Adverse Reaction (Intermediate, Verified 12/19/24 14:57) cough codeine Adverse Reaction (Intermediate, Verified 12/19/24 14:57) Other (See Comment) Dizziness Precautions Isolation Standard precaution 12/19/24 14:56 IV IV Catheter Type [Right Diffusics Antecubital] IV Catheter Gauge [Right 20 Antecubital] Diet Orders Category Date Time Status Regular/Normal [DIET] Nutrition 12/20/24 Breakfast Ordered Diagnostics 12/19/24 12/19/24 12/19/24 Range/Units 18:52 17:32 15:40 WBC 6.84 (4.4-10.8) 10^3/uL RBC 5.83 H (3.93-5.22) 10^6/uL Hgb 13.7 D (11.2-15.7) g/dL Hct 43.4 (36.0-46.0) % MCV 74 L (80-95) fL MCH 23.5 L (27.0-33.0) pg MCHC 31.6 L (32.0-36.0) % RDW 21.2 H (11.7-14.6) % Plt Count 304 (130-400) 10^3/uL MPV 9.1 (8.0-11.0) fL Immature Gran % 0.4 % Neutrophils % 79.7 % Lymphocytes % 13.0 % Monocytes % 5.6 % Eosinophils % 0.9 % Basophils % 0.4 % Nucleated RBC % 0.0 (0.0-0.3) % Absolute Neutrophils 5.45 (1.2-6.7) 10^3/uL Absolute Lymphocytes 0.89 L (1.2-3.4) 10^3/uL Absolute Monocytes 0.38 (0.1-0.8) 10^3/uL Absolute Eosinophils 0.06 (0.0-0.7) 10^3/uL Absolute Basophils 0.03 (0.0-0.2) 10^3/uL RBC Morphology See Below Anisocytosis 1+ Microcytosis 1+ PT 11.6 H (9.1-11.1) sec INR 1.2 H (0.9-1.1) Sodium 133 L (136-145) mmol/L Potassium 3.3 L (3.5-5.1) mmol/L Chloride 98 (98-107) mmol/L Carbon Dioxide 27.0 (21.0-32.0) mmol/L Anion Gap 8.0 (3-11) mmol/L BUN 7 (7-18) mg/dL Creatinine 1.4 H (0.55-1.02) mg/dL Est GFR (CKD-EPI 2020) 37.56 (mL/min/1.73m2) Glucose 258 H (74-106) mg/dL Calcium 9.4 (8.5-10.1) mg/dL Magnesium 2.2 (1.8-2.4) mg/dL Total Bilirubin 4.68 H (0.2-1.0) mg/dL AST 64 H (15-37) U/L ALT 72 H (14-59) U/L Alkaline Phosphatase 155 H (46-116) U/L Ammonia < 10 L (11-32) umol/L Creatine Kinase 80 (26-192) U/L Troponin I 38 41 48 (<or=51) ng/L NT-Pro-B Natriuret Pep 7909 H (<300) pg/mL Total Protein 7.9 (6.4-8.2) g/dL Albumin 2.9 L (3.4-5.0) g/dL Lipase 148 H (<78) U/L Intake and Output - 24 Hour Total 12/19/24 14:35 thru 12/19/24 18:43 Intake Total 40 Balance 40 Weight 112 lb 6 oz Intake: IV 20 Oral 20 Falls Risk Assessment History of Falls Admit Due to Fall 12/19/24 18:43 Contributing Factors Confusion,Unstable, 12/19/24 18:43 Impairments,Incontinence Ambulatory Aids Uses ambulatory device 12/19/24 18:43 Tubes/Lines None 12/19/24 18:43 Gait Evaluation W/any additional score 12/19/24 18:43 Cognition Cognitive impairment 12/19/24 18:43 Fall Total Score 87 12/19/24 18:43 Level of Risk Maximum Risk 12/19/24 18:43 Problems (Last Reviewed 12/19/24 @ 15:06 by Merle Serrano MD) Weakness (Acute) Fall (Acute) Advance care planning (Acute) Liver failure (Acute) Heart failure with reduced ejection fraction (Chronic) Ischemic cardiomyopathy (Chronic) Type 2 diabetes mellitus (Chronic) Cognitive impairment (Chronic) v v v v v v v v v Sending and/or Receiving Nurses: Please use comment section below to note any information pertinent to the patient hand-off not included above. Information / Comments: Report received from: Melissa Mason RN
[2024-12-19] MEDS: metFORMIN 500 MG TAB 1000 MG PO (19:52)
[2024-12-19] MEDS: Enoxaparin 40 MG/0.4 ML SYR SC (19:52)
[2024-12-19] MEDS: Atorvastatin 40 MG TAB 80 MG PO (20:37)
[2024-12-19] MEDS: Normal Saline Flush 10 ML SYR IVP (20:37)
[2024-12-19 23:43] VITALS: BP 115/80; PULSE 88; RESP 20; TEMP 36.7; O2SAT 97
[2024-12-20 03:28] VITALS: BP 92/60; PULSE 90; RESP 18; TEMP 36; O2SAT 95
[2024-12-20 07:21] LABS: HCT 34.8 % (36.0-46.0); HGB 11.1 g/dL (11.2-15.7); MCH 23.1 pg (27.0-33.0); MCHC 31.9 % (32.0-36.0); MCV 73 fL (80-95); Platelet Count 245 10^3/uL (130-400); RDW 20.1 % (11.7-14.6); RDW-SD 51.6 fL; WBC 7.16 10^3/uL (4.4-10.8)
[2024-12-20 07:42] LABS: ALT 49 U/L (14-59); AST 40 U/L (15-37); Alkaline Phosphatase 103 U/L (46-116); Anion Gap 8.3 mmol/L (3-11); BUN 7 mg/dL (7-18); CO2 23.7 mmol/L (21.0-32.0); CREATININE 1.1 mg/dL (0.55-1.02); Calcium 8.4 mg/dL (8.5-10.1); Chloride 102 mmol/L (98-107); Estimated GFR 50.17 (mL/min/1.73m2); Glucose 133 mg/dL (74-106); Sodium 134 mmol/L (136-145); Total Protein 5.7 g/dL (6.4-8.2)
[2024-12-20 07:48] LABS: Potassium 2.7 mmol/L (3.5-5.1)
[2024-12-20 07:51] VITALS: BP 93/61; PULSE 89; RESP 18; TEMP 36.8; O2SAT 97
[2024-12-20] MEDS: Metoprolol CR 25 MG TABCR PO (08:46)
[2024-12-20] MEDS: metFORMIN 500 MG TAB 1000 MG PO ×2 (08:46→17:28)
[2024-12-20] MEDS: Aspirin E.C. 81 MG TABEC PO (08:46)
[2024-12-20] MEDS: Spironolactone 50 MG TAB PO (08:46)
[2024-12-20] MEDS: Losartan 25 MG TAB PO (08:46)
[2024-12-20] MEDS: Furosemide 40 MG TAB PO (08:46)
--- NOTE | 2024-12-20 11:18 | IN_ITS ---
PT Notes Visit Reasons: weakness Inpatient Physical Therapy Evaluation Date: 12/20/24 Referring Doctor: Dr. Rodriges PT Orders: PT CONSULT Precautions: N/A Patient Profile/Admitting Diagnosis: Fall at home Subjective: Pt admitted to the hospital following a fall at home. She states that she lives in the same building as her daughter but basically lives alone. She states she still drives, grocery shops, and cooks all of her meals in dependently. She does not have to manage any stairs, although she does live in a two story house. She has a walker but she states she does not usually use it. She knows where she is today but does not exactly know why she is here. Objective: General Observation: Up in the chair, happy to work with PT, excited for breakfast to come Mental Status: A+Ox3 Pain: None Vital Signs: Monitored by nursing ROM: WFL throughout bilat UE and LEs Strength: Able to perform seated hip flexion, LAQs, DF/PF bilat Bed Mobility/Transfers: sit to stand - CGA stand to sit - CGA ambulation - 80 ft w/RW and CGA Balance: Static Sitting: Good Dynamic Sitting: Good Static Standing: Good Dynamic Standing: Fair - requires RW Special Tests: Mobility Limitations Standardized Measure [facility] AM-PAC 6 clicks Basic Mobility Inpatient Short Form: Raw Score: 19 CMS Score: 41.77% Informed Consent/Education: Patient instructed in purpose of PT consult and plan of care. Assessment: Patient was admitted to the hospital following a fall at home. She currently is likely functioning at her baseline but should not be living alone. She does have some cognitive deficits that are concerning. She does not seem compliant with RW use. She is a fall risk. She did do well today with ambulation but did demonstrate a slow gait speed and increased UE support on her RW. It was recommended to her and the hospitalist that she should consider having caregivers to assist her if she does return home. If the family is unable to provide, placement should be considered. Patient is assessed as a [x] Low 34449 complexity based on the following: History: Low Examination: Low Presentation: Low Decision Making: Low Goals: Goals X1 week 1. Supine-Sit - SBA 2. Sit-Supine - SBA 3. Sit-Stand - SBA 4. Stand-Sit - SBA 5. Bed-Chair - SBA 6. Chair-Bed - SBA 7. Gait - ambulate >100 ft w/SBA and RW Plan of Care/Treatment Plan: 1-2x/day, 7 days/week x 1 week. Plan of care has been reviewed with the CUT ROLL MACHINE OPERATOR providing the service under Physical Therapy direction. Initiate Physical Therapy intervention for strengthening, bed mobility, transfers, gait, stairs, balance training, use of assistive device. DISCHARGE RECOMMENDATIONS: Home with 24/7 caregiver or family support to assist with ADLs, if family is unable to assist consider placement TREATMENT CODE/TIME: Low complexity eval - [id number]
[2024-12-20 11:24] VITALS: BP 101/58; PULSE 89; RESP 18; TEMP 36.8; O2SAT 99
[2024-12-20 15:29] VITALS: BP 101/62; PULSE 87; RESP 17; TEMP 36.6; O2SAT 100
--- NOTE | 2024-12-20 15:31 | INITIAL_ITS ---
Date of service: 12/20/24 Time of Service: 15:31 Care Management Initial Assmt Initial Assessment Reason for Hospitalization: weakness Functional Status/Living Situation Patient Presentation: Latanya was sitting up in the chair when CM met with her. She stated that she wasn't feeling well at home, and she was feeling weak, which is why she returned to the hospital so soon after discharge. CM asked if she felt ready for discharge when she went home previously, and she reported that she did at that time. CM discussed alternative plans for discharge, including going to a rehab facility, which she declined, stating that she has a home and plans to return there. CM asked about family support, and she stated that her daughter, son in law, and granddaughter live with her, and they help her when she needs it, but she is usually independent at home and able to care for herself. Per chart review, Latanya's grandson is a good support and he has reported that he feels Latanya has been declining recently, both functionally and cognitively. CM will continue to follow. Town of Residence: [place] Resides with: Child Significant Other/Family: Local Caregiver/Guardian: daughter, Bhavana and son in law, Nasim, live with Latanya grandUrban silverman, is DPOA Employment Status: Retired Instrumental Activities of Daily Living (ADLs): Requires support Medications Medication Management: Issues/Barriers with Instructions/Directions (may need help with med management) Physical Functioning/Mobility Assistive Device: 4WW Advance Directives Advance Directives: Do you have an Advance Directive: Y 12/08/19 10:36 AD On File at [facility]: Y 12/08/19 10:36 Date Asked 05/16/24 05/16/24 18:05 AD Date Reviewed 12/19/24 12/19/24 18:23 COLST On File at [facility] Yes 05/18/24 07:32 COLST Date Scanned 05/18/24 05/18/24 07:32 Code Status Resuscitation Status DNR/DNI Insurance Coverage/Financial Issues Insurance: [employer] MCR replacement Care Team Visit Care Team Role Provider Type Iraida Goode NP Primary Care Provider NURSE PRACTITIONER Mora Law Other Providers CHILDREN'S SERVICE SUPERVISOR Eileen Calvert Other Providers CHILDREN'S SERVICE SUPERVISOR Martita Gonzalez Other Providers CHILDREN'S SERVICE SUPERVISOR Caden Barnes Other Providers OTHER Lesli Bojorquez RN Other Providers CHILDREN'S SERVICE SUPERVISOR Merle Maggie, MD Emergency Provider [facility] STAFF PHYSICIAN Urban Rodriges MD Admit Provider [facility] STAFF PHYSICIAN Attending Provider Discharge Potential Discharge Needs: PT Evaluation and PCP F/U Appt Anticipated Barriers to Discharge: None Identified Patient/Family Education Needs: Review discharge instructions, discuss Ask Me Three Transportation: Private vehicle Plan: Anticipate Latanya will return home with a resumption of HH services vs SNF, if she is agreeable to placement. She will likely transport via private vehicle by family. She will follow up with her PCP and discharge plan of care. CM will continue to follow. Social Determinants of Health Screening Will the Patient Participate in the Screening?: Unable to obtain In the past 12 months, have you had to go without electric, gas, oil or water in your home?: choose not to answer Have you or anyone in your house had to go without enough food to eat?: choose not to answer Has lack of transportation kept you from medical appointments or from doing things needed for daily living?: choose not to answer Has anyone in your life made you feel unsafe or unsupported?: choose not to answer How hard is it for you to pay for the very basics like food, housing, medical care, and heating? Would you say it is:: Very hard Do you want help finding or keeping work or a job?: I do not need or want help If for any reason you need help with day-to-day activities such as bathing, preparing meals, shopping, managing finances, etc., do you get the help you need?: I need a lot more help Do you speak a language other than [place]er at home?: No Does the patient want assistance with any of the above?: Yes Health Related Social Needs Health related social needs: material hardship(utilities) (Z59.12), problems related to housing/economic circumstances (Z59.89) and problems with daily activities (Z73.9) PFSH All Active Problems (Updated 12/19/24 @ 17:21 by Merle Serrano MD) Weakness (Acute) Fall (Acute) Advance care planning (Acute) Arrhythmia (Acute) Liver failure (Acute) Abdominal ascites (Acute) Anasarca (Acute) Heart failure with reduced ejection fraction (Chronic) Ischemic cardiomyopathy (Chronic) Type 2 diabetes mellitus (Chronic) Cognitive impairment (Chronic) Hypertension (Chronic) Hyperlipidemia (Chronic) Venous stasis ulcer with edema of lower leg (Chronic) Medical History DVT prophylaxis CKD stage 3a, GFR 45-59 ml/min Prurigo nodularis Allergic rhinitis Acne rosacea Osteoporosis Surgical History History of hysterectomy (~2005) Family History Mother Cancer Social History Smoking/Tobacco Use Status: Never Smoking risk assessment performed?: Yes Alcohol Intake: never Drug use: Never Substance use type: does not use Adopted: No Caregiver/Support person: No Household members: children, caregiver and other Details: adult daughter Housing: house Number of Children: 1 number of grandchildren: 8 Communication Needs: None Do you need help understanding health information?: Often 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 Sexually active: No Current gender identity: female What is your relationship status?: How often do you talk on the phone with friends or family?: once per week How often do you get together with friends or relatives?: once per week How often do you attend shinto or hoahaoism services?: 1-3 times per year Do you belong to any clubs or organized social groups?: no Panel score (0-1 are the most socially isolated patients): 0 NHANES result reviewed/action taken: Yes What type of physical activity do you participate in: none Makenzie/Gnosticist: Worship Special makenzie needs: No Seatbelt use: always Helmet use: No Drive intox or ride w/intox residential recycle driver: No Firearms in home: No Do you feel safe at home: Yes Do you feel safe in your relationship?: No Victim of physical abuse: No Victim of emotional abuse: No Victim of sexual abuse: No Would you like helpful sources: No Additional Social history: lives alone in [place], daughter with her now a lot. 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
--- NOTE | 2024-12-20 17:22 | PGE_ITS ---
Date of Service Date of service: 12/20/24 Time of Service: 17:22 Assessment and Plan Assessment and plan (1) Heart failure with reduced ejection fraction: Status: Chronic Assessment and plan: Will continue with medical management only. Pt was seen in consultation by Dr Tellez on her last admission. At that time, there were no recommendations besides posibly a echocardiogram. 12/20/27 medical management (2) Type 2 diabetes mellitus: Status: Chronic Assessment and plan: Per history, pt does have issues with non-compliance. Restart home meds (3) Liver failure: Status: Acute Assessment and plan: Labs do appear stable. NH3 is less than 10 which makes encephalopathy less likely (4) Fall: Status: Acute Assessment and plan: Will reengage PT in am (5) Cognitive impairment: Status: Chronic Assessment and plan: noted (6) Advance care planning: Status: Acute Assessment and plan: lovenox for dvt prophylaxis POC d/w grandson. It does appear that the pt is at a place where living at home even with assistance from family is too challenging. Unfortunately, I believe her safest course of action is admission to SNF. 12/20/24 horse racetrack manager is reapplying to SNF but evidently her particular insurance can make placement difficult Latanya was sitting up in the chair when CM met with her. She stated that she wasn't feeling well at home, and she was feeling weak, which is why she returned to the hospital so soon after discharge. CM asked if she felt ready for discharge when she went home previously, and she reported that she did at that time. CM discussed alternative plans for discharge, including going to a rehab facility, which she declined, stating that she has a home and plans to return there. CM asked about family support, and she stated that her daughter, son in law, and granddaughter live with her, and they help her when she needs it, but she is usually independent at home and able to care for herself. Per chart review, Latanya's grandson is a good support and he has reported that he feels Latanya has been declining recently, both functionally and cognitively. CM will continue to follow. Subjective Subjective Interval history since last seen: Pt seen and examined in her room this evening. No new complaints. POC d/w bedside nurse as well as pt. Exam Narrative Exam Narrative: Head eyes ears nose and throat: Normocephalic atraumatic mucous membranes moist oropharynx is clear she does have a ecchymotic region on her religious Neck: No lymphadenopathy no JVD no thyromegaly Cardiovascular: Regular rate and rhythm no murmur rubs or gallops Lungs: Clear to auscultation bilaterally with good air exchange Abdomen: Soft nontender nondistended bowel sounds are active Extremities: 2+ lower extremity edema bilaterally Neurologic: Cranial nerves II through XII intact as tested Psych: She is alert and oriented to person and time but not place General: 84-year-old female who appears her stated age but frail Objective Last Vital Signs Temp 36.6 C 12/20/24 15:29 Pulse 87 12/20/24 15:29 Resp 17 12/20/24 15:29 BP 101/62 12/20/24 15:29 Pulse Ox 100 12/20/24 15:29 Laboratory Results - last 24 hr 12/19/24 12/19/24 12/20/24 17:32 18:52 06:30 WBC 7.16 RBC 4.80 Hgb 11.1 L D Hct 34.8 L MCV 73 L MCH 23.1 L MCHC 31.9 L RDW 20.1 H Plt Count 245 MPV 9.0 Sodium 134 L Potassium 2.7 L* Chloride 102 Carbon Dioxide 23.7 Anion Gap 8.3 BUN 7 Creatinine 1.1 H Est GFR (CKD-EPI 2020) 50.17 Glucose 133 H Calcium 8.4 L Total Bilirubin 3.20 H AST 40 H ALT 49 Alkaline Phosphatase 103 Creatine Kinase 80 Troponin I 41 38 Total Protein 5.7 L Albumin 2.0 L Time Spent with Patient Time Spent with Patient: 25-34 minutes Time was spent: preparing to see the patient(eg.review tests), ordering medications,tests, procedures, referring, communicating with other health pet care assistant, indepentently interpreting results, counseling the patient and care coordination
[2024-12-20] MEDS: Loperamide 2 MG CAP PO (17:28)
[2024-12-20 19:57] VITALS: BP 96/48; PULSE 89; RESP 16; TEMP 36.3; O2SAT 99
[2024-12-20] MEDS: Potassium Chloride 20 MEQ TABCR 40 MEQ PO (20:12)
[2024-12-20] MEDS: Enoxaparin 40 MG/0.4 ML SYR SC (20:12)
[2024-12-20 20:51] LABS: Bilirubin Negative (Negative); Blood Small (Negative); Clarity Clear (Clear); Glucose 500 mg/dL (Negative); Ketones Negative (Negative); Leukocyte Esterase Trace (Negative); Nitrite Negative (Negative); Specific Gravity 1.015 (1.005-1.025)
[2024-12-20 20:59] LABS: Bacteria Moderate HPF (Negative); Casts 3-5 Fine Granular LPF (Negative); Crystals Few Amorphous HPF (Negative); Epithelial Cells Few HPF (Negative); Mucus Moderate (Negative); Other Cells Few Transitional (Negative); WBC 20-50 HPF (0-5)
[2024-12-20 21:00] LABS: C & S Indicated? Yes
[2024-12-20 23:39] VITALS: BP 100/58; PULSE 64; RESP 18; TEMP 36.7; O2SAT 96
[2024-12-21] VITALS (7 sets, daily range): BP systolic 90–110; BP diastolic 46–76; PULSE 60–98; RESP 15–16; TEMP 36.2–36.6; O2SAT 93–99
--- NOTE | 2024-12-21 07:52 | PCNE_ITS ---
Date of service: 12/21/24 Time of Service: 07:52 History of Present Illness History of Present Illness Chief Complaint: Latanya states that she feels good and does not know why she is not at home Narrative: From H and P: his is a 84-year-old female who was just discharged from the hospital yesterday for CHF versus COPD exacerbation. While she was at home last night she has sustained a fall and apparently was on the ground for a fair bit of time. The patient lives with her daughter who does not appear to be giving her her medications and care that her level of morbidity requires. Grandherrera brought her in today for further evaluation and treatment. Of note the grandson is the power of commonwealth attorney. Her workup in the ED was fairly benign with a white count of 6.8 H&H of 13 and 43 she did have a low MCV at 74 her INR was 1.2 sodium was 133 showing much improvement potassium 3.3 chloride 98 bicarb 27 BUN and creatinine 7 and 1.4 which are stable glucose was 258. Mild elevations in her AST ALT as well as alk phos ammonia level less than 10 lipase 148. In terms of imaging no new images were performed. The ED physician asked me to give an opinion on whether the patient was safe to go home. At this point she did appear to be a little bit if not significantly weaker than when I saw her yesterday and on exam she did have some fluid retention. Considering the fact that the patient does not appear to be in a place for safe transition to home I agreed to the admission. Latanya had no recollection of why she was brought to the hospital. She did not agree that she had fallen. She says she gets good care at home from her daughter. She wants to go back home and is absolutely adamant that she not go to a skilled nursing Consults Consult date: 12/21/24 Requesting physician: Urban Rodriges Assessment and Plan Assessment and plan (1) Hypokalemia: Status: Acute (2) Advance care planning: Status: Acute (3) Dementia: Status: Chronic (4) Weakness: Status: Acute Assessment and plan: Latanya does have dementia. She is unable to tell me where she is or why she is here. Please see capacity evaluation. At this point I do not believe she has capacity to make her health decisions. Her grandson is her DPOA. She is adamant that she would not go to a skilled nursing. She does not care about safety she says she has plenty safe at home. She does not care about weakness and feels that she is strong enough to be on her own. Last admission which was last week she demonstrated that she did not have the ability to take care of herself and to take her medications properly. There is concern that this will recur. Again she is adamant she wants to be with her 2 dogs she wants to go home and nobody is going to kick her out of her home. Hypokalemia?it is being replenished PT is working with her. She should go to a SNF for some time so she can regain her strength and take her medications properly. I have done a home visit on her last fall. I doubt that she is getting enough oversight at home to take her medications properly. Unfortunately without proper medication administration?I assume that she will come back again with CHF. I did do the INDU evaluation. She does not have capacity at this time to make these decisions I briefly discussed the case with hospitalist [facility] All Active Problems (Updated 12/21/24 @ 10:07 by Sumi Tay MD, [place]) Dementia (Chronic) Hypokalemia (Acute) Weakness (Acute) Fall (Acute) Advance care planning (Acute) Arrhythmia (Acute) Liver failure (Acute) Abdominal ascites (Acute) Anasarca (Acute) Venous stasis ulcer with edema of lower leg (Chronic) Cognitive impairment (Chronic) Hypertension (Chronic) Heart failure with reduced ejection fraction (Chronic) Ischemic cardiomyopathy (Chronic) Type 2 diabetes mellitus (Chronic) Hyperlipidemia (Chronic) Medical History DVT prophylaxis CKD stage 3a, GFR 45-59 ml/min Prurigo nodularis Allergic rhinitis Acne rosacea Osteoporosis Surgical History History of hysterectomy (~2004) Family History Mother Cancer Social History Smoking/Tobacco Use Status: Never Smoking risk assessment performed?: Yes Alcohol Intake: never Drug use: Never Substance use type: does not use Adopted: No Caregiver/Support person: No Household members: children, caregiver and other Details: adult daughter Housing: house Number of Children: 1 number of grandchildren: 8 Communication Needs: None Do you need help understanding health information?: Often 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 Sexually active: No Current gender identity: female What is your relationship status?: How often do you talk on the phone with friends or family?: once per week How often do you get together with friends or relatives?: once per week How often do you attend scientologist or judaism services?: 1-3 times per year Do you belong to any clubs or organized social groups?: no Panel score (0-1 are the most socially isolated patients): 0 NHANES result reviewed/action taken: Yes What type of physical activity do you participate in: none Makenzie/Worship: Sabianism Special makenzie needs: No Seatbelt use: always Helmet use: No Drive intox or ride w/intox otr driver: No Firearms in home: No Do you feel safe at home: Yes Do you feel safe in your relationship?: No Victim of physical abuse: No Victim of emotional abuse: No Victim of sexual abuse: No Would you like helpful sources: No Additional Social history: lives alone in [place], daughter with her now a lot. 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 Able to sit up on her own. I did not have her walk. She has some scratches on her right forehead and right cheek. She does not know how she got them. She is able to move all 4 extremities. I did not do reflexes. She has 1+ edema in both legs. Her heart was rate controlled. Breathing was quite shallow and there were some scattered rales Results Last Vital Signs Temp 97.3 F L 12/21/24 07:21 Pulse 98 H 12/21/24 07:21 Resp 15 12/21/24 07:21 BP 100/46 L 12/21/24 07:21 Pulse Ox 99 12/21/24 07:21 CAPACITY EVAL: 1. Able to Understand Medical Problem: Observations:NO. DOes not take her medicine as prescribed or understand the importance of taking it. She was recently admitted to the hospital because of a CHF exacerbation which could have been avoided had she taken her medication. She does not know why she is here now I does not remember any falling after returning home 2. Able to Understand Proposed Treatment: Observations: She does not understand that her family cannot take care of her and that she needs rehab 3. Able to Understand Alternative to Proposed Treatment (if any): Observations: She is totally focused on going home and insistent that this is going to happen despite the fact that she has failed at home 4. Able to Understand Option of Refusing Proposed Treatment (including withholding or withdrawing proposed treatment): Observations: She could not listen to any reasons why going to a rehab and getting stronger was a good idea. She just again stated that she is going home 5. Able to Appreciate Reasonably Foreseeable Consequences of Accepting Proposed Treatment: Observations: She wants to go home. She feels that she can take care of herself. She does not remember falling at home nor does she remember why she is in the hospital 6. Able to Appreciate Resonably Foreseeable Consequences of Refusing Proposed Treatment (including withholding or withdrawing proposed treatment): Observation: She is unable to understand that she needs to take her medications as prescribed. She is very forgetful. She does not like taking her water pills because then she has to urinate which is difficult for her Note: for questions 7a/7b a Yes answer means the person's decision is affected by the depression of psychosis. 7a. The Person's Decision is Affected by Depression: Observations: No she does not appear depressed, but she is very fixed on going home 7b. The Person's Decision is Affected by Delusion/Psychosis: Observations: She does not truly have delusions. She just feels that she can go home and take care of herself. She does have dementia and is very forgetful Overall Impression: Definitely Capable Probably Capable Probably Incapable Definitely Incapable XXXXX Comments: Latanya does not know why she is in the hospital. She does not remember that she fell when she went home after being in the hospital. She does not take her medications as prescribed and does not remember that she does not take her medications. She feels her daughter takes good care of her but her daughter is not present much of the time. She does not understand consequences of not taking her medication nor does she understand her physical limitations. She does not have capacity to make decisions regarding her health despite the fact that she is adamant that she can go home, be with her dogs, and take care of herself Labs 12/20/24 06:30 12/20/24 06:30 Labs: Laboratory Results - last 24 hr 12/20/24 12/20/24 06:30 20:30 WBC 7.16 RBC 4.80 Hgb 11.1 L D Hct 34.8 L MCV 73 L MCH 23.1 L MCHC 31.9 L RDW 20.1 H Plt Count 245 MPV 9.0 Urine Color Yellow Urine Clarity Clear Urine pH 6.0 Ur Specific [place] 1.015 Urine Protein 100 H Urine Ketones Negative Urine Blood Small H Urine Nitrite Negative Urine Bilirubin Negative Urine Urobilinogen 1.0 H Ur Leukocyte Esterase Trace H Urine RBC 3-5 H Urine WBC 20-50 H Ur Epithelial Cells Few Urine Crystals Few Amorphous Urine Bacteria Moderate Urine Casts 3-5 Fine Granular Urine Mucus Moderate Urine Other Few Transitional Ur Culture Indicated? Yes Urine Glucose 500 H Time Spent Time Spent with Patient Time Spent(min): 47
[2024-12-21] MEDS: Potassium Chloride 20 MEQ TABCR 40 MEQ PO ×2 (08:15→19:57)
[2024-12-21] MEDS: metFORMIN 500 MG TAB 1000 MG PO ×2 (08:15→17:21)
[2024-12-21] MEDS: Furosemide 40 MG TAB PO (08:15)
[2024-12-21] MEDS: Losartan 25 MG TAB PO (08:15)
[2024-12-21] MEDS: Aspirin E.C. 81 MG TABEC PO (08:16)
[2024-12-21] MEDS: Metoprolol CR 25 MG TABCR PO (08:16)
[2024-12-21] MEDS: Spironolactone 50 MG TAB PO (08:16)
--- NOTE | 2024-12-21 08:55 | PDOC.CMPRO ---
Date of service: 12/21/24 Time of Service: 08:55 Care Management Progress Note Progress Note Text Progress Note Text: Latanya was sitting up in a chair visiting with her family when CM met with her. Latanya had only been home a day before she was readmitted due to a fall. An attempt had been made on her last admission to secure a bed for short term rehab, however it was not successful and no bed offers were received. CM met with Latanya and her family to discuss options for safer care at home and possibly, additional SNF referrals. After a lengthy conversation, the family agreed to have a referral sent to [facility]. If a bed offer is received, she will go there for short term rehab. They are looking into different options for additional support at home. Latanya's daughter that lives with her is close to penitentiary age. If/when Latanya's senior care Medicaid is approved, she would be willing to quit her job and be a paid propellant charge loader for Latanya through [employer]. CM also suggested that Urban purchase some RING cameras so that she can be monitored when she is alone. He was agreeable to the suggestion and currently uses them in his home. They will also pursue obtaining a Life Alert type of device as Latanya has had several falls. Discharge Potential Discharge Needs: PCP F/U Appt Anticipated Barriers to Discharge: Medical Status Patient/Family Education Needs: Review discharge instructions, discuss Ask Me Three Transportation: Private vehicle Plan: Anticipate Latanya will return home with a resumption of HH services vs SNF, if she is agreeable to placement. She will likely transport via private vehicle by family. She will follow up with her PCP and discharge plan of care. CM will continue to follow. Social Determinants of Health Screening Will the Patient Participate in the Screening?: Unable to obtain In the past 12 months, have you had to go without electric, gas, oil or water in your home?: choose not to answer Have you or anyone in your house had to go without enough food to eat?: choose not to answer Has lack of transportation kept you from medical appointments or from doing things needed for daily living?: choose not to answer Has anyone in your life made you feel unsafe or unsupported?: choose not to answer How hard is it for you to pay for the very basics like food, housing, medical care, and heating? Would you say it is:: Very hard Do you want help finding or keeping work or a job?: I do not need or want help If for any reason you need help with day-to-day activities such as bathing, preparing meals, shopping, managing finances, etc., do you get the help you need?: I need a lot more help Do you speak a language other than [place] at home?: No Does the patient want assistance with any of the above?: Yes Health Related Social Needs Health related social needs: material hardship(utilities) (Z59.12), problems related to housing/economic circumstances (Z59.89) and problems with daily activities (Z73.9)
--- NOTE | 2024-12-21 12:45 | PT.INTREAT ---
PT Notes Visit Reasons: weakness Inpatient Physical Therapy Treatment Note [facility] Date:12/21/2024 PRECAUTIONS:Standard, SUBJECTIVE: Pt reports she is cold . She states the pain in her heel is only a little OBJECTIVE: pt presented seated in chair with BLE elevated Therapeutic Activities ([id number][]): Direct one-on-one instruction in dynamic activities to improve functional performance. ?? transfers : sit to stand x2 trials with CGA and cues for hand placement to push up stand to sit with CGA and cues for hand placement. ambulation : Facilitated safe and correct performance of level surface ambulation covering a distance of 80feet x 2 using use front wheeled walker with contact-guard assist and wheelchair follow for safety.She denied pain in her heel while walking. She required one sit rest between distances. Denied headache, chest pain, and lightheadedness throughout activity. Minimal verbal cueing provided for AD management, directional changes, and posture. ASSESSMENT:?Pt demonstrates consistent ability to walk 80 feet without rest. She will benefit from cueing for all transfers for hand placement as she is able to rise without physical assistance when she pushes up from surface. If she attempts to rise with hands on FWW then she requires min A d/t LOB posteriorly. Plan 1-2x/day, 7 days/week x 1 week. Plan of care has been reviewed with the COMPUTER TECHNICAL SUPPORT SPECIALIST providing the service under Physical Therapy direction. Initiate Physical Therapy intervention for strengthening, bed mobility, transfers, gait, stairs, balance training, use of assistive device. TREATMENT CODE/TIME: [id number] DISCHARGE RECOMMENDATION: Short term SNF
[2024-12-21 13:51] LABS: Anion Gap 9.4 mmol/L (3-11); BUN 9 mg/dL (7-18); CO2 20.6 mmol/L (21.0-32.0); CREATININE 1.5 mg/dL (0.55-1.02); Calcium 8.8 mg/dL (8.5-10.1); Chloride 102 mmol/L (98-107); Estimated GFR 34.58 (mL/min/1.73m2); Glucose 264 mg/dL (74-106); Potassium 3.9 mmol/L (3.5-5.1); Sodium 132 mmol/L (136-145)
[2024-12-21] MEDS: Cefpodoxime 200 MG TAB PO (14:26)
--- NOTE | 2024-12-21 14:55 | PGE_ITS ---
Date of Service Date of service: 12/21/24 Time of Service: 14:55 Assessment and Plan Assessment and plan (1) Heart failure with reduced ejection fraction: Status: Chronic Assessment and plan: -Will continue with medical management includingstatin, lasix, losartan, asa, lopressor, and spironolactone (2) Type 2 diabetes mellitus: Status: Chronic Assessment and plan: -Per history, pt does have issues with non-compliance -HbA1c 13% -started on SSI, CCD (3) Liver failure: Status: Acute Assessment and plan: -Labs do appear stable. -NH3 is less than 10 which makes encephalopathy less likely (4) Fall: Status: Acute Assessment and plan: -Will reengage PT in am (5) Cognitive impairment: Status: Chronic Assessment and plan: noted (6) Advance care planning: Status: Acute Assessment and plan: -POC d/w grandson. It does appear that the pt is at a place where living at home even with assistance from family is too challenging. Unfortunately, I believe her safest course of action is admission to SNF. -12/20/24 dining services manager is reapplying to SNF but evidently her particular insurance can make placement difficult Latanya was sitting up in the chair when CM met with her. She stated that she wasn't feeling well at home, and she was feeling weak, which is why she returned to the hospital so soon after discharge. CM asked if she felt ready for discharge when she went home previously, and she reported that she did at that time. CM discussed alternative plans for discharge, including going to a rehab facility, which she declined, stating that she has a home and plans to return there. CM asked about family support, and she stated that her daughter, son in law, and granddaughter live with her, and they help her when she needs it, but she is usually independent at home and able to care for herself. Per chart review, Latanya's grandson is a good support and he has reported that he feels Latanya has been declining recently, both functionally and cognitively. CM will continue to follow. (7) UTI (urinary tract infection): Status: Acute Assessment and plan: -UA 12/20 with postitive leuk esterase, 20-50 WBCs, many bacteria -prelim urine cultures on 12/21 with mixed GPCs and gram negative rods -started on cefpodoxime on 12/21 Subjective Subjective Interval history since last seen: Patient states that she is doing well and has no complaints or concerns at this time Exam Narrative Exam Narrative: Elderly female laying in bed in no acute distress, awake, alert, oriented to person only, heart regular rhythm, lungs clear to auscultation bilaterally abdomen soft, nontender, nondistended Objective Last Vital Signs Temp 97.8 F 12/21/24 11:16 Pulse 95 H 12/21/24 11:16 Resp 15 12/21/24 11:16 BP 90/54 L 12/21/24 11:16 Pulse Ox 99 12/21/24 11:16 Laboratory Results - last 24 hr 12/20/24 12/21/24 20:30 13:25 Sodium 132 L Potassium 3.9 D Chloride 102 Carbon Dioxide 20.6 L Anion Gap 9.4 BUN 9 Creatinine 1.5 H Est GFR (CKD-EPI 2020) 34.58 Glucose 264 H Calcium 8.8 Urine Color Yellow Urine Clarity Clear Urine pH 6.0 Ur Specific [place] 1.015 Urine Protein 100 H Urine Ketones Negative Urine Blood Small H Urine Nitrite Negative Urine Bilirubin Negative Urine Urobilinogen 1.0 H Ur Leukocyte Esterase Trace H Urine RBC 3-5 H Urine WBC 20-50 H Ur Epithelial Cells Few Urine Crystals Few Amorphous Urine Bacteria Moderate Urine Casts 3-5 Fine Granular Urine Mucus Moderate Urine Other Few Transitional Ur Culture Indicated? Yes Urine Glucose 500 H Time Spent with Patient Time Spent with Patient: >50 minutes Time was spent: preparing to see the patient(eg.review tests), obtaining and/or reviewing separately otained hiistory, ordering medications,tests, procedures, referring, communicating with other health specialist wound care, indepentently interpreting results, counseling the patient and care coordination
[2024-12-21] MEDS: Ondansetron O.D.T. 4 MG TABEF PO (15:23)
[2024-12-21] MEDS: Insulin Aspart 300 UNITS/3 ML PEN SC ×2 (17:21→22:20)
--- NOTE | 2024-12-21 19:51 | PTTR_ITS ---
PT Notes Visit Reasons: weakness Inpatient Physical Therapy Treatment Note [facility] Date:12/21/2024 PM session PRECAUTIONS:Standard, SUBJECTIVE: Pt stating she has to go to the bathroom ( as she is attempting to get out of her chair without assistance) OBJECTIVE: pt presented seated in chair with BLE elevated sitting on edge of seat with chair alarm system in place and functioning Therapeutic Activities ([id number][]): Direct one-on-one instruction in dynamic activities to improve functional performance. ?? transfers : sit to stand x2 trials with CGA and cues for hand placement to push up stand to sit with CGA and cues for hand placement. ambulation : Facilitated safe and correct performance of level surface ambulation covering a distance of 30 feet x 2 using use front wheeled walker with contact-guard assist.She denied pain in her heel while walking. She required one sit rest between distances. Denied headache, chest pain, and lightheadedness throughout activity. Minimal verbal cueing provided for AD management, directional changes, and posture. ASSESSMENT:?Pt nearing baseline with need for supervision due to poor insight into unsafe situations and impaired judgement. Pt with poor recall of use of call light system. Pt requires assist for toileting d/t incontinence. Plan 1-2x/day, 7 days/week x 1 week. Plan of care has been reviewed with the ENCYCLOPEDIA RESEARCH WORKER providing the service under Physical Therapy direction. Initiate Physical Therapy intervention for strengthening, bed mobility, transfers, gait, stairs, balance training, use of assistive device. TREATMENT CODE/TIME: [id number] DISCHARGE RECOMMENDATION: Short term SNF
[2024-12-21] MEDS: Enoxaparin 40 MG/0.4 ML SYR SC (19:57)
[2024-12-21] MEDS: Atorvastatin 40 MG TAB 80 MG PO (19:57)
[2024-12-22 03:07] VITALS: BP 79/59; PULSE 73; RESP 15; TEMP 36.6; O2SAT 94
[2024-12-22 03:14] VITALS: BP 80/60
[2024-12-22 07:11] LABS: HCT 37.2 % (36.0-46.0); HGB 11.7 g/dL (11.2-15.7); MCHC 31.5 % (32.0-36.0); MPV 8.9 fL (8.0-11.0); Platelet Count 257 10^3/uL (130-400); RBC 5.09 10^6/uL (3.93-5.22); WBC 7.02 10^3/uL (4.4-10.8)
[2024-12-22 07:34] VITALS: BP 88/56; PULSE 98; RESP 16; TEMP 36.3; O2SAT 96
[2024-12-22 07:37] LABS: MCV 73 fL (80-95); RDW 20.1 % (11.7-14.6)
[2024-12-22 07:43] LABS: Anion Gap 7.9 mmol/L (3-11); BUN 9 mg/dL (7-18); CO2 23.1 mmol/L (21.0-32.0); CREATININE 1.3 mg/dL (0.55-1.02); Calcium 8.7 mg/dL (8.5-10.1); Chloride 104 mmol/L (98-107); Estimated GFR 41.06 (mL/min/1.73m2); Glucose 106 mg/dL (74-106); Potassium 3.7 mmol/L (3.5-5.1); Sodium 135 mmol/L (136-145)
[2024-12-22] MEDS: metFORMIN 500 MG TAB 1000 MG PO (08:22)
[2024-12-22] MEDS: Potassium Chloride 20 MEQ TABCR 40 MEQ PO (08:22)
[2024-12-22] MEDS: Aspirin E.C. 81 MG TABEC PO (08:22)
--- NOTE | 2024-12-22 08:50 | PDOC.CMDIS ---
Date of service: 12/22/24 Time of Service: 08:50 LACE Index Scoring Tool Questions: Length of Stay (in days): 3 Was the patient admitted via the E.D.?: Yes Comorbidities: Diabetes w/o Complication, Congestive Heart Failure and Liver or Renal Disease E.D. Visits: 3 Answers: Total Score: 14 Risk of Readmission: High Risk Care Management Discharge Plan Reason for Hospitalization: weakness Discharge Plan: Latanya will return home with a resumption of services for nursing, PT, OT and DIRECTOR OF ATHLETICS. She will transport via private vehicle with family and will follow up with her PCP and discharge plan of care. Patient/Family Education Needs: Review discharge instructions, discuss Ask Me Three Services Needed at Discharge: Home Health Care Services SDOH Health Related Social Needs: Health related social needs material hardship(utilities) (Z59.12), problems related to housing/economic circumstances (Z59.89), problems with daily activities (Z73.9)
--- NOTE | 2024-12-22 08:52 | CMPROGNOTE_ITS ---
Date of service: 12/22/24 Time of Service: 08:52 Care Management Progress Note Progress Note Text Progress Note Text: This morning a call was received from Urban Thomasadrienneroldan, Latanya's grandson and health care agent. He reported to the nursing staff that he no longer wanted to pursue short term rehab for his grandmother. She does not want to go to a SNF and there are no facilities close enough to them for regular visitation. His mother Bhavana and her Luis live in Latanya's home with her. Bhavana is retired so will be available all the time and is willing to provide her care. CM met with Bhavana and Luis this morning and they reviewed all of the safety m easures they are taking. They have installed a new grab bar in the bathroom for Latanya. They have also ordered cameras to be installed in Latanya's living area as well as a door colon type of device that Latanya can use to summon them. Urban also plans to get a Life Alert for her. CM reviewed the plan with Urban. He is still concerned about Luis Albertos safety and recent falls but is not agreeable to SNF at this point. Discharge Potential Discharge Needs: PCP F/U Appt Anticipated Barriers to Discharge: None Identified Patient/Family Education Needs: Review discharge instructions, discuss Ask Me Three Transportation: Private vehicle Plan: Anticipate Latanya will return home with a resumption of services. She will transport via private vehicle with her daughter and will follow up with her PCP and discharge plan of care. CM will continue to follow. Social Determinants of Health Screening Will the Patient Participate in the Screening?: Unable to obtain In the past 12 months, have you had to go without electric, gas, oil or water in your home?: choose not to answer Have you or anyone in your house had to go without enough food to eat?: choose not to answer Has lack of transportation kept you from medical appointments or from doing things needed for daily living?: choose not to answer Has anyone in your life made you feel unsafe or unsupported?: choose not to answer How hard is it for you to pay for the very basics like food, housing, medical care, and heating? Would you say it is:: Very hard Do you want help finding or keeping work or a job?: I do not need or want help If for any reason you need help with day-to-day activities such as bathing, preparing meals, shopping, managing finances, etc., do you get the help you need?: I need a lot more help Do you speak a language other than Mongolian at home?: No Does the patient want assistance with any of the above?: Yes Health Related Social Needs Health related social needs: material hardship(utilities) (Z59.12), problems related to housing/economic circumstances (Z59.89) and problems with daily activities (Z73.9)
[2024-12-22 09:30] VITALS: BP 84/54; PULSE 78
[2024-12-22 09:49] VITALS: BP 82/60
--- NOTE | 2024-12-22 10:31 | PTTR_ITS ---
PT Notes Visit Reasons: weakness Inpatient Physical Therapy Treatment Note [facility] Date:12/22/2024 PRECAUTIONS:Standard, SUBJECTIVE: Pt reports she is cold but feels good and wants to walk OBJECTIVE: pt presented seated in chair with BLE elevated with chair alarm system in place and functioning Vitals : sit: 82/60 manual LUE stand 82/60 mnual LUE Therapeutic Activities (26913): Direct one-on-one instruction in dynamic activities to improve functional performance. ?? transfers : sit to stand x5 trials with CGA and cues for hand placement to push up stand to sit with CGA and cues for hand placement. Functional transfers surface to surface with FWW CGA cues for safe approach to surface ambulation : Facilitated safe and correct performance of level surface ambulation covering a distance of 85 feet x 2 using use front wheeled walker with contact-guard assist.seated rest between distances .She denied pain in her heel while walking. She required one sit rest between distances. Denied headache, chest pain, and lightheadedness throughout activity. Minimal verbal cueing provided for AD management, directional changes, and posture. ASSESSMENT:?Pt nearing baseline with need for supervision due to poor insight into unsafe situations and impaired judgement. Pt with poor recall of use of call light system.Despite low BPs pt with no S/S of ortho static hypotension Nsg notified of BP sit and stand Plan 1-2x/day, 7 days/week x 1 week. Plan of care has been reviewed with the MEDICAL OFFICE PROFESSIONAL INSTRUCTOR providing the service under Physical Therapy direction. Initiate Physical Therapy intervention for strengthening, bed mobility, transfers, gait, stairs, balance training, use of assistive device. TREATMENT CODE/TIME: [id number] DISCHARGE RECOMMENDATION: SNF vs Home with HH PT with 24 hour support
--- NOTE | 2024-12-22 11:39 | DSE_ITS ---
Date of service: 12/22/24 Time of Service: 11:39 DS: Diagnosis Discharge Diagnosis (1) Heart failure with reduced ejection fraction: Status: Chronic (2) Type 2 diabetes mellitus: Status: Chronic (3) Liver failure: Status: Acute (4) Fall: Status: Acute (5) Cognitive impairment: Status: Chronic (6) Advance care planning: Status: Acute (7) UTI (urinary tract infection): Status: Acute Discharge Plan Disposition Patient Disposition: Home W/Home Health Services Condition: Good Discharge Details Reason For Visit: weakness Admit Date/Time: 12/19/24 17:24 Admit Provider: Urban Rodriges Attending Provider: Urban Rodriges [facility] Hospital Course: Patient was readmitted to [facility] on 12/19/2024 after being discharged 24 hours prior for sustaining a fall at home. During previous hospitalization it was recommended that she go to short-term rehab but the patient and family declined. This was something that was again readdressed multiple times with the patient, her son and [id number] whom the patient lives with, as well as the patient's grandson who is the patient's medical decision-maker but does not live in the area. Again it was explained to them that the recommendations from physical therapy and healthcare providers is that she go to short-term rehab but they declined (please see care management note for full details on multiple conversations with patient and family members). Ultimately, was determined that the patient was medically stable for discharge, and though short-term rehab is recommended, she will be returning home with home health services. Home Meds and New Rx's Prescriptions: New cefpodoxime 200 mg Tablet 200 mg PO Q24H 5 Days Qty: 5 0RF potassium chloride [Klor-Con M20] 20 mEq Tablet,Er Particles/Crystals 40 meq PO BID Qty: 90 0RF ondansetron 4 mg Tablet,Disintegrating 4 mg PO Q8H PRN PRNQty: 10 0RF Continued metoprolol succinate 25 mg tablet extended release 24 hr 25 mg PO DAILY Qty: 90 3RF metformin 1,000 mg tablet 1,000 mg PO BID Patient Comments: Take 1 tablet by mouth twice daily furosemide 40 mg tablet 40 mg PO DAILY spironolactone 50 mg tablet 50 mg PO DAILY aspirin 81 mg Tablet,Delayed Release (Dr/Ec) 81 mg PO DAILY Qty: 90 0RF atorvastatin [Lipitor] 80 mg tablet 80 mg PO QHS Qty: 90 0RF losartan 25 mg tablet 25 mg PO DAILY Qty: 90 0RF Discharge Instructions Activity:: Activity as Tolerated Equipment/Supplies:: No Equipment Needed Diet:: As Tolerated Discharge Orders Discharge Orders: Discharge Order (Routine); Ordered 12/22/24 Ordered By: Rohan Whipple DS: Summary Time Spent with Patient providing and/or coordinating discharge services: Greater than 30 minutes Status at Discharge Functional status at discharge: independent ambulation Overall status at discharge: patient is back to baseline Mental Status: mental status grossly normal Speech and Movement: speech and movement normal Mood: congruent mood Affect: normal affect Quality:SDOH Health Related Social Needs: Health related social needs material hardship(utilitie s) (Z59.12), probl ems related to housing/economic circumstances (Z59.89), problems with daily activities (Z73.9) Exam Narrative Exam Narrative: Elderly female laying in bed in no acute distress, awake, alert, oriented to person only, heart regular rhythm, lungs clear to auscultation bilaterally abdomen soft, nontender, nondistended Psych Mental Status: mental status grossly normal Speech and Movement: speech and movement normal Mood: congruent mood Affect: normal affect DS: Data Vitals/I&O Vitals and I&O: Vital Signs Temperature 97.3 F L 12/22/24 07:34 Temperature Source Tympanic 12/22/24 07:34 Pulse 78 12/22/24 09:30 Pulse Rhythm Regular 12/19/24 18:43 Respiratory Rate 16 12/22/24 07:34 Respiratory Effort Normal, Non-Labored 12/19/24 18:43 Respiratory Depth Normal 12/19/24 18:43 Respiratory Pattern Normal 12/19/24 18:43 Blood Pressure 82/60 L 12/22/24 09:49 Blood Pressure Position Sitting 12/19/24 15:15 Pulse Oximetry 96 12/22/24 07:34 Oxygen Delivery Method Room Air 12/22/24 07:34 Oxygen Flow Rate 0 12/22/24 07:34 Pain Level 0 12/21/24 19:47 Comment Auscultated and measured blood pressure sitting and standing. The pressure remain the same. 12/22/24 09:49 Intake & Output 12/21/24 12/22/24 12/22/24 17:59 05:59 17:59 Intake Total 240 / 240 400 / 640 300 / 300 Output Total 300 / 300 250 / 250 Balance 240 / 240 100 / 340 50 / 50 Weight 136 lb 7.458 oz Intake: Oral 240 / 240 400 / 640 300 / 300 Output: Urine 300 / 300 150 / 150 Stool 100 / 100 Other: Urine Color Yellow Yellow Yellow Urine Appearance Clear Cloudy Cloudy Urine Odor Normal None Comment pT offered toileting, declined. Stool Occult Blood Negative Stool Size Large Small Stool Characteristics Formed Soft Liquid Data Completed and Pending Labs on day of discharge: Labs from last 24 hours 12/22/24 12/21/24 06:45 13:25 WBC 7.02 RBC 5.09 Hgb 11.7 Hct 37.2 MCV 73 L MCH 23.0 L MCHC 31.5 L RDW 20.1 H Plt Count 257 MPV 8.9 Sodium 135 L 132 L Potassium 3.7 3.9 D Chloride 104 102 Carbon Dioxide 23.1 20.6 L Anion Gap 7.9 9.4 BUN 9 9 Creatinine 1.3 H 1.5 H Est GFR (CKD-EPI 2020) 41.06 34.58 Glucose 106 264 H Calcium 8.7 8.8 PFSH All Active Problems (Updated 12/22/24 @ 11:39 by Rohan Whipple MD) UTI (urinary tract infection) (Acute) Dementia (Chronic) Hypokalemia (Acute) Weakness (Acute) Fall (Acute) Advance care planning (Acute) Arrhythmia (Acute) Liver failure (Acute) Abdominal ascites (Acute) Anasarca (Acute) Heart failure with reduced ejection fraction (Chronic) Ischemic cardiomyopathy (Chronic) Type 2 diabetes mellitus (Chronic) Cognitive impairment (Chronic) Hypertension (Chronic) Hyperlipidemia (Chronic) Venous stasis ulcer with edema of lower leg (Chronic) Medical History DVT prophylaxis CKD stage 3a, GFR 45-59 ml/min Prurigo nodularis Allergic rhinitis Acne rosacea Osteoporosis Surgical History History of hysterectomy (~2004) Family History Mother Cancer Social History Smoking/Tobacco Use Status: Never Smoking risk assessment performed?: Yes Alcohol Intake: never Drug use: Never Substance use type: does not use Adopted: No Caregiver/Support person: No Household members: children, caregiver and other Details: adult daughter Housing: house Number of Children: 1 number of grandchildren: 8 Communication Needs: None Do you need help understanding health information?: Often current occupation: retired [employer] Sexually active: No Current gender identity: female What is your relationship status?: How often do you talk on the phone with friends or family?: once per week How often do you get together with friends or relatives?: once per week How often do you attend yazidism or islam services?: 1-3 times per year Do you belong to any clubs or organized social groups?: no Panel score (0-1 are the most socially isolated patients): 0 NHANES result reviewed/action taken: Yes What type of physical activity do you participate in: none Makenzie/Sabianist: Alevism Special makenzie needs: No Seatbelt use: always Helmet use: No Drive intox or ride w/intox truck driver flatbed: No Firearms in home: No Do you feel safe at home: Yes Do you feel safe in your relationship?: No Victim of physical abuse: No Victim of emotional abuse: No Victim of sexual abuse: No Would you like helpful sources: No Additional Social history: lives alone in [place], daughter with her now a lot. 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
--- NOTE | 2024-12-22 11:39 | PDOC.HHF2F_ITS ---
Home Health Referral Home Health Orders Clinical synopsis of why skilled professionals are needed: Dementia, CHF, diabetes, liver failure, cognitive impairment Registered Nurse: Check all that apply Instruct on new or changed medication(s)/assess compliance: Ordered Assess for exacerbation of medical condition, instruct patient/caregivers on signs and symptoms to report for early detection: Ordered Physical Therapist: Check all that apply Increase strength & endurance for safe mobility at home: Ordered To design/establish home maintenance program: Ordered Fall reduction therapy program for patient with history of frequent falls: Ordered Home safety evaluation and teaching/gait training including stair management (if applicable): Ordered Occupational Therapist: Evaluate and treat for patient unable to perform ADL/IADL/self-care: Ordered Encounter Date and Reason: I certify that a FTF encounter for this patient was performed on December 22, 2024 and that such encounter was related to the primary reason the patient requires home health services. The encounter was conducted in the following manner: * By me as the certifying physician, FINISH CARPENTER, PA or * By an inpatient physician, FINISH CARPENTER or PA during an inpatient stay who communicated findings to me, Certification And Authentication I certify that I composed the above information based on my clinical judgment relating to this patient's medical condition and, if applicable, clinical findings communicated to me by the NPP or inpatient physician who performed the FTF encounter. Name of Provider that will be monitoring home health services: Iraida Goode
[2024-12-22] MEDS: Insulin Aspart 300 UNITS/3 ML PEN SC (11:57)
== END 2024-12-22 13:14 | disposition home health service (06) ==
LOC: ER 17:57 → MS 18:23
PROVIDERS: Family Medicine; Admitting Provider Hospitalist; Emergency Provider Emergency Medicine Emergency Medical Services; PCP Nurse Practitioner Family; Visit Provider Hospitalist
DX: N39.0 Urinary tract infection, site not specified; I13.0 Hypertensive heart and chronic kidney disease with heart failure and stage 1 through stage 4 chronic kidney disease, or unspecified chronic kidney disease; I50.22 Chronic systolic (congestive) heart failure; E87.6 Hypokalemia; R53.1 Weakness; K72.00 Acute and subacute hepatic failure without coma; R18.8 Other ascites; E87.1 Hypo-osmolality and hyponatremia; N18.31 Chronic kidney disease, stage 3a; E83.42 Hypomagnesemia; E11.65 Type 2 diabetes mellitus with hyperglycemia; Z91.148 Patient's other noncompliance with medication regimen for other reason; I25.5 Ischemic cardiomyopathy; Z79.84 Long term (current) use of oral hypoglycemic drugs; W19.XXXA Unspecified fall, initial encounter; I87.8 Other specified disorders of veins; L97.821 Non-pressure chronic ulcer of other part of left lower leg limited to breakdown of skin; L97.811 Non-pressure chronic ulcer of other part of right lower leg limited to breakdown of skin; R41.89 Other symptoms and signs involving cognitive functions and awareness; Z66 Do not resuscitate; E11.22 Type 2 diabetes mellitus with diabetic chronic kidney disease
CPT/HCPCS: 00123; 36415; 51798; 80048; 80053; 82550; 83690; 85027; 93005; 96372; 97161; 97530; 99285; J1650; 70450; 81003; 81015; 82140; 83735; 83880; 84484; 85025; 85610; 87086; 93010; 99222; 99232; 99233; 99239; G0378; J1815

== ENCOUNTER 2025-01-07 11:27 | Inpatient (IN) | payer MEDICARE, SELFPAY ==
[2025-01-07] VITALS (68 sets, daily range): BP systolic 82–130; BP diastolic 47–103; PULSE 57–113; RESP 13–30; TEMP 34.4–36.7; O2SAT 94–100
--- NOTE | 2025-01-07 11:45 | DI.CT_ITS ---
Exam(s) CT HEAD WO EXAM: CT HEAD WO CLINICAL HISTORY: AMS. TECHNIQUE: Imaging Protocol: Axial computed tomography images with coronal and sagittal reformatted images were created and reviewed COMPARISON: CT CT HEAD WO from 12/19/2024 FINDINGS: Ventricles and Extra axial spaces: Normal in size and morphology for the patient's age. Hemorrhage: None. Cerebral parenchyma: There is again seen a small lacune in the right basal ganglia. There are areas of decreased attenuation in the white matter consistent with chronic microvascular ischemic disease. No acute mass effect. No findings to definitely suggest an acute infarct are seen. Midline shift: None. Brainstem/Cerebellum: Normal. Calvarium: Normal. Visualized Paranasal sinuses/Mastoids: Clear. Soft Tissues: Unremarkable. IMPRESSION: No acute intracranial process. If there is continued clinical concern, an MRI may be obtained for fu rther evaluation. RADIATION DOSE DELIVERED: 824.03mGy.cm Total DLP DATA REPOSITORY: All CT scans at this facility are submitted to the National Radiology Data Registry (NRDR) Dose Index Registry (DIR) with the [employer] ([employer]). RADIATION OPTIMIZATION: All CT scans at this facility use at least one of these dose optimization te chniques: automated exposure control; mA and/or kV adjustment per patient size (includes targeted exa ms where dose is matched to clinical indication); or iterative reconstruction.
--- NOTE | 2025-01-07 11:45 | RT.EKG_ITS ---
APPROVED REPORT Exam: Resting ECG Reason for Exam: AMS Patient Location: E HR:105 bpm ECG Measurements Heart Rate 105 AXIS MD 177 P 67 QRSd 119 QRS -51 QT 370 T 109 QTc 483 Conclusion Sinus tachycardia 105 normal axis LVH no stemi
--- NOTE | 2025-01-07 11:47 | DI.RAD_ITS ---
Exam(s) XR CHEST 1V IN DI DEPT EXAM: XR CHEST 1V IN DI DEPT CLINICAL HISTORY: AMS. TECHNIQUE: 2D digital imaging was performed. COMPARISON: No exams were available for comparison FINDINGS: Single AP portable view. Significant cardiomegaly again noted. The mediastinum is not widened. No infiltrates nor pleural effusions and no evidence of pulmonary edema. IMPRESSION: No acute pulmonary findings on this single AP portable view of the chest. Prominent cardiomegaly. No pulmonary edema. DATA REPOSITORY: RADIATION DOSE DELIVERED:
[2025-01-07 12:26] LABS: Absolute Basophil Count 0.05 10^3/uL (0.0-0.2); Absolute Lymphocyte Count 1.34 10^3/uL (1.2-3.4); Absolute Monocyte Count 0.71 10^3/uL (0.1-0.8); Basophils % 0.4 %; HCT 41.2 % (36.0-46.0); HGB 12.6 g/dL (11.2-15.7); Immature Grans % 0.8 %; Lymphocytes % 10.6 %; MCH 23.1 pg (27.0-33.0); MCHC 30.6 % (32.0-36.0); MCV 76 fL (80-95); MPV 9.9 fL (8.0-11.0); Monocytes % 5.6 %; Neutrophils % 82.6 %; Nucleated RBC 0.2 % (0.0-0.3); Platelet Count 419 10^3/uL (130-400); RBC 5.45 10^6/uL (3.93-5.22); RDW 23.4 % (11.7-14.6); RDW-SD 59.7 fL; WBC 12.68 10^3/uL (4.4-10.8)
[2025-01-07 12:29] LABS: Absolute Neutrophil Count 10.47 10^3/uL (1.2-6.7)
[2025-01-07 12:37] LABS: Ammonia < 10 umol/L (11-32)
[2025-01-07 12:41] LABS: PTT Activated 28.8 sec (20.6-30.2)
[2025-01-07 12:49] LABS: ALT 94 U/L (14-59); AST 180 U/L (15-37); Albumin 3.2 g/dL (3.4-5.0); Alkaline Phosphatase 163 U/L (46-116); Anion Gap 14.2 mmol/L (3-11); BUN 27 mg/dL (7-18); Bilirubin, Total 4.61 mg/dL (0.2-1.0); CO2 19.8 mmol/L (21.0-32.0); CREATININE 1.5 mg/dL (0.55-1.02); Calcium 9.3 mg/dL (8.5-10.1); Chloride 94 mmol/L (98-107); Estimated GFR 34.58 (mL/min/1.73m2); Glucose 204 mg/dL (74-106); Magnesium 1.7 mg/dL (1.8-2.4); Potassium 5.2 mmol/L (3.5-5.1); Sodium 128 mmol/L (136-145); Total Protein 7.9 g/dL (6.4-8.2)
[2025-01-07 12:53] LABS: Anisocytosis 1+; Diff Comment RBC Morph Reviewed; Polychromasia Present; Troponin I 82 ng/L (<or=51)
[2025-01-07 12:55] LABS: NT-proBNP 28359 pg/mL (<300)
[2025-01-07] MEDS: CEFEPIME 1 GM in Normal Saline 50 ML IVPB ×2 (13:02→23:03)
[2025-01-07 13:14] LABS: Bilirubin Moderate (Negative); Blood Moderate (Negative); Clarity Sl Cloudy (Clear); Glucose Negative (Negative); Ketones Trace mg/dL (Negative); Leukocyte Esterase Negative (Negative); Nitrite Negative (Negative); Specific Gravity >= 1.030 (1.005-1.025); pH 5.5 (5-8)
[2025-01-07 13:25] LABS: Bacteria Few HPF (Negative); C & S Indicated? No; Crystals Negative HPF (Negative); Epithelial Cells Few HPF (Negative); Mucus Negative (Negative)
[2025-01-07 13:41] LABS: Procalcitonin 0.26 ng/mL
[2025-01-07 13:57] LABS: Troponin I 79 ng/L (<or=51)
[2025-01-07] MEDS: VANCOMYCIN/WATER (PEG) 1.5 GM/300 ML BAG IVPB (14:04)
--- NOTE | 2025-01-07 14:06 | W.PM.HP.N ---
Date of service: 01/07/25 Time of Service: 14:06 Assessment and Plan Assessment and plan (1) Cardiogenic shock: Status: Acute Assessment and plan: -likely cause of patients weakness, worsneing LE edema, elevated pBNP, hypotension, and hyponatremia -last echo in May 2024 showed EF 20-25%, will order new echo for 01/08 -given 80mg IV lasix in ED with 300ml urine output in first ~2hrs, will continue IV lasix BID -currently on ~3mcg levophed, will continue will increasing diuretics -strict I/O's (2) Hyponatremia: Status: Acute Assessment and plan: -likely secondary to CHF exacerbation/fluid overload -f/u AMP BMP (3) Hyperkalemia: Status: Acute Assessment and plan: -very midly elevated to 5.2 -should improve with diuresis as noted above -fu AM BMP (4) Lactic acidosis: Status: Acute Assessment and plan: -may be secondary to cardiogenic shock, though could also be due to Septic shock (see below) -repeat down to 5.2 (5) Septic shock: Status: Acute Assessment and plan: -while patient meets criteria with HR >100, RR in the high 20's, temp 94.0oF on arrival, WBC 12.6, lactic acid of 7 and MAP <65 requiring pressor support, there si currently no source of infection as patients CXR was without acute findings and UA was negative -additionally, temp may be due to time spent outside trying to get patient into the car to get to her PCP appointment, HR, RR, LA, and hypotension could also all be secondary to CHF excerbation and caridogenic shock as noted above -patient was started on vanc and zosyn in the ED, and will continue at this time, though low threshold to discontinue if no potential source of infection presents itself in the next 24-48hrs (6) Venous stasis ulcer with edema of lower leg: Status: Chronic Assessment and plan: -chronic, continue wound management (7) Advance care planning: Status: Acute Assessment and plan: - History of Present Illness History of Present Illness Chief Complaint: cough and fatigue Narrative: 84yo female with PMH IDDM, CKD, dementia, HTN, and HFrEF who presents to the ED with complaints of cough and fatigue. Patient family had stated that for the last week or so she has been more week, has had intermittent episodes of vomiting, decrease oral intake all in addition to reported chronic diarrhea. She was suppose to see her PCP today but was unable to get her into the car due to her weakness. They state that just a week ago she was independently ambulating around her home and make meals for herself. They deny any fevers, chills, headache, lightheadedness, dizziness, sputum production, or dysuria. In the ED the patient was noted to be ill appearing with HRs in the low 100's, low blood pressures and MAP between 59-61, RR in the high 20's, and appearing fluid overloaded on exam with bilateral LE edema. CBC showed WBC 12.6, pBNP was 76297 (baseline ~7K), Na 128, K 5.2, Cr 1.5 (baseline 1.1-1.3), and LA of 7. Additionally, initial temp was noted to be 94.0oF, but this may be secondary to the time family spent trying to get the patient into the car when attempting to bring her to her PCP appointment. CXR showed no acute findings and head CT was also negative. However, given positive SIRS elevated lactic acid she was started on zanc and zosyn. She was also given 80mg IV lasix for presumed cardiogenic shock, and was also placed on IV levophed. At which time emergency room physican paged hospitalist for admission of a patient with likely cardiogenic +/- septic shock requiring IV pressors and aggressive IV diuretics. Of note, patient was here at [facility] from 12/11-11/30/2024, and again 12/19-12/22/2024 for exacerbation of CHF and UTI. At that time, discharge recommendation was for patient to go to [facility]. However, despite strong recommendations from staff including myself, PT, and Care Management, both the patient and her decision maker (her grandson who does not live in the area) declined [facility] placement and continues to take the patient home only for her to fail and return to the hospital anywhere from 1 day to 14 days later. Review of Systems All systems reviewed & are unremarkable except as noted in HPI and below PFSH All Active Problems (Updated 01/07/25 @ 17:50 by Rohan Whipple MD) Advance care planning (Acute) Septic shock (Acute) Lactic acidosis (Acute) Hyperkalemia (Acute) Hyponatremia (Acute) Cardiogenic shock (Acute) Type 2 diabetes mellitus with unspecified diabetic retinopathy without macular edema (Acute) CKD stage 3a, GFR 45-59 ml/min (Acute) UTI (urinary tract infection) (Acute) Dementia (Chronic) Liver failure (Acute) Abdominal ascites (Acute) Anasarca (Acute) Heart failure with reduced ejection fraction (Chronic) Ischemic cardiomyopathy (Chronic) Type 2 diabetes mellitus (Chronic) Hypertension (Chronic) Hyperlipidemia (Chronic) Venous stasis ulcer with edema of lower leg (Chronic) Medical History (Updated 01/07/25 @ 17:50 by Rohan Whipple MD) Prurigo nodularis Allergic rhinitis Acne rosacea Osteoporosis Surgical History History of hysterectomy (~2004) Family History Mother Cancer Social History Smoking/Tobacco Use Status: Never Smoking risk assessment performed?: Yes Alcohol Intake: never Drug use: Never Substance use type: does not use Adopted: No Caregiver/Support person: No Household members: children, caregiver and other Details: adult daughter Housing: house Number of Children: 1 number of grandchildren: 8 Communication Needs: None Do you need help understanding health information?: Often 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 Sexually active: No Current gender identity: female What is your relationship status?: How often do you talk on the phone with friends or family?: once per week How often do you get together with friends or relatives?: once per week How often do you attend cheondoism or nondenominational services?: 1-3 times per year Do you belong to any clubs or organized social groups?: no Panel score (0-1 are the most socially isolated patients): 0 NHANES result reviewed/action taken: Yes What type of physical activity do you participate in: none Makenzie/Baptism: Confucianist Special makenzie needs: No Seatbelt use: always Helmet use: No Drive intox or ride w/intox miniature train driver: No Firearms in home: No Do you feel safe at home: Yes Do you feel safe in your relationship?: No Victim of physical abuse: No Victim of emotional abuse: No Victim of sexual abuse: No Would you like helpful sources: No Additional Social history: lives alone in [place], daughter with her now a lot. 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 [facility] Cardiovascular Simulation Allergies and Home Medications Allergies Allergy/AdvReac Type Severity Reaction Status Date / Time INDU Inhibitors AdvReac Intermediate cough Verified 12/19/24 14:57 codeine AdvReac Intermediate Other (See Verified 12/19/24 14:57 Comment) Home Medications ?Medication ?Instructions ?Recorded ?Confirmed ?Type ondansetron 4 mg disintegrating 4 mg PO Q8H PRN PRN #10 tabs 12/22/24 01/07/25 Rx tablet aspirin 81 mg tablet,delayed 81 mg PO DAILY #90 tabs 12/24/24 01/07/25 Rx release atorvastatin 80 mg tablet (Lipitor) 80 mg PO QHS #90 tabs 12/24/24 01/07/25 Rx blood-glucose meter #1 ea 12/24/24 12/24/24 Rx dapagliflozin propanediol 10 mg 10 mg PO DAILY #90 tabs 12/24/24 01/07/25 Rx tablet (Farxiga) furosemide 20 mg tablet 20 mg PO DAILY #90 tabs 12/24/24 01/07/25 Rx insulin glargine-yfgn 100 unit/mL 5 unit (0.05 mL) subcut DAILY #15 12/24/24 01/07/25 Rx (3 mL) subcutaneous pen mL losartan 25 mg tablet 25 mg PO DAILY #90 tabs 12/24/24 01/07/25 Rx metformin 1,000 mg tablet 1,000 mg PO BID #180 tabs 12/24/24 01/07/25 Rx metoprolol succinate 25 mg 25 mg PO DAILY #90 tabs 12/24/24 01/07/25 Rx tablet,extended release 24 hr pen needle, diabetic 31 gauge x #100 ea 12/24/24 12/24/24 Rx 5/16 (BD Ultra-Fine Short Pen Needle) potassium chloride 20 mEq oral 20 meq PO DAILY #100 ea 12/24/24 01/07/25 Rx packet spironolactone 25 mg tablet 25 mg PO DAILY #90 tabs 12/24/24 01/07/25 Rx blood sugar diagnostic (Accu-Chek #200 ea 01/01/25 Rx Guide test strips) lancets 33 gauge (Sandy Castañeda #200 ea 01/01/25 Rx Plus Lancet) Exam Narrative Exam Narrative: Fatigued elderly female sitting up in the bed in no acute distress, awake, alert, oriented to person, place and situation, heart RRR, lungs CTAB, abdomen soft, non-tender, non-distended, significant +3 pitting edema in bilateral LE up to the knee Results Labs 01/07/25 12:13 01/07/25 12:13 Labs: Laboratory Results - last 24 hr 01/07/25 01/07/25 01/07/25 12:13 12:59 13:17 WBC 12.68 H RBC 5.45 H Hgb 12.6 Hct 41.2 MCV 76 L MCH 23.1 L MCHC 30.6 L RDW 23.4 H Plt Count 419 H MPV 9.9 Immature Gran % 0.8 Neutrophils % 82.6 Lymphocytes % 10.6 Monocytes % 5.6 Eosinophils % 0.0 Basophils % 0.4 Nucleated RBC % 0.2 Absolute Neutrophils 10.47 H Absolute Lymphocytes 1.34 Absolute Monocytes 0.71 Absolute Eosinophils 0.00 Absolute Basophils 0.05 RBC Morphology See Below Polychromasia Present Anisocytosis 1+ PT 19.0 H INR 2.0 H APTT 28.8 VBG Lactate 7.0 H* Sodium 128 L Potassium 5.2 H Chloride 94 L Carbon Dioxide 19.8 L Anion Gap 14.2 H BUN 27 H Creatinine 1.5 H Est GFR (CKD-EPI 2020) 34.58 Glucose 204 H Calcium 9.3 Magnesium 1.7 L Total Bilirubin 4.61 H AST 180 H ALT 94 H Alkaline Phosphatase 163 H Ammonia < 10 L Troponin I 82 H* 79 H* NT-Pro-B Natriuret Pep 62371 H Total Protein 7.9 Albumin 3.2 L Procalcitonin 0.26 Urine Color Yellow Urine Clarity Sl Cloudy Urine pH 5.5 Ur Specific [place] >= 1.030 H Urine Protein >=300 H Urine Ketones Trace H Urine Blood Moderate H Urine Nitrite Negative Urine Bilirubin Moderate H Urine Urobilinogen 1.0 H Ur Leukocyte Esterase Negative Urine RBC 3-5 H Urine WBC 5-10 Ur Epithelial Cells Few Urine Crystals Negative Urine Bacteria Few Urine Casts 20-50 Fine Granular Urine Mucus Negative Ur Culture Indicated? No Urine Glucose Negative Last Vital Signs Temp 97.2 F L 01/07/25 12:48 Pulse 103 H 01/07/25 12:48 Resp 24 01/07/25 12:48 BP 82/66 L 01/07/25 13:05 Pulse Ox 99 01/07/25 12:48 Time Spent Time spent with Patient: >75 minutes Time was spent: preparing to see the patient(eg.review tests), obtaining and/or reviewing separately otained hiistory, ordering medications,tests, procedures, referring, communicating with other health care director, indepentently interpreting results, counseling the patient and care coordination
--- NOTE | 2025-01-07 14:31 | NUR.NOTE ---
Bhavana daughter [phone] Nursing Note:
[2025-01-07] MEDS: Furosemide 100 MG/10 ML VIAL 80 MG IVP (14:40)
[2025-01-07] MEDS: Norepinephrine in D5W 8 MG/250 ML BAG 9.375 MG IV (14:41)
--- NOTE | 2025-01-07 15:01 | ED.GENADUL_ITS ---
Discharge Plan Disposition Patient Disposition: Admit to [facility] Condition: Poor Discharge Details Chief Complaint: RespSymp Clinical Impression: Cardiogenic shock, Dementia, Anasarca, Heart failure with reduced ejection fraction, Ischemic cardiomyopathy, Venous stasis ulcer with edema of lower leg, Hyponatremia Primary Care Provider: Iraida Goode ED Provider: Roxana Henry Home Meds and New Rx's Prescriptions: No Action dapagliflozin propanediol [Farxiga] 10 mg tablet 10 mg PO DAILY Qty: 90 3RF furosemide 20 mg tablet 20 mg PO DAILY Qty: 90 3RF atorvastatin [Lipitor] 80 mg tablet 80 mg PO QHS Qty: 90 3RF losartan 25 mg tablet 25 mg PO DAILY Qty: 90 3RF metformin 1,000 mg tablet 1,000 mg PO BID Qty: 180 3RF potassium chloride 20 mEq packet 20 meq PO DAILY Qty: 100 3RF spironolactone 25 mg tablet 25 mg PO DAILY Qty: 90 3RF aspirin 81 mg tablet,delayed release (DR/EC) 81 mg PO DAILY Qty: 90 3RF metoprolol succinate 25 mg tablet extended release 24 hr 25 mg PO DAILY Qty: 90 3RF insulin glargine-yfgn 100 unit/mL (3 mL) insulin pen 5 unit subcut DAILY Qty: 15 3RF (DME) blood-glucose meter Kit See Rx Instructions .MEDSUPPLY Qty: 1 2RF Rx Instructions: Check blood sugar twice a day (DME) pen needle, diabetic [BD Ultra-Fine Short Pen Needle] 31 gauge x 5/16 needle See Rx Instructions .MEDSUPPLY Qty: 100 3RF Rx Instructions: Use with pen daily (DME) Accu-Chek Guide test strips Strip See Rx Instructions .Route Qty: 200 3RF Rx Instructions: Check blood sugar twice a day (DME) lancets [OneTouch Delica Plus Lancet] 33 gauge misc See Rx Instructions .MEDSUPPLY Qty: 200 3RF Rx Instructions: Check blood sugar twice a day ondansetron 4 mg Tablet,Disintegrating 4 mg PO Q8H PRN PRNQty: 10 0RF HPI General Date/Time Provider Initiated Documentation: 01/07/25 11:47 . Limitations to Documentation: altered mental status and physical limitation . Information obtained by: patient and family . HPI Narrative: 84-year-old female with past medical history of diabetes, CKD, dementia, hypertension presents for evaluation of cough and fatigue. The family is at bedside and they report that the they have had significant concern for the patient for the last week or so. She has been having vomiting and poor oral intake in addition to her chronic diarrhea. They had arranged for her to go to her PCPs office today, but they were unable to get her into the car because of her weakness. They state that not too long ago she was ambulatory around the house participating and making meals and able to get herself to the bathroom, but her daughter states that this is changed drastically particularly over the last week. She is unable to get out of bed to go to the bathroom or walk around. They report that she previously had been evaluated for the diarrhea and no diagnosis was given. She had been on potassium to try and keep her potassium up. Related Data Home Medications ?Medication ?Instructions ?Recorded ?Confirmed ondansetron 4 mg disintegrating 4 mg PO Q8H PRN PRN #10 tabs 12/22/24 01/07/25 tablet aspirin 81 mg tablet,delayed 81 mg PO DAILY #90 tabs 12/24/24 01/07/25 release atorvastatin 80 mg tablet (Lipitor) 80 mg PO QHS #90 tabs 12/24/24 01/07/25 blood-glucose meter #1 ea 12/24/24 12/24/24 dapagliflozin propanediol 10 mg 10 mg PO DAILY #90 tabs 12/24/24 01/07/25 tablet (Farxiga) furosemide 20 mg tablet 20 mg PO DAILY #90 tabs 12/24/24 01/07/25 insulin glargine-yfgn 100 unit/mL 5 unit (0.05 mL) subcut DAILY #15 12/24/24 01/07/25 (3 mL) subcutaneous pen mL losartan 25 mg tablet 25 mg PO DAILY #90 tabs 12/24/24 01/07/25 metformin 1,000 mg tablet 1,000 mg PO BID #180 tabs 12/24/24 01/07/25 metoprolol succinate 25 mg 25 mg PO DAILY #90 tabs 12/24/24 01/07/25 tablet,extended release 24 hr pen needle, diabetic 31 gauge x #100 ea 12/24/24 12/24/2404/02 (BD Ultra-Fine Short Pen Needle) potassium chloride 20 mEq oral 20 meq PO DAILY #100 ea 12/24/24 01/07/25 packet spironolactone 25 mg tablet 25 mg PO DAILY #90 tabs 12/24/24 01/07/25 blood sugar diagnostic (Accu-Chek #200 ea 01/01/25 Guide test strips) lancets 33 gauge (OneTouch Delica #200 ea 01/01/25 Plus Lancet) Previous Rx's ?Medication ?Instructions ?Recorded ondansetron 4 mg disintegrating 4 mg PO Q8H PRN PRN #10 tabs 12/22/24 tablet aspirin 81 mg tablet,delayed 81 mg PO DAILY #90 tabs 12/24/24 release atorvastatin 80 mg tablet (Lipitor) 80 mg PO QHS #90 tabs 12/24/24 blood-glucose meter #1 ea 12/24/24 dapagliflozin propanediol 10 mg 10 mg PO DAILY #90 tabs 12/24/24 tablet (Farxiga) furosemide 20 mg tablet 20 mg PO DAILY #90 tabs 12/24/24 insulin glargine-yfgn 100 unit/mL 5 unit (0.05 mL) subcut DAILY #15 12/24/24 (3 mL) subcutaneous pen mL losartan 25 mg tablet 25 mg PO DAILY #90 tabs 12/24/24 metformin 1,000 mg tablet 1,000 mg PO BID #180 tabs 12/24/24 metoprolol succinate 25 mg 25 mg PO DAILY #90 tabs 12/24/24 tablet,extended release 24 hr pen needle, diabetic 31 gauge x #100 ea 12/24/24 5/16 (BD Ultra-Fine Short Pen Needle) potassium chloride 20 mEq oral 20 meq PO DAILY #100 ea 12/24/24 packet spironolactone 25 mg tablet 25 mg PO DAILY #90 tabs 12/24/24 blood sugar diagnostic (Accu-Chek #200 ea 01/01/25 Guide test strips) lancets 33 gauge (OneTouch Delica #200 ea 01/01/25 Plus Lancet) Allergies Allergy/AdvReac Type Severity Reaction Status Date / Time INDU Inhibitors AdvReac Intermediate cough Verified 12/19/24 14:57 codeine AdvReac Intermediate Other (See Verified 12/19/24 14:57 Comment) General Stated Complaint: RespSymp ARNOLDO: 2 Exam Narrative Exam Narrative: Review of Systems: All systems reviewed & are unremarkable except as noted in HPI and below Ill-appearing Hypothermic NCAT Mild tachycardia, no murmur, hypotensive Mild tachypnea, no hypoxia, diminished breath sounds bilaterally ondistended abdomen , soft nontender Bilateral lower extremities with firm pitting edema and mild venous stasis changes there are some ulcerated areas covered with bandage Oriented to person but seems to get easily confused and states that there is nothing wrong and she feels just fine. cool extremities to touch Course Vital Signs Vital signs: Vital Signs Temperature 34.4 C L 01/07/25 11:29 Pulse 108 H 01/07/25 11:29 Respiratory Rate 30 H 01/07/25 11:29 Blood Pressure 101/58 L 01/07/25 11:29 Pulse Oximetry 100 01/07/25 11:29 Temperature 36.7 C 01/07/25 14:46 Temperature Source Oral 01/07/25 11:34 Pulse 99 H 01/07/25 14:46 Pulse 100 H 01/07/25 14:46 Respiratory Rate 21 01/07/25 14:46 Respiratory Effort Normal 01/07/25 11:49 Respiratory Depth Normal 01/07/25 11:49 Blood Pressure 94/67 L 01/07/25 14:46 Blood Pressure Mean 76 01/07/25 14:46 Blood Pressure Position Sitting 01/07/25 11:34 Pulse Oximetry 99 01/07/25 14:46 Oxygen Delivery Method Room Air 01/07/25 11:34 Oxygen Flow Rate 0 01/07/25 11:34 Lab/Test Results Lab/Test Results: 01/07/25 12:13 Blood Blood Culture - Pending 01/07/25 11:47 Blood Blood Culture - Pending Laboratory Tests Range/Units 01/07/25 01/07/25 01/07/25 12:13 12:59 13:17 WBC (4.4-10.8) 10^3/uL 12.68 H RBC (3.93-5.22) 10^6/uL 5.45 H Hgb (11.2-15.7) g/dL 12.6 Hct (36.0-46.0) % 41.2 MCV (80-95) fL 76 L MCH (27.0-33.0) pg 23.1 L MCHC (32.0-36.0) % 30.6 L RDW (11.7-14.6) % 23.4 H Plt Count (130-400) 10^3/uL 419 H MPV (8.0-11.0) fL 9.9 Immature Gran % % 0.8 Neutrophils % % 82.6 Lymphocytes % % 10.6 Monocytes % % 5.6 Eosinophils % % 0.0 Basophils % % 0.4 Nucleated RBC % (0.0-0.3) % 0.2 Absolute Neutrophils (1.2-6.7) 10^3/uL 10.47 H Absolute Lymphocytes (1.2-3.4) 10^3/uL 1.34 Absolute Monocytes (0.1-0.8) 10^3/uL 0.71 Absolute Eosinophils (0.0-0.7) 10^3/uL 0.00 Absolute Basophils (0.0-0.2) 10^3/uL 0.05 RBC Morphology See Below Polychromasia Present Anisocytosis 1+ PT (9.1-11.1) sec 19.0 H INR (0.9-1.1) 2.0 H APTT (20.6-30.2) sec 28.8 VBG Lactate (<or=2.0) mmol/L 7.0 H* Sodium (136-145) mmol/L 128 L Potassium (3.5-5.1) mmol/L 5.2 H Chloride (98-107) mmol/L 94 L Carbon Dioxide (21.0-32.0) mmol/L 19.8 L Anion Gap (3-11) mmol/L 14.2 H BUN (7-18) mg/dL 27 H Creatinine (0.55-1.02) mg/dL 1.5 H Est GFR (CKD-EPI 2020) (mL/min/1.73m2) 34.58 Glucose (74-106) mg/dL 204 H Calcium (8.5-10.1) mg/dL 9.3 Magnesium (1.8-2.4) mg/dL 1.7 L Total Bilirubin (0.2-1.0) mg/dL 4.61 H AST (15-37) U/L 180 H ALT (14-59) U/L 94 H Alkaline Phosphatase (46-116) U/L 163 H Ammonia (11-32) umol/L < 10 L Troponin I (<or=51) ng/L 82 H* 79 H* NT-Pro-B Natriuret Pep (<300) pg/mL 06797 H Total Protein (6.4-8.2) g/dL 7.9 Albumin (3.4-5.0) g/dL 3.2 L Procalcitonin ng/mL 0.26 Urine Color (Yellow) Yellow Urine Clarity (Clear) Sl Cloudy Urine pH (5-8) 5.5 Ur Specific [place] (1.005-1.025) >= 1.030 H Urine Protein (Neg-Trace) mg/dL >=300 H Urine Ketones (Negative) mg/dL Trace H Urine Blood (Negative) Moderate H Urine Nitrite (Negative) Negative Urine Bilirubin (Negative) Moderate H Urine Urobilinogen (Up to 0.2) mg/dL 1.0 H Ur Leukocyte Esterase (Negative) Negative Urine RBC (0-2) HPF 3-5 H Urine WBC (0-5) HPF 5-10 Ur Epithelial Cells (Negative) HPF Few Urine Crystals (Negative) HPF Negative Urine Bacteria (Negative) HPF Few Urine Casts (Negative) LPF 20-50 Fine Granular Urine Mucus (Negative) Negative Ur Culture Indicated? No Urine Glucose (Negative) mg/dL Negative Medical Decision Making Emergent evaluation of weakness and increased debility. The patient has multiple medical comorbidities and on arrival she is fairly ill-appearing with significant vital sign derangement including low blood pressure tachycardia, tachypnea and hypothermia. A temperature sensing Khoury was placed for close monitoring. The initial concerns include sepsis, cardiogenic shock. I doubt CVA or other acute intracranial process causing her confusion. Will evaluate for electrolyte derangement, urinary tract infection. Anticipate hospitalization. Lab work reviewed. There is a mild leukocytosis, no significant anemia. Her INR is noted to be elevated at 2 though I am not seeing any anticoagulant on her medication list. Her initial lactate was significantly elevated at 7. I suspect that this is more likely due to poor perfusion then severe sepsis though blood cultures and broad-spectrum antibiotics have been ordered. Her electrolytes panel reveals significant extensive derangement including hyponatremia and mild hyperkalemia for which IV Lasix was given. She does have a mild. Renal function is not significantly worse than baseline. She has some mild hypomagnesemia. Her troponin is slightly elevated but serial troponins with no significant delta. Her BNP is very elevated at nearly 30,000. She has no signs of urinary tract infection and her procalcitonin is not elevated. I suspect that she has cardiogenic shock. Her blood pressures have been soft with maps in the 60s and I will start a norepinephrine infusion for blood pressure improvement. She also received a head CT due to the reports of confusion and there was no intracranial process noted. Her chest x-ray revealed cardiomegaly without significant pleural effusion or consolidative process. At this time the patient will be admitted to the hospital for further management of her ongoing symptoms. Quality:[facility] [place] [facility] Related Social Needs: Health related social needs material hardship(utilitie s) (Z59.12), problems related to housing/economic circumstances (Z59.89), problems with daily activities (Z73.9) Critical Care Time Critical Care Time Critical Care Time: Yes Total Critical Care Time: 36 Attestation: CRITICAL CARE Upon my evaluation, this patient had a high probability of imminent or life- threatening deterioration due to cardiogenic shock which required my direct attention, intervention, and personal management. I have personally provided 36 minutes of critical care time exclusive of time spent on separately billable procedures. Time includes review of laboratory data, radiology results, discussion with consultants, and monitoring for potential decompensation. Interventions were performed as documented above PFSH All Active Problems (Updated 01/07/25 @ 15:10 by Roxana Henry MD) Hyponatremia (Acute) Cardiogenic shock (Acute) Type 2 diabetes mellitus with unspecified diabetic retinopathy without macular edema (Acute) CKD stage 3a, GFR 45-59 ml/min (Acute) UTI (urinary tract infection) (Acute) Dementia (Chronic) Liver failure (Acute) Abdominal ascites (Acute) Anasarca (Acute) Heart failure with reduced ejection fraction (Chronic) Ischemic cardiomyopathy (Chronic) Type 2 diabetes mellitus (Chronic) Hypertension (Chronic) Hyperlipidemia (Chronic) Venous stasis ulcer with edema of lower leg (Chronic) Medical History (Updated 01/07/25 @ 15:10 by Roxana Henry MD) Prurigo nodularis Allergic rhinitis Acne rosacea Osteoporosis Surgical History History of hysterectomy (~2004) Family History Mother Cancer Social History Smoking/Tobacco Use Status: Never Smoking risk assessment performed?: Yes Alcohol Intake: never Drug use: Never Substance use type: does not use Adopted: No Caregiver/Support person: No Household members: children, caregiver and other Details: adult daughter Housing: house Number of Children: 1 number of grandchildren: 8 Communication Needs: None Do you need help understanding health information?: Often 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 Sexually active: No Current gender identity: female What is your relationship status?: How often do you talk on the phone with friends or family?: once per week How often do you get together with friends or relatives?: once per week How often do you attend jehovah's witness or mandaeism services?: 1-3 times per year Do you belong to any clubs or organized social groups?: no Panel score (0-1 are the most socially isolated patients): 0 NHANES result reviewed/action taken: Yes What type of physical activity do you participate in: none Makenzie/Yazidi: Uatsdin Special makenzie needs: No Seatbelt use: always Helmet use: No Drive intox or ride w/intox commercial driver: No Firearms in home: No Do you feel safe at home: Yes Do you feel safe in your relationship?: No Victim of physical abuse: No Victim of emotional abuse: No Victim of sexual abuse: No Would you like helpful sources: No Additional Social history: lives alone in [place], daughter with her now a lot. 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
--- NOTE | 2025-01-07 15:38 | W.PC.ACHO ---
Registration Status: Primary Language: Preferred Language: ED Information & Data Chief Complaint RespSymp 01/07/25 15:10 Triage Note non-productive cough, 01/07/25 11:29 fatigue, lethargy for approx 4 days. PT reports feeling poorly. Medical / Surgical History (Last Updated 12/24/24 @ 13:30 by Iraida Goode NP) Prurigo nodularis Allergic rhinitis Acne rosacea Osteoporosis (Last Reviewed 12/19/24 @ 15:06 by Merle Serrano MD) History of hysterectomy (~2004) Most Recent Vital Signs Temperature 36.7 C 01/07/25 14:46 Temperature Source Oral 01/07/25 11:34 Pulse 99 H 01/07/25 14:46 Pulse 100 H 01/07/25 14:46 Respiratory Rate 21 01/07/25 14:46 Respiratory Effort Normal 01/07/25 11:49 Respiratory Depth Normal 01/07/25 11:49 Blood Pressure 94/67 L 01/07/25 14:46 Blood Pressure Mean 76 01/07/25 14:46 Blood Pressure Position Sitting 01/07/25 11:34 Pulse Oximetry 99 01/07/25 14:46 Oxygen Delivery Method Room Air 01/07/25 11:34 Oxygen Flow Rate 0 01/07/25 11:34 Allergies INDU Inhibitors Adverse Reaction (Intermediate, Verified 12/19/24 14:57) cough codeine Adverse Reaction (Intermediate, Verified 12/19/24 14:57) Other (See Comment) Dizziness Active Medications Generic Name Dose Route Start Last Admin Trade Name Freq PRN Reason Stop Dose Admin Norepinephrine Bitartrate 8 mg in 250 mls @ 9.375 mls/hr 01/07/25 14:00 01/07/25 14:41 IV 5 mcg/min INFUSION CONSTANTINE 9.375 mls/hr Administration Protocol 5 MCG/MIN IV IV Catheter Type [Right Upper Saline Lock arm] IV Catheter Type [Left Upper Saline Lock arm] IV Catheter Gauge [Right Upper 18 arm] IV Catheter Gauge [Left Upper 18 arm] Diet Orders Category Date Time Status Diabetes Consistent CHO/Heart Healthy [DIET] Nutrition 01/07/25 Dinner Active Diagnostics 01/07/25 01/07/25 01/07/25 Range/Units 16:30 13:17 12:59 WBC (4.4-10.8) 10^3/uL RBC (3.93-5.22) 10^6/uL Hgb (11.2-15.7) g/dL Hct (36.0-46.0) % MCV (80-95) fL MCH (27.0-33.0) pg MCHC (32.0-36.0) % RDW (11.7-14.6) % Plt Count (130-400) 10^3/uL MPV (8.0-11.0) fL Immature Gran % % Neutrophils % % Lymphocytes % % Monocytes % % Eosinophils % % Basophils % % Nucleated RBC % (0.0-0.3) % Absolute Neutrophils (1.2-6.7) 10^3/uL Absolute Lymphocytes (1.2-3.4) 10^3/uL Absolute Monocytes (0.1-0.8) 10^3/uL Absolute Eosinophils (0.0-0.7) 10^3/uL Absolute Basophils (0.0-0.2) 10^3/uL RBC Morphology Polychromasia Anisocytosis PT (9.1-11.1) sec INR (0.9-1.1) APTT (20.6-30.2) sec VBG Lactate Pending (<or=2.0) mmol/L Sodium (136-145) mmol/L Potassium (3.5-5.1) mmol/L Chloride (98-107) mmol/L Carbon Dioxide (21.0-32.0) mmol/L Anion Gap (3-11) mmol/L BUN (7-18) mg/dL Creatinine (0.55-1.02) mg/dL Est GFR (CKD-EPI 2020) (mL/min/1.73m2) Glucose (74-106) mg/dL Calcium (8.5-10.1) mg/dL Magnesium (1.8-2.4) mg/dL Total Bilirubin (0.2-1.0) mg/dL AST (15-37) U/L ALT (14-59) U/L Alkaline Phosphatase (46-116) U/L Ammonia (11-32) umol/L Troponin I 79 H* (<or=51) ng/L NT-Pro-B Natriuret Pep (<300) pg/mL Total Protein (6.4-8.2) g/dL Albumin (3.4-5.0) g/dL Procalcitonin ng/mL Urine Color Yellow (Yellow) Urine Clarity Sl Cloudy (Clear) Urine pH 5.5 (5-8) Ur Specific [place] >= 1.030 H (1.005-1.025) Urine Protein >=300 H (Neg-Trace) mg/dL Urine Ketones Trace H (Negative) mg/dL Urine Blood Moderate H (Negative) Urine Nitrite Negative (Negative) Urine Bilirubin Moderate H (Negative) Urine Urobilinogen 1.0 H (Up to 0.2) mg/dL Ur Leukocyte Esterase Negative (Negative) Urine RBC 3-5 H (0-2) HPF Urine WBC 5-10 (0-5) HPF Ur Epithelial Cells Few (Negative) HPF Urine Crystals Negative (Negative) HPF Urine Bacteria Few (Negative) HPF Urine Casts 20-50 Fine Granular (Negative) LPF Urine Mucus Negative (Negative) Ur Culture Indicated? No Urine Glucose Negative (Negative) mg/dL 01/07/25 Range/Units 12:13 WBC 12.68 H (4.4-10.8) 10^3/uL RBC 5.45 H (3.93-5.22) 10^6/uL Hgb 12.6 (11.2-15.7) g/dL Hct 41.2 (36.0-46.0) % MCV 76 L (80-95) fL MCH 23.1 L (27.0-33.0) pg MCHC 30.6 L (32.0-36.0) % RDW 23.4 H (11.7-14.6) % Plt Count 419 H (130-400) 10^3/uL MPV 9.9 (8.0-11.0) fL Immature Gran % 0.8 % Neutrophils % 82.6 % Lymphocytes % 10.6 % Monocytes % 5.6 % Eosinophils % 0.0 % Basophils % 0.4 % Nucleated RBC % 0.2 (0.0-0.3) % Absolute Neutrophils 10.47 H (1.2-6.7) 10^3/uL Absolute Lymphocytes 1.34 (1.2-3.4) 10^3/uL Absolute Monocytes 0.71 (0.1-0.8) 10^3/uL Absolute Eosinophils 0.00 (0.0-0.7) 10^3/uL Absolute Basophils 0.05 (0.0-0.2) 10^3/uL RBC Morphology See Below Polychromasia Present Anisocytosis 1+ PT 19.0 H (9.1-11.1) sec INR 2.0 H (0.9-1.1) APTT 28.8 (20.6-30.2) sec VBG Lactate 7.0 H* (<or=2.0) mmol/L Sodium 128 L (136-145) mmol/L Potassium 5.2 H (3.5-5.1) mmol/L Chloride 94 L (98-107) mmol/L Carbon Dioxide 19.8 L (21.0-32.0) mmol/L Anion Gap 14.2 H (3-11) mmol/L BUN 27 H (7-18) mg/dL Creatinine 1.5 H (0.55-1.02) mg/dL Est GFR (CKD-EPI 2020) 34.58 (mL/min/1.73m2) Glucose 204 H (74-106) mg/dL Calcium 9.3 (8.5-10.1) mg/dL Magnesium 1.7 L (1.8-2.4) mg/dL Total Bilirubin 4.61 H (0.2-1.0) mg/dL AST 180 H (15-37) U/L ALT 94 H (14-59) U/L Alkaline Phosphatase 163 H (46-116) U/L Ammonia < 10 L (11-32) umol/L Troponin I 82 H* (<or=51) ng/L NT-Pro-B Natriuret Pep 65585 H (<300) pg/mL Total Protein 7.9 (6.4-8.2) g/dL Albumin 3.2 L (3.4-5.0) g/dL Procalcitonin 0.26 ng/mL Urine Color (Yellow) Urine Clarity (Clear) Urine pH (5-8) Ur Specific [place] (1.005-1.025) Urine Protein (Neg-Trace) mg/dL Urine Ketones (Negative) mg/dL Urine Blood (Negative) Urine Nitrite (Negative) Urine Bilirubin (Negative) Urine Urobilinogen (Up to 0.2) mg/dL Ur Leukocyte Esterase (Negative) Urine RBC (0-2) HPF Urine WBC (0-5) HPF Ur Epithelial Cells (Negative) HPF Urine Crystals (Negative) HPF Urine Bacteria (Negative) HPF Urine Casts (Negative) LPF Urine Mucus (Negative) Ur Culture Indicated? Urine Glucose (Negative) mg/dL 01/07/25 12:13 Blood Culture - Pending Blood 01/07/25 11:47 Blood Culture - Pending Blood Intake and Output - 24 Hour Total 01/07/25 11:15 thru 01/07/25 14:14 Intake Total 50 Balance 50 Weight 62.8 kg Intake: IV 50 Other: Urine Color Dark [place] Urine Appearance Clear Urinary Catheter Urinary Catheter Date of 01/07/25 Insertion [Urethral (Khoury)] Time of insertion [Urethral ( 12:42 Khoury)] Falls Risk Assessment History of Falls No History 01/07/25 11:34 Contributing Factors No Factors 01/07/25 11:34 Ambulatory Aids Independent 01/07/25 11:34 Tubes/Lines None 01/07/25 11:34 Gait Evaluation No gait disturbance 01/07/25 11:34 Cognition Cognitive impairment 01/07/25 11:34 Fall Total Score 15 01/07/25 11:34 Level of Risk Standard/Low Risk 01/07/25 11:34 Problems (Last Updated 12/24/24 @ 13:30 by Iraida Goode NP) Hyponatremia (Acute) Cardiogenic shock (Acute) Dementia (Chronic) Anasarca (Acute) Heart failure with reduced ejection fraction (Chronic) Ischemic cardiomyopathy (Chronic) Venous stasis ulcer with edema of lower leg (Chronic) Notes 01/07/25 14:31 Nursing Notes by Jaylin Wilson [facility] [phone] Nursing Note: Initialized on 01/07/25 14:31 - END OF NOTE v v v v v v v v v Sending and/or Receiving Nurses: Please use comment section below to note any information pertinent to the patient hand-off not included above. Information / Comments: Report received from: Magdalena HERZOG
[2025-01-07 16:47] LABS: Lactate 5.2 mmol/L (<or=2.0)
[2025-01-07] MEDS: Insulin Aspart 300 UNITS/3 ML PEN SC (17:42)
[2025-01-07] MEDS: Normal Saline Flush 10 ML SYR IVP (21:09)
[2025-01-07] MEDS: Docusate Sodium 100 MG CAP PO (23:03)
[2025-01-07] MEDS: Acetaminophen 325 MG TAB PO (23:03)
[2025-01-08] VITALS (66 sets, daily range): BP systolic 82–115; BP diastolic 50–89; PULSE 73–136; RESP 15–29; TEMP 36.3–37.4; O2SAT 86–99
[2025-01-08] MEDS: HYDROmorphone 2 MG/ML SYR 0.5 MG IVP ×8 (00:01→23:39)
[2025-01-08 05:50] LABS: HCT 35.6 % (36.0-46.0); HGB 11.5 g/dL (11.2-15.7); MCH 23.7 pg (27.0-33.0); MCHC 32.3 % (32.0-36.0); MCV 73 fL (80-95); MPV 9.7 fL (8.0-11.0); Platelet Count 361 10^3/uL (130-400); RBC 4.85 10^6/uL (3.93-5.22); RDW 22.6 % (11.7-14.6); RDW-SD 55.5 fL; WBC 12.22 10^3/uL (4.4-10.8)
[2025-01-08] MEDS: Normal Saline Flush 10 ML SYR IVP ×4 (05:54→19:55)
[2025-01-08 06:10] LABS: ALT 83 U/L (14-59); AST 130 U/L (15-37); Albumin 2.5 g/dL (3.4-5.0); Alkaline Phosphatase 135 U/L (46-116); Anion Gap 9.3 mmol/L (3-11); BUN 27 mg/dL (7-18); Bilirubin, Total 3.71 mg/dL (0.2-1.0); CO2 22.7 mmol/L (21.0-32.0); CREATININE 1.3 mg/dL (0.55-1.02); Calcium 8.6 mg/dL (8.5-10.1); Chloride 96 mmol/L (98-107); Estimated GFR 41.06 (mL/min/1.73m2); Glucose 176 mg/dL (74-106); Sodium 128 mmol/L (136-145); Total Protein 6.3 g/dL (6.4-8.2)
[2025-01-08 06:14] LABS: Vancomycin, Random 15.7 ug/mL
[2025-01-08] MEDS: VANCOMYCIN 500 MG in Normal Saline 100 ML 100 MG IVPB (09:03)
[2025-01-08] MEDS: Enoxaparin 30 MG/0.3 ML SYR SC (09:03)
[2025-01-08] MEDS: Insulin Aspart 300 UNITS/3 ML PEN SC ×3 (09:05→17:55)
--- NOTE | 2025-01-08 09:08 | INITIAL_ITS ---
Date of service: 01/08/25 Care Management Initial Assmt Initial Assessment Reason for Hospitalization: Cardiogenic shock Functional Status/Living Situation Patient Presentation: Latanya was lying in bed when CM met with her. She was asleep and did not wake up with gentle touch or by calling her name. Latanya was admitted in cardiogenic shock and is requiring vasopressors to maintain her blood pressure. Latanya's BNP is elevated at 28,358 from a baseline 0f 7000 and, per chest xray, she has significant cardiomegaly. She has a history of CHF with reduced EF at 20-25% on Echo last summer. In addition, Latanya is hyoponatremic and hypokalemic. CM contacted Latanya's grandson Urban,who is her healthcare agent, to see how things have been going at home. He explained that he has not seen her too much as he has been ill, but that home health PT and nursing are still following her. This is Latanya's 3rd admission in less than a month for similar reasons. CM again discussed possible SNF for short term rehab with Urban who indicated that he would consider it and that we can discuss closer to her time of discharge. Town of Residence: [place] Resides with: Child (her daughter and son-in-law live with her) Significant Other/Family: Local Employment Status: Retired Instrumental Activities of Daily Living (ADLs): Requires support Medications Medication Management: No Issues/Barriers identified Physical Functioning/Mobility Assistive Device: walker Advance Directives Advance Directives: Do you have an Advance Directive: Y 12/08/19 10:36 AD On File at [facility]: Y 12/08/19 10:36 Date Asked 01/07/25 01/07/25 13:04 AD Date Reviewed 12/19/24 12/19/24 18:23 COLST On File at [facility] Yes 05/18/24 07:32 COLST Date Scanned 05/18/24 05/18/24 07:32 Code Status Resuscitation Status DNR/DNI Portal Pt does not currently have a portal and education provided: No Portal Education: Other (dementia) Insurance Coverage/Financial Issues Insurance: [employer] Medicare Replacement Care Team Visit Care Team Role Provider Type Iraida Goode, EKTA Primary Care Provider NURSE PRACTITIONER Roxana Henry MD Emergency Provider [facility] STAFF PHYSICIAN Rohan Whipple MD Admit Provider [facility] STAFF PHYSICIAN Attending Provider Discharge Potential Discharge Needs: PCP F/U Appt Anticipated Barriers to Discharge: Bed availability and Medical Status Patient/Family Education Needs: Review discharge instructions, discuss Ask Me Three Transportation: Private vehicle Plan: Anticipate Latanya will return home with a resumption of services for nursing, PT, OT and [employer] when medically cleared. She will transport via private vehicle with family and will follow up with her PCP and discharge plan of care. Social Determinants of Health Screening Will the Patient Participate in the Screening?: Unable to obtain PFSH All Active Problems (Updated 01/07/25 @ 17:50 by Rohan Whipple MD) Advance care planning (Acute) Septic shock (Acute) Lactic acidosis (Acute) Hyperkalemia (Acute) Hyponatremia (Acute) Cardiogenic shock (Acute) Type 2 diabetes mellitus with unspecified diabetic retinopathy without macular edema (Acute) CKD stage 3a, GFR 45-59 ml/min (Acute) UTI (urinary tract infection) (Acute) Dementia (Chronic) Liver failure (Acute) Abdominal ascites (Acute) Anasarca (Acute) Heart failure with reduced ejection fraction (Chronic) Ischemic cardiomyopathy (Chronic) Type 2 diabetes mellitus (Chronic) Hypertension (Chronic) Hyperlipidemia (Chronic) Venous stasis ulcer with edema of lower leg (Chronic) Medical History (Updated 01/07/25 @ 17:50 by Rohan Whipple MD) Prurigo nodularis Allergic rhinitis Acne rosacea Osteoporosis Surgical History History of hysterectomy (~2004) Family History Mother Cancer Social History Smoking/Tobacco Use Status: Never Smoking risk assessment performed?: Yes Alcohol Intake: never Drug use: Never Substance use type: does not use Adopted: No Caregiver/Support person: No Household members: children, caregiver and other Details: adult daughter Housing: house Number of Children: 1 number of grandchildren: 8 Communication Needs: None Do you need help understanding health information?: Often 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 Sexually active: No Current gender identity: female What is your relationship status?: How often do you talk on the phone with friends or family?: once per week How often do you get together with friends or relatives?: once per week How often do you attend voodoo or latter-day services?: 1-3 times per year Do you belong to any clubs or organized social groups?: no Panel score (0-1 are the most socially isolated patients): 0 NHANES result reviewed/action taken: Yes What type of physical activity do you participate in: none Makenzie/[employer] Special makenzie needs: No Seatbelt use: always Helmet use: No Drive intox or ride w/intox otr truck driver: No Firearms in home: No Do you feel safe at home: Yes Do you feel safe in your relationship?: No Victim of physical abuse: No Victim of emotional abuse: No Victim of sexual abuse: No Would you like helpful sources: No Additional Social history: lives alone in [place], daughter with her now a lot. 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
[2025-01-08] MEDS: Ondansetron 4 MG/2 ML VIAL (09:14)
[2025-01-08] MEDS: Hyaluronidase 150 UNITS VIAL 15 UNITS IJ (11:11)
[2025-01-08] MEDS: Furosemide 40 MG/4 ML VIAL IVP ×2 (12:05→16:33)
--- NOTE | 2025-01-08 14:12 | PGE_ITS ---
Date of Service Date of service: 01/08/25 Time of Service: 14:12 Assessment and Plan Assessment and plan (1) Cardiogenic shock: Status: Acute Assessment and plan: -likely cause of patients weakness, worsneing LE edema, elevated pBNP, hypotension, and hyponatremia -last echo in May 2024 showed EF 20-25%, will order new echo for 01/08 -given 80mg IV lasix in ED with 300ml urine output in first ~2hrs, which dropped off overnight with only a total of ~400ml UOP -will continue IV lasix 40mg IV BID -remains on ~3mcg levophed, will continue will increasing diuretics -strict I/O's (2) Hyponatremia: Status: Acute Assessment and plan: -likely secondary to CHF exacerbation/fluid overload -f/u AMP BMP (3) Hyperkalemia: Status: Acute Assessment and plan: -very midly elevated to 5.2 -down to 4.9 on AM 01/08 (4) Lactic acidosis: Status: Acute Assessment and plan: -may be secondary to cardiogenic shock, though could also be due to Septic shock (see below) -repeat down to 5.2 (5) Septic shock: Status: Acute Assessment and plan: -while patient meets criteria with HR >100, RR in the high 20's, temp 94.0oF on arrival, WBC 12.6, lactic acid of 7 and MAP <65 requiring pressor support, there si currently no source of infection as patients CXR was without acute findings and UA was negative -additionally, temp may be due to time spent outside trying to get patient into the car to get to her PCP appointment, HR, RR, LA, and hypotension could also all be secondary to CHF excerbation and caridogenic shock as noted above -patient was started on vanc and zosyn in the ED, and was discontinued on the morning of 01/08 (6) Venous stasis ulcer with edema of lower leg: Status: Chronic Assessment and plan: -chronic, continue wound management (7) Advance care planning: Status: Acute Assessment and plan: - Subjective Subjective Interval history since last seen: Patient remains states that she is doing well today, though she states she did vomit earlier in the day. Otherwise she has no complaints or concerns at this time. Exam Narrative Exam Narrative: Fatigued elderly female sitting up in the bed in no acute distress, awake, alert, oriented to person, place and situation, heart RRR, lungs CTAB, abdomen soft, non-tender, non-distended, significant +3 pitting edema in bilateral LE up to the knee Objective Last Vital Signs Temp 97.3 F L 01/08/25 13:09 Pulse 87 01/08/25 13:01 Resp 17 01/08/25 13:01 BP 90/56 L 01/08/25 13:01 Pulse Ox 97 01/08/25 13:01 Laboratory Results - last 24 hr 01/07/25 01/08/25 16:38 05:40 WBC 12.22 H RBC 4.85 Hgb 11.5 Hct 35.6 L MCV 73 L MCH 23.7 L MCHC 32.3 RDW 22.6 H Plt Count 361 MPV 9.7 VBG Lactate 5.2 H* Sodium 128 L Potassium 4.0 D Chloride 96 L Carbon Dioxide 22.7 Anion Gap 9.3 BUN 27 H Creatinine 1.3 H Est GFR (CKD-EPI 2020) 41.06 Glucose 176 H Calcium 8.6 Total Bilirubin 3.71 H AST 130 H ALT 83 H Alkaline Phosphatase 135 H Total Protein 6.3 L Albumin 2.5 L Random Vancomycin 15.7 Time Spent with Patient Time Spent with Patient: >50 minutes Time was spent: preparing to see the patient(eg.review tests), obtaining and/or reviewing separately otained hiistory, ordering medications,tests, procedures, referring, communicating with other health director medicare sales, indepentently interpreting results, counseling the patient and care coordination
[2025-01-08] MEDS: Ondansetron 4 MG/2 ML VIAL IVP (21:46)
--- NOTE | 2025-01-08 23:35 | NUR.NOTE ---
Nursing Note: Pt continues to complain of lower extremity pain 06/27 due to swelling and venous stasis ulcers, new dressing applied, elevated on one pillow, pt medicated as per pt's request, bed in lowest position, call light within reach, will continue to monitor.
[2025-01-09] VITALS (64 sets, daily range): BP systolic 67–118; BP diastolic 44–93; PULSE 65–128; RESP 14–29; TEMP 36.8–37.2; O2SAT 95–99
[2025-01-09] MEDS: guaiFENesin 600 MG TABCR PO ×3 (00:27→19:13)
[2025-01-09] MEDS: Benzonatate 100 MG CAP PO ×4 (00:28→19:13)
--- NOTE | 2025-01-09 00:30 | NUR.NOTE ---
Nursing Note: Pt has continuous cough that does not allow her to go to sleep, spoke to Dr Gandara, new orders given, see mar, pt will be medicated.
[2025-01-09] MEDS: HYDROmorphone 2 MG/ML SYR 0.5 MG IVP ×3 (02:35→22:41)
[2025-01-09] MEDS: Acetaminophen 325 MG TAB PO ×2 (04:06→22:41)
[2025-01-09 06:39] LABS: HCT 39.1 % (36.0-46.0); HGB 12.2 g/dL (11.2-15.7); MCH 23.3 pg (27.0-33.0); MCHC 31.2 % (32.0-36.0); MCV 75 fL (80-95); MPV 9.5 fL (8.0-11.0); Platelet Count 393 10^3/uL (130-400); RBC 5.24 10^6/uL (3.93-5.22); RDW 23.5 % (11.7-14.6); WBC 10.34 10^3/uL (4.4-10.8)
[2025-01-09 06:44] LABS: Anion Gap 7.2 mmol/L (3-11); BUN 21 mg/dL (7-18); CO2 25.8 mmol/L (21.0-32.0); CREATININE 1.3 mg/dL (0.55-1.02); Calcium 8.6 mg/dL (8.5-10.1); Chloride 96 mmol/L (98-107); Estimated GFR 41.06 (mL/min/1.73m2); Glucose 225 mg/dL (74-106); Potassium 3.8 mmol/L (3.5-5.1); Sodium 129 mmol/L (136-145)
[2025-01-09] MEDS: Insulin Aspart 300 UNITS/3 ML PEN SC ×3 (08:45→16:53)
[2025-01-09] MEDS: Enoxaparin 30 MG/0.3 ML SYR SC (08:46)
[2025-01-09] MEDS: Aspirin E.C. 81 MG TABEC PO (08:46)
[2025-01-09] MEDS: Normal Saline Flush 10 ML SYR IVP ×2 (08:46→19:13)
[2025-01-09] MEDS: Furosemide 40 MG TAB PO ×2 (08:47→16:12)
[2025-01-09] MEDS: Empaglifozin 10 MG TAB PO (09:58)
--- NOTE | 2025-01-09 10:01 | W.PM.PROGNOT ---
Date of Service Date of service: 01/09/25 Time of Service: 10:01 Assessment and Plan Assessment and plan (1) Cardiogenic shock: Status: Acute Assessment and plan: -likely cause of patients weakness, worsneing LE edema, elevated pBNP, hypotension, and hyponatremia -last echo in May 2024 showed EF 20-25%, will order new echo for 01/08 -given 80mg IV lasix in ED with 300ml urine output in first ~2hrs, which dropped off overnight with only a total of ~400ml UOP -Had been on 40 mg IV Lasix twice daily with about 2.2 L net negative over the last 24 hours -Transitioning to 40 mg p.o. Lasix twice daily -remains on ~3mcg levophed, wean as tolerated with new goal mean arterial pressure of 60-65 -strict I/O's (2) Hyponatremia: Status: Acute Assessment and plan: -likely secondary to CHF exacerbation/fluid overload -f/u AMP BMP (3) Hyperkalemia: Status: Acute Assessment and plan: -very midly elevated to 5.2 -down to 4.9 on AM 01/08 (4) Lactic acidosis: Status: Acute Assessment and plan: -may be secondary to cardiogenic shock, though could also be due to Septic shock (see below) -repeat down to 5.2 (5) Septic shock: Status: Acute Assessment and plan: -while patient meets criteria with HR >100, RR in the high 20's, temp 94.0oF on arrival, WBC 12.6, lactic acid of 7 and MAP <65 requiring pressor support, there si currently no source of infection as patients CXR was without acute findings and UA was negative -additionally, temp may be due to time spent outside trying to get patient into the car to get to her PCP appointment, HR, RR, LA, and hypotension could also all be secondary to CHF excerbation and caridogenic shock as noted above -patient was started on vanc and zosyn in the ED, and was discontinued on the morning of 01/08 (6) Venous stasis ulcer with edema of lower leg: Status: Chronic Assessment and plan: -chronic, continue wound management (7) Advance care planning: Status: Acute Assessment and plan: - Subjective Subjective Interval history since last seen: Patient continues to states that she is doing well, she remains pleasantly confused. She has no complaints or concerns at this time. Exam Narrative Exam Narrative: Fatigued elderly female sitting up in the bed in no acute distress, awake, alert, oriented to person, place and situation, heart RRR, lungs CTAB, abdomen soft, non-tender, non-distended, significant +2 pitting edema in bilateral LE up to the mid thigh Objective Last Vital Signs Temp 99.0 F 01/09/25 00:31 Pulse 113 H 01/09/25 02:01 Resp 16 01/09/25 02:01 BP 89/60 L 01/09/25 02:01 Pulse Ox 95 01/09/25 02:01 Laboratory Results - last 24 hr 01/09/25 05:46 WBC 10.34 RBC 5.24 H Hgb 12.2 Hct 39.1 MCV 75 L MCH 23.3 L MCHC 31.2 L RDW 23.5 H Plt Count 393 MPV 9.5 Sodium 129 L Potassium 3.8 Chloride 96 L Carbon Dioxide 25.8 Anion Gap 7.2 BUN 21 H Creatinine 1.3 H Est GFR (CKD-EPI 2020) 41.06 Glucose 225 H Calcium 8.6 Time Spent with Patient Time Spent with Patient: >50 minutes Time was spent: preparing to see the patient(eg.review tests), obtaining and/or reviewing separately otained hiistory, ordering medications,tests, procedures, referring, communicating with other health care team coordinator scheduler, indepentently interpreting results, counseling the patient and care coordination
[2025-01-09] MEDS: Melatonin 3 MG TAB 6 MG PO (23:16)
[2025-01-10] VITALS (42 sets, daily range): BP systolic 78–118; BP diastolic 48–71; PULSE 68–113; RESP 15–26; TEMP 36.4–37.2; O2SAT 96–100
[2025-01-10] MEDS: HYDROmorphone 2 MG/ML SYR 0.5 MG IVP ×2 (02:21→05:54)
[2025-01-10] MEDS: Normal Saline Flush 10 ML SYR IVP ×4 (05:55→19:18)
[2025-01-10 06:04] LABS: HCT 37.4 % (36.0-46.0); MCH 23.4 pg (27.0-33.0); MCHC 32.1 % (32.0-36.0); MPV 9.4 fL (8.0-11.0); Platelet Count 357 10^3/uL (130-400); RBC 5.13 10^6/uL (3.93-5.22); RDW-SD 55.9 fL; WBC 8.36 10^3/uL (4.4-10.8)
[2025-01-10 06:18] LABS: Anion Gap 8.5 mmol/L (3-11); BUN 23 mg/dL (7-18); CO2 29.5 mmol/L (21.0-32.0); CREATININE 1.2 mg/dL (0.55-1.02); Calcium 8.4 mg/dL (8.5-10.1); Chloride 91 mmol/L (98-107); Estimated GFR 45.19 (mL/min/1.73m2); Glucose 210 mg/dL (74-106); Sodium 129 mmol/L (136-145)
[2025-01-10 06:22] LABS: Potassium 2.9 mmol/L (3.5-5.1)
[2025-01-10 06:24] LABS: MCV 73 fL (80-95); RDW 22.5 % (11.7-14.6)
[2025-01-10] MEDS: Insulin Aspart 300 UNITS/3 ML PEN SC ×3 (08:04→17:03)
[2025-01-10] MEDS: Enoxaparin 30 MG/0.3 ML SYR SC (08:06)
[2025-01-10] MEDS: guaiFENesin 600 MG TABCR PO ×2 (08:06→19:18)
[2025-01-10] MEDS: Empaglifozin 10 MG TAB PO (08:06)
[2025-01-10] MEDS: Furosemide 40 MG TAB PO ×2 (08:06→15:34)
[2025-01-10] MEDS: Aspirin E.C. 81 MG TABEC PO (08:06)
[2025-01-10] MEDS: Benzonatate 100 MG CAP PO ×3 (08:06→19:18)
[2025-01-10] MEDS: POTASSIUM CHLORIDE 20 MEQ/100 ML BAG 25 MEQ IV_INF (08:08)
[2025-01-10] MEDS: Normal Saline 100 ML 25 ML (08:54)
--- NOTE | 2025-01-10 11:55 | PGE_ITS ---
Date of Service Date of service: 01/10/25 Time of Service: 11:55 Assessment and Plan Assessment and plan (1) Cardiogenic shock: Status: Acute Assessment and plan: -likely cause of patients weakness, worsneing LE edema, elevated pBNP, hypotension, and hyponatremia -last echo in May 2024 showed EF 20-25%, will order new echo for 01/08 -given 80mg IV lasix in ED with 300ml urine output in first ~2hrs, which dropped off overnight with only a total of ~400ml UOP -Had been on 40 mg IV Lasix twice daily with about 2.2 L net negative over the last 24 hours -Transitioned to 40 mg p.o. Lasix twice daily on a.m. 01/09/2025, will continue -Levophed discontinued as of 1300 on 01/09/2025 -strict I/O's (2) Hyponatremia: Status: Acute Assessment and plan: -likely secondary to CHF exacerbation/fluid overload -f/u AMP BMP (3) Hyperkalemia: Status: Acute Assessment and plan: -very midly elevated to 5.2 -down to 4.9 on AM 01/08 (4) Lactic acidosis: Status: Acute Assessment and plan: -may be secondary to cardiogenic shock, though could also be due to Septic shock (see below) -repeat down to 5.2 (5) Septic shock: Status: Acute Assessment and plan: -while patient meets criteria with HR >100, RR in the high 20's, temp 94.0oF on arrival, WBC 12.6, lactic acid of 7 and MAP <65 requiring pressor support, there si currently no source of infection as patients CXR was without acute findings and UA was negative -additionally, temp may be due to time spent outside trying to get patient into the car to get to her PCP appointment, HR, RR, LA, and hypotension could also all be secondary to CHF excerbation and caridogenic shock as noted above -patient was started on vanc and zosyn in the ED, and was discontinued on the morning of 01/08 (6) Venous stasis ulcer with edema of lower leg: Status: Chronic Assessment and plan: -chronic, continue wound management (7) Advance care planning: Status: Acute Assessment and plan: - Subjective Subjective Interval history since last seen: Patient continues to states that she is doing well, she remains pleasantly confused. She has no complaints or concerns at this time. Exam Narrative Exam Narrative: Fatigued elderly female sitting up in the bed in no acute distress, awake, alert, oriented to person, place and situation, heart RRR, lungs CTAB, abdomen soft, non-tender, non-distended, significant +2 pitting edema in bilateral LE up to the mid thigh Objective Last Vital Signs Temp 99.0 F 01/10/25 01:00 Pulse 89 01/10/25 06:01 Resp 16 01/10/25 06:01 BP 104/58 L 01/10/25 06:01 Pulse Ox 97 01/10/25 06:01 Laboratory Results - last 24 hr 01/10/25 05:40 WBC 8.36 RBC 5.13 Hgb 12.0 Hct 37.4 MCV 73 L MCH 23.4 L MCHC 32.1 RDW 22.5 H Plt Count 357 MPV 9.4 Sodium 129 L Potassium 2.9 L* Chloride 91 L Carbon Dioxide 29.5 Anion Gap 8.5 BUN 23 H Creatinine 1.2 H Est GFR (CKD-EPI 2020) 45.19 Glucose 210 H Calcium 8.4 L Time Spent with Patient Time Spent with Patient: >50 minutes Time was spent: preparing to see the patient(eg.review tests), obtaining and/or reviewing separately otained hiistory, ordering medications,tests, procedures, referring, communicating with other health administrator health care facility, indepentently interpreting results, counseling the patient and care coordination
[2025-01-10] MEDS: Normal Saline 500 ML 30 ML IV (12:11)
--- NOTE | 2025-01-10 12:34 | W.PC.ACHO ---
Registration Status: Primary Language: Preferred Language: ED Information & Data Chief Complaint RespSymp 01/07/25 15:10 Triage Note non-productive cough, 01/07/25 11:29 fatigue, lethargy for approx 4 days. PT reports feeling poorly. Medical / Surgical History (Last Updated 12/24/24 @ 13:30 by Iraida Goode NP) Prurigo nodularis Allergic rhinitis Acne rosacea Osteoporosis (Last Reviewed 12/19/24 @ 15:06 by Merle Serrano MD) History of hysterectomy (~2004) Most Recent Vital Signs Temperature 37.2 C 01/10/25 01:00 Temperature Source Temporal Artery Scan 01/09/25 18:39 Pulse 113 H 01/10/25 12:02 Pulse 112 H 01/10/25 12:02 Respiratory Rate 18 01/10/25 12:02 Respiratory Effort Normal 01/07/25 15:55 Respiratory Depth Shallow 01/07/25 15:55 Respiratory Pattern Tachypnea 01/07/25 15:55 Blood Pressure 88/68 L 01/10/25 12:01 Blood Pressure Mean 75 01/10/25 12:01 Blood Pressure Position Sitting 01/07/25 11:34 Pulse Oximetry 98 01/10/25 12:02 Oxygen Delivery Method Room Air 01/07/25 15:55 Oxygen Flow Rate 0 01/07/25 15:55 Pain Level 8 01/10/25 05:54 Comment First BP after D/C Norepi 01/09/25 13:43 Allergies INDU Inhibitors Adverse Reaction (Intermediate, Verified 12/19/24 14:57) cough codeine Adverse Reaction (Intermediate, Verified 12/19/24 14:57) Other (See Comment) Dizziness Active Medications Generic Name Dose Route Start Last Admin Trade Name Freq PRN Reason Stop Dose Admin Acetaminophen 0 mg 01/07/25 14:00 01/09/25 22:41 Acetaminophen 325 Mg Tab PO 650 mg Q4H PRN PRN Administration Aspirin 81 mg 01/08/25 08:30 01/10/25 08:06 Aspirin E.C. 81 Mg Tabec PO 81 mg DAILY CONSTANTINE Administration Benzonatate 100 mg 01/09/25 00:30 01/10/25 08:06 Benzonatate 100 Mg Cap PO 100 mg TID CONSTANTINE Administration Docusate Sodium 100 mg 01/07/25 14:00 01/07/25 23:03 Docusate Sodium 100 Mg Cap PO 100 mg TID PRN PRN Administration Empagliflozin 10 mg 01/09/25 09:30 01/10/25 08:06 Empaglifozin 10 Mg Tab PO 10 mg DAILY CONSTANTINE Administration Enoxaparin Sodium 30 mg 01/08/25 08:30 01/10/25 08:06 Enoxaparin 30 Mg/0.3 Ml Syr SC 30 mg DAILY CONSTANTINE Administration Furosemide 40 mg 01/09/25 08:30 01/10/25 08:06 Furosemide 40 Mg Tab PO 40 mg BID@0830,1600 CONSTANTINE Administration Guaifenesin 600 mg 01/09/25 00:30 01/10/25 08:06 Guaifenesin 600 Mg Tabcr PO 600 mg BID CONSTANTINE Administration Hydromorphone HCl 0.5 mg 01/08/25 03:30 01/10/25 05:54 Hydromorphone 2 Mg/Ml Syr IVP 0.5 mg Q2H PRN PRN Administration Sodium Chloride 500 mls @ 0 mls/hr 01/10/25 12:08 01/10/25 12:11 Saline 500ml Bag IV 30 mls/hr PRN PRN Administration As Directed Insulin Aspart 0 units 01/07/25 17:00 01/10/25 12:04 Insulin Aspart 300 Units/3 Ml Pen SC 2 units 0800,1200,1700 CONSTANTINE Administration Protocol Melatonin 6 mg 01/10/25 20:00 01/09/25 23:16 Melatonin 3 Mg Tab PO 6 mg HS CONSTANTINE Administration Ondansetron HCl 4 mg 01/08/25 09:16 01/08/25 21:46 Ondansetron 4 Mg/2 Ml Vial IVP 4 mg Q6H PRN PRN Administration Sodium Chloride 0 ml 01/07/25 11:47 01/10/25 08:11 Normal Saline Flush 10 Ml Syr IVP 30 ml PRN PRN Administration Sodium Chloride 0 ml 01/07/25 20:00 01/10/25 08:09 Normal Saline Flush 10 Ml Syr IVP 10 ml BID CONSTANTINE Administration IV IV Catheter Type [Right Hand] Saline Lock IV Catheter Type [Right Upper Peripheral IV arm] IV Catheter Type [Left Upper Saline Lock arm] IV Catheter Gauge [Right Hand] 20 IV Catheter Gauge [Right Upper 18 arm] IV Catheter Gauge [Left Upper 18 arm] Diagnostics 01/10/25 Range/Units 05:40 WBC 8.36 (4.4-10.8) 10^3/uL RBC 5.13 (3.93-5.22) 10^6/uL Hgb 12.0 (11.2-15.7) g/dL Hct 37.4 (36.0-46.0) % MCV 73 L (80-95) fL MCH 23.4 L (27.0-33.0) pg MCHC 32.1 (32.0-36.0) % RDW 22.5 H (11.7-14.6) % Plt Count 357 (130-400) 10^3/uL MPV 9.4 (8.0-11.0) fL Sodium 129 L (136-145) mmol/L Potassium 2.9 L* (3.5-5.1) mmol/L Chloride 91 L (98-107) mmol/L Carbon Dioxide 29.5 (21.0-32.0) mmol/L Anion Gap 8.5 (3-11) mmol/L BUN 23 H (7-18) mg/dL Creatinine 1.2 H (0.55-1.02) mg/dL Est GFR (CKD-EPI 2020) 45.19 (mL/min/1.73m2) Glucose 210 H (74-106) mg/dL Calcium 8.4 L (8.5-10.1) mg/dL 01/07/25 16:38 Blood Culture - Preliminary Blood NO GROWTH 48 HOURS 01/07/25 12:13 Blood Culture - Preliminary Blood NO GROWTH 48 HOURS [id number] Documentation Fingerstick Glucose Start: 01/07/25 14:05 Freq: AC & HS Status: Active Protocol: Activity Type Activity Date Activity User E-sign Co-sign Detail Recorded Client Recorded Date Recorded By Document 01/10/25 11:47 BKG DAEMON(3) [id number] 01/10/25 11:48 BKG DAEMON(4) Intake and Output - 24 Hour Total 01/07/25 11:15 thru 01/10/25 09:45 Intake Total 3290.757 Output Total 5750 Balance -2459.243 Weight 57.5 kg Intake: IV 770.757 Oral 2520 Output: Urine 5750 Other: Urine Color Yellow Urine Appearance Clear Emesis Description Mucous Urinary Catheter Urinary Catheter Date of 01/07/25 Insertion [Urethral (Khoury)] Time of insertion [Urethral ( 12:42 Khoury)] Falls Risk Assessment History of Falls No History 01/07/25 15:55 Contributing Factors Confusion,Impairments 01/07/25 15:55 Ambulatory Aids Uses ambulatory device + 01/07/25 15:55 Tubes/Lines With any additional score 01/07/25 15:55 Gait Evaluation W/any additional score 01/07/25 15:55 Cognition Cognitive impairment 01/07/25 15:55 Fall Total Score 91 01/07/25 15:55 Level of Risk Maximum Risk 01/07/25 15:55 Problems (Last Updated 12/24/24 @ 13:30 by Iraida Goode NP) Advance care planning (Acute) Septic shock (Acute) Lactic acidosis (Acute) Hyperkalemia (Acute) Hyponatremia (Acute) Cardiogenic shock (Acute) Dementia (Chronic) Anasarca (Acute) Heart failure with reduced ejection fraction (Chronic) Ischemic cardiomyopathy (Chronic) Venous stasis ulcer with edema of lower leg (Chronic) Notes 01/09/25 00:30 (created 01/09/25 00:40) Nursing Notes by Mike Buchanan Nursing Note: Pt has continuous cough that does not allow her to go to sleep, spoke to Dr Gandara, new orders given, see mar, pt will be medicated. Initialized on 01/09/25 00:40 - END OF NOTE 01/08/25 23:35 (created 01/08/25 23:54) Nursing Notes by Mike Buchanan Nursing Note: Pt continues to complain of lower extremity pain 8/10 due to swelling and venous stasis ulcers, new dressing applied, elevated on one pillow, pt medicated as per pt's request, bed in lowest position, call light within reach, will continue to monitor. Initialized on 01/08/25 23:54 - END OF NOTE 01/07/25 14:31 Nursing Notes by Jaylin Wilson daughter [phone] Nursing Note: Initialized on 01/07/25 14:31 - END OF NOTE v v v v v v v v v Sending and/or Receiving Nurses: Please use comment section below to note any information pertinent to the patient hand-off not included above. Information / Comments: Report received from: Matilde La (ICU) [id number]
[2025-01-10] MEDS: POTASSIUM CHLORIDE 20 MEQ/100 ML BAG 50 MEQ IV_INF (14:13)
[2025-01-10] MEDS: Melatonin 3 MG TAB 6 MG PO (19:18)
[2025-01-10] MEDS: Metoprolol CR 25 MG TABCR PO (21:19)
[2025-01-11] VITALS (57 sets, daily range): BP systolic 69–114; BP diastolic 36–88; PULSE 52–166; RESP 14–46; TEMP 36.1–36.8; O2SAT 94–100
[2025-01-11 01:48] LABS: Troponin I 74 ng/L (<or=51)
[2025-01-11 06:38] LABS: HCT 42.3 % (36.0-46.0); HGB 13.3 g/dL (11.2-15.7); MCH 23.3 pg (27.0-33.0); MCHC 31.4 % (32.0-36.0); MPV 9.9 fL (8.0-11.0); Platelet Count 382 10^3/uL (130-400); RDW-SD 57.8 fL
[2025-01-11 06:55] LABS: MCV 74 fL (80-95); RDW 23.1 % (11.7-14.6)
[2025-01-11 07:00] LABS: Anion Gap 23.2 mmol/L (3-11); BUN 31 mg/dL (7-18); CO2 13.8 mmol/L (21.0-32.0); CREATININE 1.6 mg/dL (0.55-1.02); Calcium 9.6 mg/dL (8.5-10.1); Chloride 88 mmol/L (98-107); Glucose 112 mg/dL (74-106); Potassium 4.3 mmol/L (3.5-5.1); Sodium 125 mmol/L (136-145)
[2025-01-11] MEDS: Ondansetron 4 MG/2 ML VIAL IVP ×2 (08:16→17:41)
[2025-01-11] MEDS: Normal Saline 1,000 ML 1000 ML IV ×3 (08:29→14:43)
--- NOTE | 2025-01-11 08:45 | PDOC.CMPRO ---
Date of service: 01/11/25 Time of Service: 08:45 Care Management Progress Note Progress Note Text Progress Note Text: This morning Latanya became hypotensive with a SBP in the 60s and 70s and was transferred back to the ICU. She was given 2 1000 ml boluses of N/S and her systolic blood pressure increased to the 90s. Latanya is also tachycardic with a HR between 100-125. CM contacted Latanya's grandson Darinel to update him however he had already spoken to Latanya's nurse on Med-Surg. Darinel has been unable to visit as he and his son have been very sick with a febrile respiratory illness. He informed CM that he is starting to feel a little better and that today is the first day he has not had a fever. When CM met with Latanya she was sleepy but alert and oriented. CM shared that she had a conversation with Darinel and that he is thinking about her. She smiled and stated that he worries about her and has always been good to her. Discharge Potential Discharge Needs: PCP F/U Appt Anticipated Barriers to Discharge: None Identified Patient/Family Education Needs: Review discharge instructions, discuss Ask Me Three Transportation: Private vehicle Plan: Anticipate Latanya will return home with a resumption of services for nursing, PT, OT and CABLE SPLICING TECHNICIAN when medically cleared. She will transport via private vehicle with family and will follow up with her PCP and discharge plan of care. Social Determinants of Health Screening Will the Patient Participate in the Screening?: Unable to obtain
[2025-01-11] MEDS: Benzonatate 100 MG CAP PO ×2 (10:50→17:01)
[2025-01-11] MEDS: Enoxaparin 30 MG/0.3 ML SYR SC (10:50)
[2025-01-11] MEDS: guaiFENesin 600 MG TABCR PO ×2 (10:50→20:38)
[2025-01-11] MEDS: Aspirin E.C. 81 MG TABEC PO (10:50)
--- NOTE | 2025-01-11 11:29 | NUR.NOTE ---
patient AxOx4 throughout her time with this RN during shift, c/o n/v and had emesis x1 despite IV zofran, pt had hypotension this AM on assessment, MD Quiles notified via phone and ordered 1L NS bolus, monitored during and post bolus, continued to have hypotension and MD Quiles notified in rounds, given transfer to ICU order. Called report to Trinidad Oconnor RN in ICU and transferred pt around 1110. Darinel (natalia) notified of transfer and updated. Pt given AM meds with exception of lasix due to hypotension and jardiance due to lack of appetite and CBG of 88. Patient with anaya to gravity, AM care completed prior to transfer, new coccyx dsg placed. New PIV start to L wrist for access, denied pain this AM, all belongings sent with pt to ICU. Pt pending echo and cardiolgy recs due to poor EF of 20-25% on last echo and cardiogenic shock dx on admission. Nursing Note:
--- NOTE | 2025-01-11 13:13 | NT_ITS ---
PT Notes Visit Reasons: Septic shock, acute exacerbation CHF Pt transferred back to ICU prior to PT evaluation being completed. Pt will req uire a new referral once medically appropriate to participate.
--- NOTE | 2025-01-11 13:13 | PT.INNT ---
PT Notes Visit Reasons: Septic shock, acute exacerbation CHF Pt transferred back to ICU prior to PT evaluation being completed. Pt will require a new referral once medically appropriate to participate.
--- NOTE | 2025-01-11 13:24 | W.PC.ACHO ---
Registration Status: Primary Language: Preferred Language: ED Information & Data Chief Complaint RespSymp 01/07/25 15:10 Triage Note non-productive cough, 01/07/25 11:29 fatigue, lethargy for approx 4 days. PT reports feeling poorly. Medical / Surgical History (Last Updated 12/24/24 @ 13:30 by Iraida Goode NP) Prurigo nodularis Allergic rhinitis Acne rosacea Osteoporosis (Last Reviewed 12/19/24 @ 15:06 by Merle Serrano MD) History of hysterectomy (~2004) Most Recent Vital Signs Temperature 36.3 C L 01/11/25 11:44 Temperature Source Temporal Artery Scan 01/11/25 11:44 Pulse 125 H 01/11/25 12:31 Pulse 109 H 01/11/25 12:31 Respiratory Rate 26 H 01/11/25 12:31 Respiratory Effort Short of Breath 01/11/25 11:44 Respiratory Depth Normal 01/11/25 11:44 Respiratory Pattern Tachypnea 01/11/25 11:44 Blood Pressure 81/50 L 01/11/25 12:31 Blood Pressure Mean 60 01/11/25 12:31 Blood Pressure Position Supine 01/11/25 11:44 Pulse Oximetry 100 01/11/25 11:55 Oxygen Delivery Method Room Air 01/11/25 11:44 Oxygen Flow Rate 0 01/11/25 11:44 Pain Level 0 01/11/25 11:44 Comment Heather RN present in room, who notified Dr. Quiles via telephone. 01/11/25 08:22 Comment First BP after D/C Norepi 01/09/25 13:43 Allergies INDU Inhibitors Adverse Reaction (Intermediate, Verified 12/19/24 14:57) cough codeine Adverse Reaction (Intermediate, Verified 12/19/24 14:57) Other (See Comment) Dizziness Active Medications Generic Name Dose Route Start Last Admin Trade Name Freq PRN Reason Stop Dose Admin Acetaminophen 0 mg 01/07/25 14:00 01/09/25 22:41 Acetaminophen 325 Mg Tab PO 650 mg Q4H PRN PRN Administration Aspirin 81 mg 01/08/25 08:30 01/11/25 10:50 Aspirin E.C. 81 Mg Tabec PO 81 mg DAILY CONSTANTINE Administration Benzonatate 100 mg 01/09/25 00:30 01/11/25 10:50 Benzonatate 100 Mg Cap PO 100 mg TID FOR[facility] Administration Docusate Sodium 100 mg 01/07/25 14:00 01/07/25 23:03 Docusate Sodium 100 Mg Cap PO 100 mg TID PRN PRN Administration Empagliflozin 10 mg 01/09/25 09:30 01/11/25 11:28 Empaglifozin 10 Mg Tab PO Not Given DAILY FOR[facility], [facility]1983 Enoxaparin Sodium 30 mg 01/08/25 08:30 01/11/25 10:50 Enoxaparin 30 Mg/0.3 Ml Syr SC 30 mg DAILY [facility] Administration Furosemide 40 mg 01/09/25 08:30 01/11/25 09:54 Furosemide 40 Mg Tab PO Not Given BID@0830,1600 FOR[facility] Guaifenesin 600 mg 01/09/25 00:30 01/11/25 10:50 Guaifenesin 600 Mg Tabcr PO 600 mg BID FOR[facility] Administration Hydromorphone HCl 0.5 mg 01/08/25 03:30 01/10/25 05:54 Hydromorphone 2 Mg/Ml Syr IVP 0.5 mg Q2H PRN PRN Administration Sodium Chloride 500 mls @ 0 mls/hr 01/10/25 12:08 01/10/25 21:08 Saline 500ml Bag IV Infused PRN PRN Infusion As Directed Insulin Aspart 0 units 01/07/25 17:00 01/11/25 13:16 Insulin Aspart 300 Units/3 Ml Pen SC Not Given 0800,1200,1700 [facility] Protocol Melatonin 6 mg 01/10/25 20:00 01/10/25 19:18 Melatonin 3 Mg Tab PO 6 mg HS [facility] Administration Ondansetron HCl 4 mg 01/08/25 09:16 01/11/25 08:16 Ondansetron 4 Mg/2 Ml Vial IVP 4 mg Q6H PRN PRN Administration Sodium Chloride 0 ml 01/07/25 11:47 01/10/25 08:11 Normal Saline Flush 10 Ml Syr IVP 30 ml PRN PRN Administration Sodium Chloride 0 ml 01/07/25 20:00 01/11/25 09:54 Normal Saline Flush 10 Ml Syr IVP Not Given BID FOR[facility]LY [facility] IV IV Catheter Type [] Peripheral IV IV Catheter Type [Right Hand] Peripheral IV IV Catheter Type [Right Upper Saline Lock arm] IV Catheter Type [Left Upper Saline Lock arm] IV Catheter Gauge [] 20 IV Catheter Gauge [Right Hand] 20 IV Catheter Gauge [Right Upper 18 arm] IV Catheter Gauge [Left Upper 18 arm] Diagnostics 01/11/25 01/11/25 Range/Units 06:05 01:20 WBC 11.30 H (4.4-10.8) 10^3/uL RBC 5.70 H (3.93-5.22) 10^6/uL Hgb 13.3 (11.2-15.7) g/dL Hct 42.3 (36.0-46.0) % MCV 74 L (80-95) fL MCH 23.3 L (27.0-33.0) pg MCHC 31.4 L (32.0-36.0) % RDW 23.1 H (11.7-14.6) % Plt Count 382 (130-400) 10^3/uL MPV 9.9 (8.0-11.0) fL Sodium 125 L (136-145) mmol/L Potassium 4.3 D (3.5-5.1) mmol/L Chloride 88 L (98-107) mmol/L Carbon Dioxide 13.8 L (21.0-32.0) mmol/L Anion Gap 23.2 H (3-11) mmol/L BUN 31 H (7-18) mg/dL Creatinine 1.6 H (0.55-1.02) mg/dL Est GFR (CKD-EPI 2020) 32.00 (mL/min/1.73m2) Glucose 112 H (74-106) mg/dL Calcium 9.6 (8.5-10.1) mg/dL Troponin I 74 H* (<or=51) ng/L 01/07/25 16:38 Blood Culture - Preliminary Blood NO GROWTH 72 HOURS 01/07/25 12:13 Blood Culture - Preliminary Blood NO GROWTH 72 HOURS [id number] Documentation Fingerstick Glucose Start: 01/07/25 14:05 Freq: .ACHS Status: Active Protocol: Activity Type Activity Date Activity User E-sign Co-sign Detail Recorded Client Recorded Date Recorded By Document 01/11/25 12:57 BKG DAEMON(3) [id number] 01/11/25 12:57 BKG DAEMON(4) Intake and Output - 24 Hour Total 01/07/25 11:15 thru 01/11/25 13:18 Intake Total 6164.340 Output Total 6450 Balance -285.660 Weight 59 kg Intake: IV 3304.340 Oral 2860 Output: Urine 6350 Emesis 100 Other: Urine Color Yellow Urine Appearance Clear Stool Size Moderate Stool Characteristics Soft Formed Brown Emesis Description Bile Urinary Catheter Urinary Catheter Date of 01/07/25 Insertion [Urethral (Anaya)] Time of insertion [Urethral ( 12:42 Anaya)] Falls Risk Assessment History of Falls No History 01/11/25 11:44 Contributing Factors Confusion,Unstable 01/11/25 11:44 Ambulatory Aids Uses ambulatory device + 01/11/25 11:44 Tubes/Lines With any additional score 01/11/25 11:44 Gait Evaluation W/any additional score 01/11/25 11:44 Cognition Cognitive impairment 01/11/25 11:44 Fall Total Score 91 01/11/25 11:44 Level of Risk Maximum Risk 01/11/25 11:44 Problems (Last Updated 12/24/24 @ 13:30 by Iraida Goode NP) Advance care planning (Acute) Septic shock (Acute) Lactic acidosis (Acute) Hyperkalemia (Acute) Hyponatremia (Acute) Cardiogenic shock (Acute) Dementia (Chronic) Anasarca (Acute) Heart failure with reduced ejection fraction (Chronic) Ischemic cardiomyopathy (Chronic) Venous stasis ulcer with edema of lower leg (Chronic) Notes 01/11/25 11:29 Nursing Notes by Heather Cassidy patient AxOx4 throughout her time with this RN during shift, c/o n/v and had emesis x1 despite IV zofran, pt had hypotension this AM on assessment, MD Quiles notified via phone and ordered 1L NS bolus, monitored during and post bolus, continued to have hypotension and MD Quiles notified in rounds, given transfer to ICU order. Called report to Trinidad Oconnor RN in ICU and transferred pt around 1110. Darinel (natalia) notified of transfer and updated. Pt given AM meds with exception of lasix due to hypotension and jardiance due to lack of appetite and CBG of 88. Patient with anaya to gravity, AM care completed prior to transfer, new coccyx dsg placed. New PIV start to L wrist for access, denied pain this AM, all belongings sent with pt to ICU. Pt pending echo and cardiolgy recs due to poor EF of 20-25% on last echo and cardiogenic shock dx on admission. Nursing Note: Initialized on 01/11/25 11:29 - END OF NOTE 01/09/25 00:30 (created 01/09/25 00:40) Nursing Notes by Mike Buchanan Nursing Note: Pt has continuous cough that does not allow her to go to sleep, spoke to Dr Gandara, new orders given, see mar, pt will be medicated. Initialized on 01/09/25 00:40 - END OF NOTE 01/08/25 23:35 (created 01/08/25 23:54) Nursing Notes by Mike Buchanan Nursing Note: Pt continues to complain of lower extremity pain 8/10 due to swelling and venous stasis ulcers, new dressing applied, elevated on one pillow, pt medicated as per pt's request, bed in lowest position, call light within reach, will continue to monitor. Initialized on 01/08/25 23:54 - END OF NOTE 01/07/25 14:31 Nursing Notes by Jaylin Wilson Bhavana daughter [phone] Nursing Note: Initialized on 01/07/25 14:31 - END OF NOTE v v v v v v v v v Sending and/or Receiving Nurses: Please use comment section below to note any information pertinent to the patient hand-off not included above. Information / Comments: Report received from: Sen Cassidy RN All questions answered
--- NOTE | 2025-01-11 13:45 | W.PM.PROGNOT ---
Date of Service Date of service: 01/11/25 Time of Service: 13:45 Assessment and Plan Assessment and plan (1) Cardiogenic shock: Status: Acute Assessment and plan: - patient has remained hypotensive since admission, was previously in ICU on norepi while she was diuresed. - in addition, had elevated troponin initially although no trend from previous. will recheck now along with BMP, CBC, Mg - s/p 1L NS x 2, will give 3rd liter and restart norepi in ICU - unfortunately, we do not have any cardiology services available here today, echo not here until 01/13. - i did attempt to call primary contact (sister Arlet Arredondo), no answer. would like to understand how aggressive they would like care to be as I could make argument for transfer to tertiary care transfer vs palliation/hospice. will try again later (2) Heart failure with reduced ejection fraction: Status: Chronic Assessment and plan: - i do not think patient is in active CHF at this time, low BP and abnormal labs may be function of overdiuresis (of note, last admission, patient was discharged at 61kg and is 59kg today, so may be a little dry - as noted, will restart pressors and give some fluid. hold diuretics for now but will need to monitor (3) CKD stage 3a, GFR 45-59 ml/min: Status: Acute Assessment and plan: GENIE --> Cr up to 1.6, again could be a function of hypotension recheck stat and in AM BP control as noted above (4) Atrial fibrillation: Status: Chronic Assessment and plan: - appears to be new this admission, rates 100-110 - needs 2d echo as noted above - will change Lovenox from DVT ppx to treatment dosing - will check d-dimer stat, consider CTA (may be limited by GENIE) Subjective Subjective Interval history since last seen: Patient seen earlier today with nursing. Patient at the time was awake, answering question. Denied any complaints, told me she felt good. Specifically denied CP, SOB, REZA. Has been hypotensive throughout the day with some response to 1L NS bolus x 2 earlier today. Last BP documented 76/53. Patient was transferred back to ICU for potential reinitiation of pressors. I did visit patient again in ICU, she is a little more lethargic but still arousable to voice and denying any complaint. Exam Const General: no acute distress and not in acute distress Resp Effort & Inspection: normal respiratory effort Auscultation: clear to auscultation bilaterally, no rales, no rhonchi and no wheezes Cardio Rate: tachycardic Rhythm: abnormal rhythm Heart Sounds: S1 normal and S2 normal GI Inspection: normal to inspection Palpation: soft Percussion: normal to percussion Auscultation: normal bowel sounds Skin General skin exam: no rashes or lesions noted Objective Last Vital Signs Temp 36.3 C L 01/11/25 11:44 Pulse 93 H 01/11/25 13:06 Resp 26 H 01/11/25 13:06 BP 76/53 L 01/11/25 13:06 Pulse Ox 99 01/11/25 13:06 Laboratory Results - last 24 hr 01/11/25 01/11/25 01:20 06:05 WBC 11.30 H RBC 5.70 H Hgb 13.3 Hct 42.3 MCV 74 L MCH 23.3 L MCHC 31.4 L RDW 23.1 H Plt Count 382 MPV 9.9 Sodium 125 L Potassium 4.3 D Chloride 88 L Carbon Dioxide 13.8 L Anion Gap 23.2 H BUN 31 H Creatinine 1.6 H Est GFR (CKD-EPI 2020) 32.00 Glucose 112 H Calcium 9.6 Troponin I 74 H* Atrial Fibrillation Most Recent Cardiac Tests: Chest X-Ray 01/07/25 Time Spent with Patient Time Spent with Patient: 35-49 minutes Time was spent: preparing to see the patient(eg.review tests), obtaining and/or reviewing separately otained hiistory, ordering medications,tests, procedures, indepentently interpreting results and care coordination
[2025-01-11] MEDS: Norepinephrine in D5W 8 MG/250 ML BAG 9.375 MG IV (14:42)
[2025-01-11] MEDS: Normal Saline Flush 10 ML SYR IVP ×3 (14:46→23:48)
[2025-01-11 15:41] LABS: Abs Immature Grans 0.16 10^3/uL (0.0-0.06); HCT 44.5 % (36.0-46.0); HGB 13.4 g/dL (11.2-15.7); MCH 22.9 pg (27.0-33.0); MCHC 30.1 % (32.0-36.0); MCV 76 fL (80-95); MPV 9.7 fL (8.0-11.0); Platelet Count 396 10^3/uL (130-400); RBC 5.84 10^6/uL (3.93-5.22); RDW 23.6 % (11.7-14.6); RDW-SD 60.8 fL; WBC 14.09 10^3/uL (4.4-10.8)
[2025-01-11 15:59] LABS: D-Dimer 1910 ng/mlFEU (<500)
[2025-01-11 16:16] LABS: Anion Gap 27.3 mmol/L (3-11); BUN 34 mg/dL (7-18); CO2 12.7 mmol/L (21.0-32.0); CREATININE 1.7 mg/dL (0.55-1.02); Calcium 9.6 mg/dL (8.5-10.1); Chloride 90 mmol/L (98-107); Estimated GFR 29.76 (mL/min/1.73m2); Glucose 104 mg/dL (74-106); Magnesium 1.7 mg/dL (1.8-2.4); Potassium 4.2 mmol/L (3.5-5.1); Sodium 130 mmol/L (136-145)
[2025-01-11 16:27] LABS: Troponin I 96 ng/L (<or=51)
[2025-01-11 16:45] LABS: Absolute Eosinophil Count 1.41 10^3/uL (0.0-0.7); Absolute Lymphocyte Count 1.69 10^3/uL (1.2-3.4); Absolute Monocyte Count 0.56 10^3/uL (0.1-0.8); Absolute Neutrophil Count 10.43 10^3/uL (1.2-6.7); Anisocytosis 1+; Atypical Lymphocytes % 3 %; Bands % 0 %; Diff Comment Manual Differential
[2025-01-11] MEDS: Heparin in 0.45% NaCl 25,000 UNIT/250 ML BAG 10 UNIT IVINF (17:40)
[2025-01-11] MEDS: Melatonin 3 MG TAB 6 MG PO (20:38)
[2025-01-11] MEDS: HYDROmorphone 2 MG/ML SYR 0.5 MG IVP (23:48)
[2025-01-12] VITALS (40 sets, daily range): BP systolic 48–103; BP diastolic 23–78; PULSE 45–160; RESP 16–30; TEMP 36.5; O2SAT 71–100
[2025-01-12 00:24] LABS: PTT Activated > 155.0 sec (20.6-30.2)
[2025-01-12] MEDS: ACETAMINOPHEN 1,000 MG/100 ML BAG 400 MG IVPB ×2 (01:53→10:54)
[2025-01-12] MEDS: MAGNESIUM SULFATE 2 GM/50 ML BAG IV_INF (02:01)
[2025-01-12] MEDS: Normal Saline 500 ML IV (05:12)
[2025-01-12 05:40] LABS: HCT 42.8 % (36.0-46.0); MCH 23.2 pg (27.0-33.0); MCHC 30.4 % (32.0-36.0); MCV 76 fL (80-95); Platelet Count 463 10^3/uL (130-400); RBC 5.61 10^6/uL (3.93-5.22); RDW 23.4 % (11.7-14.6); RDW-SD 60.6 fL; WBC 21.63 10^3/uL (4.4-10.8)
[2025-01-12 06:15] LABS: ALT 459 U/L (14-59); Alkaline Phosphatase 164 U/L (46-116); Anion Gap 26.4 mmol/L (3-11); BUN 38 mg/dL (7-18); Bilirubin, Total 7.29 mg/dL (0.2-1.0); CO2 10.6 mmol/L (21.0-32.0); CREATININE 1.8 mg/dL (0.55-1.02); Calcium 9.5 mg/dL (8.5-10.1); Chloride 92 mmol/L (98-107); Estimated GFR 27.78 (mL/min/1.73m2); Glucose 79 mg/dL (74-106); Potassium 4.6 mmol/L (3.5-5.1); Sodium 129 mmol/L (136-145); Total Protein 7.4 g/dL (6.4-8.2)
[2025-01-12 06:16] LABS: AST 1131 U/L (15-37)
[2025-01-12 06:21] LABS: Magnesium 2.4 mg/dL (1.8-2.4)
[2025-01-12 06:34] LABS: PTT Activated 31.7 sec (20.6-30.2)
[2025-01-12] MEDS: Norepinephrine in D5W 8 MG/250 ML BAG 46.875 MG IV (06:43)
[2025-01-12] MEDS: Dextrose 50%-Water 25 GM/50 ML SYR IVP (08:02)
[2025-01-12] MEDS: MORPHine 2 MG/ML SYR IVP ×2 (09:10→10:54)
[2025-01-12] MEDS: Normal Saline Flush 10 ML SYR IVP (09:11)
--- NOTE | 2025-01-12 09:16 | CMPROGNOTE_ITS ---
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 Provider did meet with Latanya's daughter and grandson, her POA, and reached this plan. Latanya passed peacefully surrounded by family late this morning. CM offered sincere condolences to the family. Social Determinants of Health Screening Will the Patient Participate in the Screening?: Unable to obtain
--- NOTE | 2025-01-12 15:24 | CHAPLAIN ---
Latanya was changed to comfort care this morning and a few hours later. There were several family members in the room with her. I offered a prayer for Ltaanya with the family. Latanya is [employer], but the digital product manager in [facility] is on vacation this week so we weren't able to arrange for a digital product manager to be here for Latanya. I let the family know this.
--- NOTE | 2025-01-12 17:36 | W.PM.DDS ---
Date of service: 01/12/25 Time of Service: 17:36 Discharge Plan Disposition Patient Disposition: Condition: Poor Discharge Details Reason For Visit: Septic shock, acute exacerbation CHF Admit Date/Time: 01/07/25 14:02 Admit Provider: Rohan Whipple Attending Provider: Rohan Whipple [facility] Hospital Course: Per H+P: 84yo female with PMH IDDM, CKD, dementia, HTN, and HFrEF who presents to the ED with complaints of cough and fatigue. Patient family had stated that for the last week or so she has been more week, has had intermittent episodes of vomiting, decrease oral intake all in addition to reported chronic diarrhea. She was suppose to see her PCP today but was unable to get her into the car due to her weakness. They state that just a week ago she was independently ambulating around her home and make meals for herself. They deny any fevers, chills, headache, lightheadedness, dizziness, sputum production, or dysuria. In the ED the patient was noted to be ill appearing with HRs in the low 100's, low blood pressures and MAP between 59-61, RR in the high 20's, and appearing fluid overloaded on exam with bilateral LE edema. CBC showed WBC 12.6, pBNP was 16501 (baseline ~7K), Na 128, K 5.2, Cr 1.5 (baseline 1.1-1.3), and LA of 7. Additionally, initial temp was noted to be 94.0oF, but this may be secondary to the time family spent trying to get the patient into the car when attempting to bring her to her PCP appointment. CXR showed no acute findings and head CT was also negative. However, given positive SIRS elevated lactic acid she was started on zanc and zosyn. She was also given 80mg IV lasix for presumed cardiogenic shock, and was also placed on IV levophed. At which time emergency room physican paged hospitalist for admission of a patient with likely cardiogenic +/- septic shock requiring IV pressors and aggressive IV diuretics. Of note, patient was here at [facility] from 12/11-11/30/2024, and again 12/19-12/22/2024 for exacerbation of CHF and UTI. At that time, discharge recommendation was for patient to go to [facility]. However, despite strong recommendations from staff including myself, PT, and Care Management, both the patient and her decision maker (her grandson who does not live in the area) declined [facility] placement and continues to take the patient home only for her to fail and return to the hospital anywhere from 1 day to 14 days later. Patient was initially aggresively diuresed as she had significant fluid retention per documentation. Given IV lasix along with her PO dosing of spironolactone. Was started on levophed for hypotension. PAtient's BP did improve somewhat but remained quite low. She did have some recovery of her BP and levophed was discontinued and patient was transferred out of ICU on 01/10. However, once again worsened and was readmitted t ICU in AM of 01/11. Neosynephrine was started for BP support as patient had SBP 60-80s. Worsening mentation noted as well. I did suspect she was dehydratedf from overdiuresis and gave several boluses but BP continued to worsen with titration of pressors. 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 Home Meds and New Rx's Prescriptions: No Action dapagliflozin propanediol [Farxiga] 10 mg tablet 10 mg PO DAILY Qty: 90 3RF furosemide 20 mg tablet 20 mg PO DAILY Qty: 90 3RF atorvastatin [Lipitor] 80 mg tablet 80 mg PO QHS Qty: 90 3RF losartan 25 mg tablet 25 mg PO DAILY Qty: 90 3RF metformin 1,000 mg tablet 1,000 mg PO BID Qty: 180 3RF potassium chloride 20 mEq packet 20 meq PO DAILY Qty: 100 3RF spironolactone 25 mg tablet 25 mg PO DAILY Qty: 90 3RF aspirin 81 mg tablet,delayed release (DR/EC) 81 mg PO DAILY Qty: 90 3RF metoprolol succinate 25 mg tablet extended release 24 hr 25 mg PO DAILY Qty: 90 3RF insulin glargine-yfgn 100 unit/mL (3 mL) insulin pen 5 unit subcut DAILY Qty: 15 3RF (DME) blood-glucose meter Kit See Rx Instructions .MEDSUPPLY Qty: 1 2RF Rx Instructions: Check blood sugar twice a day (DME) pen needle, diabetic [BD Ultra-Fine Short Pen Needle] 31 gauge x 5/16 needle See Rx Instructions .MEDSUPPLY Qty: 100 3RF Rx Instructions: Use with pen daily (DME) Accu-Chek Guide test strips Strip See Rx Instructions .Route Qty: 200 3RF Rx Instructions: Check blood sugar twice a day (DME) lancets [OneTouch Delica Plus Lancet] 33 gauge misc See Rx Instructions .MEDSUPPLY Qty: 200 3RF Rx Instructions: Check blood sugar twice a day ondansetron 4 mg Tablet,Disintegrating 4 mg PO Q8H PRN PRNQty: 10 0RF Discharge Orders Discharge Orders: Discharge Order (Routine); Ordered 01/12/25 Ordered By: Cheyanne Man Discharge Data Cause of : Cardiomyopathy associated with another disorder Discharge Date/Time-TO BE ENTERED AT DEPARTURE: 01/12/25 12:18 Discharge Comment: Discharge Physician: Fransico Quiles Discharge Sum: Prov Provider Consults: 01/09/25 08:54 Wound Care Consult [CONS] Routine Consultation Status:: Follow-up needed Clarification:: Manage/follow per spec. Reason for consult:: sacral wound Discharge Sum: Diag PCOD Cause of : Cardiomyopathy associated with another disorder Contributing Factors (1) Cardiogenic shock: (2) Heart failure with reduced ejection fraction: (3) CKD stage 3a, GFR 45-59 ml/min: (4) Atrial fibrillation: Discharge Sum: Summary Date and Time Admission Date: 01/07/25 Date of : 01/12/25 Time of : 12:18 Summary Details: Per family request, care was withdrawn and patient passed peacefully. Multiple family members present. Exam revealed no heart sounds. TOD 12:18, cause of noted as acute respiratory failure due to ischemic cardiomyopathy. 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
== END 2025-01-12 12:18 | disposition expired | DRG 291 ==
LOC: ER 15:14 → ICU 15:53 → MS 01-10 12:35 → ICU 01-11 10:59
PROVIDERS: Emergency Medicine; Family Medicine; Admitting Provider Family Medicine; Emergency Provider Emergency Medicine; PCP Nurse Practitioner Family; Responsible Provider Hospitalist; Visit Provider Family Medicine
DX: I50.23 Acute on chronic systolic (congestive) heart failure; R65.11 Systemic inflammatory response syndrome (SIRS) of non-infectious origin with acute organ dysfunction; E87.20 Acidosis, unspecified; I13.0 Hypertensive heart and chronic kidney disease with heart failure and stage 1 through stage 4 chronic kidney disease, or unspecified chronic kidney disease; E87.1 Hypo-osmolality and hyponatremia; L97.818 Non-pressure chronic ulcer of other part of right lower leg with other specified severity; L97.828 Non-pressure chronic ulcer of other part of left lower leg with other specified severity; N17.9 Acute kidney failure, unspecified; Z59.12 Inadequate housing utilities; R57.0 Cardiogenic shock; E87.5 Hyperkalemia; N18.31 Chronic kidney disease, stage 3a; I48.91 Unspecified atrial fibrillation; Z51.5 Encounter for palliative care; E11.22 Type 2 diabetes mellitus with diabetic chronic kidney disease; F03.90 Unspecified dementia, unspecified severity, without behavioral disturbance, psychotic disturbance, mood disturbance, and anxiety; E11.319 Type 2 diabetes mellitus with unspecified diabetic retinopathy without macular edema; Z79.4 Long term (current) use of insulin; I25.5 Ischemic cardiomyopathy; E78.5 Hyperlipidemia, unspecified; Z79.84 Long term (current) use of oral hypoglycemic drugs; I83.018 Varicose veins of right lower extremity with ulcer other part of lower leg; I83.028 Varicose veins of left lower extremity with ulcer other part of lower leg; E86.0 Dehydration; T68.XXXA Hypothermia, initial encounter; X31.XXXA Exposure to excessive natural cold, initial encounter; Z59.89 Other problems related to housing and economic circumstances; Z73.9 Problem related to life management difficulty, unspecified
CPT/HCPCS: 00123; 36415; 51702; 80048; 80053; 84145; 85027; 87040; 93005; 96365; 96366; 96367; 96375; 99291; 70450; 71045; 80202; 81003; 81015; 82140; 83605; 83735; 83880; 84484; 85025; 85379; 85610; 85730; 93010; 99223; 99233; 99239; J0131; J0692; J1171; J1644; J1650; J1815; J1940; J2270; J2405; J3370; J3372; J3470; J3475; J3480